=== PATIENT | female | born 1950 | race Caucasian/White ===

== ENCOUNTER → 2019-01-30 | Outpatient (CLI) | payer MEDICARE, OTHER, SELFPAY ==
--- NOTE | 2019-01-30 10:25 | BI_ITS ---
MAMMOGRAPHY - BILATERAL SCREENING REASON FOR EXAM: Female, 68 years old. Routine annual screening examination. PERTINENT HISTORY: Non-contributory. TECHNIQUE: Digital bilateral breast mildred (3D mammographic acquisition) in the CC and MLO projections. 2-D mediolateral oblique (MLO) and craniocaudad (CC) views of both breasts were obtained. CAD: Full Field Digital Mammography with Computer Added Detection was performed. COMPARISON: Comparison is made with prior examination dated November 24, 2017. FINDINGS: Breast Composition: The breasts are heterogeneously dense, which may obscure small masses. There are no dominant masses or suspicious calcifications. No other significant abnormalities are identified. BI/SCREEN MAMM (CAD) W/MILDRED BILAT IMPRESSION: Stable bilateral screening mammogram. Yearly follow-up mammogram recommended. (A) ASSESSMENT CATEGORY: BIRADS Category 1: Negative. A letter regarding these results will be sent to the patient by the facility within 30 days. Approximately 10% of breast cancers are not detected by mammography. A normal mammogram should not delay biopsy of a clinically suspicious abnormality. [id number] Electronically Signed: Miller Charles, at 12:37 EDT , Service support ,
== END | disposition home or self-care (01) ==
LOC: OPBI 10:14
PROVIDERS: Family Provider Family Medicine; PCP Family Medicine; Referring Provider Nurse Practitioner Women's Health; Visit Provider Nurse Practitioner Women's Health
DX: Z12.31 Encounter for screening mammogram for malignant neoplasm of breast (principal)
CPT/HCPCS: 77063; 77067

== ENCOUNTER → 2020-01-31 12:05 | Outpatient (CLI) | payer MEDICARE, OTHER, SELFPAY ==
[2019-01-30 10:51] VITALS: BMI 34.8
[2020-01-31 11:56] VITALS: BMI 34.8
--- NOTE | 2020-01-31 12:07 | BI_ITS ---
MAMMOGRAPHY - BILATERAL SCREENING REASON FOR EXAM: Female, 69 years old. Routine annual screening examination. PERTINENT HISTORY: Non-contributory. TECHNIQUE: Digital bilateral breast mildred (3D mammographic acquisition) in the CC and MLO projections. 2-D mediolateral oblique (MLO) and craniocaudad (CC) views of both breasts were obtained. CAD: Full Field Digital Mammography with Computer Added Detection was performed. COMPARISON: Comparison is made with prior examination dated 01/30/2019. FINDINGS: Breast Composition: The breasts are heterogeneously dense, which may obscure small masses. There are no dominant masses or suspicious calcifications. No other significant abnormalities are identified. There has been no significant change since the prior study. BI/SCREEN MAMM (CAD) W/MILDRED BILAT IMPRESSION: Stable bilateral screening mammogram. Yearly follow-up mammogram recommended. (A) ASSESSMENT CATEGORY: BIRADS Category 1: Negative. A letter regarding these results will be sent to the patient by the facility within 30 days. Approximately 10% of breast cancers are not detected by mammography. A normal mammogram should not delay biopsy of a clinically suspicious abnormality. [id number] Electronically Signed: Miller Charles, at 13:18 EDT , Service support ,
== END ==
PROVIDERS: PCP Family Medicine; Referring Provider Nurse Practitioner Women's Health; Visit Provider Nurse Practitioner Women's Health
DX: Z12.31 Encounter for screening mammogram for malignant neoplasm of breast (principal)
CPT/HCPCS: 77063; 77067

== ENCOUNTER → 2021-02-14 11:58 | Outpatient (CLI) | payer MEDICARE, OTHER, SELFPAY ==
[2020-01-31 11:56] VITALS: BMI 34.8
--- NOTE | 2021-02-14 12:10 | BI_ITS ---
MAMMOGRAPHY - BILATERAL SCREENING REASON FOR EXAM: Female, 70 years old. Routine annual screening examination. PERTINENT HISTORY: Non-contributory. TECHNIQUE: Digital bilateral breast mildred (3D mammographic acquisition) in the CC and MLO projections. 2-D mediolateral oblique (MLO) and craniocaudad (CC) views of both breasts were obtained. CAD: Full Field Digital Mammography with Computer Added Detection was performed. COMPARISON: Comparison is made with prior examination dated 01/31/2020 and 01/30/2019. FINDINGS: Breast Composition: The breasts are heterogeneously dense, which may obscure small masses. There are no dominant masses or suspicious calcifications. No other significant abnormalities are identified. There has been no significant change since the prior study. BI/SCRN MAMM (CAD)W/MILDRED BILAT IMPRESSION: Stable bilateral screening mammogram. Yearly follow-up mammogram recommended. (A) ASSESSMENT CATEGORY: BIRADS Category 1: Negative. A letter regarding these results will be sent to the patient by the facility within 30 days. Approximately 10% of breast cancers are not detected by mammography. A normal mammogram should not delay biopsy of a clinically suspicious abnormality. [id number] Electronically Signed: Miller Charles MD at 13:37 EDT , Service support ,
== END ==
PROVIDERS: PCP Family Medicine; Referring Provider Nurse Practitioner Women's Health; Visit Provider Nurse Practitioner Women's Health
DX: Z12.31 Encounter for screening mammogram for malignant neoplasm of breast (principal)
CPT/HCPCS: 77063; 77067

== ENCOUNTER 2021-04-24 18:24 | Emergency (ER) | payer MEDICARE, OTHER, SELFPAY ==
[2021-04-24 18:25] VITALS: BP 129/79; PULSE 93; RESP 18; TEMP 37.9; O2SAT 95; BMI 32.5
--- NOTE | 2021-04-24 18:36 | RAD_ITS ---
STUDY: X-RAY CHEST REASON FOR EXAM: Female, 71 years old. Fever. Congestion. Headache. UTI symptoms. Generalized weakness and achiness. Dizziness since Wednesday. TECHNIQUE: Single AP portable view of the chest. COMPARISON: None. FINDINGS: The lungs are well expanded. There is scarring in the bilateral lung apices with bronchiectasis. There is a 7 mm rounded density in the left lung base thought to be a calcified granuloma. There is no demonstrated pleural abnormality. Normal size heart. There is right hilar calcified lymphadenopathy. Normal visualized pulmonary arteries. There is atherosclerotic calcification of the aortic arch with tortuosity. Normal visualized thoracic spine. Normal visualized ribs, clavicles, and shoulders. There is no demonstrated abnormality of the visualized soft tissue structures of the upper abdomen. RAD/Chest 1 View IMPRESSION: Evidence of old granulomatous disease with bilateral apical scarring and bronchiectasis. Electronically Signed: aMnn Conn DO at 19:35 EDT Tel [phone], Service support ,
[2021-04-24 19:12] LABS: Mucous, Urine 0 SEEN /hpf (<or=2+)
[2021-04-24 19:15] LABS: Color, Urine Yellow (Yellow); Glucose, Dipstick Normal (Normal); Ketone-Dipstick Negative (Negative); Leukocyte Esterase-Dipstick 500 /ul (Negative); Nitrite-Dipstick Negative (Negative); Occult Blood-Urine 25 /ul (Negative); Protein-Dipstick 500 mg/dl (Negative); Urine Bilirubin Dipstick Negative (Negative); Urine Clarity Clear (Clear); Urine Urobilinogen 4 mg/dl (Normal)
[2021-04-24 19:32] LABS: Bacteria 2+ /hpf (None Seen); Red Blood Cells-Urine 0-5 SEEN /hpf (0-5); White Blood Cells 25-50 SEEN /hpf (0-5)
[2021-04-24 19:33] LABS: Squamous Epithelial Cells - UA 0-5 SEEN /hpf (5-10)
[2021-04-24 20:43] VITALS: BP 127/65; PULSE 83; RESP 17; O2SAT 97
[2021-04-24 21:38] LABS: Absolute Lymphocyte Count 1.25 X10^3/uL (0.83-4.51); Absolute Neutrophil Count 11.4 X10^3/uL (2.0-7.7); Basophil# 0.06 X10^3/uL; Basophil% 0.4 % (0-1); Eosinophil# 0.12 X10^3/uL; Eosinophils% 0.8 % (0-5); Hematocrit 40.2 % (37-47); Hemoglobin 13.6 g/dL (12.0-15.0); Lymphocyte # 1.25 X10^3/ul (0.83-4.51); Lymphocyte % 8.5 % (19-41); Mean Corp Hgb Conc 33.8 g/dL (32-36); Mean Corpuscular Hgb 28.9 pg (27.0-32.0); Mean Corpuscular Volume 85.4 fL (81-99); Mean Platelet Vol. 10.4 fl (6.2-12.0); Monocyte# 1.69 X10^3/uL; Monocyte% 11.5 % (0-10); NRBC Flagged by Analyzer 0 % (0-5); Neutrophil # 11.41 X10^3/uL (2.7-7.7); Neutrophil % 77.8 % (47-70); POSITIVE DIFFERENTIAL YES; Platelet Count 351 K/mm3 (150-450); RBC Distribution Width CV 12.9 % (11.6-14.6); RBC Distribution Width SD 40.5 fl (35.1-43.9); Red Blood Count 4.71 M/mm3 (4.2-5.4); White Blood Count 14.7 K/mm3 (4.4-11.0)
[2021-04-24] MEDS: 0.9% Normal Saline 1,000 ML 999 ML IV (21:42)
[2021-04-24] MEDS: Ketorolac 15 MG/ML Vial IV (21:42)
[2021-04-24] MEDS: Acetaminophen 500 MG Tablet 1000 MG PO (21:43)
[2021-04-24 21:45] LABS: Anion Gap 12 (5-15); BUN 16 mg/dL (7-18); BUN/Creat Ratio 14.7 RATIO (10-20); Calcium,Total 8.4 mg/dL (8.5-10.1); Chloride 87 mmol/L (98-107); Creatinine, Serum 1.09 mg/dL (0.55-1.02); Differential Indicated SCAN CRITERIA MET; EST Glomerular Filtration Rate 53 mL/min (>60); Est Glom Filt Rate - Afr Amer 64 mL/min (>60); Estimated Creatinine Clearance 43.21 ml/min; Glucose 127 mg/dL (74-106); Potassium 2.9 mmol/L (3.5-5.1); Sodium Level 125 mmol/L (136-145)
[2021-04-24 22:05] LABS: Differential Comment SCANNED
[2021-04-24 22:11] VITALS: BP 115/60; PULSE 70; RESP 18; O2SAT 92
[2021-04-24] MEDS: Ceftriaxone 1 GM/50 ML BAG IV (22:15)
--- NOTE | 2021-04-24 22:33 | EX.ED.DYSGE1 ---
HPI History of Present Illness Chief Complaint: Fever Narrative Narrative: Patient is a 71-year-old female who states for the past 4 to 5 days she has had subjective fevers and chills with nausea pressure with urination myalgias and headache. She denies any known sick contacts or concern for Covid but states that her symptoms seem to be worsening daily and secondary to this comes in for evaluation [facility] Medical History (Updated 04/24/21 @ 22:[address] Gordon Jimenez, DO) Heartburn History of pneumonia Hot flashes not due to menopause HTN (hypertension), benign Hypothyroid Indigestion Joint pain Phlebitis, superficial Sarcoidosis Second degree uterine prolapse Home Medications albuterol sulfate 90 mcg/actuation aerosol inhaler 2 puff INHALATION Q6H PRN 12/31/17 [History Last Taken Unknown] chlorthalidone 25 mg tablet 25 mg PO QDAY 12/31/17 [History Last Taken Unknown] levothyroxine 50 mcg capsule 50 mcg PO QDAY 12/31/17 [History Last Taken Unknown] omeprazole 40 mg capsule,delayed release 40 mg PO QDAY 12/31/17 [History Last Taken Unknown] tobramycin 0.3 % eye drops 2 drp OPHTHALMIC Q4H 12/31/17 [History Last Taken Unknown] estradiol 0.05 mg-norethindrone 0.14 mg/24 hr semiwkly transderm patch 1 patch TRANSDERMAL .COMPLEX #8 patch 01/31/20 [Rx Last Taken Unknown] amlodipine 2.5 mg PO DAILY 04/24/21 [History Last Taken Unknown] potassium chloride 10 meq PO DAILY #5 cap 04/24/21 [Rx Last Taken Unknown] sulfamethoxazole-trimethoprim [Bactrim DS] 1 tab PO BID #20 tab 04/24/21 [Rx Last Taken Unknown] Allergy/AdvReac Type Severity Reaction Status Date / Time No Known Allergies Allergy Verified 04/24/21 18:24 Family History Mother Cancer Thyroid Cancer Diabetes Hypertension Father , Age 33 Complications from gastric surgery No problems noted. Sister CHF (congestive heart failure) Rheumatoid arthritis Brother Myocardial infarction Hypertension CAD (coronary artery disease) Surgical History H/O breast biopsy H/O dilation and curettage H/O laparoscopic adjustable gastric banding H/O ovarian cystectomy H/O tubal ligation History of cholecystectomy History of lung biopsy History of tonsillectomy Varicose veins of bilateral lower extremities with pain Social History (Updated 01/31/20 @ 13:14 by Margy Marroquin NP, [employer]) [facility]: [facility] number of children: 3 current occupational status: retired 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 [employer] current occupational exposures/hazards: No pets and animals: No history of recent travel: No Smoking Status: Never smoker second hand exposure: No alcohol intake: never substance use type: does not use seatbelt use: always do you feel safe at home: Yes additional social history: ROS ROS ED Constitutional Constitutional ED: Reports chills, fever(s) and subjective ENT ENT ED: Denies sore throat Cardiovascular Cardiovascular: Denies chest pain Respiratory/Chest Respiratory/Chest: Denies cough or dyspnea Gastrointestinal Gastrointestinal: Reports nausea; Denies abdominal pain, diarrhea or vomiting Genitourinary Genitourinary ED: Reports dysuria Musculoskeletal Musculoskeletal: Reports myalgias Integumentary Denies rash Neurologic Neurologic: Reports headache(s) Hematologic/Lymphatic Hematologic/Lymphatic: Denies easy bleeding or easy bruising EXAM Physical Exam Const Vital Signs: 04/24/21 18:25 04/24/21 20:38 04/24/21 20:43 Temperature 100.2 F H Temperature Source Temporal Pulse Rate 93 83 Respiratory Rate 18 17 Respiratory Effort Normal Non-Labored Respiratory Pattern Normal Blood Pressure 129/79 H 127/65 H Blood Pressure Mean 95 85 Pulse Ox 95 97 Oxygen Delivery Method Room Air Room Air 04/24/21 22:11 Temperature Temperature Source Pulse Rate 70 Respiratory Rate 18 Respiratory Effort Respiratory Pattern Blood Pressure 115/60 Blood Pressure Mean 78 Pulse Ox 92 Oxygen Delivery Method Room Air Positive well nourished and well developed General Appearance ED: well developed HEENT Reports dry mucous membranes Mouth ED: Yes dry mucous membranes Mouth: dry mucous membranes Eyes PERRL and EOMs intact bilaterally Neck supple Resp normal respiratory effort and clear to auscultation bilaterally Cardio regular rate and regular rhythm GI non-distended GI Narrative: Mild pain with palpation in the suprapubic region otherwise no voluntary guarding or rigidity Auscultation: normoactive bowel sounds Palpation: soft Back/Spine Back/Spine Narrative: Patient has CVA tenderness around the right side Extremity normal to inspection Neuro oriented x3 and CN's II-XII intact bilaterally Sensorium / Orientation: alert Motor Exam: strength 5/5 throughout Psych mental status grossly normal Skin no rashes or lesions noted MDM MDM MDM Narrative Medical decision making narrative: Patient presented to the ER with a low-grade fever and otherwise had a soft nonsurgical abdomen. She reported some pressure with urination as well as right flank pain and with these concerns and the fever patient may have pyelonephritis so basic work-up was obtained. Chest x-ray revealed no obvious infiltrate Covid test is negative. Urine sample is positive for infection and with her flank pain this does qualify for pyelonephritis. Patient's white count is elevated at 14.7 but her lactic acid is normal and her blood pressure has been normotensive. Therefore at this time I do not feel there is a need for admission and she will be given Rocephin in the ER and placed on Bactrim but can be discharged pending urine culture at this time. Lab Data Attestation: I reviewed the patient's lab results. Labs: Laboratory Results - last 24 hr 04/24/21 04/24/21 04/24/21 20:35 20:35 20:35 WBC 14.7 H RBC 4.71 Hgb 13.6 Hct 40.2 MCV 85.4 MCH 28.9 MCHC 33.8 RDW Std Deviation 40.5 RDW Coeff of Janet 12.9 Plt Count 351 MPV 10.4 Immature Gran % (Auto) 1.000 H Neut % (Auto) 77.8 H Lymph % (Auto) 8.5 L [place] % (Auto) 11.5 H Eos % (Auto) 0.8 Baso % (Auto) 0.4 Absolute Neuts (auto) 11.4 H Absolute Lymphs (auto) 1.25 Nucleated RBC % 0 Differential Comment SCANNED Diff Path Review May foll Sodium 125 L Potassium 2.9 L Chloride 87 L Carbon Dioxide 26.0 Anion Gap 12 BUN 16 Creatinine 1.09 H Estim Creat Clear Calc 43.21 Est GFR (MDRD) Af Amer 64 Est GFR (MDRD) Non-Af 53 L BUN/Creatinine Ratio 14.7 Glucose 127 H Lactic Acid 1.0 Calcium 8.4 L Urine Color Urine Clarity Urine pH Ur Specific [place] Urine Protein Urine Glucose (UA) Urine Ketones Urine Occult Blood Urine Nitrite Urine Bilirubin Urine Urobilinogen Ur Leukocyte Esterase Urine RBC Urine WBC Ur Squamous Epith Cells Urine Bacteria Urine Mucus 04/24/21 Unknown WBC RBC Hgb Hct MCV MCH MCHC RDW Std Deviation RDW Coeff of Janet Plt Count MPV Immature Gran % (Auto) Neut % (Auto) Lymph % (Auto) [place] % (Auto) Eos % (Auto) Baso % (Auto) Absolute Neuts (auto) Absolute Lymphs (auto) Nucleated RBC % Differential Comment Diff Path Review Sodium Potassium Chloride Carbon Dioxide Anion Gap BUN Creatinine Estim Creat Clear Calc Est GFR (MDRD) Af Amer Est GFR (MDRD) Non-Af BUN/Creatinine Ratio Glucose Lactic Acid Calcium Urine Color Yellow Urine Clarity Clear Urine pH 7.0 Ur Specific [place] 1.010 Urine Protein 500 H Urine Glucose (UA) Normal Urine Ketones Negative Urine Occult Blood 25 H Urine Nitrite Negative Urine Bilirubin Negative Urine Urobilinogen 4 H Ur Leukocyte Esterase 500 H Urine RBC 0-5 SEEN Urine WBC 25-50 SEEN Ur Squamous Epith Cells 0-5 SEEN Urine Bacteria 2+ Urine Mucus 0 SEEN Radiography Diagnostic Testing: Clinical Impression(s) from Imaging Studies Chest X-Ray 04/24/21 18:36 IMPRESSION: Evidence of old granulomatous disease with bilateral apical scarring and bronchiectasis. Electronically Signed: Mann Conn DO at 19:35 EDT Tel [phone], Service support , Discharge Plan Triage Chief Complaint: Fever ED Provider: Gordon Jimenez Dx/Rx/DC Orders Clinical Impression: Acute pyelonephritis, Acute hypokalemia Instructions: ED Hypokalemia, ED Pyelonephritis, Female (Adult) Prescriptions: New sulfamethoxazole-trimethoprim [Bactrim DS] 800-160 mg tablet 1 tab PO BID Qty: 20 RF: 0 potassium chloride 10 mEq capsule, extended release 10 meq PO DAILY Qty: 5 RF: 0 No Action albuterol sulfate [ProAir HFA] 90 mcg/actuation HFA aerosol inhaler 2 puff INHALATION Q6H PRN (Reason: sob) RF: 0 chlorthalidone 25 mg tablet 25 mg PO QDAY RF: 0 levothyroxine 50 mcg capsule 50 mcg capsule 50 mcg PO QDAY RF: 0 omeprazole 40 mg capsule,delayed release(DR/EC) 40 mg PO QDAY RF: 0 tobramycin 0.3 % drops 2 drp OPHTHALMIC Q4H RF: 0 CombiPatch 0.05-0.14 mg/24 hr patch semiweekly 1 patch Transdermal .COMPLEX Qty: 8 RF: 12 amlodipine 2.5 mg tablet 2.5 mg PO DAILY RF: 0 Primary Care Provider: Akhil Martines Referrals: Akhil Martines MD [Primary Care Provider] - Disposition Disposition: Home, Self Care
[2021-04-24] MEDS: Potassium Chloride Oral Tablet 20 MEQ 40 MEQ PO (22:48)
[2021-04-24 23:28] VITALS: BP 131/63; PULSE 69; RESP 16; O2SAT 95
[2021-04-25 13:22] LABS: Pathologist Review Reviewed
== END 2021-04-24 23:32 | disposition home or self-care (01) ==
PROVIDERS: Emergency Provider Emergency Medicine; PCP Family Medicine
DX: N10 Acute pyelonephritis (principal); E87.6 Hypokalemia; I10 Essential (primary) hypertension; E03.9 Hypothyroidism, unspecified; Z79.899 Other long term (current) drug therapy
CPT/HCPCS: 71045; 80048; 81001; 83605; 85025; 87077; 87086; 87088; 87186; 87426; 96361; 96365; 96375; 99284; J7030; A4216

== ENCOUNTER 2021-05-23 14:48 | Emergency (ER) | payer MEDICARE, OTHER, SELFPAY ==
[2021-05-23 14:51] VITALS: BP 153/83; PULSE 86; RESP 16; TEMP 35.8; O2SAT 99; BMI 32.4
--- NOTE | 2021-05-23 16:07 | VDLE_ITS ---
Reason For Study: Swelling RIGHT GSV is normal. CFV is compressible, spontaneous, phasic, competent and demonstrates normal augmentation. FV is compressible, spontaneous, phasic, competent and demonstrates normal augmentation. POP V is compressible, spontaneous, phasic, competent and demonstrates normal augmentation. T/P Trunk is compressible. PTV is compressible. RT PerV is compressible. Procedure This is a venous duplex using B-mode, color flow and spectral Doppler. Exam performed portable in ED. FV mid-distal visualized with color only, pt unable to tolerate compression,. A preliminary report was called and/or faxed to [facility]. VL/Venous Duplex US, Unilateral Interpretation Summary There is no evidence of right lower extremity deep vein thrombosis. Right great saphenous vein appears patent and compressible segmentally. Limitation noted on right mid-dist al femoral vein investigation Ordering Physician: Markel Jacob Referring Physician: Quirino Martines Performed By: Chrissy Dunbar RVT
--- NOTE | 2021-05-23 16:07 | ED.VIS.LOWEX ---
HPI History of Present Illness Chief Complaint: Lower Extremity Injury Narrative Narrative: 71-year-old female currently on estradiol tablets daily for hot flashes by her [employer] Dr. Molina presenting for right leg swelling. Patient states it was worse yesterday. Swelling is gone down today. She states that she does no history of DVT/PE. She is not having chest pain or shortness of breath. She states that she called her [employer] and was told to come to the ER for an ultrasound to prove she does not have a blood clot. Patient is ambulatory. She denies any direct trauma. [facility] Medical History Heartburn History of pneumonia Hot flashes not due to menopause HTN (hypertension), benign Hypothyroid Indigestion Joint pain Phlebitis, superficial Sarcoidosis Second degree uterine prolapse Home Medications albuterol sulfate 90 mcg/actuation aerosol inhaler 2 puff INHALATION Q6H PRN 12/31/17 [History Last Taken Unknown] chlorthalidone 25 mg tablet 25 mg PO QDAY 12/31/17 [History Last Taken Unknown] levothyroxine 50 mcg capsule 50 mcg PO QDAY 12/31/17 [History Last Taken Unknown] omeprazole 40 mg capsule,delayed release 40 mg PO QDAY 12/31/17 [History Last Taken Unknown] tobramycin 0.3 % eye drops 2 drp OPHTHALMIC Q4H 12/31/17 [History Last Taken Unknown] amlodipine 2.5 mg PO DAILY 04/24/21 [History Last Taken Unknown] potassium chloride 10 meq PO DAILY #5 cap 04/24/21 [Rx Last Taken Unknown] estradiol 0.05 mg-norethindrone 0.14 mg/24 hr semiwkly transderm patch 1 patch TRANSDERMAL .COMPLEX #8 patch 04/28/21 [Rx Last Taken Unknown] nitrofurantoin macrocrystal 25 mg capsule 50 mg PO Q12H 04/28/21 [History Last Taken Unknown] estradiol 0.5 mg tablet 0.5 mg PO DAILY #90 tab 05/08/21 [Rx Last Taken Unknown] medroxyprogesterone 2.5 mg tablet 2.5 mg PO DAILY #90 tab 05/08/21 [Rx Last Taken Unknown] Allergy/AdvReac Type Severity Reaction Status Date / Time No Known Allergies Allergy Verified 05/23/21 14:51 Family History Mother Cancer Thyroid Cancer Diabetes Hypertension Father , Age 33 Complications from gastric surgery No problems noted. 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 [employer] current occupational exposures/hazards: No pets and animals: No history of recent travel: No Smoking Status: Never smoker second hand exposure: No alcohol intake: never substance use type: does not use seatbelt use: always do you feel safe at home: Yes additional social history: ROS ROS ED Constitutional Constitutional ED: Denies chills or fever(s) Eyes Eyes: Denies blurry vision or change in vision ENT ENT ED: Denies rhinorrhea or sore throat Cardiovascular Cardiovascular: Denies chest pain or palpitations Respiratory/Chest Respiratory/Chest: Denies cough or dyspnea Gastrointestinal Gastrointestinal: Denies abdominal pain, nausea or vomiting Genitourinary Genitourinary ED: Denies dysuria or hematuria Musculoskeletal Musculoskeletal: Reports other Details: Right leg swelling ; Denies arthralgias or myalgias Integumentary Denies abscess or rash Neurologic Neurologic: Denies headache(s) or paresthesias EXAM Physical Exam Const Vital Signs: 05/23/21 14:51 05/23/21 16:46 Temperature 96.5 F L Temperature Source Temporal Pulse Rate 86 68 Respiratory Rate 16 15 Blood Pressure 153/83 H 132/74 H Blood Pressure Mean 106 Pulse Ox 99 98 Oxygen Delivery Method Room Air Positive well nourished General Appearance ED: NAD HEENT Reports moist mucous membranes normocephalic and atraumatic Eyes PERRL Resp normal respiratory effort and clear to auscultation bilaterally Cardio regular rate and regular rhythm Extremity Extremity Narrative: Right lower extremity does not have pitting edema. No cords palpated. 2+ pulses. Neuro oriented x3 Sensorium / Orientation: alert Psych mental status grossly normal Skin No no wounds Lesions: No no lesions Rashes: No no rashes MDM MDM MDM Narrative Medical decision making narrative: DVT study is obtained of the right lower extremity. This is negative for DVT. Patient counseled on this. She will talk to her [employer] about switching back from oral estradiol to patches. Patient discharged home in stable condition. Impression: 1. Right leg swelling Discharge Plan Triage Chief Complaint: Lower Extremity Injury ED Provider: Markel Jacob Dx/Rx/DC Orders Instructions: ED Peripheral Edema, Unilateral Prescriptions: No Action albuterol sulfate [ProAir HFA] 90 mcg/actuation HFA aerosol inhaler 2 puff INHALATION Q6H PRN (Reason: sob) RF: 0 chlorthalidone 25 mg tablet 25 mg PO QDAY RF: 0 levothyroxine 50 mcg capsule 50 mcg capsule 50 mcg PO QDAY RF: 0 omeprazole 40 mg capsule,delayed release(DR/EC) 40 mg PO QDAY RF: 0 tobramycin 0.3 % drops 2 drp OPHTHALMIC Q4H RF: 0 nitrofurantoin macrocrystal 25 mg capsule 50 mg PO Q12H RF: 0 CombiPatch 0.05-0.14 mg/24 hr patch semiweekly 1 patch Transdermal .COMPLEX Qty: 8 RF: 6 amlodipine 2.5 mg tablet 2.5 mg PO DAILY RF: 0 potassium chloride 10 mEq capsule, extended release 10 meq PO DAILY Qty: 5 RF: 0 estradiol 0.5 mg tablet 0.5 mg PO DAILY Qty: 90 RF: 0 medroxyprogesterone 2.5 mg tablet 2.5 mg PO DAILY Qty: 90 RF: 0 Primary Care Provider: Akhil Martines Referrals: Akhil Martines MD [Primary Care Provider] - Disposition Disposition: Home, Self Care Discharge Date/Time: 05/23/21 16:49
[2021-05-23 16:46] VITALS: BP 132/74; PULSE 68; RESP 15; O2SAT 98
== END 2021-05-23 16:49 | disposition home or self-care (01) ==
PROVIDERS: Emergency Provider Student in an Organized Health Care Education/Training Program; PCP Family Medicine
DX: M79.89 Other specified soft tissue disorders (principal); I10 Essential (primary) hypertension; E03.9 Hypothyroidism, unspecified; Z79.899 Other long term (current) drug therapy
CPT/HCPCS: 93971; 99282

== ENCOUNTER → 2023-06-29 | Outpatient (CLI) | payer MEDICARE, OTHER, SELFPAY ==
--- OUTSIDE RECORDS SUMMARY | 2023-06-29 09:53 | XMS RPT_ITS | CCD ---
Author Name Unknown Address [address] [place] [address] Organization [facility] Care Team Providers Care Personal Injury Paralegal Name Role Phone Jere Martines MD Primary Care Provider JERE MARTINES Primary Care Unavailab JERE Etienne Referring Unavailab le LEMON, DENISE Attending Unavailable JERE MARTINES Primary Care Unavailab JERE Etienne Referring Unavailab le LEMON, DENISE Attending Unavailable JERE MARTINES Primary Care Unavailab JERE Etienne Attending Unavailab JERE Etienne Attending Unavailab JERE Etienne Primary Care Unavailab JERE Etienne Referring Unavailab le LEMON, DENISE Attending Unavailable JERE MARTINES Primary Care Unavailab JERE Etienne Primary Care Unavailab JERE Etienne Referring Unavailab le LEMON, DENISE Attending Unavailable JERE MARTINES Referring Unavailab JERE Etienne Primary Care Unavailab le LEMON, DENISE Attending Unavailable JERE MARTINES Primary Care Unavailab JERE Etienne Referring Unavailab le LEMON, DENISE Attending Unavailable JERE MARTINES Primary Care Unavailab JERE Etienne Attending Unavailab JERE Etienne Primary Care Unavailab JERE Etienne Referring Unavailab JERE Etienne Primary Care Unavailab JERE Etienne Referring Unavailab JERE Etienne Primary Care Unavailab le PODLOGAYSHA STODDARD Attending Unavailable JERE MARTINES Primary Care Unavailab le PODLOGARAYSHA Referring Unavailable JERE MARTINES Primary Care Unavailab JERE Etienne Referring Unavailab JERE Etienne Primary Care Unavailab JERE Etienne Referring Unavailab JERE Etienne Primary Care Unavailab sixto WENDY MCLEAN Attending Unavailable JERE MARTINES Primary Care Unavailab JERE Etienne Referring Unavailab le LEMON, DENISE Attending Unavailable JERE MARTINES Attending Unavailab JERE Etienne Primary Care Unavailab JERE Etienne Referring Unavailab JERE Etienne Primary Care Unavailab JERE Etienne Primary Care Unavailab JERE Etienne Attending Unavailab JERE Etienne Referring Unavailab JERE Etienne Primary Care Unavailab JERE Etienne Primary Care Unavailab JERE Etienne Referring Unavailab le LEMON, DENISE Attending JERE Salas Referring Unavailab JERE Etienne Primary Care Unavailab le LEMON, DENISE Attending Unavailable JERE MARTINES Primary Care Unavailab JERE Etienne Referring Unavailab le LEMON, DENISE Attending Unavailable Allergies Allergy Classification Reported Allergen(s) Allergy Type Date of Onset Reaction(s) Facility (20 sources) Seasonal allergy; Translations: [SEASONAL ALLERGIES] Allergy to substance Other: See Comments [facility] Medications Current Medications Medication Drug Class(es) Dates Sig (Normalized) Sig (Original) atorvastatin 20 mg oral tablet (1 source) HMG-CoA Reductase Inhibitor Start: 06-17-2023 End: 09-15-2023 take 1 tablet by mouth once daily at bedtime for hyperlipidemia atorvastatin (LIPITOR) 20 mg tablet Take 1 tablet by mouth daily at bedtime. For cholesterol. 30 tablet 2 06/17/2023 09/15/2023 Active Completed/Discontinued Medications Medication Drug Class(es) Dates Sig (Normalized) Sig (Original) [id number] 200 actuat albuterol 0.09 mg/actuat metered dose inhaler (20 sources) beta2-Adrenergic Agonist Start: 07-03-2020 End: 09-07-2022 take 2 puff(s) by inhalation every four hours as needed albuterol HFA (PROAIR HFA) 90 mcg/actuation inhaler Inhale 2 Puffs as instructed every 4 hours as needed. 18 g 1 09/07/2022 Active Problems Active Problems Problem Classification Problem Date Documented Da te Episodic/Chronic Cardiac dysrhythmias (20 sources) Paroxysmal supraventricular tachycardia; Translations: [Supraventricular tachycardia] Onset: 1 11-28-2020 Chronic Chronic obstructive pulmonary disease and bronchiectasis (20 sources) Bronchiectasis; Translations: [Bronchiectasis, uncomplicated] Onset: 9 06-05-2019 Chronic Conduction disorders (20 sources) First degree atrioventricular block; Translations: [Atrioventricular block, first degree] Onset: 1 11-28-2020 Chronic Esophageal disorders (20 sources) Gastroesophageal reflux disease; Translations: [Gastro-esophageal reflux disease without esophagitis] 11-12-2017 Chronic Essential hypertension (20 sources) Essential hypertension; Translations: [Essential (primary) hypertension] Onset: 2 11-28-2020 Chronic Immunity disorders (20 sources) Pulmonary sarcoidosis; 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] Onset: 8 11-12-2017 Chronic Immunizations and screening for infectious disease (1 source) Encounter for immunization; Translations: [Encounter for immunization] Onset: 3 Episodic Neoplasms of unspecified nature or uncertain behavior (20 sources) Thrombocytosis; Translations: [Essential (hemorrhagic) thrombocythemia] Onset: 2 01-29-2022 Chronic Nutritional deficiencies (20 sources) Vitamin D deficiency; Translations: [Vitamin D deficiency, unspecified] Onset: 8 11-12-2017 Chronic Other diseases of veins and lymphatics (20 sources) Lymphedema; Translations: [Lymphedema, not elsewhere classified] Onset: 3 Chronic Other diseases of veins and lymphatics (1 source) Lymphedema, not elsewhere classified; Translations: [Lymphedema] Onset: 3 Chronic Other eye disorders (1 source) Disorder of eye; Translations: [Other specified disorders of eye and adnexa] 02-08-2023 Episodic Other lower respiratory disease (2 sources) Productive cough ; Translations: [Productive cough] Onset: 3 04-09-2023 Episodic Other nervous system disorders (1 source) Antalgic gait; Translations: [Other abnormalities of gait and mobility] 05-26-2023 Episodic Other nervous system disorders (1 source) Other abnormalities of gait and mobility; Translations: [Antalgic gait] Onset: 3 Episodic Other non-traumatic joint disorders (16 sources) Hip pain; Translations: [Pain in right hip] Onset: 2 Episodic Other non-traumatic joint disorders (1 source) Pain in right hip; Translations: [Bilateral hip pain] Onset: 3 Episodic Other non-traumatic joint disorders (1 source) Pain in left hip; Translations: [Bilateral hip pain] Onset: 3 Episodic Other nutritional; endocrine; and metabolic disorders (13 sources) Obese class I; Translations: [Obesity, unspecified] 11-12-2017 Chronic Other nutritional; endocrine; and metabolic disorders (20 sources) Obesity; Translations: [Obesity, unspecified] 01-29-2022 Chronic Phlebitis; thrombophlebitis and thromboembolism (7 sources) Thrombophlebitis of superficial vein of left lower limb; Translations: [Phlebitis and thrombophlebitis of superficial vessels of left lower extremity] Onset: 3 Episodic Residual codes; unclassified (20 sources) Flushing; Translations: [Flushing] 11-12-2017 Episodic Residual codes; unclassified (1 source) Bilateral lower limb edema; Translations: [Localized edema] Episodic Thyroid disorders (20 sources) Hypothyroidism; Translations: [Hypothyroidism, unspecified] Onset: 8 11-12-2017 Chronic Past or Other Problems Problem Classification Problem Date Documented Da te Episodic/Chronic Other bone disease and musculoskeletal deformities (20 sources) Postmenopausal osteopenia; Translations: [Other specified disorders of bone density and structure, unspecified site] Onset: 07-09-2020 07-09-2020 Episodic Other eye disorders (1 source) Other specified disorders of eye and adnexa; Translations: [Irritation of eye] Onset: 02-08-2023 Episodic Other screening for suspected conditions (not mental disorders or infectious disease) (5 sources) Patient encounter status; Translations: [Encounter for screening mammogram for malignant neoplasm of breast] Onset: 02-08-2023 Episodic Pneumonia (except that caused by tuberculosis or sexually transmitted disease) (13 sources) Infective pneumonia; Translations: [Pneumonia, unspecified organism] Onset: 02-25-2018 02-25-2018 Episodic Varicose veins of lower extremity (20 sources) Varicose vein of leg with phlebitis; Translations: [Varicose veins of right lower extremity with inflammation] Onset: 09-22-2022 Episodic Results Test Name Value Interpretation Reference Range Facil ity Vital Signs Date Time Vital Sign Value Performing Clinician Faci lity 2023 15:51-0400 Body temperature 97.39 [degF] Jere Martines MD Work Phone: [facility] 2023 15:51-0400 Body weight 93.35 kg Jere Martines MD Work Phone: [facility] 2023 15:51-0400 Diastolic blood pressure 72 mm[Hg] Jere Martines MD Work Phone: [facility] 2023 15:51-0400 Heart rate 91 /min Jere Martines MD Work Phone: [facility] 2023 15:51-0400 Respiratory rate 18 /min Jere Martines MD Work Phone: [facility] 2023 15:51-0400 SaO2% (BldA) [Mass fraction] 96 % Jere Martines MD Work Phone: [facility] 2023 15:51-0400 Systolic blood pressure 116 mm[Hg] Jere Martines MD Work Phone: [facility] 04-09-2023 11:10-0400 Body temperature 98.49 [degF] Jere Martines MD Work Phone: [facility] 04-09-2023 11:10-0400 Diastolic blood pressure 74 mm[Hg] Jere Martines MD Work Phone: [facility] 04-09-2023 11:10-0400 Heart rate 70 /min Jere Martines MD Work Phone: [facility] 04-09-2023 11:10-0400 Respiratory rate 18 /min Jere Martines MD Work Phone: [facility] 04-09-2023 11:10-0400 SaO2% (BldA) [Mass fraction] 97 % Jere Martines MD Work Phone: [facility] 04-09-2023 11:10-0400 Systolic blood pressure 122 mm[Hg] Jere Martines MD Work Phone: [facility] 02-08-2023 11:43-0400 Body weight 91.9 kg Aysha Podlogar [employer] SAL[employer]LING SYSTEM IRRIGATOR Work Phone: [facility] 02-08-2023 11:43-0400 Diastolic blood pressure 70 mm[Hg] Aysha Podlogar RETAIL SALES MERCH[employer].SPRINKLING SYSTEM IRRIGATOR Work Phone: [facility] 02-08-2023 11:43-0400 Heart rate 82 /min Aysha Podlogar RETAIL SALES MERCHANDISER.SPRINKLING SYSTEM IRRIGATOR Work Phone: [facility] 02-08-2023 11:43-0400 Respiratory rate 18 /min Aysha Podlogar RETAIL SALES MERCH[employer].SPRINKLING SYSTEM IRRIGATOR Work Phone: [facility] 02-08-2023 11:43-0400 SaO2% (BldA) [Mass fraction] 94 % Aysha Podlogar RETAIL SALES MERCH[employer].SPRINKLING SYSTEM IRRIGATOR Work Phone: [facility] 02-08-2023 11:43-0400 Systolic blood pressure 124 mm[Hg] Aysha Podlogar RETAIL SALES [employer]CH[employer].SPRINKLING SYSTEM IRRIGATOR Work Phone: [facility] 10-30-2022 11:07-0400 Body weight 92.99 kg Jere Martines MD Work Phone: [facility] 10-30-2022 11:07-0400 Diastolic blood pressure 74 mm[Hg] Jere Martines MD Work Phone: [facility] 10-30-2022 11:07-0400 Heart rate 73 /min Jere Martines MD Work Phone: [facility] 10-30-2022 11:07-0400 Respiratory rate 16 /min Jere Martines MD Work Phone: [facility] 10-30-2022 11:07-0400 SaO2% (BldA) [Mass fraction] 96 % Jere Martines MD Work Phone: [facility] 10-30-2022 11:07-0400 Systolic blood pressure 124 mm[Hg] Jere Martines MD Work Phone: [facility] 10-26-2022 11:00-0400 Diastolic blood pressure 80 mm[Hg] Denise Lemon PT [facility] 10-26-2022 11:00-0400 Systolic blood pressure 130 mm[Hg] Denise Lemon PT [facility] 09-22-2022 10:59-0400 Body weight 92.9 kg Jere Martines MD Work Phone: [facility] 09-22-2022 10:59-0400 Diastolic blood pressure 70 mm[Hg] Jere Martines MD Work Phone: [facility] 09-22-2022 10:59-0400 Heart rate 72 /min Jere Martines MD Work Phone: [facility] 09-22-2022 10:59-0400 Respiratory rate 18 /min Jere Martines MD Work Phone: [facility] 09-22-2022 10:59-0400 SaO2% (BldA) [Mass fraction] 97 % Jere Martines MD Work Phone: [facility] 09-22-2022 10:59-0400 Systolic blood pressure 122 mm[Hg] Jere Martines MD Work Phone: [facility] 03-05-2022 13:20-0400 Diastolic blood pressure 74 mm[Hg] Mi Nurse Work Phone: [facility] 03-05-2022 13:20-0400 Heart rate 79 /min Mi Nurse Work Phone: [facility] 03-05-2022 13:20-0400 Systolic blood pressure 118 mm[Hg] Mi Nurse Work Phone: [facility] 02-02-2022 11:01-0400 Body weight 88.91 kg Jere Martines MD Work Phone: [facility] 02-02-2022 11:01-0400 Diastolic blood pressure 66 mm[Hg] Jere Martines MD Work Phone: [facility] 02-02-2022 11:01-0400 Heart rate 78 /min Jere Martines MD Work Phone: [facility] 02-02-2022 11:01-0400 Respiratory rate 16 /min Jere Martines MD Work Phone: [facility] 02-02-2022 11:01-0400 SaO2% (BldA) [Mass fraction] 97 % Jere Martines MD Work Phone: [facility] 02-02-2022 11:01-0400 Systolic blood pressure 122 mm[Hg] Jere Martines MD Work Phone: [facility] 10-01-2021 16:29-0400 Body weight 90.72 kg Jere Martines MD Work Phone: [facility] 10-01-2021 16:29-0400 Diastolic blood pressure 70 mm[Hg] Jere Martines MD Work Phone: [facility] 10-01-2021 16:29-0400 Heart rate 84 /min Jere Martines MD Work Phone: [facility] 10-01-2021 16:29-0400 Respiratory rate 12 /min Jere Martines MD Work Phone: [facility] 10-01-2021 16:29-0400 Systolic blood pressure 132 mm[Hg] Jere Martines MD Work Phone: [facility] Encounters Encounter Date Encounter Type Care Provider Facility Start: 06-17-2023 Telephone encounter Akhil Martines MD Work Phone: [facility] [place] Procedures Date Procedure Procedure Detail Performing Clinician Start: 02-12-2023 Lipid 1996 panel - S connie or Plasma Jere Martines MD Work Phone: Start: 03-09-2022 Mammography Mammograph y Coordinator Start: 04-28-2021 Adult depression screening assessment Jere Martines MD Work Phone: Start: 02-14-2021 Mammography Akhil Martines MD Work Phone: Start: 11-09-2018 Colonoscopy Akhil Martines MD Work Phone: Plan of Treatment Date Care Activity Detail Author Start: 11-09-2028 Colonoscopy COLONOSCOPY [facility] Start: 11-09-2028 COLORECTAL CANCER SCREENING COLORECTAL CANCER SCREENING [facility] Start: 11-09-2028 Screening for malign ant neoplasm of colon [facility] Start: 05-04-2028 Urine microalbumin profile [facility] Start: 02-13-2028 Lipid 1996 panel - S connie or Plasma Lipid Screening [facility] Start: 02-13-2028 Lipid panel Lipid Screening [facility] Start: 02-12-2026 Diabetes Screening Diabetes Screenin g [facility] Start: 07-01-2025 LIPID SCREEN LIPID SCREEN [facility] Start: 10-04-2024 DIABETES SCREEN DIABETES SCREEN [facility] Start: 06-01-2024 BP Controlled (<130/80) BP Controlle d (<130/80) [facility] Start: 05-25-2024 Annual PCP Team Entry Level Account Manager pk Disease Visit Annual PCP Team Chronic Disease Visit [facility] Start: 05-25-2024 BP Controlled (<130/80) BP Controlle d (<130/80) [facility] Start: 05-25-2024 Covid-19 Vaccine ( season) Covid-19 Vaccine ( season) [facility] Immunizations Immunization Date Immunization Notes Care Provider Kalpesh greco 05-25-2023 influenza (HD-IIV4) vaccine, age 65+ yr, high dose, quadrivalent, PF (FLUZONE HIGH-DOSE) Pcp (Historical) [facility] 04-14-2022 influenza, high dose seasonal, preservative-free Jere Martines MD Work Phone: [facility] 04-14-2022 influenza virus vaccine, unspecified formulation Jere Martines MD Work Phone: [facility] 06-16-2021 COVID-19 vaccine, booster dose (MODERNA) Jere Martines MD Work Phone: [facility] 04-28-2021 influenza, high-dose , quadrivalent vaccine (FLUZONE HIGH DOSE QUADRIVALENT) Jere Martines MD Work Phone: [facility] 03-12-2020 influenza, high dose seasonal, preservative-free Jere Martines MD Work Phone: [facility] 12-22-2018 pneumococcal polysaccharide vaccine, 23 valent Jere Martines MD Work Phone: [facility] Work Phone: 11-12-2017 pneumococcal conjuga te vaccine, 13 valent Jere Martines MD Work Phone: [facility] 05-27-2017 influenza, high dose seasonal, preservative-free Jere Martines MD Work Phone: [facility] Work Phone: Payers Date Payer Category Payer Medicare MEDICARE MEDICAR E A AND B [id number] 2017-Present [phone] [place] [address] Medicare [id number] 2017 Medicare MEDICARE MEDICAR E A AND B [id number] 2017-Present [phone] [place] [address] Medicare [id number] 2017 Medicare [id number] 1987 Unknown [facility] [employer] [id number] 1987-Present [address] [place] [address] Indemnity [id number] 1988 Unknown [id number] 1988 Unknown [id number] Social History Date Type Detail Facility Start: 08-13-2017 End: 02-02-2022 Tobacco smoking status NHIS Never smoked tobacco [facility] Work Phone: Start: 08-13-2017 End: 02-02-2022 Tobacco use and exposure Smokeless tobacco non-user [facility] Work Phone: Start: 08-06-2021 End: 06-01-2023 Alcohol intake Current non-drinker of alcohol (finding) [facility] Start: 1950 Sex Assigned At Not on file [facility] Start: 09-19-2021 End: 03-09-2022 Exposure to SARS-CoV-2 (event) Not sure [facility] Start: 11-12-2017 End: 10-30-2022 History of Social function [facility] Start: 11-12-2017 End: 10-30-2022 Tobacco use panel [facility] Adult Depression Screening Assessment 0 [facility] Clinical Notes 09-26-2021 to 06-17-2023 Telephone Encounter - Roselia Rachel RN - 06/17/2023 12:06 PM ESTTelephone Encounter - eJre Martines MD - 06/17/2023 11:51 AM Fransisco Tabor - 06/02/2023 10:40 AM EST Note Date & Type Note Facility 06-17-2023 Miscellaneous Notes Phoned patient and given provider's message below with verbalized understanding. Patient agreeable. Refill sent for xarelto and lipitor 20 mg daily. F/u with hematology as scheduled. Call with side effects from statin. Pt phoned and given provider's message below. Patient states she is agreeable to try lipitor and let pcp know if she has problems with it. Patient reports [facility] told her they cannot give her the xarelto refills unless pcp approves it. I can't guarantee what side effects she may or may not have with new medication. It would be a statin similar to the simvastatin. If willing to try would call in Lipitor to pharmacy. TC to patient who verbalized understanding of below. She will call pharmacy for Xarelto refills. Patient stating she is willing to try alternative to Simvastatin as long as it will not cause jittery legs or she will stop taking it. Please advise. Thank you. MARLY De León She should have enough Xarelto. 30 day rx with 3 reill sent on 05/21, should get her through 08/19. Cannot take NSAIDs with this blood thinner. The simvastatin caused a reaction? Would she like to try alternative rx for cholesterol? Patient calling with 2 things. 1) pt was put on Xarelto for superficial blood clots and she has 4 to 5 days left and needs to know if she is to continue till she sees Dr. Palafox or will she be done with this medication. Pt will need a refill if she is to continue . Pharmacy [facility] [place]. Please advise pt. 2) Pt was put on a cholesterol medication and she took for 5 days and stopped it. Was making her jittery and affecting her joints and legs. FYI: While pt is on Xarelto she can not be put on pain meds for her arthritis. Thu Blanchard LPN documented in this encounter [facility] 06-02-2023 Note Patient Outreach (AC CC) MICAEAL HOWARD ([id number]) 1950 F Date Time Provider Department 06/02/23 PCP (HISTORICAL) [facility] During your visit today, we recorded the following information about you: Fransisco Bethea 06/02/2023 10:41 AM Signed POPULATION HEALTH NAVIGATION OUTREACH Action/FYI Left vm Patient Identified by Name and : NO Outreach Outcome/Action Unable to reach patient: Left message Compufirst message sent Did you use a PCP flex slot to schedule this appointment? No Reason for Outreach Care Gap or Scheduling/Wellness visits Payer: Payor: MEDICARE / Plan: MEDICARE A AND B / Product Type: Medicare / Care Gap Reviewed:: Specialty Scheduling Reminder: Reminder note to check Health Maintenance for items below Health Maintenance items due: Shingrix Vaccine(1 of 2) Never done RSV Vaccine(1 - 1-dose 60+ series) Never done Advance Directive Discussion Never done Depression Assessment Never done Mammogram Screening due on 03/09/2023 Navigation Signature: Fransisco Bethea June 02, 2023 10:41 AM Allergies As of Date: 06/02/2023 Noted Allergy Reaction SEASONAL ALLERGIES 02/02/2022 14 - Other: See Comments Date Reviewed: 06/01/2023 Reviewed by: Giovana Lewis OCCA - Fully Assessed Prescriptions as of 06/02/2023 - rivaroxaban (XARELTO DVT-PE TREAT 30D START) 15 mg (42)- 20 mg (9) DsPk Take 1 tablet (15 mg) by mouth twice daily with food for 21 days. Then take 1 tablet (20 mg) by mouth once daily with food for 9 days. - rivaroxaban (XARELTO) 20 mg tablet Take 1 tablet by mouth daily with dinner. - fluticasone (FLONASE) 50 mcg/actuation nasal spray Use 2 Sprays in each nostril once daily. Rinse mouth after use. - simvastatin (ZOCOR) 10 mg tablet Take 1 tablet by mouth daily at bedtime. For cholesterols. - mometasone-formoterol (DULERA) 100-5 mcg/actuation inhaler Inhale 2 Puffs as instructed twice daily. - chlorthalidone (HYGROTON) 25 mg tablet Take 1 tablet by mouth once daily. - amLODIPine (NORVASC) 5 mg tablet Take 1 tablet by mouth once daily. - omeprazole (PRILOSEC) 20 mg capsule Take 2 capsules by mouth once daily. - metoprolol succinate ER (TOPROL XL) 25 mg 24 hr tablet Take 1 tablet by mouth once daily. - levothyroxine (SYNTHROID) 50 mcg tablet Take 1 tablet by mouth once daily. - albuterol HFA (PROAIR HFA) 90 mcg/actuation inhaler Inhale 2 Puffs as instructed every 4 hours as needed. - Mucus Clearing Device (.Club DomainsAKE VIBRATORY PEP) lalo Use as directed for pulmonary hygeine. - tobramycin-dexamethasone (TOBRADEX) ophthalmic suspension Use 1 Drop in both eyes every 4 hours as needed. - IBUPROFEN (ADVIL ORAL) Take 1 tablet by mouth as needed. - ESTRADIOL (CLIMARA TRANSDERM.) Apply as directed. - Multivitamin capsule Take 1 capsule by mouth once daily. Problem List As Of Date 06/02/2023 Noted Resolved Essential hypertension [I10] GERD (gastroesophageal reflux disease) [K21.9] Hypothyroidism [E03.9] Sarcoidosis of lung (HCC) [D86.0] Vitamin D deficiency [E55.9] Hot flashes [R23.2] Class 2 obesity with body mass index (BMI) of 3* Pneumonia of left lower lobe due to infectious *02/25/2018 01/29/2022 Bronchiectasis without acute exacerbation (HCC)*06/05/2019 Osteopenia after menopause [M85.80, Z78.0] 07/09/2020 PSVT (paroxysmal supraventricular tachycardia) *11/28/2020 First degree AV block [I44.0] 11/28/2020 Chronic hip pain, right [M25.551, G89.29] 10/07/2021 10/30/2021 Primary thrombocytosis (HCC) [D47.3] 01/29/2022 Varicose veins of lower extremities with inflam*09/22/2022 Lymphedema [I89.0] 10/26/2022 Encounter Status:Closed by FRANSISCO BETHEA on 06/02/23 [facility] 06-02-2023 Note HNO ID: [id number] Author: Fransisco Bethea Service: ? Author Type: ? Type: Progress Notes Filed: 06/02/2023 10:41 AM Note Text: POPULATION HEALTH NAVIGATION OUTREACH Action/FYI Left vm Patient Identified by Name and : NO Outreach Outcome/Action Unable to reach patient: Left message [email or web address] message sent Did you use a PCP flex slot to schedule this appointment? No Reason for Outreach Care Gap or Scheduling/Wellness visits Payer: Payor: MEDICARE / Plan: MEDICARE A AND B / Product Type: Medicare / Care Gap Reviewed:: Specialty Scheduling Reminder: Reminder note to check Health Maintenance for items below Health Maintenance items due: Shingrix Vaccine(1 of 2) Never done RSV Vaccine(1 - 1-dose 60+ series) Never done Advance Directive Discussion Never done Depression Assessment Never done Mammogram Screening due on 03/09/2023 Navigation Signature: Fransisoc Bethea June 02, 2023 10:[address] [facility] 06-02-2023 History of Presen t illness Narrative POPULATION HEALTH NAVIGATION OUTREACH Action/FYI Left vm Patient Identified by Name and : NO Outreach Outcome/Action Unable to reach patient: Left message A-STARhart message sent Did you use a PCP flex slot to schedule this appointment? No Reason for Outreach Care Gap or Scheduling/Wellness visits Payer: Payor: MEDICARE / Plan: MEDICARE A AND B / Product Type: Medicare / Care Gap Reviewed:: Specialty Scheduling Reminder: Reminder note to check Health Maintenance for items below Health Maintenance items due: Shingrix Vaccine(1 of 2) Never done RSV Vaccine(1 - 1-dose 60+ series) Never done Advance Directive Discussion Never done Depression Assessment Never done Mammogram Screening due on 03/09/2023 Navigation Signature: Fransisco Bethea June 02, 2023 10:41 AM documented in this encounter [facility] 06-01-2023 Miscellaneous Notes Spoke to pt and scheduled as she requested due to holidays Next new appointment time with either me or Dr. Cam. Ronnell Palafox DO Please review and advise. 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 Mclean to hematology, please call pt to reschedule documented in this encounter [facility] 06-01-2023 Miscellaneous Notes Pt given results on 05/28/23. Patient notified. Handicap rx ready for pickup Patient calls back and reports that she will molded goods spot picker copy of handicap placard in medical records when ready. Coretta Greer RN Order for placard printed and signed. Will call with imaging results when they come back. Pt called in and was asking if provider would be able to send in for her to get a handicap placard since she has been having such a hard time getting around. She would like a call once hip x-rays are back for results. Pt would like written copy of hip x-ray faxed to Dr Dickey's office at [facility]. She also wants a disc burned and she will pick it up at the [facility]. Faxed order, demographic sheet, and last OV notes to fax # [phone]. documented in this encounter [facility] 06-01-2023 Note HNO ID: [id number] Author: Wendy Mclean, DO Service: ? Author Type: Physician Type: Progress Notes Filed: 06/17/2023 3:10 PM Note Text: [facility] [place] DEPARTMENT OF VASCULAR SURGERY OUTPATIENT VISIT DATE June 01, 2023 OUTPATIENT VISIT TYPE CONSULTATION SERVICE DATE: 06/01/2023 SERVICE TIME: 9:59 AM PRIMARY CARE PHYSICIAN: Jere Martines MD REFERRING PROVIDER: Jere Martines [address] [facility] [address] Consult requested for an opinion regarding the evaluation and treatment of the above. My final impression and recommendations will be communicated back to the requesting physician by way of the shared medical record or letter via US mail. CHIEF COMPLAINT: Patient presents with: New Patient History of Present Illness: Patient is a 73 year old White female presenting for consultation, evaluation and possible treatment of varicose veins.bilateral aching, throbbing, heaviness, and superficial thrombophlebitis twice in the past 3 months She is currently on anticoagulation. Predisposing factors included family history of varicose veins is positive and include(s) mother without surgery and history of varicose vein surgery . No specific history of injury or prior problems. Relieving factors include support hose, elevation of legs, reduced activity, and OTC pain medication with mild improvement in symptoms. Patient admits to phlebitis and treatment with blood thinners. PAIN ASSESSMENT: PAIN EVALUATION No data found in the last 1 encounters. Obstetric History No data available Duration of Symptoms: Progressive PREVIOUS TESTS: DVT 04/21- superficial thrombophlebitis on right GSV PAST MEDICAL HISTORY Diagnosis Date Colon polyps Dry eyes GERD (gastroesophageal reflux disease) Hot flashes MENTAL HEALTH ORDERLY following HTN (hypertension) Hypothyroidism Obesity (BMI 30.0-34.9) Osteopenia Primary osteoarthritis of both hips PSVT S/P gastric bypass lap band Sarcoidosis of lung (HCC) chronic scarring Seasonal allergies Superficial thrombophlebitis 08/2022 Varicose veins of lower extremities with inflammation Vitamin D deficiency PAST SURGICAL HISTORY Procedure Laterality Date BREAST BIOPSY Left 2000 COLONOSCOPY 2012 COLONOSCOPY FLX DX W/COLLJ SPEC WHEN PFRMD 11/09/2018 Colonoscopy IR ENDO ABLATION VARICOSE VEIN Right 2007 LAPS SURG CHOLECYSTECTOMY W/CHOLANGIOGRAPHY 1994 cholecystectomy OVARIAN CYSTECTOMY 1981 PAST SURGICAL HISTORY OF 2004 lap band PAST SURGICAL HISTORY OF 2002 lung biopsy-sarcoidosis PAST SURGICAL HISTORY OF 1984 [facility] TONSILLECTOMY HX 1953 TUBAL LIGATION 1984 SOCIAL HISTORY: Social History Tobacco Use Smoking status: Never Smokeless tobacco: Never Vaping Use Vaping Use: Never used Substance Use Topics Alcohol use: No Drug use: No FAMILY HISTORY Problem Relation Age of Onset Cancer Mother thyroid Diabetes Mother other (gout) Mother Rheumatologic disease Sister RA Thyroid Sister Cancer Sister possible leukemia Heart disease Brother [place], CABGx3 Thyroid Brother other (gout) Brother Thyroid Daughter No Known Problems Daughter Blood Clots Daughter None No Family History Sarcoidosis, Lung cancer. MEDICATIONS: rivaroxaban (XARELTO DVT-PE TREAT 30D START) 15 mg (42)- 20 mg (9) DsPk Take 1 tablet (15 mg) by mouth twice daily with food for 21 days. Then take 1 tablet (20 mg) by mouth once daily with food for 9 days. rivaroxaban (XARELTO) 20 mg tablet Take 1 tablet by mouth daily with dinner. fluticasone (FLONASE) 50 mcg/actuation nasal spray Use 2 Sprays in each nostril once daily. Rinse mouth after use. simvastatin (ZOCOR) 10 mg tablet Take 1 tablet by mouth daily at bedtime. For cholesterols. mometasone-formoterol (DULERA) 100-5 mcg/actuation inhaler Inhale 2 Puffs as instructed twice daily. chlorthalidone (HYGROTON) 25 mg tablet Take 1 tablet by mouth once daily. amLODIPine (NORVASC) 5 mg tablet Take 1 tablet by mouth once daily. omeprazole (PRILOSEC) 20 mg capsule Take 2 capsules by mouth once daily. metoprolol succinate ER (TOPROL XL) 25 mg 24 hr tablet Take 1 tablet by mouth once daily. levothyroxine (SYNTHROID) 50 mcg tablet Take 1 tablet by mouth once daily. albuterol HFA (PROAIR HFA) 90 mcg/actuation inhaler Inhale 2 Puffs as instructed every 4 hours as needed. Mucus Clearing Device (QUAKE VIBRATORY PEP) lalo Use as directed for pulmonary hygeine. tobramycin-dexamethasone (TOBRADEX) ophthalmic suspension Use 1 Drop in both eyes every 4 hours as needed. IBUPROFEN (ADVIL ORAL) Take 1 tablet by mouth as needed. ESTRADIOL (CLIMARA TRANSDERM.) Apply as directed. Multivitamin capsule Take 1 capsule by mouth once daily. ALLERGIES: ALLERGIES Allergen Reactions Seasonal Allergies Other: See Comments REVIEW of SYSTEMS: Constitutional: Negative for significant weight loss and fever, Positive for f (more content not included)... [facility] 05-28-2023 Note Patient Outreach (AC CC) MICAELA HOWARD ([id number]) 1950 F Date Time Provider Department 05/28/23 PCP (HISTORICAL) [facility] During your visit today, we recorded the following information about you: Fransisco Bethea 05/28/2023 9:51 AM Signed POPULATION HEALTH NAVIGATION OUTREACH Action/FYI Left vm Patient Identified by Name and : NO Outreach Outcome/Action Unable to reach patient: Left message A-STARhart message sent Did you use a PCP flex slot to schedule this appointment? No Reason for Outreach Care Gap or Scheduling/Wellness visits Payer: Payor: MEDICARE / Plan: MEDICARE A AND B / Product Type: Medicare / Care Gap Reviewed:: Specialty Scheduling Reminder: Reminder note to check Health Maintenance for items below Health Maintenance items due: Shingrix Vaccine(1 of 2) Never done RSV Vaccine(1 - 1-dose 60+ series) Never done Advance Directive Discussion Never done Depression Assessment Never done Mammogram Screening due on 03/09/2023 Navigation Signature: Fransisco Bethea May 28, 2023 9:51 AM Allergies As of Date: 05/28/2023 Noted Allergy Reaction SEASONAL ALLERGIES 02/02/2022 14 - Other: See Comments Date Reviewed: 05/25/2023 Reviewed by: Amy Prado LPN - Fully Assessed Prescriptions as of 05/28/2023 - rivaroxaban (XARELTO DVT-PE TREAT 30D START) 15 mg (42)- 20 mg (9) DsPk Take 1 tablet (15 mg) by mouth twice daily with food for 21 days. Then take 1 tablet (20 mg) by mouth once daily with food for 9 days. - rivaroxaban (XARELTO) 20 mg tablet Take 1 tablet by mouth daily with dinner. - fluticasone (FLONASE) 50 mcg/actuation nasal spray Use 2 Sprays in each nostril once daily. Rinse mouth after use. - simvastatin (ZOCOR) 10 mg tablet Take 1 tablet by mouth daily at bedtime. For cholesterols. - mometasone-formoterol (DULERA) 100-5 mcg/actuation inhaler Inhale 2 Puffs as instructed twice daily. - chlorthalidone (HYGROTON) 25 mg tablet Take 1 tablet by mouth once daily. - amLODIPine (NORVASC) 5 mg tablet Take 1 tablet by mouth once daily. - omeprazole (PRILOSEC) 20 mg capsule Take 2 capsules by mouth once daily. - metoprolol succinate ER (TOPROL XL) 25 mg 24 hr tablet Take 1 tablet by mouth once daily. - levothyroxine (SYNTHROID) 50 mcg tablet Take 1 tablet by mouth once daily. - albuterol HFA (PROAIR HFA) 90 mcg/actuation inhaler Inhale 2 Puffs as instructed every 4 hours as needed. - Mucus Clearing Device (QUAKE VIBRATORY PEP) lalo Use as directed for pulmonary hygeine. - tobramycin-dexamethasone (TOBRADEX) ophthalmic suspension Use 1 Drop in both eyes every 4 hours as needed. - IBUPROFEN (ADVIL ORAL) Take 1 tablet by mouth as needed. - ESTRADIOL (CLIMARA TRANSDERM.) Apply as directed. - Multivitamin capsule Take 1 capsule by mouth once daily. Problem List As Of Date 05/28/2023 Noted Resolved Essential hypertension [I10] GERD (gastroesophageal reflux disease) [K21.9] Hypothyroidism [E03.9] Sarcoidosis of lung (HCC) [D86.0] Vitamin D deficiency [E55.9] Hot flashes [R23.2] Class 2 obesity with body mass index (BMI) of 3* Pneumonia of left lower lobe due to infectious *02/25/2018 01/29/2022 Bronchiectasis without acute exacerbation (HCC)*06/05/2019 Osteopenia after menopause [M85.80, Z78.0] 07/09/2020 PSVT (paroxysmal supraventricular tachycardia) *11/28/2020 First degree AV block [I44.0] 11/28/2020 Chronic hip pain, right [M25.551, G89.29] 10/07/2021 10/30/2021 Primary thrombocytosis (HCC) [D47.3] 01/29/2022 Varicose veins of lower extremities with inflam*09/22/2022 Lymphedema [I89.0] 10/26/2022 Encounter Status:Closed by FRANSISCO BETHEA on 05/28/23 [facility] 05-28-2023 Note HNO ID: [id number] Author: Fransisco Bethea Service: ? Author Type: ? Type: Progress Notes Filed: 05/28/2023 9:51 AM Note Text: POPULATION HEALTH NAVIGATION OUTREACH Action/FYI Left vm Patient Identified by Name and : NO Outreach Outcome/Action Unable to reach patient: Left message [email or web address] message sent Did you use a PCP flex slot to schedule this appointment? No Reason for Outreach Care Gap or Scheduling/Wellness visits Payer: Payor: MEDICARE / Plan: MEDICARE A AND B / Product Type: Medicare / Care Gap Reviewed:: Specialty Scheduling Reminder: Reminder note to check Health Maintenance for items below Health Maintenance items due: Shingrix Vaccine(1 of 2) Never done RSV Vaccine(1 - 1-dose 60+ series) Never done Advance Directive Discussion Never done Depression Assessment Never done Mammogram Screening due on 03/09/2023 Navigation Signature: Fransisco Bethea May 28, 2023 9:[address] [facility] 05-28-2023 History of Presen t illness Narrative POPULATION HEALTH NAVIGATION OUTREACH Action/FYI Left vm Patient Identified by Name and : NO Outreach Outcome/Action Unable to reach patient: Left message A-STARhart message sent Did you use a PCP flex slot to schedule this appointment? No Reason for Outreach Care Gap or Scheduling/Wellness visits Payer: Payor: MEDICARE / Plan: MEDICARE A AND B / Product Type: Medicare / Care Gap Reviewed:: Specialty Scheduling Reminder: Reminder note to check Health Maintenance for items below Health Maintenance items due: Shingrix Vaccine(1 of 2) Never done RSV Vaccine(1 - 1-dose 60+ series) Never done Advance Directive Discussion Never done Depression Assessment Never done Mammogram Screening due on 03/09/2023 Navigation Signature: Fransisco Bethea May 28, 2023 9:51 AM documented in this encounter [facility] 05-25-2023 Note HNO ID: [id number] Author: Mar yGrace He RT(R) Service: Radiology Author Type: Technologist Type: Progress Notes Filed: 05/25/2023 5:12 PM Note Text: Radiology Service Progress Note PATIENT NAME: Micaela Howard DATE OF SERVICE: May 25, 2023 TIME: 5:00 PM PATIENT IDENTITY VERIFICATION COMPLETED USING TWO (2) IDENTIFIERS: Name and Date of confirmed by patient verbally. FALL SCREENING: Has the patient had 2 falls in the last year or 1 fall with injury or currently using an Ambulatory Assistive Device (Walker, Cane, Wheelchair, Crutches, etc.)? No PATIENT GENDER DATA: Female. status: : No status: NO. PATIENT RELEVANT IMPLANT DATA REVIEWED: Yes RADIOLOGY DEPARTMENT: General X-ray: Exam(s) Completed: Pelvis X-Ray: Pelvis with Hip Bilateral PERIPHERAL IV DATA: Not applicable SIGNED BY: KATRINA HernándezR) May 25, 2023 5:[address] [facility] 05-25-2023 Note HNO ID: [id number] Author: Jere Martines MD Service: ? Author Type: Physician Type: Progress Notes Filed: 05/25/2023 5:01 PM Note Text: Chief Complaint Patient presents with: Hip Pain: Patient reports pain has been ongoing but gotten worse in the last week HPI Micaela Howard is a 73 year old female who presents here today for Above Complaints. PMH: OA in bilateral hips, right worse than left based on xray in 2020 and 2021. Patient complaining of intermittent bilateral hip pain which started 1-2 years, but has been worse in the last week. Drove up to [place] to visit her daughter about 1 week ago, right before these symptoms started. Pain described as aching in her hips which radiates thigh and knees. Exacerbated with walking, standing, getting out of car. Treating pain with heat and tylenol. Denies new fall or hip injury, erythema, swelling, bruising. Patient has followed up with ortho 1 year ago. Discussed injection as she was not ready for surgery at that time. Has not followed up with injection. Patient states that she was on Xarelto 20 mg daily for the last month for her recurrent superficial thrombophlebitis and just now began on the starter kit. Pharmacy did not give her this to start with for some reason. Very expensive. Has follow up with vascular scheduled. Redness and pain in her right leg/knee has resolved. Past medical history, appointments, medications, allergies reviewed. Previous Medical History PAST MEDICAL HISTORY Diagnosis Date Colon polyps Dry eyes GERD (gastroesophageal reflux disease) Hot flashes MENTAL HEALTH ORDERLY following HTN (hypertension) Hypothyroidism Obesity (BMI 30.0-34.9) Osteopenia Primary osteoarthritis of both hips PSVT S/P gastric bypass lap band Sarcoidosis of lung (HCC) chronic scarring Seasonal allergies Superficial thrombophlebitis 08/2022 Varicose veins of lower extremities with inflammation Vitamin D deficiency Previous Surgical History PAST SURGICAL HISTORY Procedure Laterality Date BREAST BIOPSY Left 2000 COLONOSCOPY 2013 COLONOSCOPY FLX DX W/COLLJ SPEC WHEN PFRMD 11/09/2018 Colonoscopy IR ENDO ABLATION VARICOSE VEIN Right 2007 LAPS SURG CHOLECYSTECTOMY W/CHOLANGIOGRAPHY 1994 cholecystectomy OVARIAN CYSTECTOMY 1981 PAST SURGICAL HISTORY OF 2004 lap band PAST SURGICAL HISTORY OF 2002 lung biopsy-sarcoidosis PAST SURGICAL HISTORY OF 1984 [facility] TONSILLECTOMY HX 195 TUBAL LIGATION 1985 Family History FAMILY HISTORY Problem Relation Age of Onset Cancer Mother thyroid Diabetes Mother other (gout) Mother Rheumatologic disease Sister RA Thyroid Sister Cancer Sister possible leukemia Heart disease Brother [place], CABGx3 Thyroid Brother other (gout) Brother Thyroid Daughter No Known Problems Daughter Blood Clots Daughter None No Family History Sarcoidosis, Lung cancer. Patient Allergies ALLERGIES Allergen Reactions Seasonal Allergies Other: See Comments Current Medications Current Outpatient Medications on File Prior to Visit Medication Sig rivaroxaban (XARELTO DVT-PE TREAT 30D START) 15 mg (42)- 20 mg (9) DsPk Take 1 tablet (15 mg) by mouth twice daily with food for 21 days. Then take 1 tablet (20 mg) by mouth once daily with food for 9 days. rivaroxaban (XARELTO) 20 mg tablet Take 1 tablet by mouth daily with dinner. fluticasone (FLONASE) 50 mcg/actuation nasal spray Use 2 Sprays in each nostril once daily. Rinse mouth after use. simvastatin (ZOCOR) 10 mg tablet Take 1 tablet by mouth daily at bedtime. For cholesterols. mometasone-formoterol (DULERA) 100-5 mcg/actuation inhaler Inhale 2 Puffs as instructed twice daily. chlorthalidone (HYGROTON) 25 mg tablet Take 1 tablet by mouth once daily. omeprazole (PRILOSEC) 20 mg capsule Take 2 capsules by mouth once daily. metoprolol succinate ER (TOPROL XL) 25 mg 24 hr tablet Take 1 tablet by mouth once daily. levothyroxine (SYNTHROID) 50 mcg tablet Take 1 tablet by mouth once daily. albuterol HFA (PROAIR HFA) 90 mcg/actuation inhaler Inhale 2 Puffs as instructed every 4 hours as needed. Mucus Clearing Device (QUAKE VIBRATORY PEP) lalo Use as directed for pulmonary hygeine. tobramycin-dexamethasone (TOBRADEX) ophthalmic suspension Use 1 Drop in both eyes every 4 hours as needed. IBUPROFEN (ADVIL ORAL) Take 1 tablet by mouth as needed. ESTRADIOL (CLIMARA TRANSDERM.) Apply as directed. Multivitamin capsule Take 1 capsule by mouth once daily. amLODIPine (NORVASC) 5 mg tablet Take 1 tablet by mouth once daily. No current facility-administered medications on file prior to visit. Social History Social History Tobacco Use Smoking status: Never Smokeless tobacco: Never Vaping Use Vaping Use: Never used Substance Use Topics Alcohol use: No Drug use: No Review of Symptoms REVIEW OF SYSTEMS See HPI EXAM: BP 126/70 Pulse 78 Resp 16 Wt 94.2 kg (207 lb 9.6 oz) S (more content not included)... [facility] 04-21-2023 Miscellaneous Notes Pt notified of RX and of Dr. Martines's instructions and recommendations. Pt never saw a vascular surgeon. She doesn't remember discussing this. Pt transferred to the front line supervisor to set up an appt with vascular. US confirms she has recurrent superficial blood clot as suspected. Since this is a recurrence of a superficial clot, I would recommend treating her with 3 months of anticoagulation like we would a DVT. Will restart Xarelto at 15 mg PO BID x 21 days, then 20 mg daily for total of 3 months. Recommend f/u in office in 2-3 weeks if symptoms of redness, pain, and swelling are not improving. Previously referred to vascular surgery for varicose veins. Would have her schedule OV with vascular for further evaluation and treatment options for veins and recurrent thrombophlebitis. documented in this encounter [facility] 2023 Note HNO ID: [id number] Author: Jere Martines MD Service: ? Author Type: Physician Type: Progress Notes Filed: 2023 4:20 PM Note Text: Chief Complaint Patient presents with: Right Knee Pain: Inside of right knee is red, swollen and warm to the touch x2 days HPI Micaela Howard is a 73 year old female who presents here today for Above Complaints. Has history of superficial thrombophlebitis earlier this year. Patient complaining of 1 day history of right knee soreness over medial aspect. Developed redness today. Treating with ASA 325 mg 1-2 times per day. Denies fall/injury, fever/chills, chest pain, SOB, palpitations. Also notes that she has some cramping in her left calf for 3-4 days without redness or swelling. Denies hospitalizations, immobilization, surgery. Past medical history, appointments, medications, allergies reviewed. Previous Medical History PAST MEDICAL HISTORY Diagnosis Date Colon polyps Dry eyes GERD (gastroesophageal reflux disease) Hot flashes MENTAL HEALTH ORDERLY following HTN (hypertension) Hypothyroidism Obesity (BMI 30.0-34.9) Osteopenia Primary osteoarthritis of both hips PSVT S/P gastric bypass lap band Sarcoidosis of lung (HCC) chronic scarring Seasonal allergies Varicose veins of lower extremities with inflammation Vitamin D deficiency Previous Surgical History PAST SURGICAL HISTORY Procedure Laterality Date BREAST BIOPSY Left 2000 COLONOSCOPY 2012 COLONOSCOPY FLX DX W/COLLJ SPEC WHEN PFRMD 11/09/2018 Colonoscopy IR ENDO ABLATION VARICOSE VEIN Right 2007 LAPS SURG CHOLECYSTECTOMY W/CHOLANGIOGRAPHY 1994 cholecystectomy OVARIAN CYSTECTOMY 1981 PAST SURGICAL HISTORY OF 2004 lap band PAST SURGICAL HISTORY OF 2002 lung biopsy-sarcoidosis PAST SURGICAL HISTORY OF 1984 [facility] TONSILLECTOMY HX 1953 TUBAL LIGATION 1984 Family History FAMILY HISTORY Problem Relation Age of Onset Cancer Mother thyroid Diabetes Mother other (gout) Mother Rheumatologic disease Sister RA Thyroid Sister Cancer Sister possible leukemia Heart disease Brother [place], CABGx3 Thyroid Brother other (gout) Brother Thyroid Daughter No Known Problems Daughter Blood Clots Daughter None No Family History Sarcoidosis, Lung cancer. Patient Allergies ALLERGIES Allergen Reactions Seasonal Allergies Other: See Comments Current Medications Current Outpatient Medications on File Prior to Visit Medication Sig fluticasone (FLONASE) 50 mcg/actuation nasal spray Use 2 Sprays in each nostril once daily. Rinse mouth after use. simvastatin (ZOCOR) 10 mg tablet Take 1 tablet by mouth daily at bedtime. For cholesterols. mometasone-formoterol (DULERA) 100-5 mcg/actuation inhaler Inhale 2 Puffs as instructed twice daily. chlorthalidone (HYGROTON) 25 mg tablet Take 1 tablet by mouth once daily. amLODIPine (NORVASC) 5 mg tablet Take 1 tablet by mouth once daily. omeprazole (PRILOSEC) 20 mg capsule Take 2 capsules by mouth once daily. metoprolol succinate ER (TOPROL XL) 25 mg 24 hr tablet Take 1 tablet by mouth once daily. levothyroxine (SYNTHROID) 50 mcg tablet Take 1 tablet by mouth once daily. albuterol HFA (PROAIR HFA) 90 mcg/actuation inhaler Inhale 2 Puffs as instructed every 4 hours as needed. Mucus Clearing Device (QUAKE VIBRATORY PEP) lalo Use as directed for pulmonary hygeine. tobramycin-dexamethasone (TOBRADEX) ophthalmic suspension Use 1 Drop in both eyes every 4 hours as needed. IBUPROFEN (ADVIL ORAL) Take 1 tablet by mouth as needed. ESTRADIOL (CLIMARA TRANSDERM.) Apply as directed. Multivitamin capsule Take 1 capsule by mouth once daily. No current facility-administered medications on file prior to visit. Social History Social History Tobacco Use Smoking status: Never Smokeless tobacco: Never Vaping Use Vaping Use: Never used Substance Use Topics Alcohol use: No Drug use: No Review of Symptoms REVIEW OF SYSTEMS GENERAL: No weight loss, malaise or fevers RESPIRATORY: Negative for cough, hemoptysis, wheezing, COPD, dyspnea or shortness of breath CARDIOVASCULAR: Negative for chest pain, leg swelling, hypertension, CHF or palpitations EXAM: BP 116/72 Pulse 91 Temp 36.3 ?C (97.4 ?F) Resp 18 Wt 93.4 kg (205 lb 12.8 oz) SpO2 96% BMI 36.46 kg/m? General Appearance: Well appearing, alert, in no acute distress, well-hydrated, well nourished.. Skin: hand sized area of erythema on right medial knee with palpable nodule consistent with superficial thrombophlebitis. Nodule is tender. Extremities: No deformities, edema, skin discoloration, clubbing or cyanosis. No calf swelling. Negative hohmans. Health Maintenance List Shingrix Vaccine(1 of 2) Never done RSV Vaccine(1 - 1-dose 60+ series) Never done Advance Directive Discussion Never done Depression Assessment Never done Influenza Vaccine(1) due on 02/26/2023 Covid-19 Vaccine( season) due on (more content not included)... [facility] 2023 History of Presen t illness Narrative Chief Complaint Patient presents with: Right Knee Pain: Inside of right knee is red, swollen and warm to the touch x2 days HPI Micaela Howard is a 73 year old female who presents here today for Above Complaints. Has history of superficial thrombophlebitis earlier this year. Patient complaining of 1 day history of right knee soreness over medial aspect. Developed redness today. Treating with ASA 325 mg 1-2 times per day. Denies fall/injury, fever/chills, chest pain, SOB, palpitations. Also notes that she has some cramping in her left calf for 3-4 days without redness or swelling. Denies hospitalizations, immobilization, surgery. Past medical history, appointments, medications, allergies reviewed. Previous Medical History PAST MEDICAL HISTORY Diagnosis Date Colon polyps Dry eyes GERD (gastroesophageal reflux disease) Hot flashes MENTAL HEALTH ORDERLY following HTN (hypertension) Hypothyroidism Obesity (BMI 30.0-34.9) Osteopenia Primary osteoarthritis of both hips PSVT S/P gastric bypass lap band Sarcoidosis of lung (HCC) chronic scarring Seasonal allergies Varicose veins of lower extremities with inflammation Vitamin D deficiency Previous Surgical History PAST SURGICAL HISTORY Procedure Laterality Date BREAST BIOPSY Left 2000 COLONOSCOPY 2012 COLONOSCOPY FLX DX W/COLLJ SPEC WHEN PFRMD 11/09/2018 Colonoscopy IR ENDO ABLATION VARICOSE VEIN Right 2007 LAPS SURG CHOLECYSTECTOMY W/CHOLANGIOGRAPHY 1994 cholecystectomy OVARIAN CYSTECTOMY 1981 PAST SURGICAL HISTORY OF 2004 lap band PAST SURGICAL HISTORY OF 2002 lung biopsy-sarcoidosis PAST SURGICAL HISTORY OF 1984 D&C TONSILLECTOMY HX 195 TUBAL LIGATION 1984 Family History FAMILY HISTORY Problem Relation Age of Onset Cancer Mother thyroid Diabetes Mother other (gout) Mother Rheumatologic disease Sister RA Thyroid Sister Cancer Sister possible leukemia Heart disease Brother [place], CABGx3 Thyroid Brother other (gout) Brother Thyroid Daughter No Known Problems Daughter Blood Clots Daughter None No Family History Sarcoidosis, Lung cancer. Patient Allergies ALLERGIES Allergen Reactions Seasonal Allergies Other: See Comments Current Medications Current Outpatient Medications on File Prior to Visit Medication Sig fluticasone (FLONASE) 50 mcg/actuation nasal spray Use 2 Sprays in each nostril once daily. Rinse mouth after use. simvastatin (ZOCOR) 10 mg tablet Take 1 tablet by mouth daily at bedtime. For cholesterols. mometasone-formoterol (DULERA) 100-5 mcg/actuation inhaler Inhale 2 Puffs as instructed twice daily. chlorthalidone (HYGROTON) 25 mg tablet Take 1 tablet by mouth once daily. amLODIPine (NORVASC) 5 mg tablet Take 1 tablet by mouth once daily. omeprazole (PRILOSEC) 20 mg capsule Take 2 capsules by mouth once daily. metoprolol succinate ER (TOPROL XL) 25 mg 24 hr tablet Take 1 tablet by mouth once daily. levothyroxine (SYNTHROID) 50 mcg tablet Take 1 tablet by mouth once daily. albuterol HFA (PROAIR HFA) 90 mcg/actuation inhaler Inhale 2 Puffs as instructed every 4 hours as needed. Mucus Clearing Device (QUAKE VIBRATORY PEP) lalo Use as directed for pulmonary hygeine. tobramycin-dexamethasone (TOBRADEX) ophthalmic suspension Use 1 Drop in both eyes every 4 hours as needed. IBUPROFEN (ADVIL ORAL) Take 1 tablet by mouth as needed. ESTRADIOL (CLIMARA TRANSDERM.) Apply as directed. Multivitamin capsule Take 1 capsule by mouth once daily. No current facility-administered medications on file prior to visit. Social History Social History Tobacco Use Smoking status: Never Smokeless tobacco: Never Vaping Use Vaping Use: Never used Substance Use Topics Alcohol use: No Drug use: No Review of Symptoms REVIEW OF SYSTEMS GENERAL: No weight loss, malaise or fevers RESPIRATORY: Negative for cough, hemoptysis, wheezing, COPD, dyspnea or shortness of breath CARDIOVASCULAR: Negative for chest pain, leg swelling, hypertension, CHF or palpitations EXAM: BP 116/72 Pulse 91 Temp 36.3 C (97.4 F) Resp 18 Wt 93.4 kg (205 lb 12.8 oz) SpO2 96% BMI 36.46 kg/m General Appearance: Well appearing, alert, in no acute distress, well-hydrated, well nourished.. Skin: hand sized area of erythema on right medial knee with palpable nodule consistent with superficial thrombophlebitis. Nodule is tender. Extremities: No deformities, edema, skin discoloration, clubbing or cyanosis. No calf swelling. Negative hohmans. Health Maintenance List Shingrix Vaccine(1 of 2) Never done RSV Vaccine(1 - 1-dose 60+ series) Never done Advance Directive Discussion Never done Depression Assessment Never done Influenza Vaccine(1) due on 02/26/2023 Covid-19 Vaccine(2022- season) due on 02/26/2023 Mammogram Screening due on 03/09/2023 Annual PCP Team Chronic Disease Visit due on 04/09/2024 BP Controlled (<130/80) due on 04/09/2024 Diabetes Screening due on 02/12/2026 Lipid Screening due on 02/13/2028 DTaP,Tdap,Td Vaccine(2 - Td or Tdap) due on 05/04/2028 Colorectal Cancer Screening due on 11/09/2028 Bone Density Screening Completed Hepatitis C Screening Completed Pneumococcal Vaccine: 65+ Completed ASSESSMENT/PLAN: 1. Thrombophlebitis of superficial veins of right lower extremity - ICD9: 451.0, ICD10: I80.01 Obtain STAT US to confirm and rule out DVT. Discussed treatment with NSAIDs as ordered, ice/heat, compression stockings and rest while awaiting US. Depending on size and location, will determine if she needs anticoagulation. Red flags for re-assessment reviewed with patient in detail. - US DVT LOWER BILATERAL Jere Martines MD documented in this encounter [facility] 04-14-2023 Note Patient Outreach (IN [facility]) MICAELA HOWARD ([id number]) 1950 F Date Time Provider Department 04/14/23 JERE MARTINES INTMYRTLEN During your visit today, we recorded the following information about you: Allergies As of Date: 04/14/2023 Noted Allergy Reaction SEASONAL ALLERGIES 02/02/2022 14 - Other: See Comments Date Reviewed: 04/09/2023 Reviewed by: Amy Prado LPN - Fully Assessed Visit Diagnosis:Encounter for screening mammogram for breast cancer [Z12.31] Order(s):[facility] SCREEN[facility] [[id number]] Order #: [id number] FUTURE Prescriptions as of 04/19/2023 - fluticasone (FLONASE) 50 mcg/actuation nasal spray Use 2 Sprays in each nostril once daily. Rinse mouth after use. - simvastatin (ZOCOR) 10 mg tablet Take 1 tablet by mouth daily at bedtime. For cholesterols. - mometasone-formoterol (DULERA) 100-5 mcg/actuation inhaler Inhale 2 Puffs as instructed twice daily. - chlorthalidone (HYGROTON) 25 mg tablet Take 1 tablet by mouth once daily. - amLODIPine (NORVASC) 5 mg tablet Take 1 tablet by mouth once daily. - omeprazole (PRILOSEC) 20 mg capsule Take 2 capsules by mouth once daily. - metoprolol succinate ER (TOPROL XL) 25 mg 24 hr tablet Take 1 tablet by mouth once daily. - levothyroxine (SYNTHROID) 50 mcg tablet Take 1 tablet by mouth once daily. - albuterol HFA (PROAIR HFA) 90 mcg/actuation inhaler Inhale 2 Puffs as instructed every 4 hours as needed. - Mucus Clearing Device (.[employer] VIBRATORY PEP) lalo Use as directed for pulmonary hygeine. - tobramycin-dexamethasone (TOBRADEX) ophthalmic suspension Use 1 Drop in both eyes every 4 hours as needed. - IBUPROFEN (ADVIL ORAL) Take 1 tablet by mouth as needed. - ESTRADIOL (CLIMARA TRANSDERM.) Apply as directed. - Multivitamin capsule Take 1 capsule by mouth once daily. 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] Vitamin D deficiency [E55.9] Hot flashes [R23.2] Class 2 obesity with body mass index (BMI) of 3* Pneumonia of left lower lobe due to infectious *02/25/2018 01/29/2022 Bronchiectasis without acute exacerbation (HCC)*06/05/2019 Osteopenia after menopause [M85.80, Z78.0] 07/09/2020 PSVT (paroxysmal supraventricular tachycardia) *11/28/2020 First degree AV block [I44.0] 11/28/2020 Chronic hip pain, right [M25.551, G89.29] 10/07/2021 10/30/2021 Primary thrombocytosis (HCC) [D47.3] 01/29/2022 Varicose veins of lower extremities with inflam*09/22/2022 Lymphedema [I89.0] 10/26/2022 Encounter Status:Closed by JUAN KAMINSKIUSER on 04/19/23 [facility] 04-14-2023 Miscellaneous Notes Patient calling to request Pulmonary referral be sent to [facility]. She gave fax # [phone]. Referral, last OV note, CXR results and demographics faxed. Roxane Umana, RN documented in this encounter [facility] 04-12-2023 Miscellaneous Notes Pt notified of results via [employer] Farzaneh Pinzon Ma ----- Message from Jere Martines MD sent at 04/12/2023 10:11 AM EDT ----- Xray of the chest shows chronic disease and fibrotic changes. No change to regimen. F/u with pulmonology. documented in this encounter [facility] 04-09-2023 Note HNO ID: [id number] Author: Ana Roberts RT(Naveen) Service: Radiology Author Type: Technologist Type: Progress Notes Filed: 04/09/2023 12:17 PM Note Text: Radiology Service Progress Note PATIENT NAME: Micaela Howard DATE OF SERVICE: April 09, 2023 TIME: 12:07 PM PATIENT IDENTITY VERIFICATION COMPLETED USING TWO (2) IDENTIFIERS: Name and Date of confirmed by patient verbally. FALL SCREENING: Has the patient had 2 falls in the last year or 1 fall with injury or currently using an Ambulatory Assistive Device (Walker, Cane, Wheelchair, Crutches, etc.)? No PATIENT GENDER DATA: Female. status: : No status: NO. PATIENT RELEVANT IMPLANT DATA REVIEWED: Not Applicable RADIOLOGY DEPARTMENT: General X-ray: Exam(s) Completed: Chest X-Ray PERIPHERAL IV DATA: Not applicable SIGNED BY: RT Lindsay(R) April 09, 2023 12:[address] [facility] 04-09-2023 Note HNO ID: [id number] Author: Jere Martines MD Service: ? Author Type: Physician Type: Progress Notes Filed: 04/12/2023 9:01 PM Note Text: Chief Complaint Patient presents with: URI: X 2 weeks. Productive cough completed Doxycycline 2 x daily x 5 days. HPI Micaela Howard is a 72 year old female who presents here today for Above Complaints.. Patient complaining of more than 2 weeks of productive cough with green sputum which is now clear along with fatigue, SOB, post nasal drainage, mild wheezing, nasal congestion, rhinorrhea. Symtpoms started after recent trip to [place]. COVID testing at home was negative. Granddaughter who is TRANSPORTATION LEAD prescribed her doxycycline 5 days ago which has improved symptoms. Treating with dayquil, nyquil, and albuterol inhaler before bed which helps with symptoms. Denies fever/chills, chest pain, chest congestion, headache, sore throat, myalgias, nausea, vomiting, diarrhea, Past medical history, appointments, medications, allergies reviewed. Previous Medical History PAST MEDICAL HISTORY Diagnosis Date Colon polyps Dry eyes GERD (gastroesophageal reflux disease) Hot flashes MENTAL HEALTH ORDERLY following HTN (hypertension) Hypothyroidism Obesity (BMI 30.0-34.9) Osteopenia Primary osteoarthritis of both hips PSVT S/P gastric bypass lap band Sarcoidosis of lung (HCC) chronic scarring Seasonal allergies Varicose veins of lower extremities with inflammation Vitamin D deficiency Previous Surgical History PAST SURGICAL HISTORY Procedure Laterality Date BREAST BIOPSY Left 2000 COLONOSCOPY 2012 COLONOSCOPY FLX DX W/COLLJ SPEC WHEN PFRMD 11/09/2018 Colonoscopy IR ENDO ABLATION VARICOSE VEIN Right 2007 LAPS SURG CHOLECYSTECTOMY W/CHOLANGIOGRAPHY 1994 cholecystectomy OVARIAN CYSTECTOMY 1982 PAST SURGICAL HISTORY OF 2004 lap band PAST SURGICAL HISTORY OF 2002 lung biopsy-sarcoidosis PAST SURGICAL HISTORY OF 1984 [facility] TONSILLECTOMY HX 195 TUBAL LIGATION 1985 Family History FAMILY HISTORY Problem Relation Age of Onset Cancer Mother thyroid Diabetes Mother other (gout) Mother Rheumatologic disease Sister RA Thyroid Sister Cancer Sister possible leukemia Heart disease Brother [place], CABGx3 Thyroid Brother other (gout) Brother Thyroid Daughter No Known Problems Daughter Blood Clots Daughter None No Family History Sarcoidosis, Lung cancer. Patient Allergies ALLERGIES Allergen Reactions Seasonal Allergies Other: See Comments Current Medications Current Outpatient Medications on File Prior to Visit Medication Sig albuterol HFA (PROAIR HFA) 90 mcg/actuation inhaler Inhale 2 Puffs as instructed every 4 hours as needed. amLODIPine (NORVASC) 5 mg tablet Take 1 tablet by mouth once daily. chlorthalidone (HYGROTON) 25 mg tablet Take 1 tablet by mouth once daily. ESTRADIOL (CLIMARA TRANSDERM.) Apply as directed. fluticasone (FLONASE) 50 mcg/actuation nasal spray Use 2 Sprays in each nostril once daily. Rinse mouth after use. IBUPROFEN (ADVIL ORAL) Take 1 tablet by mouth as needed. levothyroxine (SYNTHROID) 50 mcg tablet Take 1 tablet by mouth once daily. metoprolol succinate ER (TOPROL XL) 25 mg 24 hr tablet Take 1 tablet by mouth once daily. mometasone-formoterol (DULERA) 100-5 mcg/actuation inhaler Inhale 2 Puffs as instructed twice daily. Mucus Clearing Device (QUAKE VIBRATORY PEP) lalo Use as directed for pulmonary hygeine. Multivitamin capsule Take 1 capsule by mouth once daily. omeprazole (PRILOSEC) 20 mg capsule Take 2 capsules by mouth once daily. simvastatin (ZOCOR) 10 mg tablet Take 1 tablet by mouth daily at bedtime. For cholesterols. tobramycin-dexamethasone (TOBRADEX) ophthalmic suspension Use 1 Drop in both eyes every 4 hours as needed. No current facility-administered medications on file prior to visit. Social History Social History Tobacco Use Smoking status: Never Smokeless tobacco: Never Vaping Use Vaping Use: Never used Substance Use Topics Alcohol use: No Drug use: No Review of Symptoms REVIEW OF SYSTEMS See HPI EXAM: BP 122/74 Pulse 70 Temp 36.9 ?C (98.5 ?F) Resp 18 SpO2 97% General Appearance: Well appearing, alert, in no acute distress, well-hydrated, well nourished.. Skin: Skin color, texture, turgor normal, no suspicious rashes or lesions. Head: Normocephalic, no masses, lesions, tenderness or abnormalities. Eyes: Anicteric sclera. Pupils are equally round and reactive to light. Extraocular movements are intact. . Nose/Sinuses: Nares normal, septum midline, mucosa normal, no drainage or sinus tenderness. Oropharynx: Lips, mucosa, and tongue normal, teeth and gums normal, oropharynx normal. Neck: Supple, no adenopathy; thyroid symmetric, normal size, no bruits. Lungs: coarse breath sounds bilaterally without rale or wheezing. No consolidation. Heart: RRR without murmur, gallop, or rubs. No ectopy. Health Maintena (more content not included)... [facility] 04-09-2023 History of Presen t illness Narrative Chief Complaint Patient presents with: URI: X 2 weeks. Productive cough completed Doxycycline 2 x daily x 5 days. HPI Micaela Howard is a 72 year old female who presents here today for Above Complaints.. Patient complaining of more than 2 weeks of productive cough with green sputum which is now clear along with fatigue, SOB, post nasal drainage, mild wheezing, nasal congestion, rhinorrhea. Symtpoms started after recent trip to [place]. COVID testing at home was negative. Granddaughter who is TRANSPORTATION LEAD prescribed her doxycycline 5 days ago which has improved symptoms. Treating with dayquil, nyquil, and albuterol inhaler before bed which helps with symptoms. Denies fever/chills, chest pain, chest congestion, headache, sore throat, myalgias, nausea, vomiting, diarrhea, Past medical history, appointments, medications, allergies reviewed. Previous Medical History PAST MEDICAL HISTORY Diagnosis Date Colon polyps Dry eyes GERD (gastroesophageal reflux disease) Hot flashes MENTAL HEALTH ORDERLY following HTN (hypertension) Hypothyroidism Obesity (BMI 30.0-34.9) Osteopenia Primary osteoarthritis of both hips PSVT S/P gastric bypass lap band Sarcoidosis of lung (HCC) chronic scarring Seasonal allergies Varicose veins of lower extremities with inflammation Vitamin D deficiency Previous Surgical History PAST SURGICAL HISTORY Procedure Laterality Date BREAST BIOPSY Left 2000 COLONOSCOPY 2012 COLONOSCOPY FLX DX W/COLLJ SPEC WHEN PFRMD 11/09/2018 Colonoscopy IR ENDO ABLATION VARICOSE VEIN Right 2007 LAPS SURG CHOLECYSTECTOMY W/CHOLANGIOGRAPHY 1994 cholecystectomy OVARIAN CYSTECTOMY 1981 PAST SURGICAL HISTORY OF 2004 lap band PAST SURGICAL HISTORY OF 2002 lung biopsy-sarcoidosis PAST SURGICAL HISTORY OF 1984 D&C TONSILLECTOMY HX 195 TUBAL LIGATION 1984 Family History FAMILY HISTORY Problem Relation Age of Onset Cancer Mother thyroid Diabetes Mother other (gout) Mother Rheumatologic disease Sister RA Thyroid Sister Cancer Sister possible leukemia Heart disease Brother [place], CABGx3 Thyroid Brother other (gout) Brother Thyroid Daughter No Known Problems Daughter Blood Clots Daughter None No Family History Sarcoidosis, Lung cancer. Patient Allergies ALLERGIES Allergen Reactions Seasonal Allergies Other: See Comments Current Medications Current Outpatient Medications on File Prior to Visit Medication Sig albuterol HFA (PROAIR HFA) 90 mcg/actuation inhaler Inhale 2 Puffs as instructed every 4 hours as needed. amLODIPine (NORVASC) 5 mg tablet Take 1 tablet by mouth once daily. chlorthalidone (HYGROTON) 25 mg tablet Take 1 tablet by mouth once daily. ESTRADIOL (CLIMARA TRANSDERM.) Apply as directed. fluticasone (FLONASE) 50 mcg/actuation nasal spray Use 2 Sprays in each nostril once daily. Rinse mouth after use. IBUPROFEN (ADVIL ORAL) Take 1 tablet by mouth as needed. levothyroxine (SYNTHROID) 50 mcg tablet Take 1 tablet by mouth once daily. metoprolol succinate ER (TOPROL XL) 25 mg 24 hr tablet Take 1 tablet by mouth once daily. mometasone-formoterol (DULERA) 100-5 mcg/actuation inhaler Inhale 2 Puffs as instructed twice daily. Mucus Clearing Device ([employer] VIBRATORY PEP) lalo Use as directed for pulmonary hygeine. Multivitamin capsule Take 1 capsule by mouth once daily. omeprazole (PRILOSEC) 20 mg capsule Take 2 capsules by mouth once daily. simvastatin (ZOCOR) 10 mg tablet Take 1 tablet by mouth daily at bedtime. For cholesterols. tobramycin-dexamethasone (TOBRADEX) ophthalmic suspension Use 1 Drop in both eyes every 4 hours as needed. No current facility-administered medications on file prior to visit. Social History Social History Tobacco Use Smoking status: Never Smokeless tobacco: Never Vaping Use Vaping Use: Never used Substance Use Topics Alcohol use: No Drug use: No Review of Symptoms REVIEW OF SYSTEMS See HPI EXAM: BP 122/74 Pulse 70 Temp 36.9 C (98.5 F) Resp 18 SpO2 97% General Appearance: Well appearing, alert, in no acute distress, well-hydrated, well nourished.. Skin: Skin color, texture, turgor normal, no suspicious rashes or lesions. Head: Normocephalic, no masses, lesions, tenderness or abnormalities. Eyes: Anicteric sclera. Pupils are equally round and reactive to light. Extraocular movements are intact. . Nose/Sinuses: Nares normal, septum midline, mucosa normal, no drainage or sinus tenderness. Oropharynx: Lips, mucosa, and tongue normal, teeth and gums normal, oropharynx normal. Neck: Supple, no adenopathy; thyroid symmetric, normal size, no bruits. Lungs: coarse breath sounds bilaterally without rale or wheezing. No consolidation. Heart: RRR without murmur, gallop, or rubs. No ectopy. Health Maintenance List Shingrix Vaccine(1 of 2) Never done Advance Directive Discussion Never done Depression Assessment Never done Influenza Vaccine(1) due on 02/26/2023 Covid-19 Vaccine( season) due on 02/26/2023 Mammogram Screening due on 03/09/2023 Annual PCP Team Chronic Disease Visit due on 04/09/2024 BP Controlled (<130/80) due on 04/09/2024 Diabetes Screening due on 02/12/2026 Lipid Screening due on 02/13/2028 DTaP,Tdap,Td Vaccine(2 - Td or Tdap) due on 05/04/2028 Colorectal Cancer Screening due on 11/09/2028 Bone Density Screening Completed Hepatitis C Screening Completed Pneumococcal Vaccine: 65+ Completed ASSESSMENT/PLAN: 1. Sarcoidosis of lung (HCC) - ICD9: 135, 517.8, ICD10: D86.0 (primary diagnosis) Patient with improving cough. With history of sarcoidosis, will treat with prednisone burst and obtain CXR. Call if symptoms not improving in 5-7 days. F/u with pulmonology. - PREDNISONE 20 MG TABLET 2. Productive cough - ICD9: 786.2, ICD10: R05.8 See above. - XR CHEST 2V FRONTAL/LAT - PREDNISONE 20 MG TABLET Jere Martines MD documented in this encounter [facility] 03-16-2023 Miscellaneous Notes Patient has been identified by name and date of : Yes Last office visit in this department: 02/08/2023 RX INSTRUCTIONS: Patient aware RX will be sent to pharmacy. No need to notify patient. Patient phones requesting refills as follows: Requested Prescriptions Pending Prescriptions Disp Refills fluticasone (FLONASE) 50 mcg/actuation nasal spray 18 g 1 Sig: Use 2 Sprays in each nostril once daily. Rinse mouth after use. Please review and advise. Genesis Calix documented in this encounter [facility] 02-10-2023 Miscellaneous Notes Patient has been identified by name and date of : Yes Requested Prescriptions Pending Prescriptions Disp Refills mometasone-formoterol (DULERA) 100-5 mcg/actuation inhaler 13 g 5 Sig: Inhale 2 Puffs as instructed twice daily. TORIBIO-02/08/23 Labs-10/04/21 NOV-08/11/23 RX INSTRUCTIONS: Patient aware RX will be sent to pharmacy. No need to notify patient. Maya Salomon [employer] documented in this encounter [facility] 02-08-2023 Note HNO ID: [id number] Author: Aysha Easton APRN.SPRINKLING SYSTEM IRRIGATOR Service: ? Author Type: Nurse Practitioner Type: Progress Notes Filed: 02/08/2023 1:22 PM Note Text: 02/08/2023 Patient presents with: F/U 3 Month SUBJECTIVE: This is a 72 year old that is here today for Above Complaints. Since last office visit has been in good health without ER visits or hospitalizations. HTN: Patient is compliant with meds Yes Monitors bp at home: Yes. Denies side effects: Yes. Chest pain: No. Dyspnea: No. Edema: yes hx of lymphedema . Palpitations: No. Syncope: No. Headache: No. Dizziness: No. HYPOTHYROIDISM: taking synthroid as prescribed without side effects Has followed with pulmonology in the past for a hx of sarcoidosis. Has not seen pulm in some time Continues to wear bilateral compression hose for a hx of lymphedema which helps some Last week left eye was matted shut. Using warm compresses to help. Reports is getting better. 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 fluticasone (FLONASE) 50 mcg/actuation nasal spray Use 2 Sprays in each nostril once daily. Rinse mouth after use. amLODIPine (NORVASC) 5 mg tablet Take 1 tablet by mouth once daily. omeprazole (PRILOSEC) 20 mg capsule Take 2 capsules by mouth once daily. metoprolol succinate ER (TOPROL XL) 25 mg 24 hr tablet Take 1 tablet by mouth once daily. levothyroxine (SYNTHROID) 50 mcg tablet Take 1 tablet by mouth once daily. albuterol HFA (PROAIR HFA) 90 mcg/actuation inhaler Inhale 2 Puffs as instructed every 4 hours as needed. mometasone-formoterol (DULERA) 100-5 mcg/actuation inhaler Inhale 2 Puffs as instructed twice daily. cholecalciferol, Vitamin D3, (VITAMIN D3) 1,250 mcg (50,000 unit) cap capsule Take 1 capsule by mouth one time a week. (Patient not taking: Reported on 03/09/2022) Mucus Clearing Device (QUAKE VIBRATORY PEP) lalo Use as directed for pulmonary hygeine. tobramycin-dexamethasone (TOBRADEX) ophthalmic suspension Use 1 Drop in both eyes every 4 hours as needed. IBUPROFEN (ADVIL ORAL) Take 1 tablet by mouth as needed. ESTRADIOL (CLIMARA TRANSDERM.) Apply as directed. Multivitamin capsule Take 1 capsule by mouth once daily. No current facility-administered medications for this visit. Medications and allergies reviewed by this provider. SOCIAL HISTORY Social History Tobacco Use Smoking status: Never Smokeless tobacco: Never Vaping Use Vaping Use: Never used Substance Use Topics Alcohol use: No Drug use: No REVIEW OF SYSTEMS All other reviewed and negative other than HPI. OBJECTIVE: BP 124/70 Pulse 82 Resp 18 Wt 91.9 kg (202 lb 9.6 oz) SpO2 94% BMI 35.89 kg/m? . Vital signs reviewed by this provider. APPEARANCE Well appearing, alert, in no acute distress, well-hydrated, well nourished. EYES conjunctiva and sclera normal. HEART RRR with normal S1 and S2, no murmurs, no gallops, no JVD appreciated LUNG clear to auscultation. No wheezes, rhonchi or rales EXTREMITIES Extremities normal, No deformities, No skin discoloration, and No edema SKIN Skin color, texture, turgor normal, no suspicious rashes or lesions to exposed skin SHINGRIX VACCINE(1 of 2) Never done COVID-19 VACCINE(4 - Moderna series) due on 08/11/2021 ADVANCE DIRECTIVE DISCUSSION Never done DEPRESSION ASSESSMENT Never done MAMMOGRAM due on 03/09/2023 INFLUENZA(1) due on 02/26/2023 ANNUAL PCP TEAM CHRONIC DISEASE VISIT due on 10/31/2023 BP CONTROLLED (<130/80) due on 10/31/2023 DIABETES SCREEN due on 10/04/2024 LIPID SCREEN due on 07/01/2025 DTAP,TDAP,TD(2 - Td or Tdap) due on 05/04/2028 COLORECTAL CANCER SCREENING due on 11/09/2028 BONE DENSITY Completed HEPATITIS C SCREENING Completed PNEUMOCOCCAL: 65+ Completed ASSESSMENT/PLAN: 1. Essential hypertension - ICD9: 401.9, ICD10: I10 (primary diagnosis) - Controlled - Continue current medications - Recommend home blood pressure monitoring, to bring results to next visit - Encouraged sodium restriction, DASH or Mediterranean diet - Recommend regular aerobic exercise - Discussed need for and benefit of weight loss. BMI 35.89 kg/(m2) - COMP METABOLIC PANEL - Follow up in 6 months for hypertension visit 2. Vitamin D deficiency - ICD9: 268.9, ICD10: E55.9 - VITAMIN D 25 HYDROXY 3. Screening for hyperlipidemia - ICD9: V77.91, (more content not included)... [facility] 02-08-2023 History of Presen t illness Narrative 02/08/2023 Patient presents with: F/U 3 Month SUBJECTIVE: This is a 72 year old that is here today for Above Complaints. Since last office visit has been in good health without ER visits or hospitalizations. HTN: Patient is compliant with meds Yes Monitors bp at home: Yes. Denies side effects: Yes. Chest pain: No. Dyspnea: No. Edema: yes hx of lymphedema . Palpitations: No. Syncope: No. Headache: No. Dizziness: No. HYPOTHYROIDISM: taking synthroid as prescribed without side effects Has followed with pulmonology in the past for a hx of sarcoidosis. Has not seen pulm in some time Continues to wear bilateral compression hose for a hx of lymphedema which helps some Last week left eye was matted shut. Using warm compresses to help. Reports is getting better. 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 fluticasone (FLONASE) 50 mcg/actuation nasal spray Use 2 Sprays in each nostril once daily. Rinse mouth after use. amLODIPine (NORVASC) 5 mg tablet Take 1 tablet by mouth once daily. omeprazole (PRILOSEC) 20 mg capsule Take 2 capsules by mouth once daily. metoprolol succinate ER (TOPROL XL) 25 mg 24 hr tablet Take 1 tablet by mouth once daily. levothyroxine (SYNTHROID) 50 mcg tablet Take 1 tablet by mouth once daily. albuterol HFA (PROAIR HFA) 90 mcg/actuation inhaler Inhale 2 Puffs as instructed every 4 hours as needed. mometasone-formoterol (DULERA) 100-5 mcg/actuation inhaler Inhale 2 Puffs as instructed twice daily. cholecalciferol, Vitamin D3, (VITAMIN D3) 1,250 mcg (50,000 unit) cap capsule Take 1 capsule by mouth one time a week. (Patient not taking: Reported on 03/09/2022) Mucus Clearing Device (QUAKE VIBRATORY PEP) lalo Use as directed for pulmonary hygeine. tobramycin-dexamethasone (TOBRADEX) ophthalmic suspension Use 1 Drop in both eyes every 4 hours as needed. IBUPROFEN (ADVIL ORAL) Take 1 tablet by mouth as needed. ESTRADIOL (CLIMARA TRANSDERM.) Apply as directed. Multivitamin capsule Take 1 capsule by mouth once daily. No current facility-administered medications for this visit. Medications and allergies reviewed by this provider. SOCIAL HISTORY Social History Tobacco Use Smoking status: Never Smokeless tobacco: Never Vaping Use Vaping Use: Never used Substance Use Topics Alcohol use: No Drug use: No REVIEW OF SYSTEMS All other reviewed and negative other than HPI. OBJECTIVE: BP 124/70 Pulse 82 Resp 18 Wt 91.9 kg (202 lb 9.6 oz) SpO2 94% BMI 35.89 kg/m . Vital signs reviewed by this provider. APPEARANCE Well appearing, alert, in no acute distress, well-hydrated, well nourished. EYES conjunctiva and sclera normal. HEART RRR with normal S1 and S2, no murmurs, no gallops, no JVD appreciated LUNG clear to auscultation. No wheezes, rhonchi or rales EXTREMITIES Extremities normal, No deformities, No skin discoloration, and No edema SKIN Skin color, texture, turgor normal, no suspicious rashes or lesions to exposed skin SHINGRIX VACCINE(1 of 2) Never done COVID-19 VACCINE(4 - Moderna series) due on 08/11/2021 ADVANCE DIRECTIVE DISCUSSION Never done DEPRESSION ASSESSMENT Never done MAMMOGRAM due on 03/09/2023 INFLUENZA(1) due on 02/26/2023 ANNUAL PCP TEAM CHRONIC DISEASE VISIT due on 10/31/2023 BP CONTROLLED (<130/80) due on 10/31/2023 DIABETES SCREEN due on 10/04/2024 LIPID SCREEN due on 07/01/2025 DTAP,TDAP,TD(2 - Td or Tdap) due on 05/04/2028 COLORECTAL CANCER SCREENING due on 11/09/2028 BONE DENSITY Completed HEPATITIS C SCREENING Completed PNEUMOCOCCAL: 65+ Completed ASSESSMENT/PLAN: 1. Essential hypertension - ICD9: 401.9, ICD10: I10 (primary diagnosis) - Controlled - Continue current medications - Recommend home blood pressure monitoring, to bring results to next visit - Encouraged sodium restriction, DASH or Mediterranean diet - Recommend regular aerobic exercise - Discussed need for and benefit of weight loss. BMI 35.89 kg/(m^2) - COMP METABOLIC PANEL - Follow up in 6 months for hypertension visit 2. Vitamin D deficiency - ICD9: 268.9, ICD10: E55.9 - VITAMIN D 25 HYDROXY 3. Screening for hyperlipidemia - ICD9: V77.91, ICD10: Z13.220 - LIPID PANEL BASIC 4. Sarcoidosis of lung (HCC) - ICD9: 135, 517.8, ICD10: D86.0 - recommend follow-up with pulmonology as recommended 5. Acquired hypothyroidism - ICD9: 244.9, ICD10: E03.9 - Instructed patient on importance of taking on an empty stomach either first thing in the morning or at bedtime. - continue current dose of Synthroid 0.088 mg - Follow up in 6 months 6. Lymphedema - ICD9: 457.1, ICD10: I89.0 - continue with compression hose 7. Irritation of eye - ICD9: 379.99, ICD10: H57.89 - no red flag symptoms or exam findings - red flag symptoms discussed, verbalizes understanding - recommend she she use OTC patady drop as directed on packaging - follow-up if symptoms fail to improve, to ER with red flag symptoms Aysha Easton APRN.SPRINKLING SYSTEM IRRIGATOR Prescription instructions reviewed with patient as applicable. Patient advised if symptoms do not improve or if symptoms worsen sooner, to contact their primary care physician. Potential red flag symptoms discussed with the patient. Reviewed appropriate action plan to take if red flag symptoms occur. Patient agreeable to treatment plan. I spent a total of 25 minutes on the date of the service which included preparing to see the patient, [id number] patient care, completing clinical documentation, obtaining and/or reviewing separately obtained history, performing a medically appropriate examination, counseling and educating the patient/family/caregiver, and ordering medications, tests, or procedures. documented in this encounter [facility] 01-06-2023 Miscellaneous Notes Pt notified of results & message from provider, pt voiced understanding. Amy Hinojosa LPN ----- Message from Jere Martines MD sent at 01/06/2023 3:00 PM EDT ----- Compared to prior to study, this US shows superficial thrombophlebitis has resolved. Does show post thrombotic changes. Recommend she continue wearing compression stockings during the day and call with recurrent pain or redness. documented in this encounter [facility] 12-28-2022 Miscellaneous Notes TORIBIO 10/30/22 NOV 02/08/23 Please review and advise. Thank you. MARLY De León Patient has been identified by name and date of : Yes Last office visit in this department: 10/30/2022 RX INSTRUCTIONS: Patient aware RX will be sent to pharmacy. No need to notify patient. Patient phones requesting refills as follows: Requested Prescriptions Pending Prescriptions Disp Refills chlorthalidone (HYGROTON) 25 mg tablet 90 tablet 1 Sig: Take 1 tablet by mouth once daily. Please review and advise. Tanya Tejeda documented in this encounter [facility] 12-25-2022 Note HNO ID: [id number] Author: Denise Edwards PT Service: ? Author Type: Physical Therapist Type: Progress Notes Filed: 12/25/2022 2:24 PM Note Text: Episode Visit Count: 10 Therapist That Will Accept/Oversee The Plan Of Care: Denise Edwards Start of Care Date: 10/26/22 Onset Date: 10/26/21 (worsening about past year) Plan of Care Certification Date: 10/26/22 Next Certification Due Date: 12/26/22 Patient Identified by Name and Date of : Yes REHABILITATION AND SPORTS THERAPY PHYSICAL THERAPY DISCONTINUANCE OF CARE PLAN OF CARE UPDATE: Assessment: Micaela Howard is discontinued from Physical Therapy services due to goal achievement.. Patient was seen for 10 visits from Start of Care Date: 10/26/22 to 12/25/2022 and treatment included: Therapeutic exercise, Manual therapy, Self-long term management, and Patient/Family/Caregiver Education. No specialty comments available. SUBJECTIVE: Patient Reason for Visit: Pt states she feels her legs are not getting any bigger , so she is pleased with where they are at. She notes if she wears stockings the swelling stays down. L LE is still bigger than R. Pain: Pain Pain Level: 0 Pain Location: Leg - Right, Leg - Left Post Treatment Pain Post Treatment Pain Level: 0 PROMIS Scales Higher is Better 10/06/2021 Phys Func - Score 38 (moderate dysfunction) Phys Func - Percentile 12 % Self-Eff Symptom - Score 42 (Average) Self-Eff Symptom - Percentile 21 % T-scores: mean of general population = 50. 5 points is clinically meaningfully difference Percentiles provide an indication of how the patient's score ranks in relation to the general population. Higher percentile rankings indicate better function/quality of life. 50th percentile is the average of the general population and indicates half of respondents had a worse score. OBJECTIVE MEASURES WITH LEVEL OF FUNCTION: Lymphedema Skin Comments:: Skin and underlying tissue soft and malleable without pitting B LE. Good hydration throughout. Lower Extremity Circumferential Measurements R 1st toe (proximal phalanx): 7.5 R Metatarsal Phalangeal (MTP): 20.5 R Arch: 21 R 5 cm from floor: 27 cm R 10 cm from floor: 22.5 cm R 15 cm from floor: 24.5 cm R 20 cm from floor: 31 cm R 25 cm from floor: 40.5 cm R 30 cm from floor: 47 cm R 35 cm from floor: 48 cm R 40 cm from floor: 54.5 cm (knee) R 45 cm from floor: 60.5 cm R 50 cm from floor: 64.5 cm R 55 cm from floor: 67 cm R 60 cm from floor: 71 cm L 1st toe (proximal phalanx): 7.5 L Metatarsal Phalangeal (MTP): 20.5 L Arch: 20.5 L 5 cm from floor: 26.5 cm L 10 cm from floor: 26 cm L 15 cm from floor: 29 cm L 20 cm from floor: 33 cm L 25 cm from floor: 39.5 cm L 30 cm from floor: 46.5 cm L 35 cm from floor: 48 cm L 40 cm from floor: 54.5 cm (knee) L 45 cm from floor: 59.5 cm L 50 cm from floor: 63 cm L 55 cm from floor: 64 cm L 60 cm from floor: 70.5 cm Affected Leg: Bilateral, Left Leg Larger Calculate Volume : Yes R Lower Extremity Volume: 09226 L Lower Extremity Volume: 48421 Difference in Volume: -131 Difference in % : -1.25 TREATMENT: Manual Therapy: 1: MLD for BLE sequence. Included abdominal series, but deleted short neck series d/t age contraindication. Skilled Intervention: Manual skills to improve joint mobility, ROM, and decrease pain. Utilized anatomy knowledge of the therapist, and assessment of patient's response to intervention. Manual techniques to facilitate lymphatic dynamics and improve condition of tissue. Billing Manual TherapyTreatment Minutes: 47 Total Treatment Time Minutes (timed/untimed): [address] [facility] 12-25-2022 History of Presen t illness Narrative Episode Visit Count: 10 Therapist That Will Accept/Oversee The Plan Of Care: Denise Edwards Start of Care Date: 10/26/22 Onset Date: 10/26/21 (worsening about past year) Plan of Care Certification Date: 10/26/22 Next Certification Due Date: 12/26/22 Patient Identified by Name and Date of : Yes REHABILITATION AND SPORTS THERAPY PHYSICAL THERAPY DISCONTINUANCE OF CARE PLAN OF CARE UPDATE: Assessment: Micaela Cadena Keyon is discontinued from Physical Therapy services due to goal achievement.. Patient was seen for 10 visits from Start of Care Date: 10/26/22 to 12/25/2022 and treatment included: Therapeutic exercise, Manual therapy, Self-long term management, and Patient/Family/Caregiver Education. No specialty comments available. SUBJECTIVE: Patient Reason for Visit: Pt states she feels her legs are not getting any bigger , so she is pleased with where they are at. She notes if she wears stockings the swelling stays down. L LE is still bigger than R. Pain: Pain Pain Level: 0 Pain Location: Leg - Right, Leg - Left Post Treatment Pain Post Treatment Pain Level: 0 PROMIS Scales Higher is Better 10/06/2021 Phys Func - Score 38 (moderate dysfunction) Phys Func - Percentile 12 % Self-Eff Symptom - Score 42 (Average) Self-Eff Symptom - Percentile 21 % T-scores: mean of general population = 50. 5 points is clinically meaningfully difference Percentiles provide an indication of how the patient's score ranks in relation to the general population. Higher percentile rankings indicate better function/quality of life. 50th percentile is the average of the general population and indicates half of respondents had a worse score. OBJECTIVE MEASURES WITH LEVEL OF FUNCTION: Lymphedema Skin Comments:: Skin and underlying tissue soft and malleable without pitting B LE. Good hydration throughout. Lower Extremity Circumferential Measurements R 1st toe (proximal phalanx): 7.5 R Metatarsal Phalangeal (MTP): 20.5 R Arch: 21 R 5 cm from floor: 27 cm R 10 cm from floor: 22.5 cm R 15 cm from floor: 24.5 cm R 20 cm from floor: 31 cm R 25 cm from floor: 40.5 cm R 30 cm from floor: 47 cm R 35 cm from floor: 48 cm R 40 cm from floor: 54.5 cm (knee) R 45 cm from floor: 60.5 cm R 50 cm from floor: 64.5 cm R 55 cm from floor: 67 cm R 60 cm from floor: 71 cm L 1st toe (proximal phalanx): 7.5 L Metatarsal Phalangeal (MTP): 20.5 L Arch: 20.5 L 5 cm from floor: 26.5 cm L 10 cm from floor: 26 cm L 15 cm from floor: 29 cm L 20 cm from floor: 33 cm L 25 cm from floor: 39.5 cm L 30 cm from floor: 46.5 cm L 35 cm from floor: 48 cm L 40 cm from floor: 54.5 cm (knee) L 45 cm from floor: 59.5 cm L 50 cm from floor: 63 cm L 55 cm from floor: 64 cm L 60 cm from floor: 70.5 cm Affected Leg: Bilateral, Left Leg Larger Calculate Volume : Yes R Lower Extremity Volume: 44231 L Lower Extremity Volume: 74014 Difference in Volume: -131 Difference in % : -1.25 TREATMENT: Manual Therapy: 1: MLD for BLE sequence. Included abdominal series, but deleted short neck series d/t age contraindication. Skilled Intervention: Manual skills to improve joint mobility, ROM, and decrease pain. Utilized anatomy knowledge of the therapist, and assessment of patient's response to intervention. Manual techniques to facilitate lymphatic dynamics and improve condition of tissue. Billing Manual TherapyTreatment Minutes: 47 Total Treatment Time Minutes (timed/untimed): 47 Denise Edwards PT documented in this encounter [facility] 12-21-2022 Miscellaneous Notes Called and left a detailed voicemail notifying patient of providers message. Hospital phone number was left in case patient had any questions. Reyna Arias, RN Prescription for Flonase sent. Aysha Easton APRN.SPRINKLING SYSTEM IRRIGATOR Micaela Tammi GaxiolaKeyon is calling Jere Martines MD today to request a prescription for the following medication; this is not in her history: fluticasone propionate 50 mcg. Two Sprays in each nostril every morning, once a day. Patient insists that her PCP has been prescribing this medication and it is not in her history. Please call Patient once this is submitted to [facility]. Patient has been identified by name and birthdate. Duration of symptoms: N/A Person calling: self Call patient at: on cell [phone] (home) [phone] (cell) Was an appointment scheduled: No Closing statement: Results or non-symptom based questions: Thank you for calling [facility], your call will be returned within the next business day. Arelis Aguilar Pss documented in this encounter [facility] 12-14-2022 Note HNO ID: [id number] Author: Denise Edwards PT Service: ? Author Type: Physical Therapist Type: Progress Notes Filed: 12/14/2022 2:32 PM Note Text: Episode Visit Count: 9 Therapist That Will Accept/Oversee The Plan Of Care: Denise Edwards Start of Care Date: 10/26/22 Onset Date: 10/26/21 (worsening about past year) Plan of Care Certification Date: 10/26/22 Next Certification Due Date: 12/26/22 Patient Identified by Name and Date of : Yes REHABILITATION AND SPORTS THERAPY PHYSICAL THERAPY TREATMENT NOTE ASSESSMENT: Micaela Howard tolerated the session with no issues. She demonstrated improvements in skin and soft tissue condition. The patient will continue to benefit from ongoing skilled physical therapy for plan of care update. PLAN FOR NEXT VISIT: POC update SUBJECTIVE: Patient Reason for Visit: Pt reports continued compliance wearing compression stockings and riding her stationary bike regularly. Pain: Pain Pain Level: 0 Pain Location: Leg - Right, Leg - Left Post Treatment Pain Post Treatment Pain Level: 0 OBJECTIVE MEASURES WITH LEVEL OF FUNCTION: Lymphedema Skin Comments:: skin and underlying tissue soft and malleable without pitting B LE TREATMENT: Manual Therapy: 1: MLD for BLE sequence. Included abdominal series, but deleted short neck series d/t age contraindication. Skilled Intervention: Manual skills to improve joint mobility, ROM, and decrease pain. Utilized anatomy knowledge of the therapist, and assessment of patient's response to intervention. Manual techniques to facilitate lymphatic dynamics and improve condition of tissue. Billing Manual TherapyTreatment Minutes: 43 Total Treatment Time Minutes (timed/untimed): [address] [facility] 12-14-2022 History of Presen t illness Narrative Episode Visit Count: 9 Therapist That Will Accept/Oversee The Plan Of Care: Denise Edwards Start of Care Date: 10/26/22 Onset Date: 10/26/21 (worsening about past year) Plan of Care Certification Date: 10/26/22 Next Certification Due Date: 12/26/22 Patient Identified by Name and Date of : Yes REHABILITATION AND SPORTS THERAPY PHYSICAL THERAPY TREATMENT NOTE ASSESSMENT: Micaela Howard tolerated the session with no issues. She demonstrated improvements in skin and soft tissue condition. The patient will continue to benefit from ongoing skilled physical therapy for plan of care update. PLAN FOR NEXT VISIT: POC update SUBJECTIVE: Patient Reason for Visit: Pt reports continued compliance wearing compression stockings and riding her stationary bike regularly. Pain: Pain Pain Level: 0 Pain Location: Leg - Right, Leg - Left Post Treatment Pain Post Treatment Pain Level: 0 OBJECTIVE MEASURES WITH LEVEL OF FUNCTION: Lymphedema Skin Comments:: skin and underlying tissue soft and malleable without pitting B LE TREATMENT: Manual Therapy: 1: MLD for BLE sequence. Included abdominal series, but deleted short neck series d/t age contraindication. Skilled Intervention: Manual skills to improve joint mobility, ROM, and decrease pain. Utilized anatomy knowledge of the therapist, and assessment of patient's response to intervention. Manual techniques to facilitate lymphatic dynamics and improve condition of tissue. Billing Manual TherapyTreatment Minutes: 43 Total Treatment Time Minutes (timed/untimed): 43 Denise Edwards PT documented in this encounter [facility] 12-11-2022 Note HNO ID: [id number] Author: Denise Edwards PT Service: ? Author Type: Physical Therapist Type: Progress Notes Filed: 12/11/2022 1:49 PM Note Text: Episode Visit Count: 8 Therapist That Will Accept/Oversee The Plan Of Care: Denise Edwards Start of Care Date: 10/26/22 Onset Date: 10/26/21 (worsening about past year) Plan of Care Certification Date: 10/26/22 Next Certification Due Date: 12/26/22 Patient Identified by Name and Date of : Yes REHABILITATION AND SPORTS THERAPY PHYSICAL THERAPY TREATMENT NOTE ASSESSMENT: Micaela Howard tolerated the session with no issues. She demonstrated continued fluctuation of edema B LE. The patient will continue to benefit from ongoing skilled physical therapy to progress toward set goals. PLAN FOR NEXT VISIT: Continue B LE MLD sequence. SUBJECTIVE: Patient Reason for Visit: Pt stating her L ankle tends to swell more than her R ankle by the end of the day. Pain: Pain Pain Level: 0 Pain Location: Leg - Right, Leg - Left Post Treatment Pain Post Treatment Pain Level: 0 OBJECTIVE MEASURES WITH LEVEL OF FUNCTION: Lymphedema Skin Comments:: skin well hydrated and soft tissue throughout B LE TREATMENT: Manual Therapy: 1: MLD for BLE sequence. Included abdominal series, but deleted short neck series d/t age contraindication. Skilled Intervention: Manual skills to improve joint mobility, ROM, and decrease pain. Utilized anatomy knowledge of the therapist, and assessment of patient's response to intervention. Manual techniques to facilitate lymphatic dynamics and improve condition of tissue. Billing Manual TherapyTreatment Minutes: 44 Total Treatment Time Minutes (timed/untimed): [address] [facility] 12-11-2022 History of Presen t illness Narrative Episode Visit Count: 8 Therapist That Will Accept/Oversee The Plan Of Care: Denise Edwards Start of Care Date: 10/26/22 Onset Date: 10/26/21 (worsening about past year) Plan of Care Certification Date: 10/26/22 Next Certification Due Date: 12/26/22 Patient Identified by Name and Date of : Yes REHABILITATION AND SPORTS THERAPY PHYSICAL THERAPY TREATMENT NOTE ASSESSMENT: Micaela Howard tolerated the session with no issues. She demonstrated continued fluctuation of edema B LE. The patient will continue to benefit from ongoing skilled physical therapy to progress toward set goals. PLAN FOR NEXT VISIT: Continue B LE MLD sequence. SUBJECTIVE: Patient Reason for Visit: Pt stating her L ankle tends to swell more than her R ankle by the end of the day. Pain: Pain Pain Level: 0 Pain Location: Leg - Right, Leg - Left Post Treatment Pain Post Treatment Pain Level: 0 OBJECTIVE MEASURES WITH LEVEL OF FUNCTION: Lymphedema Skin Comments:: skin well hydrated and soft tissue throughout B LE TREATMENT: Manual Therapy: 1: MLD for BLE sequence. Included abdominal series, but deleted short neck series d/t age contraindication. Skilled Intervention: Manual skills to improve joint mobility, ROM, and decrease pain. Utilized anatomy knowledge of the therapist, and assessment of patient's response to intervention. Manual techniques to facilitate lymphatic dynamics and improve condition of tissue. Billing Manual TherapyTreatment Minutes: 44 Total Treatment Time Minutes (timed/untimed): 44 Denise Edwards PT documented in this encounter [facility] 12-08-2022 Miscellaneous Notes TORIBIO 10/30/22 Appointment scheduled Please advise. Thank you. MARLY De León Patient has been identified by name and date of : Yes Requested Prescriptions Pending Prescriptions Disp Refills amLODIPine (NORVASC) 5 mg tablet 90 tablet 2 Sig: Take 1 tablet by mouth once daily. RX INSTRUCTIONS: Patient aware RX will be sent to pharmacy. No need to notify patient. Suyapa Blanchard Pss documented in this encounter [facility] 12-07-2022 Note HNO ID: [id number] Author: Denise Edwards PT Service: ? Author Type: Physical Therapist Type: Progress Notes Filed: 12/07/2022 3:26 PM Note Text: Episode Visit Count: 7 Therapist That Will Accept/Oversee The Plan Of Care: Denise Edwards Start of Care Date: 10/26/22 Onset Date: 10/26/21 (worsening about past year) Plan of Care Certification Date: 10/26/22 Next Certification Due Date: 12/26/22 Patient Identified by Name and Date of : Yes REHABILITATION AND SPORTS THERAPY PHYSICAL THERAPY TREATMENT NOTE ASSESSMENT: Micaela Howard tolerated the session with no issues. She demonstrated good compliance with compression garment wear and care. The patient will continue to benefit from ongoing skilled physical therapy to progress toward set goals. PLAN FOR NEXT VISIT: B LE MLD. SUBJECTIVE: Patient Reason for Visit: Pt to dept wearing B LE knee high compression stockings. Pain: Pain Pain Level: 0 Pain Location: Leg - Right, Leg - Left Post Treatment Pain Post Treatment Pain Level: 0 OBJECTIVE MEASURES WITH LEVEL OF FUNCTION: Lymphedema Skin Comments:: skin well hydrated throughout B LEs TREATMENT: Manual Therapy: 1: MLD for BLE sequence. Included abdominal series, but deleted short neck series d/t age contraindication. Skilled Intervention: Manual skills to improve joint mobility, ROM, and decrease pain. Utilized anatomy knowledge of the therapist, and assessment of patient's response to intervention. Manual techniques to facilitate lymphatic dynamics and improve condition of tissue. Billing Manual TherapyTreatment Minutes: 45 Total Treatment Time Minutes (timed/untimed): [address] [facility] 12-07-2022 History of Presen t illness Narrative Episode Visit Count: 7 Therapist That Will Accept/Oversee The Plan Of Care: Denise Edwards Start of Care Date: 10/26/22 Onset Date: 10/26/21 (worsening about past year) Plan of Care Certification Date: 10/26/22 Next Certification Due Date: 12/26/22 Patient Identified by Name and Date of : Yes REHABILITATION AND SPORTS THERAPY PHYSICAL THERAPY TREATMENT NOTE ASSESSMENT: Micaela Howard tolerated the session with no issues. She demonstrated good compliance with compression garment wear and care. The patient will continue to benefit from ongoing skilled physical therapy to progress toward set goals. PLAN FOR NEXT VISIT: B LE MLD. SUBJECTIVE: Patient Reason for Visit: Pt to dept wearing B LE knee high compression stockings. Pain: Pain Pain Level: 0 Pain Location: Leg - Right, Leg - Left Post Treatment Pain Post Treatment Pain Level: 0 OBJECTIVE MEASURES WITH LEVEL OF FUNCTION: Lymphedema Skin Comments:: skin well hydrated throughout B LEs TREATMENT: Manual Therapy: 1: MLD for BLE sequence. Included abdominal series, but deleted short neck series d/t age contraindication. Skilled Intervention: Manual skills to improve joint mobility, ROM, and decrease pain. Utilized anatomy knowledge of the therapist, and assessment of patient's response to intervention. Manual techniques to facilitate lymphatic dynamics and improve condition of tissue. Billing Manual TherapyTreatment Minutes: 45 Total Treatment Time Minutes (timed/untimed): 45 Denise Edwards PT documented in this encounter [facility] 12-04-2022 Note HNO ID: [id number] Author: Denise Edwards PT Service: ? Author Type: Physical Therapist Type: Progress Notes Filed: 12/04/2022 3:51 PM Note Text: Episode Visit Count: 6 Therapist That Will Accept/Oversee The Plan Of Care: Denise Edawrds Start of Care Date: 10/26/22 Onset Date: 10/26/21 (worsening about past year) Plan of Care Certification Date: 10/26/22 Next Certification Due Date: 12/26/22 Patient Identified by Name and Date of : Yes REHABILITATION AND SPORTS THERAPY PHYSICAL THERAPY TREATMENT NOTE ASSESSMENT: Micaela Howard tolerated the session with no issues. She demonstrated improvements in overall function. The patient will continue to benefit from ongoing skilled physical therapy to progress toward set goals. PLAN FOR NEXT VISIT: Continue MLD. May instruct in self-MLD techniques. SUBJECTIVE: Patient Reason for Visit: Pt continues compliance with HEP and compression stockings. Pain: Pain Pain Level: 0 Pain Location: Leg - Right, Leg - Left Post Treatment Pain Post Treatment Pain Level: 0 OBJECTIVE MEASURES WITH LEVEL OF FUNCTION: Lymphedema Pitting Edema Comments:: no pitting noted TREATMENT: Manual Therapy: 1: MLD for BLE sequence. Included abdominal series, but deleted short neck series d/t age contraindication. Skilled Intervention: Manual skills to improve joint mobility, ROM, and decrease pain. Utilized anatomy knowledge of the therapist, and assessment of patient's response to intervention. Manual techniques to facilitate lymphatic dynamics and improve condition of tissue. Billing Manual TherapyTreatment Minutes: 43 Total Treatment Time Minutes (timed/untimed): [address] [facility] 11-30-2022 Note HNO ID: [id number] Author: Denise Edwards PT Service: ? Author Type: Physical Therapist Type: Progress Notes Filed: 11/30/2022 4:22 PM Note Text: Episode Visit Count: 5 Therapist That Will Accept/Oversee The Plan Of Care: Denise Edwards Start of Care Date: 10/26/22 Onset Date: 10/26/21 (worsening about past year) Plan of Care Certification Date: 10/26/22 Next Certification Due Date: 12/26/22 Patient Identified by Name and Date of : Yes REHABILITATION AND SPORTS THERAPY PHYSICAL THERAPY TREATMENT NOTE ASSESSMENT: Micaela Howard tolerated the session with no issues. She demonstrated good compliance with wear schedule for B LE knee-high compression stockings. The patient will continue to benefit from ongoing skilled physical therapy to progress toward set goals. PLAN FOR NEXT VISIT: Continue MLD. May instruct in self-MLD techniques. SUBJECTIVE: Patient Reason for Visit: Pt denies any complaints today. Pain: Pain Pain Level: 0 Pain Location: Leg - Right, Leg - Left Post Treatment Pain Post Treatment Pain Level: 0 OBJECTIVE MEASURES WITH LEVEL OF FUNCTION: Lymphedema Skin Comments:: underlying tissue remains soft throughout B LE. TREATMENT: Manual Therapy: 1: MLD for BLE sequence. Included abdominal series, but deleted short neck series d/t age contraindication. Skilled Intervention: Manual skills to improve joint mobility, ROM, and decrease pain. Utilized anatomy knowledge of the therapist, and assessment of patient's response to intervention. Manual techniques to facilitate lymphatic dynamics and improve condition of tissue. Billing Manual TherapyTreatment Minutes: 42 Total Treatment Time Minutes (timed/untimed): [address] [facility] 11-30-2022 History of Presen t illness Narrative Episode Visit Count: 5 Therapist That Will Accept/Oversee The Plan Of Care: Denise Edwards Start of Care Date: 10/26/22 Onset Date: 10/26/21 (worsening about past year) Plan of Care Certification Date: 10/26/22 Next Certification Due Date: 12/26/22 Patient Identified by Name and Date of : Yes REHABILITATION AND SPORTS THERAPY PHYSICAL THERAPY TREATMENT NOTE ASSESSMENT: Micaela Howard tolerated the session with no issues. She demonstrated good compliance with wear schedule for B LE knee-high compression stockings. The patient will continue to benefit from ongoing skilled physical therapy to progress toward set goals. PLAN FOR NEXT VISIT: Continue MLD. May instruct in self-MLD techniques. SUBJECTIVE: Patient Reason for Visit: Pt denies any complaints today. Pain: Pain Pain Level: 0 Pain Location: Leg - Right, Leg - Left Post Treatment Pain Post Treatment Pain Level: 0 OBJECTIVE MEASURES WITH LEVEL OF FUNCTION: Lymphedema Skin Comments:: underlying tissue remains soft throughout B LE. TREATMENT: Manual Therapy: 1: MLD for BLE sequence. Included abdominal series, but deleted short neck series d/t age contraindication. Skilled Intervention: Manual skills to improve joint mobility, ROM, and decrease pain. Utilized anatomy knowledge of the therapist, and assessment of patient's response to intervention. Manual techniques to facilitate lymphatic dynamics and improve condition of tissue. Billing Manual TherapyTreatment Minutes: 42 Total Treatment Time Minutes (timed/untimed): 42 Denise Edwards PT documented in this encounter [facility] 11-27-2022 Note HNO ID: [id number] Author: Denise Edwards PT Service: ? Author Type: Physical Therapist Type: Progress Notes Filed: 11/27/2022 1:47 PM Note Text: Episode Visit Count: 4 Therapist That Will Accept/Oversee The Plan Of Care: Denise Edwards Start of Care Date: 10/26/22 Onset Date: 10/26/21 (worsening about past year) Plan of Care Certification Date: 10/26/22 Next Certification Due Date: 12/26/22 Patient Identified by Name and Date of : Yes REHABILITATION AND SPORTS THERAPY PHYSICAL THERAPY TREATMENT NOTE ASSESSMENT: Micaela Howard tolerated the session with no issues. She demonstrated continued improvement of skin and soft tissue condition B LE. The patient will continue to benefit from ongoing skilled physical therapy to progress toward set goals. PLAN FOR NEXT VISIT: MLD B LE sequence. SUBJECTIVE: Patient Reason for Visit: Pt notes she has been having R hip joint pain with rolling over in bed and supine to sit. She notes after she gets up and moving around she (it) is good . Pain: Pain Pain Level: 0 Pain Location: Leg - Right, Leg - Left Post Treatment Pain Post Treatment Pain Level: 0 Post Treatment Symptoms: Pt noted R hip pian when sitting up from lying, but resolved quickly. OBJECTIVE MEASURES WITH LEVEL OF FUNCTION: Lymphedema Skin Comments:: Good skin hydration and soft underlying tissue throughout. TREATMENT: Manual Therapy: 1: MLD for BLE sequence. Included abdominal series, but deleted short neck series d/t age contraindication. Skilled Intervention: Manual skills to improve joint mobility, ROM, and decrease pain. Utilized anatomy knowledge of the therapist, and assessment of patient's response to intervention. Manual techniques to facilitate lymphatic dynamics and improve condition of tissue. Billing Manual TherapyTreatment Minutes: 43 Total Treatment Time Minutes (timed/untimed): 43 Denise Edwards, PT [facility] 11-27-2022 History of Presen t illness Narrative Episode Visit Count: 4 Therapist That Will Accept/Oversee The Plan Of Care: Denise Edwards Start of Care Date: 10/26/22 Onset Date: 10/26/21 (worsening about past year) Plan of Care Certification Date: 10/26/22 Next Certification Due Date: 12/26/22 Patient Identified by Name and Date of : Yes REHABILITATION AND SPORTS THERAPY PHYSICAL THERAPY TREATMENT NOTE ASSESSMENT: Micaela Howard tolerated the session with no issues. She demonstrated continued improvement of skin and soft tissue condition B LE. The patient will continue to benefit from ongoing skilled physical therapy to progress toward set goals. PLAN FOR NEXT VISIT: MLD B LE sequence. SUBJECTIVE: Patient Reason for Visit: Pt notes she has been having R hip joint pain with rolling over in bed and supine to sit. She notes after she gets up and moving around she (it) is good . Pain: Pain Pain Level: 0 Pain Location: Leg - Right, Leg - Left Post Treatment Pain Post Treatment Pain Level: 0 Post Treatment Symptoms: Pt noted R hip pian when sitting up from lying, but resolved quickly. OBJECTIVE MEASURES WITH LEVEL OF FUNCTION: Lymphedema Skin Comments:: Good skin hydration and soft underlying tissue throughout. TREATMENT: Manual Therapy: 1: MLD for BLE sequence. Included abdominal series, but deleted short neck series d/t age contraindication. Skilled Intervention: Manual skills to improve joint mobility, ROM, and decrease pain. Utilized anatomy knowledge of the therapist, and assessment of patient's response to intervention. Manual techniques to facilitate lymphatic dynamics and improve condition of tissue. Billing Manual TherapyTreatment Minutes: 43 Total Treatment Time Minutes (timed/untimed): 43 Denise Edwards PT documented in this encounter [facility] 11-25-2022 Note HNO ID: [id number] Author: Denise Edwards PT Service: ? Author Type: Physical Therapist Type: Progress Notes Filed: 11/25/2022 3:58 PM Note Text: Episode Visit Count: 3 Therapist That Will Accept/Oversee The Plan Of Care: Denise Edwards Start of Care Date: 10/26/22 Onset Date: 10/26/21 (worsening about past year) Plan of Care Certification Date: 10/26/22 Next Certification Due Date: 12/26/22 Patient Identified by Name and Date of : Yes REHABILITATION AND SPORTS THERAPY PHYSICAL THERAPY PROGRESS REPORT PLAN OF CARE UPDATE: Assessment: Micaela Howard demonstrates improvements in soft tissue condition and physical activities. She has progressed toward goals. Patient continues to present with impairments in edema management, overall function, and soft tissue condition that interfere with walking in the community, standing . Current prognosis is Excellent due to: current objective clinical presentation, good overall health status, good support system/ coping skills . She will benefit from continued skilled therapy services to meet the updated goals for this plan of care as noted below. Goals for Episode of Care: created on 10/26/22 through 12/26/22 Goals updated on 11/25/2022. Patient / family knowledgeable re: all pertinent aspects of CDT (Met) Patient / family independent with donning / doffing compression garment and proper wearing schedule and care of garment (Met) Patient / family independent with home exercise program (Met) Patient will decrease circumferential measurements by 0.5 to 2 cm in the following areas: B LE for decreased recurrence of infection, improved mobility, improved range of motion and allow appropriate fit in compressive garment. (Partially Met) Patient Goals: limb volume reduction Planned Interventions, Frequency, and Duration: 2x/week, 4 weeks Total Number of Visits Planned: 8 Patient to be seen for Therapeutic exercise (28725), Manual therapy (85794), Self-long term management (02822), Patient/Family/Caregiver Education PLAN FOR NEXT VISIT: Continue with MLD and exercise. [facility] SUBJECTIVE: Patient Reason for Visit: Pt notes she is wearing knee high stockings daily and sometimes wears the thigh high stockings, but they are difficult to don. Functional Limitations: walking in the community, standing Pain: Pain Pain Level: 0 Pain Location: Leg - Right, Leg - Left Frequency: Intermittent Post Treatment Pain Post Treatment Pain Level: 0 PROMIS Scales Higher is Better 10/06/2021 Phys Func - Score 38 (moderate dysfunction) Phys Func - Percentile 12 % Self-Eff Symptom - Score 42 (Average) Self-Eff Symptom - Percentile 21 % T-scores: mean of general population = 50. 5 points is clinically meaningfully difference Percentiles provide an indication of how the patient's score ranks in relation to the general population. Higher percentile rankings indicate better function/quality of life. 50th percentile is the average of the general population and indicates half of respondents had a worse score. OBJECTIVE MEASURES WITH LEVEL OF FUNCTION: Lymphedema Pitting Edema Comments:: No pitting noted today. Skin Comments:: Good skin hydration and soft underlying tissue throughout. Lower Extremity Circumferential Measurements R 1st toe (proximal phalanx): 7.5 R Metatarsal Phalangeal (MTP): 21.5 R Arch: 20.5 R 5 cm from floor: 27 cm R 10 cm from floor: 23 cm R 15 cm from floor: 25.5 cm R 20 cm from floor: 31.5 cm R 25 cm from floor: 41.5 cm R 30 cm from floor: 48 cm R 35 cm from floor: 49 cm R 40 cm from floor: 56.5 cm (knee) R 45 cm from floor: 60 cm R 50 cm from floor: 64 cm R 55 cm from floor: 67 cm R 60 cm from floor: 71.5 cm L 1st toe (proximal phalanx): 8 L Metatarsal Phalangeal (MTP): 20.5 L Arch: 20 L 5 cm from floor: 27.5 cm L 10 cm from floor: 26 cm L 15 cm from floor: 29 cm L 20 cm from floor: 33.5 cm L 25 cm from floor: 42.5 cm L 30 cm from floor: 47.5 cm L 35 cm from floor: 48 cm L 40 cm from floor: 54.5 cm (knee) L 45 cm from floor: 60.5 cm L 50 cm from floor: 63 cm L 55 cm from floor: 64 cm L 60 cm from floor: 71 cm Affected Leg: Bilateral, Right Leg Larger Calculate Volume : Yes R Lower Extremity Volume: 12934 L Lower Extremity Volume: 61897 Difference in Volume: 115 Difference in % : 1.08 TREATMENT: Manual Therapy: 1: MLD for BLE sequence. Included abdominal series, but deleted short neck series d/t age contraindication. Skilled Intervention: Manual skills to improve joint mobility, ROM, and decrease pain. Utilized anatomy knowledge of the therapist, and assessment of patient's response to intervention. Manual techniques to facilitate lymphatic dynamics and improve condition of tissue. Increased time required for B LE limb volume measurements and skin/soft tissue assessment. Billing Manual The (more content not included)... [facility] 11-25-2022 History of Presen t illness Narrative Episode Visit Count: 3 Therapist That Will Accept/Oversee The Plan Of Care: Denise Edwards Start of Care Date: 10/26/22 Onset Date: 10/26/21 (worsening about past year) Plan of Care Certification Date: 10/26/22 Next Certification Due Date: 12/26/22 Patient Identified by Name and Date of : Yes REHABILITATION AND SPORTS THERAPY PHYSICAL THERAPY PROGRESS REPORT PLAN OF CARE UPDATE: Assessment: Micaela Howard demonstrates improvements in soft tissue condition and physical activities. She has progressed toward goals. Patient continues to present with impairments in edema management, overall function, and soft tissue condition that interfere with walking in the community, standing . Current prognosis is Excellent due to: current objective clinical presentation, good overall health status, good support system/ coping skills . She will benefit from continued skilled therapy services to meet the updated goals for this plan of care as noted below. Goals for Episode of Care: created on 10/26/22 through 12/26/22 Goals updated on 11/25/2022. Patient / family knowledgeable re: all pertinent aspects of CDT (Met) Patient / family independent with donning / doffing compression garment and proper wearing schedule and care of garment (Met) Patient / family independent with home exercise program (Met) Patient will decrease circumferential measurements by 0.5 to 2 cm in the following areas: B LE for decreased recurrence of infection, improved mobility, improved range of motion and allow appropriate fit in compressive garment. (Partially Met) Patient Goals: limb volume reduction Planned Interventions, Frequency, and Duration: 2x/week, 4 weeks Total Number of Visits Planned: 8 Patient to be seen for Therapeutic exercise (79900), Manual therapy (23861), Self-long term management (19139), Patient/Family/Caregiver Education PLAN FOR NEXT VISIT: Continue with MLD and exercise. [facility] SUBJECTIVE: Patient Reason for Visit: Pt notes she is wearing knee high stockings daily and sometimes wears the thigh high stockings, but they are difficult to don. Functional Limitations: walking in the community, standing Pain: Pain Pain Level: 0 Pain Location: Leg - Right, Leg - Left Frequency: Intermittent Post Treatment Pain Post Treatment Pain Level: 0 PROMIS Scales Higher is Better 10/06/2021 Phys Func - Score 38 (moderate dysfunction) Phys Func - Percentile 12 % Self-Eff Symptom - Score 42 (Average) Self-Eff Symptom - Percentile 21 % T-scores: mean of general population = 50. 5 points is clinically meaningfully difference Percentiles provide an indication of how the patient's score ranks in relation to the general population. Higher percentile rankings indicate better function/quality of life. 50th percentile is the average of the general population and indicates half of respondents had a worse score. OBJECTIVE MEASURES WITH LEVEL OF FUNCTION: Lymphedema Pitting Edema Comments:: No pitting noted today. Skin Comments:: Good skin hydration and soft underlying tissue throughout. Lower Extremity Circumferential Measurements R 1st toe (proximal phalanx): 7.5 R Metatarsal Phalangeal (MTP): 21.5 R Arch: 20.5 R 5 cm from floor: 27 cm R 10 cm from floor: 23 cm R 15 cm from floor: 25.5 cm R 20 cm from floor: 31.5 cm R 25 cm from floor: 41.5 cm R 30 cm from floor: 48 cm R 35 cm from floor: 49 cm R 40 cm from floor: 56.5 cm (knee) R 45 cm from floor: 60 cm R 50 cm from floor: 64 cm R 55 cm from floor: 67 cm R 60 cm from floor: 71.5 cm L 1st toe (proximal phalanx): 8 L Metatarsal Phalangeal (MTP): 20.5 L Arch: 20 L 5 cm from floor: 27.5 cm L 10 cm from floor: 26 cm L 15 cm from floor: 29 cm L 20 cm from floor: 33.5 cm L 25 cm from floor: 42.5 cm L 30 cm from floor: 47.5 cm L 35 cm from floor: 48 cm L 40 cm from floor: 54.5 cm (knee) L 45 cm from floor: 60.5 cm L 50 cm from floor: 63 cm L 55 cm from floor: 64 cm L 60 cm from floor: 71 cm Affected Leg: Bilateral, Right Leg Larger Calculate Volume : Yes R Lower Extremity Volume: 45026 L Lower Extremity Volume: 49982 Difference in Volume: 115 Difference in % : 1.08 TREATMENT: Manual Therapy: 1: MLD for BLE sequence. Included abdominal series, but deleted short neck series d/t age contraindication. Skilled Intervention: Manual skills to improve joint mobility, ROM, and decrease pain. Utilized anatomy knowledge of the therapist, and assessment of patient's response to intervention. Manual techniques to facilitate lymphatic dynamics and improve condition of tissue. Increased time required for B LE limb volume measurements and skin/soft tissue assessment. Billing Manual TherapyTreatment Minutes: 50 Total Treatment Time Minutes (timed/untimed): 50 Denise Edwards PT documented in this encounter [facility] 11-25-2022 Miscellaneous Notes TC Patient re: below results/recommendations, verbalized understanding. PSS please contact Patient to schedule US. Cyndee Hemphill LPN Venous duplex US shows superficial clot in the left great saphenous vein from knee to mid calf without increase in size. Same with superficial clot in varicose vein on left. No clotting on right. Since this clot has not worsened, I would have her discontinue her anticoagulation after the 45 days and recheck US in about 6 weeks to continue to monitor. Continue compression stockings and heat pad for pain or redness. Call with increased swelling or pain. documented in this encounter [facility] 11-09-2022 Note HNO ID: [id number] Author: Denise Edwards, PT Service: ? Author Type: Physical Therapist Type: Progress Notes Filed: 11/09/2022 1:48 PM Note Text: Episode Visit Count: 2 Therapist That Will Accept/Oversee The Plan Of Care: Denise Edwards Start of Care Date: 10/26/22 Onset Date: 10/26/21 (worsening about past year) Plan of Care Certification Date: 10/26/22 Next Certification Due Date: 12/26/22 Patient Identified by Name and Date of : Yes REHABILITATION AND SPORTS THERAPY PHYSICAL THERAPY TREATMENT NOTE ASSESSMENT: Micaela Howard tolerated the session with no issues. She demonstrated improvements in good compliance with no issues with HEP. The patient will continue to benefit from ongoing skilled physical therapy to progress toward set goals. PLAN FOR NEXT VISIT: Continue with MLD and exercise. [facility] SUBJECTIVE: Patient Reason for Visit: Pt notes she was able to do the decongestive exercises (HEP) at least once a day, sometimes twice. She is riding bicycle (3-wheeled) about a mile 4-5 days a week. Some days walking. Pain: Pain Pain Level: 0 (currently 0/10) Pain Location: Leg - Right, Leg - Left Frequency: Intermittent Post Treatment Pain Post Treatment Pain Level: 0 OBJECTIVE MEASURES WITH LEVEL OF FUNCTION: Lymphedema Skin: Skin Comments Skin Comments:: Good hydration noted and underlying tissue is soft throughout B LEs. TREATMENT: Manual Therapy: 1: Initiated MLD for BLE sequence. Included abdominal series, but deleted short neck series d/t age contraindication. Skilled Intervention: Manual skills to improve joint mobility, ROM, and decrease pain. Utilized anatomy knowledge of the therapist, and assessment of patient's response to intervention. Manual techniques to facilitate lymphatic dynamics and improve condition of tissue. Billing Manual TherapyTreatment Minutes: 45 Total Treatment Time Minutes (timed/untimed): [address] [facility] 11-09-2022 History of Presen t illness Narrative Episode Visit Count: 2 Therapist That Will Accept/Oversee The Plan Of Care: Denise Edwards Start of Care Date: 10/26/22 Onset Date: 10/26/21 (worsening about past year) Plan of Care Certification Date: 10/26/22 Next Certification Due Date: 12/26/22 Patient Identified by Name and Date of : Yes REHABILITATION AND SPORTS THERAPY PHYSICAL THERAPY TREATMENT NOTE ASSESSMENT: Micaela Howard tolerated the session with no issues. She demonstrated improvements in good compliance with no issues with HEP. The patient will continue to benefit from ongoing skilled physical therapy to progress toward set goals. PLAN FOR NEXT VISIT: Continue with MLD and exercise. [facility]. SUBJECTIVE: Patient Reason for Visit: Pt notes she was able to do the decongestive exercises (HEP) at least once a day, sometimes twice. She is riding bicycle (3-wheeled) about a mile 4-5 days a week. Some days walking. Pain: Pain Pain Level: 0 (currently 0/10) Pain Location: Leg - Right, Leg - Left Frequency: Intermittent Post Treatment Pain Post Treatment Pain Level: 0 OBJECTIVE MEASURES WITH LEVEL OF FUNCTION: Lymphedema Skin: Skin Comments Skin Comments:: Good hydration noted and underlying tissue is soft throughout B LEs. TREATMENT: Manual Therapy: 1: Initiated MLD for BLE sequence. Included abdominal series, but deleted short neck series d/t age contraindication. Skilled Intervention: Manual skills to improve joint mobility, ROM, and decrease pain. Utilized anatomy knowledge of the therapist, and assessment of patient's response to intervention. Manual techniques to facilitate lymphatic dynamics and improve condition of tissue. Billing Manual TherapyTreatment Minutes: 45 Total Treatment Time Minutes (timed/untimed): 45 Denise Edwards PT documented in this encounter [facility] 10-30-2022 Note HNO ID: [id number] Author: Jere Martines MD Service: ? Author Type: Physician Type: Progress Notes Filed: 10/31/2022 12:16 PM Note Text: Chief Complaint Patient presents with: Follow Up: Blood clot HPI Micaela Howard is a 72 year old female who presents here today for Above Complaints.. Patient here today for follow up of extensive superficial thrombophlebitis found on US. US showed patient did have superficial clot in her left leg at the knee crease to mid calf and in a varicose vein from the lower thigh to knee. No deep clots were identified on this study. With her clot extending so far,I recommended treating her with a blood thinner called Xarelto 10 mg for 45 days. Today, she states that she has been taking her Xarelto as prescribed without side effects, bruising or bleeding. Wearing her compression stockings daily. States she still has some tenderness on her left leg with 2 bumps, but seem to be decreasing in size. Did follow up with lymphedema clinic/PT and has been doing home exercises as recommended. Working on weight loss. Has not noticed much change in swelling. Past medical history, appointments, medications, allergies reviewed. Previous Medical History PAST MEDICAL HISTORY Diagnosis Date Colon polyps Dry eyes GERD (gastroesophageal reflux disease) Hot flashes MENTAL HEALTH ORDERLY following HTN (hypertension) Hypothyroidism Obesity (BMI 30.0-34.9) Osteopenia Primary osteoarthritis of both hips PSVT S/P gastric bypass lap band Sarcoidosis of lung (HCC) chronic scarring Seasonal allergies Varicose veins of lower extremities with inflammation Vitamin D deficiency Previous Surgical History PAST SURGICAL HISTORY Procedure Laterality Date BREAST BIOPSY Left 2000 COLONOSCOPY 2012 COLONOSCOPY FLX DX W/COLLJ SPEC WHEN PFRMD 11/09/2018 Colonoscopy IR ENDO ABLATION VARICOSE VEIN Right 2007 LAPS SURG CHOLECYSTECTOMY W/CHOLANGIOGRAPHY 1994 cholecystectomy OVARIAN CYSTECTOMY 1981 PAST SURGICAL HISTORY OF 2004 lap band PAST SURGICAL HISTORY OF 2002 lung biopsy-sarcoidosis PAST SURGICAL HISTORY OF 1984 [facility] TONSILLECTOMY HX 195 TUBAL LIGATION 1985 Family History FAMILY HISTORY Problem Relation Age of Onset Cancer Mother thyroid Diabetes Mother other (gout) Mother Rheumatologic disease Sister RA Thyroid Sister Cancer Sister possible leukemia Heart disease Brother [place], CABGx3 Thyroid Brother other (gout) Brother Thyroid Daughter No Known Problems Daughter Blood Clots Daughter None No Family History Sarcoidosis, Lung cancer. Patient Allergies ALLERGIES Allergen Reactions Seasonal Allergies Other: See Comments Current Medications Current Outpatient Medications on File Prior to Visit Medication Sig metoprolol succinate ER (TOPROL XL) 25 mg 24 hr tablet Take 1 tablet by mouth once daily. rivaroxaban (XARELTO) 10 mg tablet Take 1 tablet by mouth once daily. levothyroxine (SYNTHROID) 50 mcg tablet Take 1 tablet by mouth once daily. albuterol HFA (PROAIR HFA) 90 mcg/actuation inhaler Inhale 2 Puffs as instructed every 4 hours as needed. chlorthalidone (HYGROTON) 25 mg tablet Take 1 tablet by mouth once daily. omeprazole (PRILOSEC) 20 mg capsule Take 2 capsules by mouth once daily. mometasone-formoterol (DULERA) 100-5 mcg/actuation inhaler Inhale 2 Puffs as instructed twice daily. Mucus Clearing Device ([employer] VIBRATORY PEP) lalo Use as directed for pulmonary hygeine. tobramycin-dexamethasone (TOBRADEX) ophthalmic suspension Use 1 Drop in both eyes every 4 hours as needed. IBUPROFEN (ADVIL ORAL) Take 1 tablet by mouth as needed. ESTRADIOL (CLIMARA TRANSDERM.) Apply as directed. Multivitamin capsule Take 1 capsule by mouth once daily. amLODIPine (NORVASC) 5 mg tablet Take 1 tablet by mouth once daily. cholecalciferol, Vitamin D3, (VITAMIN D3) 1,250 mcg (50,000 unit) cap capsule Take 1 capsule by mouth one time a week. (Patient not taking: Reported on 03/09/2022) No current facility-administered medications on file prior to visit. Social History Social History Tobacco Use Smoking status: Never Smokeless tobacco: Never Vaping Use Vaping Use: Never used Substance Use Topics Alcohol use: No Drug use: No Review of Symptoms REVIEW OF SYSTEMS GENERAL: No weight loss, malaise or fevers RESPIRATORY: Negative for cough, hemoptysis, wheezing, COPD, dyspnea or shortness of breath CARDIOVASCULAR: Negative for chest pain, leg swelling, hypertension, CHF or palpitations EXAM: BP 124/74 Pulse 73 Resp 16 Wt 93 kg (205 lb) SpO2 96% BMI 36.31 kg/m? General Appearance: Well appearing, alert, in no acute distress, well-hydrated, well nourished.. Skin: Skin color, texture, turgor normal, no suspicious rashes or lesions. Lungs: Lungs clear to auscultation. No wheezing, rhonchi, rales.. Heart: RRR without murmur, gallop, or rubs. No ectopy. Extremities:bilateral (more content not included)... [facility] 10-30-2022 History of Presen t illness Narrative Chief Complaint Patient presents with: Follow Up: Blood clot HPI Micaela Howard is a 72 year old female who presents here today for Above Complaints.. Patient here today for follow up of extensive superficial thrombophlebitis found on US. US showed patient did have superficial clot in her left leg at the knee crease to mid calf and in a varicose vein from the lower thigh to knee. No deep clots were identified on this study. With her clot extending so far,I recommended treating her with a blood thinner called Xarelto 10 mg for 45 days. Today, she states that she has been taking her Xarelto as prescribed without side effects, bruising or bleeding. Wearing her compression stockings daily. States she still has some tenderness on her left leg with 2 bumps, but seem to be decreasing in size. Did follow up with lymphedema clinic/PT and has been doing home exercises as recommended. Working on weight loss. Has not noticed much change in swelling. Past medical history, appointments, medications, allergies reviewed. Previous Medical History PAST MEDICAL HISTORY Diagnosis Date Colon polyps Dry eyes GERD (gastroesophageal reflux disease) Hot flashes MENTAL HEALTH ORDERLY following HTN (hypertension) Hypothyroidism Obesity (BMI 30.0-34.9) Osteopenia Primary osteoarthritis of both hips PSVT S/P gastric bypass lap band Sarcoidosis of lung (HCC) chronic scarring Seasonal allergies Varicose veins of lower extremities with inflammation Vitamin D deficiency Previous Surgical History PAST SURGICAL HISTORY Procedure Laterality Date BREAST BIOPSY Left 2000 COLONOSCOPY 2012 COLONOSCOPY FLX DX W/COLLJ SPEC WHEN PFRMD 11/09/2018 Colonoscopy IR ENDO ABLATION VARICOSE VEIN Right 2007 LAPS SURG CHOLECYSTECTOMY W/CHOLANGIOGRAPHY 1994 cholecystectomy OVARIAN CYSTECTOMY 1981 PAST SURGICAL HISTORY OF 2004 lap band PAST SURGICAL HISTORY OF 2002 lung biopsy-sarcoidosis PAST SURGICAL HISTORY OF 1984 [facility] TONSILLECTOMY HX 195 TUBAL LIGATION 1985 Family History FAMILY HISTORY Problem Relation Age of Onset Cancer Mother thyroid Diabetes Mother other (gout) Mother Rheumatologic disease Sister RA Thyroid Sister Cancer Sister possible leukemia Heart disease Brother [place], CABGx3 Thyroid Brother other (gout) Brother Thyroid Daughter No Known Problems Daughter Blood Clots Daughter None No Family History Sarcoidosis, Lung cancer. Patient Allergies ALLERGIES Allergen Reactions Seasonal Allergies Other: See Comments Current Medications Current Outpatient Medications on File Prior to Visit Medication Sig metoprolol succinate ER (TOPROL XL) 25 mg 24 hr tablet Take 1 tablet by mouth once daily. rivaroxaban (XARELTO) 10 mg tablet Take 1 tablet by mouth once daily. levothyroxine (SYNTHROID) 50 mcg tablet Take 1 tablet by mouth once daily. albuterol HFA (PROAIR HFA) 90 mcg/actuation inhaler Inhale 2 Puffs as instructed every 4 hours as needed. chlorthalidone (HYGROTON) 25 mg tablet Take 1 tablet by mouth once daily. omeprazole (PRILOSEC) 20 mg capsule Take 2 capsules by mouth once daily. mometasone-formoterol (DULERA) 100-5 mcg/actuation inhaler Inhale 2 Puffs as instructed twice daily. Mucus Clearing Device (.[employer] VIBRATORY PEP) lalo Use as directed for pulmonary hygeine. tobramycin-dexamethasone (TOBRADEX) ophthalmic suspension Use 1 Drop in both eyes every 4 hours as needed. IBUPROFEN (ADVIL ORAL) Take 1 tablet by mouth as needed. ESTRADIOL (CLIMARA TRANSDERM.) Apply as directed. Multivitamin capsule Take 1 capsule by mouth once daily. amLODIPine (NORVASC) 5 mg tablet Take 1 tablet by mouth once daily. cholecalciferol, Vitamin D3, (VITAMIN D3) 1,250 mcg (50,000 unit) cap capsule Take 1 capsule by mouth one time a week. (Patient not taking: Reported on 03/09/2022) No current facility-administered medications on file prior to visit. Social History Social History Tobacco Use Smoking status: Never Smokeless tobacco: Never Vaping Use Vaping Use: Never used Substance Use Topics Alcohol use: No Drug use: No Review of Symptoms REVIEW OF SYSTEMS GENERAL: No weight loss, malaise or fevers RESPIRATORY: Negative for cough, hemoptysis, wheezing, COPD, dyspnea or shortness of breath CARDIOVASCULAR: Negative for chest pain, leg swelling, hypertension, CHF or palpitations EXAM: BP 124/74 Pulse 73 Resp 16 Wt 93 kg (205 lb) SpO2 96% BMI 36.31 kg/m General Appearance: Well appearing, alert, in no acute distress, well-hydrated, well nourished.. Skin: Skin color, texture, turgor normal, no suspicious rashes or lesions. Lungs: Lungs clear to auscultation. No wheezing, rhonchi, rales.. Heart: RRR without murmur, gallop, or rubs. No ectopy. Extremities:bilateral lymphedema. Left LE erythema has resolved. 2 hard nodules on left inner thigh still palpable and mildly TTP. Negative matthieu's. No pitting edema. Health Maintenance List SHINGRIX VACCINE(1 of 2) Never done BP CONTROLLED (<130/80) due on 07/01/2021 COVID-19 VACCINE(4 - Booster for Moderna series) due on 08/11/2021 ADVANCE DIRECTIVE DISCUSSION Never done DEPRESSION ASSESSMENT Never done MAMMOGRAM due on 03/09/2023 ANNUAL PCP TEAM CHRONIC DISEASE VISIT due on 09/23/2023 DIABETES SCREEN due on 10/04/2024 LIPID SCREEN due on 07/01/2025 DTAP,TDAP,TD(2 - Td or Tdap) due on 05/04/2028 COLORECTAL CANCER SCREENING due on 11/09/2028 BONE DENSITY Completed INFLUENZA Completed HEPATITIS C SCREENING Completed PNEUMOCOCCAL: 65+ Completed ASSESSMENT/PLAN: 1. Thrombophlebitis of superficial veins of left lower extremity - ICD9: 451.0, ICD10: I80.02 (primary diagnosis) Improving with anticoagulation and warm compresses at home. Continue 45 days of anticoagulation and will repeat US right before completion. Red flags for re-assessment reviewed with patient in detail. - US LEG VEIN DVT UNL VAS LAB 2. Lymphedema - ICD9: 457.1, ICD10: I89.0 Continue home exercises per lymphedema clinic, compression stockings, weight loss. - US LEG VEIN DVT UNL VAS LAB Jere Martines MD documented in this encounter [facility] 10-26-2022 Note HNO ID: [id number] Author: Denise Edwards, PT Service: ? Author Type: Physical Therapist Type: Progress Notes Filed: 10/26/2022 4:02 PM Note Text: Episode Visit Count: 1 Therapist That Will Accept/Oversee The Plan Of Care: Denise Edwards Start of Care Date: 10/26/22 Onset Date: 10/26/21 (worsening about past year) Plan of Care Certification Date: 10/26/22 Next Certification Due Date: 12/26/22 Patient Identified by Name and Date of : Yes REHABILITATION AND SPORTS THERAPY PHYSICAL THERAPY EVALUATION PLAN OF CARE: Assessment: Micaela Howard presents with diagnosis of lymphedema that interferes with standing, walking in the community, physical activities . She presents with impairments in overall function, tissue tenderness, and soft tissue condition. Patient did not complete the PROMIS? (Patient Reported Outcome Measures Information System). Prognosis for therapy is Excellent due to: current objective clinical presentation, good overall health status, good support system/ coping skills . She will benefit from skilled therapy services to meet the goals established for this plan of care as noted below. Goals for Episode of Care: created on 10/26/22 through 12/26/22 Patient / family knowledgeable re: all pertinent aspects of CDT Patient / family independent with donning / doffing compression garment and proper wearing schedule and care of garment Patient / family independent with home exercise program Patient will decrease circumferential measurements by 0.5 to 2 cm in the following areas: B LE for decreased recurrence of infection, improved mobility, improved range of motion and allow appropriate fit in compressive garment. Patient Goals: limb volume reduction Planned Interventions, Frequency, and Duration: Current Frequency: 2x/week Duration: 8 weeks Total Number of Visits Planned: 16 Planned Treatment Interventions: Therapeutic exercise (35257), Manual therapy (42448), Self-long term management (30073), Patient/Family/Caregiver Education Patient demonstrates good understanding of plan of care and treatment. The above goals and plan of care were discussed and agreed upon by patient/family. SUBJECTIVE: Micaela Howard is a 72 year old female seen today for Pt states, I've always had bigger legs. They just seem to be bigger. Now there's more of a hump at the proximal lower leg. More swelling in feet R>L than usual. Deal splint pain comes and goes. Has put on 20 pounds last 3 years since retired. Legs will ache. 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 Patient Goals: limb volume reduction Functional Limitations: standing, walking in the community, physical activities Prior Level of Function: Independent without limitations Relevant History Employment: Retired Intake Information: Prescription present Previous Treatment: (previously wore knee high compression stockings. Just 3 weeks ago got new pair or thigh-highs (20-30mmHg).) Pain: Pain Pain Level: (varies, depends on activities) Pain Location: Leg - Right, Leg - Left Description: Aching Frequency: Intermittent (Can be painful with pressure to legs (bumped or grandkids elbows, knees).) Post Treatment Pain Post Treatment Pain Level: 0 PROMIS Scales Higher is Better 10/06/2021 Phys Func - Score 38 (moderate dysfunction) Phys Func - Percentile 12 % Self-Eff Symptom - Score 42 (Average) Self-Eff Symptom - Percentile 21 % T-scores: mean of general population = 50. 5 points is clinically meaningfully difference Percentiles provide an indication of how the patient's score ranks in relation to the general population. Higher percentile rankings indicate better function/quality of life. 50th percentile is the average of the general population and indicates half of respondents had a worse score. OBJECTIVE MEASURES WITH LEVEL OF FUNCTION: Lymphedema Presents with: Swelling, Functional Limitations, Pain, Decreased knowledge of lymphedema management Lymphedema Contributing Factors: High BMI, Blood Clot / DVT (Recent diagnosis of superficial blood clot L medial distal thigh. Started blood thinner meds x 3 weeks.) Relative Contra-indications to Compression: : None Relative Contra-indications to Manual Lymph Drainage: : None Relative Contra-indications to Neck Manual Lymph Drainage: : Age (>70 years old), Hyper/hypothyroidism Relative Contra-indications for Abdominal Sequences: None Previous Lymphedema Treatment: Compression Garment Compression Garment: B knee high stockings Skin: Pitting Edema (+Stemmer's sign B) Pitting Edema Comments:: 1+ at dorsum of feet, ankles and distal half of lower legs Stage of Lymphedema: 2 Lower Extremity Circumferential Measurements R 1st toe (proximal phalanx): 7.5 R Metatarsal Phalangeal (MTP): 20.5 R Arch: 20.5 R 5 cm from floor: 27.5 cm R 10 cm from floor: 23.5 cm R 15 cm from floor: 25.5 cm R 20 cm from floor: 32 cm R 25 c (more content not included)... [facility] 10-26-2022 History of Presen t illness Narrative Episode Visit Count: 1 Therapist That Will Accept/Oversee The Plan Of Care: Denise Edwards Start of Care Date: 10/26/22 Onset Date: 10/26/21 (worsening about past year) Plan of Care Certification Date: 10/26/22 Next Certification Due Date: 12/26/22 Patient Identified by Name and Date of : Yes REHABILITATION AND SPORTS THERAPY PHYSICAL THERAPY EVALUATION PLAN OF CARE: Assessment: Micaela Howard presents with diagnosis of lymphedema that interferes with standing, walking in the community, physical activities . She presents with impairments in overall function, tissue tenderness, and soft tissue condition. Patient did not complete the PROMIS (Patient Reported Outcome Measures Information System). Prognosis for therapy is Excellent due to: current objective clinical presentation, good overall health status, good support system/ coping skills . She will benefit from skilled therapy services to meet the goals established for this plan of care as noted below. Goals for Episode of Care: created on 10/26/22 through 12/26/22 Patient / family knowledgeable re: all pertinent aspects of CDT Patient / family independent with donning / doffing compression garment and proper wearing schedule and care of garment Patient / family independent with home exercise program Patient will decrease circumferential measurements by 0.5 to 2 cm in the following areas: B LE for decreased recurrence of infection, improved mobility, improved range of motion and allow appropriate fit in compressive garment. Patient Goals: limb volume reduction Planned Interventions, Frequency, and Duration: Current Frequency: 2x/week Duration: 8 weeks Total Number of Visits Planned: 16 Planned Treatment Interventions: Therapeutic exercise (21724), Manual therapy (45113), Self-long term management (44307), Patient/Family/Caregiver Education Patient demonstrates good understanding of plan of care and treatment. The above goals and plan of care were discussed and agreed upon by patient/family. SUBJECTIVE: Micaela Howard is a 72 year old female seen today for Pt states, I've always had bigger legs. They just seem to be bigger. Now there's more of a hump at the proximal lower leg. More swelling in feet R>L than usual. Deal splint pain comes and goes. Has put on 20 pounds last 3 years since retired. Legs will ache. 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 Patient Goals: limb volume reduction Functional Limitations: standing, walking in the community, physical activities Prior Level of Function: Independent without limitations Relevant History Employment: Retired Intake Information: Prescription present Previous Treatment: (previously wore knee high compression stockings. Just 3 weeks ago got new pair or thigh-highs (20-30mmHg).) Pain: Pain Pain Level: (varies, depends on activities) Pain Location: Leg - Right, Leg - Left Description: Aching Frequency: Intermittent (Can be painful with pressure to legs (bumped or grandkids elbows, knees).) Post Treatment Pain Post Treatment Pain Level: 0 PROMIS Scales Higher is Better 10/06/2021 Phys Func - Score 38 (moderate dysfunction) Phys Func - Percentile 12 % Self-Eff Symptom - Score 42 (Average) Self-Eff Symptom - Percentile 21 % T-scores: mean of general population = 50. 5 points is clinically meaningfully difference Percentiles provide an indication of how the patient's score ranks in relation to the general population. Higher percentile rankings indicate better function/quality of life. 50th percentile is the average of the general population and indicates half of respondents had a worse score. OBJECTIVE MEASURES WITH LEVEL OF FUNCTION: Lymphedema Presents with: Swelling, Functional Limitations, Pain, Decreased knowledge of lymphedema management Lymphedema Contributing Factors: High BMI, Blood Clot / DVT (Recent diagnosis of superficial blood clot L medial distal thigh. Started blood thinner meds x 3 weeks.) Relative Contra-indications to Compression: : None Relative Contra-indications to Manual Lymph Drainage: : None Relative Contra-indications to Neck Manual Lymph Drainage: : Age (>70 years old), Hyper/hypothyroidism Relative Contra-indications for Abdominal Sequences: None Previous Lymphedema Treatment: Compression Garment Compression Garment: B knee high stockings Skin: Pitting Edema (+Stemmer's sign B) Pitting Edema Comments:: 1+ at dorsum of feet, ankles and distal half of lower legs Stage of Lymphedema: 2 Lower Extremity Circumferential Measurements R 1st toe (proximal phalanx): 7.5 R Metatarsal Phalangeal (MTP): 20.5 R Arch: 20.5 R 5 cm from floor: 27.5 cm R 10 cm from floor: 23.5 cm R 15 cm from floor: 25.5 cm R 20 cm from floor: 32 cm R 25 cm from floor: 42 cm R 30 cm from floor: 48 cm R 35 cm from floor: 49 cm R 40 cm from floor: 57 cm (knee) R 45 cm from floor: 61 cm R 50 cm from floor: 63.5 cm R 55 cm from floor: 68.5 cm R 60 cm from floor: 74 cm L 1st toe (proximal phalanx): 8 L Metatarsal Phalangeal (MTP): 20.5 L Arch: 20.5 L 5 cm from floor: 28 cm L 10 cm from floor: 26 cm L 15 cm from floor: 27.5 cm L 20 cm from floor: 34 cm L 25 cm from floor: 42 cm L 30 cm from floor: 48.5 cm L 35 cm from floor: 47 cm L 40 cm from floor: 59 cm (knee) L 45 cm from floor: 59 cm L 50 cm from floor: 61.5 cm L 55 cm from floor: 64.5 cm L 60 cm from floor: 66 cm Affected Leg: Bilateral, Right Leg Larger Calculate Volume : Yes R Lower Extremity Volume: 67253 L Lower Extremity Volume: 13818 Difference in Volume: 443 Difference in % : 4.05 Gait Gait Observation: Pt ambulates independently with no assistive device. Education: Education Learning Preferences: Demonstration, Explanation Barriers: None Learning/educational needs: Home exercise program, Plan of Care, Lymphedema Program Education Provided: Yes, see treatment interventions for education provided Education Provided To: Patient Education Mode/Type: Demonstration, Explanation/Discussion, Literature/Printed Materials, Performance Response to Education/Teach Back: States/Identifies, Return Demonstration TREATMENT: PT Treatment Interventions: Therapeutic Exercise, Self-Assisted Management Evaluation Self-Assisted Management: 1: *Instructed pt in LE Decongestive Exercises to perform as HEP. 2: Educated pt in CDT treatment including skin care/infeciton prevention, LE Decongestive Exercises, MLD, and compression garment options. Instructed pt to continue to wear her new thigh high stockings daily and remove at night. Discussed walking as a very effective exercise for general and LE purposes. Skilled Intervention: Skilled judgment in the selection of proper modification for activity of daily living/home management based on clinical presentation, deficits, and needs. Educated the patient regarding recommendations and provided written instruction to facilitate compliance. Reviewed patient specific diagnosis in relation to activities of daily living/home management. Billing * Evaluation Low Complexity: 1 Unit Self-Care/Home Management Treatment Minutes: 20 Total Treatment Time Minutes (timed/untimed): 47 Denise Edwards PT documented in this encounter [facility] 10-08-2022 Miscellaneous Notes Phoned patient and she reported she ordered the thigh high stockings from [employer] and is using them currently. Patient returned call and went over notes below from Dr Martines with understanding. Patient is on her way to [place] and can not look up where she wants rx to go to. She may have to check where she can get thigh high length from. Patient said she will have to call office back on Wednesday and tell them where she wants rx sent to. Detailed message left on secure VM. Requested patient call back and advise what to do with prescription. Rx printed for thigh high stockings since her one clot is above the knee. Would have her wear these daily for the 45 days or until clot dissolves. Pt states since she had vein surgery 10-15 years ago she wears them every day. She states they are only the ones that go to her knees. She gets new ones every 3-[address] Jerry[address] Does she have compression stockings at home? Spoke with pt and information listed below given. Pt verbalizes understanding. FYI: Pt scheduled apt follow up for 10/30/22. Could not do sooner she will be out of town. Thu Blanchard LPN Preliminary US report shows patient does have superficial clot in her left leg at the knee crease to mid calf and in a varicose vein from the lower thigh to knee. No deep clots are identified on this study. With her clot extending so far, I would recommend treating her with a blood thinner called Xarelto 10 mg for 45 days. This will help prevent clot from spreading into the deep veins and help her body reabsorb this. Will send rx to local pharmacy. Let me know if she has any difficulty getting this medication. F/u in office in 2-3 weeks to recheck. Does she have compression stockings at home? documented in this encounter [facility] 10-01-2022 Miscellaneous Notes Patient last visit with PCP 09/22/22 Follow up appointment scheduled 10/30/22 Mela Marsh Ma Patient has been identified by name and date of : Yes Requested Prescriptions Pending Prescriptions Disp Refills metoprolol succinate ER (TOPROL XL) 25 mg 24 hr tablet 90 tablet 3 Sig: Take 1 tablet by mouth once daily. RX INSTRUCTIONS: Please send today. Patient aware RX will be sent to pharmacy. No need to notify patient. Arelis Aguilar Pss documented in this encounter [facility] 09-22-2022 Note HNO ID: [id number] Author: Jree Martines MD Service: ? Author Type: Physician Type: Progress Notes Filed: 09/22/2022 11:59 AM Note Text: Chief Complaint Patient presents with: Edema: Patient complains of legs being thick- reports has more of a restless leg vs pain on occasion. HPI Micaela Howard is a 72 year old female who presents here today for Above Complaints. Patient here today because over the last year she has noticed increase in size of her legs. Left leg always a little more swollen than right due to history of vein stripping on right. Worried she may end up with tree trunk legs if she doesn't do anything for this now. Looks like fatty tissue is extending down from her upper legs and has varicose veins and spider veins bilaterally. Does wear compression stockings daily, just not today. Also notes that about a week ago she had a red line and hard spot on her left upper leg. Has been treating with warm compress. Denies chest pain, SOB, palpitations. Past medical history, appointments, medications, allergies reviewed. Previous Medical History PAST MEDICAL HISTORY Diagnosis Date Colon polyps Dry eyes GERD (gastroesophageal reflux disease) Hot flashes MENTAL HEALTH ORDERLY following HTN (hypertension) Hypothyroidism Obesity (BMI 30.0-34.9) Osteopenia Primary osteoarthritis of both hips PSVT S/P gastric bypass lap band Sarcoidosis of lung (HCC) chronic scarring Seasonal allergies Vitamin D deficiency Previous Surgical History PAST SURGICAL HISTORY Procedure Laterality Date BREAST BIOPSY Left 2000 COLONOSCOPY 2012 COLONOSCOPY FLX DX W/COLLJ SPEC WHEN PFRMD 11/09/2018 Colonoscopy IR ENDO ABLATION VARICOSE VEIN Right 2007 LAPS SURG CHOLECYSTECTOMY W/CHOLANGIOGRAPHY 1994 cholecystectomy OVARIAN CYSTECTOMY 1982 PAST SURGICAL HISTORY OF 2004 lap band PAST SURGICAL HISTORY OF 2002 lung biopsy-sarcoidosis PAST SURGICAL HISTORY OF 1984 [facility] TONSILLECTOMY HX 195 TUBAL LIGATION 1985 Family History FAMILY HISTORY Problem Relation Age of Onset Cancer Mother thyroid Diabetes Mother other (gout) Mother Rheumatologic disease Sister RA Thyroid Sister Cancer Sister possible leukemia Heart disease Brother [place], CABGx3 Thyroid Brother other (gout) Brother Thyroid Daughter No Known Problems Daughter Blood Clots Daughter None No Family History Sarcoidosis, Lung cancer. Patient Allergies ALLERGIES Allergen Reactions Seasonal Allergies Other: See Comments Current Medications Current Outpatient Medications on File Prior to Visit Medication Sig levothyroxine (SYNTHROID) 50 mcg tablet Take 1 tablet by mouth once daily. albuterol HFA (PROAIR HFA) 90 mcg/actuation inhaler Inhale 2 Puffs as instructed every 4 hours as needed. chlorthalidone (HYGROTON) 25 mg tablet Take 1 tablet by mouth once daily. omeprazole (PRILOSEC) 20 mg capsule Take 2 capsules by mouth once daily. mometasone-formoterol (DULERA) 100-5 mcg/actuation inhaler Inhale 2 Puffs as instructed twice daily. metoprolol succinate ER (TOPROL XL) 25 mg 24 hr tablet TAKE 1 TABLET BY MOUTH EVERY DAY tobramycin-dexamethasone (TOBRADEX) ophthalmic suspension Use 1 Drop in both eyes every 4 hours as needed. IBUPROFEN (ADVIL ORAL) Take 1 tablet by mouth as needed. ESTRADIOL (CLIMARA TRANSDERM.) Apply as directed. Multivitamin capsule Take 1 capsule by mouth once daily. amLODIPine (NORVASC) 5 mg tablet Take 1 tablet by mouth once daily. cholecalciferol, Vitamin D3, (VITAMIN D3) 1,250 mcg (50,000 unit) cap capsule Take 1 capsule by mouth one time a week. (Patient not taking: Reported on 03/09/2022) Mucus Clearing Device (QUAKE VIBRATORY PEP) lalo Use as directed for pulmonary hygeine. No current facility-administered medications on file prior to visit. Social History Social History Tobacco Use Smoking status: Never Smokeless tobacco: Never Vaping Use Vaping Use: Never used Substance Use Topics Alcohol use: No Drug use: No Review of Symptoms REVIEW OF SYSTEMS See HPI EXAM: BP 122/70 Pulse 72 Resp 18 Wt 92.9 kg (204 lb 12.8 oz) SpO2 97% BMI 36.28 kg/m? General Appearance: Well appearing, alert, in no acute distress, well-hydrated, well nourished.. Skin: Skin color, texture, turgor normal, no suspicious rashes or lesions. Lungs: Lungs clear to auscultation. No wheezing, rhonchi, rales.. Heart: RRR without murmur, gallop, or rubs. No ectopy. Extremities: 1+ edema to knee on left. No edema on right. Does have palpable superficial thrombophlebitis without erythema or TTP on left upper anterior thigh. Early lymphedema extending to proximal 1/3rd of her LE's. Varicose veins and spider veins present bilaterally. Health Maintenance List SHINGRIX VACCINE(1 of 2) Never done COVID-19 VACCINE(4 - Booster for Moderna series) due on 08/11/2021 ADVANCE DIRECTIVE DISCUSSION Never done DEPRESSION ASSESSMENT Never don (more content not included)... [facility] 09-22-2022 History of Presen t illness Narrative Chief Complaint Patient presents with: Edema: Patient complains of legs being thick- reports has more of a restless leg vs pain on occasion. HPI Micaela Howard is a 72 year old female who presents here today for Above Complaints. Patient here today because over the last year she has noticed increase in size of her legs. Left leg always a little more swollen than right due to history of vein stripping on right. Worried she may end up with tree trunk legs if she doesn't do anything for this now. Looks like fatty tissue is extending down from her upper legs and has varicose veins and spider veins bilaterally. Does wear compression stockings daily, just not today. Also notes that about a week ago she had a red line and hard spot on her left upper leg. Has been treating with warm compress. Denies chest pain, SOB, palpitations. Past medical history, appointments, medications, allergies reviewed. Previous Medical History PAST MEDICAL HISTORY Diagnosis Date Colon polyps Dry eyes GERD (gastroesophageal reflux disease) Hot flashes MENTAL HEALTH ORDERLY following HTN (hypertension) Hypothyroidism Obesity (BMI 30.0-34.9) Osteopenia Primary osteoarthritis of both hips PSVT S/P gastric bypass lap band Sarcoidosis of lung (HCC) chronic scarring Seasonal allergies Vitamin D deficiency Previous Surgical History PAST SURGICAL HISTORY Procedure Laterality Date BREAST BIOPSY Left 2000 COLONOSCOPY 2012 COLONOSCOPY FLX DX W/COLLJ SPEC WHEN PFRMD 11/09/2018 Colonoscopy IR ENDO ABLATION VARICOSE VEIN Right 2007 LAPS SURG CHOLECYSTECTOMY W/CHOLANGIOGRAPHY 1994 cholecystectomy OVARIAN CYSTECTOMY 1981 PAST SURGICAL HISTORY OF 2004 lap band PAST SURGICAL HISTORY OF 2002 lung biopsy-sarcoidosis PAST SURGICAL HISTORY OF 1984 [facility] TONSILLECTOMY HX 1953 TUBAL LIGATION 1985 Family History FAMILY HISTORY Problem Relation Age of Onset Cancer Mother thyroid Diabetes Mother other (gout) Mother Rheumatologic disease Sister RA Thyroid Sister Cancer Sister possible leukemia Heart disease Brother [place], CABGx3 Thyroid Brother other (gout) Brother Thyroid Daughter No Known Problems Daughter Blood Clots Daughter None No Family History Sarcoidosis, Lung cancer. Patient Allergies ALLERGIES Allergen Reactions Seasonal Allergies Other: See Comments Current Medications Current Outpatient Medications on File Prior to Visit Medication Sig levothyroxine (SYNTHROID) 50 mcg tablet Take 1 tablet by mouth once daily. albuterol HFA (PROAIR HFA) 90 mcg/actuation inhaler Inhale 2 Puffs as instructed every 4 hours as needed. chlorthalidone (HYGROTON) 25 mg tablet Take 1 tablet by mouth once daily. omeprazole (PRILOSEC) 20 mg capsule Take 2 capsules by mouth once daily. mometasone-formoterol (DULERA) 100-5 mcg/actuation inhaler Inhale 2 Puffs as instructed twice daily. metoprolol succinate ER (TOPROL XL) 25 mg 24 hr tablet TAKE 1 TABLET BY MOUTH EVERY DAY tobramycin-dexamethasone (TOBRADEX) ophthalmic suspension Use 1 Drop in both eyes every 4 hours as needed. IBUPROFEN (ADVIL ORAL) Take 1 tablet by mouth as needed. ESTRADIOL (CLIMARA TRANSDERM.) Apply as directed. Multivitamin capsule Take 1 capsule by mouth once daily. amLODIPine (NORVASC) 5 mg tablet Take 1 tablet by mouth once daily. cholecalciferol, Vitamin D3, (VITAMIN D3) 1,250 mcg (50,000 unit) cap capsule Take 1 capsule by mouth one time a week. (Patient not taking: Reported on 03/09/2022) Mucus Clearing Device (QUAKE VIBRATORY PEP) lalo Use as directed for pulmonary hygeine. No current facility-administered medications on file prior to visit. Social History Social History Tobacco Use Smoking status: Never Smokeless tobacco: Never Vaping Use Vaping Use: Never used Substance Use Topics Alcohol use: No Drug use: No Review of Symptoms REVIEW OF SYSTEMS See HPI EXAM: BP 122/70 Pulse 72 Resp 18 Wt 92.9 kg (204 lb 12.8 oz) SpO2 97% BMI 36.28 kg/m General Appearance: Well appearing, alert, in no acute distress, well-hydrated, well nourished.. Skin: Skin color, texture, turgor normal, no suspicious rashes or lesions. Lungs: Lungs clear to auscultation. No wheezing, rhonchi, rales.. Heart: RRR without murmur, gallop, or rubs. No ectopy. Extremities: 1+ edema to knee on left. No edema on right. Does have palpable superficial thrombophlebitis without erythema or TTP on left upper anterior thigh. Early lymphedema extending to proximal 1/3rd of her LE's. Varicose veins and spider veins present bilaterally. Health Maintenance List SHINGRIX VACCINE(1 of 2) Never done COVID-19 VACCINE(4 - Booster for Moderna series) due on 08/11/2021 ADVANCE DIRECTIVE DISCUSSION Never done DEPRESSION ASSESSMENT Never done ANNUAL PCP TEAM CHRONIC DISEASE VISIT due on 02/02/2023 BP CONTROLLED (<130/80) due on 03/05/2023 MAMMOGRAM due on 03/09/2023 DIABETES SCREEN due on 10/04/2024 LIPID SCREEN due on 07/01/2025 DTAP,TDAP,TD(2 - Td or Tdap) due on 05/04/2028 COLORECTAL CANCER SCREENING due on 11/09/2028 BONE DENSITY Completed INFLUENZA Completed HEPATITIS C SCREENING Completed PNEUMOCOCCAL: 65+ Completed ASSESSMENT/PLAN: 1. Thrombophlebitis of superficial veins of left lower extremity - ICD9: 451.0, ICD10: I80.02 (primary diagnosis) Discussed use of warm compress 15-20 minutes 3-4 times daily along with Aleve while awaiting results. If positive for thrombophlebitis, will call in stronger NSAID. R/o DVT. Red flags for re-assessment reviewed with patient in detail. - US LEG VEIN DVT [facility] 2. Lymphedema - ICD9: 457.1, ICD10: I89.0 Referral to lymphedema clinic for early evaluation and treatment. Discussed weight loss, leg elevation with resting, avoidance of sodium in diet, continued use of compression stockings. - CONSULT TO LYMPHEDEMA THERAPY 3. Varicose veins of both lower extremities with inflammation - ICD9: 454.1, ICD10: I83.11, I83.12 Referral for removal of varicose veins. - CONSULT TO VASCULAR SURGERY Jere Martines MD documented in this encounter [facility] 09-07-2022 Miscellaneous Notes TORIBIO 02/02/22 NOV none scheduled Karlie Nicole MA Patient has been identified by name and date of : Yes Requested Prescriptions Pending Prescriptions Disp Refills levothyroxine (SYNTHROID) 50 mcg tablet 90 tablet 3 Sig: Take 1 tablet by mouth once daily. albuterol HFA (PROAIR HFA) 90 mcg/actuation inhaler 18 g 1 Sig: Inhale 2 Puffs as instructed every 4 hours as needed. RX INSTRUCTIONS: Patient aware RX will be sent to pharmacy. No need to notify patient. Suyapa Blanchard Pss documented in this encounter [facility] 08-26-2022 Note HNO ID: [id number] Author: Mela Newman MA Service: ? Author Type: Product Safety Head Type: Progress Notes Filed: 08/26/2022 2:34 PM Note Text: POPULATION HEALTH NAVIGATION OUTREACH Action/August 26, 2022 2:27 PM HCC Gaps 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) - [id number] Last Billed 02/02/2022 J47.9 - Bronchiectasis without acute exacerbation (HCC) - [id number] Last Billed 02/02/2022 D47.3 - Primary thrombocytosis (HCC) - [id number] Last Billed 02/02/2022 I47.1 - PSVT (paroxysmal supraventricular tachycardia) (HCC) - [id number] Last Billed 02/02/2022 TORIBIO with Jere Martines MD for Medicare Wellness was August 06, 2021 Outcome: Left message My chart message sent Patient Identified by Name and : NO Outreach Outcome/Action Unable to reach patient: Left message MyChart message sent Did you use a PCP flex slot to schedule this appointment? N/A Reason for Outreach HCC or suspected condition Payer: Payor: MEDICARE / Plan: MEDICARE A AND B / Product Type: Medicare / Care Gap Reviewed:: Annual Wellness visit Reminder: Reminder note to check Health Maintenance for items below Health Maintenance items due: SHINGRIX VACCINE(1 of 2) Never done COVID-19 VACCINE(4 - Booster for Moderna series) due on 08/11/2021 ADVANCE DIRECTIVE DISCUSSION Never done DEPRESSION ASSESSMENT Never done Navigation Signature: Mela Newman MA August 26, 2022 2:[address] [facility] 08-26-2022 History of Presen t illness Narrative POPULATION HEALTH NAVIGATION OUTREACH Action/August 26, 2022 2:27 PM HCC Gaps 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) - [id number] Last Billed 02/02/2022 J47.9 - Bronchiectasis without acute exacerbation (HCC) - [id number] Last Billed 02/02/2022 D47.3 - Primary thrombocytosis (HCC) - [id number] Last Billed 02/02/2022 I47.1 - PSVT (paroxysmal supraventricular tachycardia) (HCC) - [id number] Last Billed 02/02/2022 TORIBIO with Jere Martines MD for Medicare Wellness was August 06, 2021 Outcome: Left message My chart message sent Patient Identified by Name and : NO Outreach Outcome/Action Unable to reach patient: Left message A-STARhart message sent Did you use a PCP flex slot to schedule this appointment? N/A Reason for Outreach HCC or suspected condition Payer: Payor: MEDICARE / Plan: MEDICARE A AND B / Product Type: Medicare / Care Gap Reviewed:: Annual Wellness visit Reminder: Reminder note to check Health Maintenance for items below Health Maintenance items due: SHINGRIX VACCINE(1 of 2) Never done COVID-19 VACCINE(4 - Booster for Moderna series) due on 08/11/2021 ADVANCE DIRECTIVE DISCUSSION Never done DEPRESSION ASSESSMENT Never done Navigation Signature: Mela Newman MA August 26, 2022 2:26 PM documented in this encounter [facility] 08-26-2022 Note Patient Outreach (NE TNAV) MICAELA HOWARD ([id number]) 1950 F Date Time Provider Department 08/26/22 MELA NEWMAN During your visit today, we recorded the following information about you: Mela Newman MA 08/26/2022 2:34 PM Signed POPULATION HEALTH NAVIGATION OUTREACH Action/FYAugust 26, 2022 2:27 PM HCC Gaps 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) - [id number] Last Billed 02/02/2022 J47.9 - Bronchiectasis without acute exacerbation (HCC) - [id number] Last Billed 02/02/2022 D47.3 - Primary thrombocytosis (HCC) - [id number] Last Billed 02/02/2022 I47.1 - PSVT (paroxysmal supraventricular tachycardia) (HCC) - [id number] Last Billed 02/02/2022 TORIBIO with Jere Martines MD for Medicare Wellness was August 06, 2021 Outcome: Left message My chart message sent Patient Identified by Name and : NO Outreach Outcome/Action Unable to reach patient: Left message MyChart message sent Did you use a PCP flex slot to schedule this appointment? N/A Reason for Outreach HCC or suspected condition Payer: Payor: MEDICARE / Plan: MEDICARE A AND B / Product Type: Medicare / Care Gap Reviewed:: Annual Wellness visit Reminder: Reminder note to check Health Maintenance for items below Health Maintenance items due: SHINGRIX VACCINE(1 of 2) Never done COVID-19 VACCINE(4 - Booster for Moderna series) due on 08/11/2021 ADVANCE DIRECTIVE DISCUSSION Never done DEPRESSION ASSESSMENT Never done Navigation Signature: Mela Newman MA August 26, 2022 2:26 PM Allergies As of Date: 08/26/2022 Noted Allergy Reaction SEASONAL ALLERGIES 02/02/2022 14 - Other: See Comments Date Reviewed: 03/09/2022 Reviewed by: John Barrow MD - Fully Assessed Reason for Visit: Population Health Navigation Outreach [3910] Cmt: HCC Gap Outreach Prescriptions as of 08/26/2022 - chlorthalidone (HYGROTON) 25 mg tablet Take 1 tablet by mouth once daily. - omeprazole (PRILOSEC) 20 mg capsule Take 2 capsules by mouth once daily. - amLODIPine (NORVASC) 5 mg tablet Take 1 tablet by mouth once daily. - levothyroxine (SYNTHROID) 50 mcg tablet Take 1 tablet by mouth once daily. - mometasone-formoterol (DULERA) 100-5 mcg/actuation inhaler Inhale 2 Puffs as instructed twice daily. - metoprolol succinate ER (TOPROL XL) 25 mg 24 hr tablet TAKE 1 TABLET BY MOUTH EVERY DAY - cholecalciferol, Vitamin D3, (VITAMIN D3) 1,250 mcg (50,000 unit) cap capsule Take 1 capsule by mouth one time a week. - albuterol HFA (PROAIR HFA) 90 mcg/actuation inhaler Inhale 2 Puffs as instructed every 4 hours as needed. - Mucus Clearing Device (QUAKE VIBRATORY PEP) lalo Use as directed for pulmonary hygeine. - tobramycin-dexamethasone (TOBRADEX) ophthalmic suspension Use 1 Drop in both eyes every 4 hours as needed. - IBUPROFEN (ADVIL ORAL) Take 1 tablet by mouth as needed. - ESTRADIOL (CLIMARA TRANSDERM.) Apply as directed. - Multivitamin capsule Take 1 capsule by mouth once daily. Problem List As Of Date 08/26/2022 Noted Resolved Essential hypertension [I10] GERD (gastroesophageal reflux disease) [K21.9] Hypothyroidism [E03.9] Sarcoidosis of lung (HCC) [D86.0] Vitamin D deficiency [E55.9] Hot flashes [R23.2] Class 2 obesity with body mass index (BMI) of 3* Pneumonia of left lower lobe due to infectious *02/25/2018 01/29/2022 Bronchiectasis without acute exacerbation (HCC)*06/05/2019 Osteopenia after menopause [M85.80, Z78.0] 07/09/2020 PSVT (paroxysmal supraventricular tachycardia) *11/28/2020 First degree AV block [I44.0] 11/28/2020 Chronic hip pain, right [M25.551, G89.29] 10/07/2021 10/30/2021 Primary thrombocytosis (HCC) [D47.3] 01/29/2022 Encounter Status:Closed by MELA NEWMAN on 08/26/22 [facility] 06-22-2022 Miscellaneous Notes Last Office Visit: 02/02/2022 Future Office Visit: None Requested Prescriptions Pending Prescriptions Disp Refills chlorthalidone (HYGROTON) 25 mg tablet 90 tablet 1 Sig: Take 1 tablet by mouth once daily. Date of Last Labs 10/04/2021 documented in this encounter [facility] 05-25-2022 Miscellaneous Notes [facility] 05/12/22 NOV no upcoming appt noted Patient has been identified by name and date of : Yes Requested Prescriptions Pending Prescriptions Disp Refills omeprazole (PRILOSEC) 20 mg capsule 180 capsule 3 Sig: Take 2 capsules by mouth once daily. RX INSTRUCTIONS: Patient aware RX will be sent to pharmacy. No need to notify patient. Suyapa Blanchard Pss documented in this encounter [facility] 03-12-2022 Miscellaneous Notes Letter mailed to pt home of results. Farzaneh Pinzon MA Please call patient and let her know there is no mammographic evidence of malignancy. A 1 year screening mammogram is recommended. Hip xray shows moderately severs osteoarthritis. Follow-up with ortho as discussed in office. Aysha Easton APRN.BONI documented in this encounter [facility] 03-10-2022 Miscellaneous Notes March 10, 2022 PID: [id number] Micaela Howard [address] [place] [address] Dear Ms. Howard, We are pleased to inform you that the results of your recent breast imaging exam on 03/09/2022 are normal. Your mammogram demonstrates that you have dense breast tissue, which could hide abnormalities. Dense breast tissue, in and of itself, is a relatively common condition. Therefore, this information is not provided to cause undue concern; rather, it is to raise your awareness and promote discussion with your health care provider regarding the presence of dense breast tissue in addition to other risk factors. Early detection of cancer is very important. We also understand recommendations regarding breast cancer screening are controversial. Please discuss with your primary care provider which strategy is best for you and whether a mammogram is right for you. Your imaging studies and report will be kept on file at [facility] as part of your permanent medical record and are available for your continuing care. Thank you for allowing us to help in meeting your health care needs. Sincerely, Dr. Chauhan Interpreting Radiologist [facility] (Normal over 40) documented in this encounter [facility] 03-09-2022 Miscellaneous Notes Micaela is calling for refills. On the amlodipine she needs a 90 day script with refills to be covered by insurance. Pended as 90 day with refills. Pharmacy verified in [facility] Patient has been identified by name and date of : Yes Patient aware RX will be sent to pharmacy. No need to notify patient. Patient phones for refill(s): Requested Prescriptions Pending Prescriptions Disp Refills amLODIPine (NORVASC) 5 mg tablet 90 tablet 2 Sig: Take 1 tablet by mouth once daily. levothyroxine (SYNTHROID) 50 mcg tablet 90 tablet 1 Sig: Take 1 tablet by mouth once daily. mometasone-formoterol (DULERA) 100-5 mcg/actuation inhaler Sig: Inhale 2 Puffs as instructed twice daily. Date of last office visit : 02/02/2022 Labs-10/04/21 Date of next office visit : 05/12/2022 Last 2 Encounter Wt Readings: Date: Wt: 02/02/2022 88.9 kg (196 lb) 10/01/2021 90.7 kg (200 lb) Please advise. Mona Morgan Pss documented in this encounter [facility] 03-09-2022 History of Presen t illness Narrative Radiology Service Progress Note PATIENT NAME: Micaela Howard DATE OF SERVICE: March 09, 2022 TIME: 2:54 PM PATIENT IDENTITY VERIFICATION COMPLETED USING TWO (2) IDENTIFIERS: Name and Date of confirmed by patient verbally. FALL SCREENING: Has the patient had 2 falls in the last year or 1 fall with injury or currently using an Ambulatory Assistive Device (Walker, Cane, Wheelchair, Crutches, etc.)? No PATIENT GENDER DATA: Female. status: : No status: NO. PATIENT RELEVANT IMPLANT DATA REVIEWED: Not Applicable RADIOLOGY DEPARTMENT: Mammography PERIPHERAL IV DATA: Not applicable SIGNED BY: RT Shwetha(R) March 09, 2022 2:54 PM documented in this encounter [facility] 03-05-2022 Miscellaneous Notes Bp is good. If headaches continue or worsen, needs seen Manual Readin/74 Pulse: 79 Home Cuff: 116/64 P: 79 Reason for blood pressure check - Medication adjustment Patient is: Taking medication as prescribed Yes Took medication today Yes If no, date medication last taken N/A Experiencing side effects No BP was normal at last appt 02/02/22. Amlodipine was decreased to 5mg daily. Tolerating medication change well. Home readings have rangedDenies any chest pain, shortness of breath, or dizziness. Does note headaches almost daily; will treat with Aleve if needed. Daily caffeine use. No personal history of tobacco use; no current exposure. Alert and oriented. Pt has been identified by name and birthdate: Yes Allergies reviewed: Yes Latex allergy: no. Medication - prescribed and OTC reviewed and updated: Yes Do you need any prescription refills prior to your next visit: No Health Maintenance: Reviewed and not up to date and provider notified Patient advised to continue with current medications and would be contacted if any further instructions after review by Dr induction brazer. Hilaria Ryan LPN documented in this encounter [facility] 03-05-2022 History of Presen t illness Narrative Manual Readin/74 Pulse: 79 Home Cuff: 116/64 P: 79 Reason for blood pressure check - Medication adjustment Patient is: Taking medication as prescribed Yes Took medication today Yes If no, date medication last taken N/A Experiencing side effects No BP was normal at last appt 02/02/22. Amlodipine was decreased to 5mg daily. Tolerating medication change well. Home readings have rangedDenies any chest pain, shortness of breath, or dizziness. Does note headaches almost daily; will treat with Aleve if needed. Daily caffeine use. No personal history of tobacco use; no current exposure. Alert and oriented. Pt has been identified by name and birthdate: Yes Allergies reviewed: Yes Latex allergy: no. Medication - prescribed and OTC reviewed and updated: Yes Do you need any prescription refills prior to your next visit: No Health Maintenance: Reviewed and not up to date and provider notified Patient advised to continue with current medications and would be contacted if any further instructions after review by Dr induction brazer. Hilaria Ryan LPN documented in this encounter [facility] 02-02-2022 History of Presen t illness Narrative Chief Complaint Patient presents with: Follow Up: 4 month- patient thinks the metoprolol is causing pedal edema (making it worse) Pain: Right hip pain continues despite PT-completed HPI Micaela Howard is a 71 year old female who presents here today for Above Complaints.. Patient states that she completed PT for chronic right hip pain back in October without achievement of pain relief. Has not been compliant with her home exercises due to busy schedule with work and taking care of grandchildren. Has been treating with aleve 2-3 times per week which occasionally helps with pain. Has not tried ice/heat. Pain located over anterior hip and into her groin. Described as constant aching pain, currently moderate. Exacerbated with rolling over at night or turning her body while standing. Denies new fall/injury to the hip, erythema, swelling, bruising. Thinks her metoprolol may be causing her to have swelling in her ankles and feet. Has swelling every day which is worse in the evening. Wearing her compression stockings during. Keeping her legs elevated with rest. Does not follow low sodium diet. Denies chest pain, palpitaitons, SOB, orthopnea. Due for screening mammogram this month. Past medical history, appointments, medications, allergies reviewed. Previous Medical History PAST MEDICAL HISTORY Diagnosis Date Colon polyps Dry eyes GERD (gastroesophageal reflux disease) Hot flashes MENTAL HEALTH ORDERLY following HTN (hypertension) Hypothyroidism Obesity (BMI 30.0-34.9) Osteopenia Primary osteoarthritis of both hips PSVT S/P gastric bypass lap band Sarcoidosis of lung (HCC) chronic scarring Seasonal allergies Vitamin D deficiency Previous Surgical History PAST SURGICAL HISTORY Procedure Laterality Date BREAST BIOPSY Left 2000 COLONOSCOPY 2012 COLONOSCOPY FLX DX W/COLLJ SPEC WHEN PFRMD 11/09/2018 Colonoscopy IR ENDO ABLATION VARICOSE VEIN Right 2007 LAPS SURG CHOLECYSTECTOMY W/CHOLANGIOGRAPHY 1994 cholecystectomy OVARIAN CYSTECTOMY 1981 PAST SURGICAL HISTORY OF 2004 lap band PAST SURGICAL HISTORY OF 2002 lung biopsy-sarcoidosis PAST SURGICAL HISTORY OF 1984 D&C TONSILLECTOMY HX 1953 TUBAL LIGATION 1984 Family History FAMILY HISTORY Problem Relation Age of Onset Cancer Mother thyroid Diabetes Mother other (gout) Mother Rheumatologic disease Sister RA Thyroid Sister Cancer Sister possible leukemia Heart disease Brother [place], CABGx3 Thyroid Brother other (gout) Brother Thyroid Daughter No Known Problems Daughter Blood Clots Daughter None No Family History Sarcoidosis, Lung cancer. Patient Allergies ALLERGIES Allergen Reactions Seasonal Allergies Other: See Comments Current Medications Current Outpatient Medications on File Prior to Visit Medication Sig amLODIPine (NORVASC) 10 mg tablet Take 1 tablet by mouth once daily. chlorthalidone (HYGROTON) 25 mg tablet Take 1 tablet by mouth once daily. levothyroxine (SYNTHROID) 50 mcg tablet Take 1 tablet by mouth once daily. omeprazole (PRILOSEC) 20 mg capsule Take 2 capsules by mouth once daily. metoprolol succinate ER (TOPROL XL) 25 mg 24 hr tablet TAKE 1 TABLET BY MOUTH EVERY DAY mometasone-formoterol (DULERA) 100-5 mcg/actuation inhaler Inhale 2 Puffs as instructed twice daily. albuterol HFA (PROAIR HFA) 90 mcg/actuation inhaler Inhale 2 Puffs as instructed every 4 hours as needed. Mucus Clearing Device (.Club DomainsAKE VIBRATORY PEP) lalo Use as directed for pulmonary hygeine. tobramycin-dexamethasone (TOBRADEX) ophthalmic suspension Use 1 Drop in both eyes every 4 hours as needed. IBUPROFEN (ADVIL ORAL) Take 1 tablet by mouth as needed. ESTRADIOL (CLIMARA TRANSDERM.) Apply as directed. Multivitamin capsule Take 1 capsule by mouth once daily. cholecalciferol, Vitamin D3, (VITAMIN D3) 1,250 mcg (50,000 unit) cap capsule Take 1 capsule by mouth one time a week. No current facility-administered medications on file prior to visit. Social History Social History Tobacco Use Smoking status: Never Smokeless tobacco: Never Substance Use Topics Alcohol use: No Drug use: No Review of Symptoms REVIEW OF SYSTEMS GENERAL: No weight loss, malaise or fevers RESPIRATORY: Negative for cough, hemoptysis, wheezing, COPD, dyspnea or shortness of breath CARDIOVASCULAR: Negative for chest pain, leg swelling, hypertension, CHF or palpitations GI: No nausea, vomiting, or diarrhea SKIN: Negative for lesions, rash, and itching EXAM: BP 122/66 Pulse 78 Resp 16 Wt 88.9 kg (196 lb) SpO2 97% BMI 34.72 kg/m General Appearance: Well appearing, alert, in no acute distress, well-hydrated, well nourished.. Skin: Skin color, texture, turgor normal, no suspicious rashes or lesions. Lungs: Lungs clear to auscultation. No wheezing, rhonchi, rales.. Heart: RRR without murmur, gallop, or rubs. No ectopy. Abdomen: Normal abdominal exam, Abdomen soft, non-tender. Bowel sounds normal. No masses, organomegaly. Extremities: Edema: 1+ edema to mid deal bilaterally. HIP: Location: Right Redness: No. Warmth: No. Range of motion: Limited internal and external rotation Tenderness over trochanteric bursa: No Pain with movement: Yes. Health Maintenance List SHINGRIX VACCINE(1 of 2) Never done ADVANCE DIRECTIVE DISCUSSION Never done BP CONTROLLED (<130/80) due on 07/01/2021 COVID-19 VACCINE(4 - Booster for Moderna series) due on 10/15/2021 MAMMOGRAM due on 02/14/2022 INFLUENZA(1) due on 02/26/2022 DEPRESSION SCREENING due on 04/28/2022 ANNUAL PCP TEAM CHRONIC DISEASE VISIT due on 10/01/2022 DIABETES SCREEN due on 10/04/2024 LIPID SCREEN due on 07/01/2025 DTAP,TDAP,TD(2 - Td or Tdap) due on 05/04/2028 COLORECTAL CANCER SCREENING due on 11/09/2028 BONE DENSITY Completed HEPATITIS C SCREENING Completed PNEUMOCOCCAL: 65+ Completed Data reviewed XR HIPS 04/05/2021 IMPRESSION: Bilateral degenerative findings RIGHT greater than LEFT. Component Latest Ref Rng & Units 08/06/2021 10/04/2021 WBC 3.70 - 11.00 k/uL 8.09 RBC 3.90 - 5.20 m/uL 4.68 Hemoglobin 11.5 - 15.5 g/dL 13.6 Hematocrit 36.0 - 46.0 % 42.5 MCV 80.0 - 100.0 fL 90.8 MCH 26.0 - 34.0 pG 29.1 MCHC 30.5 - 36.0 g/dL 32.0 RDW-CV 11.5 - 15.0 % 13.7 Platelet Count 150 - 400 k/uL 476 (H) MPV 9.0 - 12.7 fL 10.1 Neut% % 55.3 Abs Neut (ANC) 1.45 - 7.50 k/uL 4.45 Lymph% % 29.5 Abs Lymph 1.00 - 4.00 k/uL 2.39 Burt% % 7.8 Abs Burt <0.87 k/uL 0.63 Eosin% % 6.2 Abs Eosin <0.46 k/uL 0.50 (H) Baso% % 1.2 Abs Baso <0.11 k/uL 0.10 Nucleated Reds 0 /100 WBC 0.0 Absolute nRBC <0.01 k/uL <0.01 Diff Type Auto Diff Protein, Total 6.3 - 8.0 g/dL 8.0 Albumin 3.9 - 4.9 g/dL 4.2 Calcium 8.5 - 10.2 mg/dL 9.7 Bilirubin, Total 0.2 - 1.3 mg/dL 0.3 Alkaline Phosphatase 34 - 123 U/L 115 AST 13 - 35 U/L 18 ALT 7 - 38 U/L 9 Glucose 74 - 99 mg/dL 78 BUN 7 - 21 mg/dL 12 Creatinine 0.58 - 0.96 mg/dL 0.89 Sodium 136 - 144 mmol/L 139 Potassium 3.7 - 5.1 mmol/L 3.9 Chloride 97 - 105 mmol/L 99 CO2 22 - 30 mmol/L 28 Anion Gap 9 - 18 mmol/L 12 eGFR >=60 mL/min/1.73m 70 TSH 0.270 - 4.200 uU/mL 2.970 Vitamin D 25 Hydroxy 31.0 - 80.0 ng/mL 17.7 (L) 63.5 ASSESSMENT/PLAN: 1. Chronic hip pain, right - ICD9: 719.45, 338.29, ICD10: M25.551, G89.29 (primary diagnosis) No improvement after PT. Recheck xray and refer to ortho for injection and discussion of hip replacement. Continue OTC NSAIDs, ice/heat, rest. - XR HIP GENERAL 3V PELV/AP/LAT RIGHT - CONSULT TO ORTHOPAEDICS 2. Essential hypertension - ICD9: 401.9, ICD10: I10 - good control - Reduce amlodipine to 5 mg daily. - Encouraged dietary sodium restriction/DASH diet - Recommended regular aerobic exercise. - Reviewed risks of HTN and principles of treatment - Goal of BP <140/90 3. Bilateral lower extremity edema - ICD9: 782.3, ICD10: R60.0 Suspect 2/2 higher dose amlodipine and high sodium diet. Reduce amlodipine to 5 mg daily and call if symptoms not improving in 1 week. Recheck BP in 2 weeks at [facility]. 4. Acquired hypothyroidism - ICD9: 244.9, ICD10: E03.9 - Instructed patient on importance of taking on an empty stomach either first thing in the morning or at bedtime. - continue current dose of Synthroid 0.050 mg 5. Screening mammogram for breast cancer - ICD9: V76.12, ICD10: Z12.31 - [facility] SCREENING Jere Martines MD documented in this encounter [facility] 01-12-2022 Miscellaneous Notes [facility] 10/01/21 NOV 02/02/22 Patient is out of town and is asking for a weeks worth of amlodipine to be sent to the [facility] in [place] Pharmacy verified in Epic Patient has been identified by name and date of : Yes Patient aware RX will be sent to pharmacy. No need to notify patient. Patient phones for refill(s): Pending Prescriptions Disp Refills AMLODIPINE 10 MG TABLET 7 tablet 0 Sig: Take 1 tablet by mouth once daily. LUCRETIA: No Date of last office visit : 10/01/2021 Date of next office visit : 02/02/2022 Last 2 Encounter Wt Readings: Date: Wt: 10/01/2021 90.7 kg (200 lb) 08/06/2021 90.7 kg (200 lb) Please advise. Mona Morgan Pss documented in this encounter [facility] 01-02-2022 Miscellaneous Notes Patient phones requesting refills as follows: Pending Prescriptions Disp Refills CHLORTHALIDONE 25 MG TABLET 90 tablet 3 Sig: Take 1 tablet by mouth once daily. LUCRETIA: No [facility]IO 10/01/21 NOV 02/02/22 Please review and advise. Amy Prado LPN documented in this encounter [facility] 12-17-2021 Miscellaneous Notes The original prescription was discontinued on 09/26/2021 by Aysha Easton APRN.SPRINKLING SYSTEM IRRIGATOR. Renewing this prescription may not be appropriate. documented in this encounter [facility] 10-28-2021 History of Presen t illness Narrative Episode Visit Count: 7 Therapist That Will Oversee The Plan Of Care: Isha Lindsey PT Start of Care Date: 10/07/21 Onset Date: 03/09/21 Plan of Care Certification Date: 10/07/21 Next Certification Due Date: 11/19/21 Patient Identified by Name and Date of : Yes REHABILITATION AND SPORTS THERAPY PHYSICAL THERAPY TREATMENT NOTE ASSESSMENT: Micaela Howard tolerated the session with no issues. She demonstrated difficulty with right hip pain if she pivots wrong on foot and had no pain in therapy today. She noted muscle fatigue with exercises.. The patient will continue to benefit from ongoing skilled physical therapy to progress toward set goals. PLAN FOR NEXT VISIT: POC update SUBJECTIVE: Patient Reason for Visit: Patient reports feeling tied after last therapy with no increase in pain. She reports no pain with walking into therapy today. She reports pain can increase if she pivots and twists the knee and pain can shoot to 10/10. Pain: Pain Pain Level: 0 Pain Location: Hip - Right Frequency: Intermittent Post Treatment Pain Post Treatment Pain Level: No Change Post Treatment Symptoms: tired only with no pain OBJECTIVE MEASURES WITH LEVEL OF FUNCTION: No pain with any exercise in therapy today and good form with exercises. TREATMENT: Therapeutic Exercise: 1: scifit stepper seat 13 for 5 min (Subjective taken and discussed when and what makes her hip hurt) 2: bridges no hands 2x15 3: hooklying TA with bent knee fall outs 2x15 4: SAQ with 3# 2x15 with 2 sec hold B 5: hooklying TA with marches 2x15 6: hip flexor stretch right supine 30 sec x3 7: Supine adduction hip with green cylinder bolster 2x10 8: green rep band hip resistance all 4 directions 2x10 with parallel bar assist 9: standing left leg lifts with right stance front side and back 1x15 with hand hold for balance 10: sit to stand from mat table 1x15 (18 inches high) 11: blue step ups right with parallel bar assist 2x15 12: hip adductor stretch supine using towel and board to slide 2x10 reps Skilled Intervention: Patient was educated in proper exercise technique and purpose for exercises. Skilled judgment was provided in selection of appropriate interventions. Correct performance of therapeutic exercises was facilitated with verbal cuing. Billing Therapeutic Exercise Treatment Minutes: 45 Total Treatment Time Minutes (timed/untimed): 45 Chanel Watkins PTA/Isha Lindsey PT documented in this encounter [facility] 10-23-2021 History of Presen t illness Narrative Episode Visit Count: 6 Therapist That Will Oversee The Plan Of Care: Isha Lindsey PT Start of Care Date: 10/07/21 Onset Date: 03/09/21 Plan of Care Certification Date: 10/07/21 Next Certification Due Date: 11/19/21 Patient Identified by Name and Date of : Yes REHABILITATION AND SPORTS THERAPY PHYSICAL THERAPY TREATMENT NOTE ASSESSMENT: Micaela Howard tolerated the session with fatigue. She demonstrated improvements in form with resistance flexion using green band. Abduction was difficult today . The patient will continue to benefit from ongoing skilled physical therapy to progress toward set goals. PLAN FOR NEXT VISIT: add 2nd set of standing green rep band SUBJECTIVE: Patient Reason for Visit: Pt notes she did fine after last therapy session . States that hip hurt every time she moved in bed last night . Today pain infrequent Pain: Pain Pain Level: 6 Pain Location: Hip - Right Description: Aching;Sharp Frequency: Intermittent Post Treatment Pain Post Treatment Pain Level: No Change Post Treatment Symptoms: tired OBJECTIVE MEASURES WITH LEVEL OF FUNCTION: Pain more in adductor and flexor mm area with certain movements TREATMENT: Therapeutic Exercise: 1: green rep band hip resistance all 4 directions 1x10 with parallel bar assist additional set of flexion 1x0 2: bridges no hands 2x15 3: SAQ with 3# 2x15 with 2 sec hold 4: standing left leg lifts with right stance front side and back 1x15 with hand hold for balance 5: hooklying TA with bent knee fall outs 1x10 6: seated adduction hip with folded pillow 2x15 7: sit to stand from mat table 1x15 8: hooklying TA with marches 2x15 9: blue step ups right with parallel bar assist 2x15 10: scifit stepper seat 13 for 5 min with disucssion of tolerance to exs. current symptoms 11: hip flexor stretch supine 30 sec x3 12: hip adductor stretch supine using towel and board to slide 30 sec x3 Skilled Intervention: Patient was educated in proper exercise technique and purpose for exercises. Skilled judgment was provided in selection of appropriate interventions. Correct performance of therapeutic exercises was facilitated with verbal and visual cuing. Billing Therapeutic Exercise Treatment Minutes: 40 Total Treatment Time Minutes (timed/untimed): 40 Isha Lindsey PT documented in this encounter [facility] 10-16-2021 History of Presen t illness Narrative Episode Visit Count: 4 Therapist That Will Oversee The Plan Of Care: Isha Lindsey PT Start of Care Date: 10/07/21 Onset Date: 03/09/21 Plan of Care Certification Date: 10/07/21 Next Certification Due Date: 11/19/21 Patient Identified by Name and Date of : Yes REHABILITATION AND SPORTS THERAPY PHYSICAL THERAPY TREATMENT NOTE ASSESSMENT: Micaela Howard tolerated the session with no issues. She demonstrated improvements in endurance for exs. Challenged with sit to stand and step ups. . The patient will continue to benefit from ongoing skilled physical therapy to progress toward set goals. PLAN FOR NEXT VISIT: will advance core exs as tolerated, add standing hip extension with rep band SUBJECTIVE: Patient Reason for Visit: Pt reports that her hip is about the same. Seemed that pain was a little more frequent. Pain: Pain Pain Level: 0 Pain Location: Hip - Right Frequency: Intermittent Post Treatment Pain Post Treatment Pain Level: No Change Post Treatment Symptoms: tired OBJECTIVE MEASURES WITH LEVEL OF FUNCTION: mild gait deviation of trendelenburg at end of session TREATMENT: Therapeutic Exercise: 1: sidelying hip abduction 2x10 2: bridges 2x10 3: SAQ with 3# 2x10 with 2 sec hold 4: standing left leg lifts with right stance front side and back 2x10 with hand hold for balance 5: hooklying TA with bent knee fall outs 1x10 6: seated adduction hip with folded pillow 2x10 7: sit to stand 1x10 8: hooklying TA with marches 1x10 9: blue step ups right with parallel bar assist 2x10 10: scifit stepper seat 13 for 5 min with disucssion of tolerance to exs. current symptoms Skilled Intervention: Patient was educated in proper exercise technique and purpose for exercises. Skilled judgment was provided in selection of appropriate interventions. Correct performance of therapeutic exercises was facilitated with verbal and visual cuing. Billing Therapeutic Exercise Treatment Minutes: 30 Total Treatment Time Minutes (timed/untimed): 30 Isha Lindsey PT documented in this encounter [facility] 10-14-2021 History of Presen t illness Narrative Episode Visit Count: 3 Therapist That Will Oversee The Plan Of Care: Isha Lindsey PT Start of Care Date: 10/07/21 Onset Date: 03/09/21 Plan of Care Certification Date: 10/07/21 Next Certification Due Date: 11/19/21 Patient Identified by Name and Date of : Yes REHABILITATION AND SPORTS THERAPY PHYSICAL THERAPY TREATMENT NOTE ASSESSMENT: Micaela Howard tolerated the session with no issues. She demonstrated improvements in endurance for exs. Advanced home program . . The patient will continue to benefit from ongoing skilled physical therapy to progress toward set goals. PLAN FOR NEXT VISIT: increase reps of sit to stand , Add SAQ with weight SUBJECTIVE: Patient Reason for Visit: Pt notes that she is doing exs with both sides. Pain: Pain Pain Level: 0 (10/10 when catches in certain positions) Pain Location: Hip - Right Frequency: Intermittent Additional Pain Information : (happens just when she moves wrong) Post Treatment Pain Post Treatment Pain Level: No Change Post Treatment Symptoms: tired but not painful OBJECTIVE MEASURES WITH LEVEL OF FUNCTION: Improved transfers and bed mobility TREATMENT: Therapeutic Exercise: 1: sidelying hip abduction 2x10 2: bridges 2x10 3: prone quad stretch no strap 10 sec hold x10 4: standing left leg lifts with right stance front side and back 2x10 with hand hold for balance 5: hooklying TA with bent knee fall outs 1x10 6: seated adduction hip with folded pillow 1x10 7: sit to stand 1x10 8: hooklying TA with marches 1x10 Skilled Intervention: Patient was educated in proper exercise technique and purpose for exercises. Reviewed and educated patient on additions/changes for home exercise program . Skilled judgment was provided in selection of appropriate interventions. Provided written instruction for home exercise program to facilitate proper performance and compliance. Correct performance of therapeutic exercises was facilitated with verbal and visual cuing. Patient education as noted. Home Exercise Program Assigned: 1: hooklying TA with bent knee fall outs 1x10 2: hooklying TA with marches 1x10 3: bridges 2x10 Billing Therapeutic Exercise Treatment Minutes: 32 Total Treatment Time Minutes (timed/untimed): 32 Isha Lindsey PT documented in this encounter [facility] 10-09-2021 History of Presen t illness Narrative Episode Visit Count: 2 Therapist That Will Oversee The Plan Of Care: Isha Lindsey PT Start of Care Date: 10/07/21 Onset Date: 03/09/21 Plan of Care Certification Date: 10/07/21 Next Certification Due Date: 11/19/21 Patient Identified by Name and Date of : Yes REHABILITATION AND SPORTS THERAPY PHYSICAL THERAPY TREATMENT NOTE ASSESSMENT: Micaela Howard tolerated the session with no issues. She demonstrated difficulty with increased pain after initial eval which last several hours . The patient will continue to benefit from ongoing skilled physical therapy to progress toward set goals. PLAN FOR NEXT VISIT: Add TA series SUBJECTIVE: Patient Reason for Visit: Pt notes that she had an ache in her hip after visit on . This lasted a few hours. Did the exs yesterday without to much trouble Pain: Pain Pain Level: 2 Pain Location: Hip - Right Description: Sharp Post Treatment Pain Post Treatment Pain Level: No Change Post Treatment Pain Location: Head - Right OBJECTIVE MEASURES WITH LEVEL OF FUNCTION: Sit to stand with good form TREATMENT: Therapeutic Exercise: 1: sidelying hip adduction 1x10 2: prone hip extension 1x10 3: prone quad stretch no strap 10 sec hold x5 4: standing SLR at counter 1x10 5: green rep band hip abduction seated 1x10 6: seated with folded pillow 1x10 7: sit to stand 1x5 8: reviewed guidlines of exs to avoid increased pain, modify range or discontinue if increases pain Skilled Intervention: Patient was educated in proper exercise technique and purpose for exercises. Reviewed and educated patient on additions/changes for home exercise program . Skilled judgment was provided in selection of appropriate interventions. Provided written instruction for home exercise program to facilitate proper performance and compliance. Correct performance of therapeutic exercises was facilitated with verbal and visual cuing. Home Exercise Program Assigned: 1: seated with folded pillow 1x10 2: sit to stand 1x5 Billing Therapeutic Exercise Treatment Minutes: 20 Total Treatment Time Minutes (timed/untimed): 20 Isha Lindsey PT documented in this encounter [facility] 10-08-2021 History of Presen t illness Narrative Episode Visit Count: 1 Therapist That Will Oversee The Plan Of Care: Isha Lindsey PT Start of Care Date: 10/07/21 Onset Date: 03/09/21 Plan of Care Certification Date: 10/07/21 Next Certification Due Date: 11/19/21 Patient Identified by Name and Date of : Yes REHABILITATION AND SPORTS THERAPY PHYSICAL THERAPY EVALUATION PLAN OF CARE: Assessment: Micaela Howard presents with diagnosis of chronic right hip pain that interferes with standing;walking in the community;stair negotiation;physical activities . She presents with impairments in ADL's, independence in exercise, overall function and strength . PROMIS (Patient-Reported Outcomes Measurement Information System) scores were reviewed and physical function domain identified as a rehabilitation concern. Prognosis for therapy is Excellent due to: current objective clinical presentation . She will benefit from skilled therapy services to meet the goals established for this plan of care as noted below. Goals for Episode of Care: created on 10/07/21 through 11/19/21 [place] in home exercise program. Patient will decrease pain to 2/10 with functional activities to allow patient to improve standing tolerance for ADLs. Patient will demonstrate increase in right hip and core strength to 5/5 during manual muscle testing in order to improve function for prior functional tasks. Perform standing , walking, stairs with decreased report of symptoms/pain in 4 weeks. Planned Interventions, Frequency, and Duration: Current Frequency: 2x/week Duration: 4 weeks Total Number of Visits Planned: 8 Planned Treatment Interventions: Therapeutic exercise (56531);Manual therapy (03364);Neuromuscular re-education (82375);Self-long term management (71791);Gait Training (81247);Patient/Family/Caregiver Education PLAN FOR NEXT VISIT: will consider sit to stand for home program , add hip adduction isometric Patient demonstrates good understanding of plan of care and treatment. The above goals and plan of care were discussed and agreed upon by patient/family. SUBJECTIVE: Micaela Howard is a 71 year old female seen today for Pt notes pain in groin region which extends into her thigh, turning in bed, getting out of recliner or low profile car is painful Functional Limitations: standing;walking in the community;stair negotiation;physical activities Prior Level of Function: Independent without limitations Relevant History Preferred Language: Kinyarwanda Employment: [employer]: See Comment [employer] Occupation: works for 3 full weeks then comes home for a time which she determines. Job is sitting Recreation / Current Exercise: walking some up to one mile Home Environment Home Type: Apt/Condo Entry To Home: Stairs;Without Rail Number Of Stairs Into Home: 1 Number Of Stairs To Bed/Bath: 0 Tub/Shower Type: handicap ready shower Intake Information: Prescription present Previous Treatment: NSAIDs Pain: Pain Pain Level: 6 (03/07 if moves wrong) Pain Location: Hip - Right Description: Sharp;Aching Frequency: Continuous Post Treatment Pain Post Treatment Pain Level: No Change Post Treatment Pain Location: Hip - Right PROMIS Scales Higher is Better 10/06/2021 Phys Func - Score 38 (moderate dysfunction) Phys Func - Percentile 12 % Social Roles - Score 45 (within normal limits) Social Role - Percentile 31 % GH Physical - Score 37.4 (Fair) GH Physical - Percentile 10 % GH Mental - Score 45.8 (Good) GH Mental - Percentile 34 % Self-Eff Symptom - Score 42 (Average) Self-Eff Symptom - Percentile 21 % T-scores: mean of general population = 50. 5 points is clinically meaningfully difference Percentiles provide an indication of how the patient's score ranks in relation to the general population. Higher percentile rankings indicate better function/quality of life. 50th percentile is the average of the general population and indicates half of respondents had a worse score. Lower is Better 10/06/2021 Fatigue - Score 59 (mild) Fatigue - Percentile 18 % T-scores: mean of general population = 50. 5 points is clinically meaningfully difference Percentiles provide an indication of how the patient's score ranks in relation to the general population. Higher percentile rankings indicate better function/quality of life. 50th percentile is the average of the general population and indicates half of respondents had a worse score. OBJECTIVE MEASURES WITH LEVEL OF FUNCTION: LE AROM R Hip Flexion: 120 Degrees R Hip ABduction: 30 Degrees R Hip ADduction: 20 Degrees LE Strength Trunk Strength: 4/5 R Hip Flexion (L2): 3+/5 (with pain) R Hip ABduction: 4/5 R Hip Internal Rotation: 4+/5 R Hip External Rotation: 4+/5 R Knee Extension (L3): 5/5 R Knee Flexion: 5/5 Functional Strength Functional Strength: standing / walking longer periods painful, car transfers painful Gait Gait: Independent Gait Device: None Gait Observation: no deviations Functional Performance Test Results Assistive Device: None 30 Second Chair Stand Test: 10 reps Timed Up and Go (sec): 9 sec Education: Education Learning Preferences: Demonstration;Explanation;Perfor elisa;Printed Materials Barriers: None Learning/educational needs: Home exercise program;Plan of Care Education Provided: Yes, see treatment interventions for education provided Education Provided To: Patient TREATMENT: PT Treatment Interventions: Therapeutic Exercise;Self-Assisted Management Evaluation Therapeutic Exercise: 1: sidelying hip adduction 1x5 2: prone hip extension 1x5 3: prone quad stretch no strap 10 sec hold x5 4: standing SLR at counter 1x10 5: green rep band hip abduction seated 1x10 Skilled Intervention: Patient was educated in proper exercise technique and purpose for exercises. Skilled judgment was provided in selection of appropriate interventions. Provided written instruction for home exercise program to facilitate proper performance and compliance. Correct performance of therapeutic exercises was facilitated with verbal and visual cuing. Educated patient on rationale for performing exercises in regards to ROM and function . Patient education as noted. Self-Assisted Management: 1: discussed and educated on alternate transfers in and out of cars for decreased pain Skilled Intervention: Skilled judgment in the selection of proper modification for activity of daily living/home management based on clinical presentation, deficits, and needs. Educated the patient regarding recommendations Home Exercise Program Assigned: 1: as outlined above Billing * Evaluation Low Complexity: 1 Unit Therapeutic Exercise Treatment Minutes: 20 Self-Care/Home Management Treatment Minutes: 5 Total Treatment Time Minutes (timed/untimed): 45 Isha Lindsey PT documented in this encounter [facility] documented as of this encounter (statuses as of 12/17/2021) [facility]04-12-2022 History of Past illness Narrative* Problem Noted Date Resolved Date Chronic hip pain, right 10/07/2021 10/31/19 documented as of this encounter (statuses as of 01/05/2022) [facility]04-12[facility]2022 History of Past illness Narrative* Problem Noted Date Resolved Date Chronic hip pain, right 10/07/2021 10/31/19 22 documented as of this encounter (statuses as of 01/12/2022) [address]22 History of Past illness Narrative* Problem Noted Date Resolved Date Chronic hip pain, right 10/07/2021 10/31/19 22 Pneumonia of left lower lobe due to infectious o rganism 02/25/2018 01/29/2022 documented as of this encounter (statuses as of 02/03/2022) [address]2022 History of Past illness Narrative* Problem Noted Date Resolved Date Chronic hip pain, right 10/07/2021 10/31/19 22 Pneumonia of left lower lobe due to infectious o rganism 02/25/2018 01/29/2022 documented as of this encounter (statuses as of 03/05/2022) [address]2022 History of Past illness Narrative* Problem Noted Date Resolved Date Chronic hip pain, right 10/07/2021 10/31/19 22 Pneumonia of left lower lobe due to infectious o rganism 02/25/2018 01/29/2022 documented as of this encounter (statuses as of 03/09/2022) [address]22 History of Past illness Narrative* Problem Noted Date Resolved Date Chronic hip pain, right 10/07/2021 10/31/19 22 Pneumonia of left lower lobe due to infectious o rganism 02/25/2018 01/29/2022 documented as of this encounter (statuses as of 03/10/2022) [address]22 History of Past illness Narrative* Problem Noted Date Resolved Date Chronic hip pain, right 10/07/2021 10/31/19 22 Pneumonia of left lower lobe due to infectious o rganism 02/25/2018 01/29/2022 documented as of this encounter (statuses as of 03/10/2022) [address]22 History of Past illness Narrative* Problem Noted Date Resolved Date Chronic hip pain, right 10/07/2021 10/31/19 22 Pneumonia of left lower lobe due to infectious o rganism 02/25/2018 01/29/2022 documented as of this encounter (statuses as of 03/12/2022) [address]22 History of Past illness Narrative* Problem Noted Date Resolved Date Chronic hip pain, right 10/07/2021 10/31/19 22 Pneumonia of left lower lobe due to infectious o rganism 02/25/2018 01/29/2022 documented as of this encounter (statuses as of 03/12/2022) [address]22 History of Past illness Narrative* Problem Noted Date Resolved Date Chronic hip pain, right 10/07/2021 10/31/19 22 Pneumonia of left lower lobe due to infectious o rganism 02/25/2018 01/29/2022 documented as of this encounter (statuses as of 03/05/2022) [address]22 History of Past illness Narrative* Problem Noted Date Resolved Date Chronic hip pain, right 10/07/2021 10/31/19 22 Pneumonia of left lower lobe due to infectious o rganism 02/25/2018 01/29/2022 documented as of this encounter (statuses as of 05/25/2022) [address]22 History of Past illness Narrative* Problem Noted Date Resolved Date Chronic hip pain, right 10/07/2021 10/31/19 22 Pneumonia of left lower lobe due to infectious o rganism 02/25/2018 01/29/2022 documented as of this encounter (statuses as of 06/28/2022) [address]2022 History of Past illness Narrative* Problem Noted Date Resolved Date Chronic hip pain, right 10/07/2021 10/31/19 22 Pneumonia of left lower lobe due to infectious o rganism 02/25/2018 01/29/2022 documented as of this encounter (statuses as of 08/26/2022) [address]22 History of Past illness Narrative* Problem Noted Date Resolved Date Chronic hip pain, right 10/07/2021 10/31/19 22 Pneumonia of left lower lobe due to infectious o rganism 02/25/2018 01/29/2022 documented as of this encounter (statuses as of 09/08/2022) [address]22 History of Past illness Narrative* Problem Noted Date Resolved Date Chronic hip pain, right 10/07/2021 10/31/19 22 Pneumonia of left lower lobe due to infectious o rganism 02/25/2018 01/29/2022 documented as of this encounter (statuses as of 09/22/2022) [address]22 History of Past illness Narrative* Problem Noted Date Resolved Date Chronic hip pain, right 10/07/2021 10/31/19 22 Pneumonia of left lower lobe due to infectious o rganism 02/25/2018 01/29/2022 documented as of this encounter (statuses as of 10/01/2022) [address]2022 History of Past illness Narrative* Problem Noted Date Resolved Date Chronic hip pain, right 10/07/2021 10/31/19 22 Pneumonia of left lower lobe due to infectious o rganism 02/25/2018 01/29/2022 documented as of this encounter (statuses as of 10/09/2022) [address]2022 History of Past illness Narrative* Problem Noted Date Resolved Date Chronic hip pain, right 10/07/2021 10/31/19 22 Pneumonia of left lower lobe due to infectious o rganism 02/25/2018 01/29/2022 documented as of this encounter (statuses as of 10/27/2022) [address]2022 History of Past illness Narrative* Problem Noted Date Resolved Date Chronic hip pain, right 10/07/2021 10/31/19 22 Pneumonia of left lower lobe due to infectious o rganism 02/25/2018 01/29/2022 documented as of this encounter (statuses as of 10/31/2022) [address]2022 History of Past illness Narrative* Problem Noted Date Resolved Date Chronic hip pain, right 10/07/2021 10/31/19 22 Pneumonia of left lower lobe due to infectious o rganism 02/25/2018 01/29/2022 documented as of this encounter (statuses as of 11/09/2022) [address]2022 History of Past illness Narrative* Problem Noted Date Resolved Date Chronic hip pain, right 10/07/2021 10/31/19 22 Pneumonia of left lower lobe due to infectious o rganism 02/25/2018 01/29/2022 documented as of this encounter (statuses as of 11/26/2022) [address]2022 History of Past illness Narrative* Problem Noted Date Resolved Date Chronic hip pain, right 10/07/2021 10/31/19 22 Pneumonia of left lower lobe due to infectious o rganism 02/25/2018 01/29/2022 documented as of this encounter (statuses as of 11/27/2022) [address]22 History of Past illness Narrative* Problem Noted Date Resolved Date Chronic hip pain, right 10/07/2021 10/31/19 22 Pneumonia of left lower lobe due to infectious o rganism 02/25/2018 01/29/2022 documented as of this encounter (statuses as of 12/01/2022) [address]2022 History of Past illness Narrative* Problem Noted Date Resolved Date Chronic hip pain, right 10/07/2021 10/31/19 22 Pneumonia of left lower lobe due to infectious o rganism 02/25/2018 01/29/2022 documented as of this encounter (statuses as of 12/08/2022) [address]2022 History of Past illness Narrative* Problem Noted Date Resolved Date Chronic hip pain, right 10/07/2021 10/31/19 22 Pneumonia of left lower lobe due to infectious o rganism 02/25/2018 01/29/2022 documented as of this encounter (statuses as of 12/08/2022) [address]2022 History of Past illness Narrative* Problem Noted Date Resolved Date Chronic hip pain, right 10/07/2021 10/31/19 22 Pneumonia of left lower lobe due to infectious o rganism 02/25/2018 01/29/2022 documented as of this encounter (statuses as of 12/11/2022) [address]22 History of Past illness Narrative* Problem Noted Date Resolved Date Chronic hip pain, right 10/07/2021 10/31/19 22 Pneumonia of left lower lobe due to infectious o rganism 02/25/2018 01/29/2022 documented as of this encounter (statuses as of 12/15/2022) [address]22 History of Past illness Narrative* Problem Noted Date Resolved Date Chronic hip pain, right 10/07/2021 10/31/19 22 Pneumonia of left lower lobe due to infectious o rganism 02/25/2018 01/29/2022 documented as of this encounter (statuses as of 12/22/2022) [address]22 History of Past illness Narrative* Problem Noted Date Resolved Date Chronic hip pain, right 10/07/2021 10/31/19 22 Pneumonia of left lower lobe due to infectious o rganism 02/25/2018 01/29/2022 documented as of this encounter (statuses as of 12/25/2022) [address]22 History of Past illness Narrative* Problem Noted Date Resolved Date Chronic hip pain, right 10/07/2021 10/31/19 22 Pneumonia of left lower lobe due to infectious o rganism 02/25/2018 01/29/2022 documented as of this encounter (statuses as of 12/28/2022) [address]22 History of Past illness Narrative* Problem Noted Date Diagnosed Date Resolved Date Chronic hip pain, right 10/07/2021 05/0 10/2021 Pneumonia of left lower lobe due to infectious organism 02/25/2018 01/29/2022 documented as of this encounter (statuses as of 01/07/2023) [address]22 History of Past illness Narrative* Problem Noted Date Diagnosed Date Resolved Date Chronic hip pain, right 10/07/2021 05/0 10/2021 Pneumonia of left lower lobe due to infectious organism 02/25/2018 01/29/2022 documented as of this encounter (statuses as of 02/03/2023) [address]2022 History of Past illness Narrative* Problem Noted Date Diagnosed Date Resolved Date Chronic hip pain, right 10/07/2021 05/0 10/2021 Pneumonia of left lower lobe due to infectious organism 02/25/2018 01/29/2022 documented as of this encounter (statuses as of 02/09/2023) [address]2022 History of Past illness Narrative* Problem Noted Date Diagnosed Date Resolved Date Chronic hip pain, right 10/07/2021 05/0 10/2021 Pneumonia of left lower lobe due to infectious organism 02/25/2018 01/29/2022 documented as of this encounter (statuses as of 02/11/2023) [address]22 History of Past illness Narrative* Problem Noted Date Diagnosed Date Resolved Date Chronic hip pain, right 10/07/2021 05/0 10/2021 Pneumonia of left lower lobe due to infectious organism 02/25/2018 01/29/2022 documented as of this encounter (statuses as of 03/16/2023) [address]22 History of Past illness Narrative* Problem Noted Date Diagnosed Date Resolved Date Chronic hip pain, right 10/07/2021 05/0 10/2021 Pneumonia of left lower lobe due to infectious organism 02/25/2018 01/29/2022 documented as of this encounter (statuses as of 04/12/2023) [address]2022 History of Past illness Narrative* Problem Noted Date Diagnosed Date Resolved Date Chronic hip pain, right 10/07/2021 05/0 10/2021 Pneumonia of left lower lobe due to infectious organism 02/25/2018 01/29/2022 documented as of this encounter (statuses as of 04/13/2023) [address]2022 History of Past illness Narrative* Problem Noted Date Diagnosed Date Resolved Date Chronic hip pain, right 10/07/2021 05/0 10/2021 Pneumonia of left lower lobe due to infectious organism 02/25/2018 01/29/2022 documented as of this encounter (statuses as of 04/14/2023) [address]2022 History of Past illness Narrative* Problem Noted Date Diagnosed Date Resolved Date Chronic hip pain, right 10/07/2021 05/0 10/2021 Pneumonia of left lower lobe due to infectious organism 02/25/2018 01/29/2022 documented as of this encounter (statuses as of 04/19/2023) [address]2022 History of Past illness Narrative* Problem Noted Date Diagnosed Date Resolved Date Chronic hip pain, right 10/07/2021 05/0 10/2021 Pneumonia of left lower lobe due to infectious organism 02/25/2018 01/29/2022 documented as of this encounter (statuses as of 04/21/2023) [address]2022 History of Past illness Narrative* Problem Noted Date Diagnosed Date Resolved Date Chronic hip pain, right 10/07/2021 05/0 10/2021 Pneumonia of left lower lobe due to infectious organism 02/25/2018 01/29/2022 documented as of this encounter (statuses as of 04/22/2023) [address]22 History of Past illness Narrative* Problem Noted Date Diagnosed Date Resolved Date Chronic hip pain, right 10/07/2021 05/0 10/2021 Pneumonia of left lower lobe due to infectious organism 02/25/2018 01/29/2022 documented as of this encounter (statuses as of 05/28/2023) [address]22 History of Past illness Narrative* Problem Noted Date Diagnosed Date Resolved Date Chronic hip pain, right 10/07/2021 05/0 10/2021 Pneumonia of left lower lobe due to infectious organism 02/25/2018 01/29/2022 documented as of this encounter (statuses as of 06/01/2023) [address]22 History of Past illness Narrative* Problem Noted Date Diagnosed Date Resolved Date Chronic hip pain, right 10/07/2021 05/0 10/2021 Pneumonia of left lower lobe due to infectious organism 02/25/2018 01/29/2022 documented as of this encounter (statuses as of 06/01/2023) [address]22 History of Past illness Narrative* Problem Noted Date Diagnosed Date Resolved Date Chronic hip pain, right 10/07/2021 05/0 10/2021 Pneumonia of left lower lobe due to infectious organism 02/25/2018 01/29/2022 documented as of this encounter (statuses as of 06/02/2023) [address]2022 History of Past illness Narrative* Problem Noted Date Diagnosed Date Resolved Date Chronic hip pain, right 10/07/2021 05/0 10/2021 Pneumonia of left lower lobe due to infectious organism 02/25/2018 01/29/2022 documented as of this encounter (statuses as of 06/18/2023) [address]22 History of Present illness Narrative* Jere Martines MD - 10/01/2021 4:34 PM EDT Chief Complaint Patient presents with: Recheck: 2 months HPI Micaela Howard is a 71 year old female who presents here today for Above Complaints.. Increased patient's amlodipine to 10 mg daily after her home cuff was reading 150-160/70-80's rangeon 09/26. BP this morning was 147/75. Home cuff today is very similar to our reading. States that shehas not been eating more salt in her diet. Drinks 1 cup of coffee in the morning and 1 can of coke per day. Not been feeling more stressed lately. Complaining of chronic right hip pain which started about 6 months ago without injury. Located overanterior hip and into her groin. Described as constant aching pain, currently mild. Exacerbated with rolling over at night or turning her body while standing. Has been treating with [facility] which takes the edge off. Denies bruising, redness, swelling, fever. Past medical history, appointments, medications, allergies reviewed. Previous Medical History PAST MEDICAL HISTORY Diagnosis Date Colon polyps Dry eyes GERD (gastroesophageal reflux disease) Hot flashes MENTAL HEALTH ORDERLY following HTN (hypertension) Hypothyroidism Obesity (BMI 30.0-34.9) Osteopenia Primary osteoarthritis of both hips PSVT S/P gastric bypass lap band Sarcoidosis of lung (HCC) chronic scarring Seasonal allergies Vitamin D deficiency Previous Surgical History PAST SURGICAL HISTORY Procedure Laterality Date BREAST BIOPSY Left 2000 COLONOSCOPY 2012 COLONOSCOPY FLX DX W/COLLJ SPEC WHEN PFRMD 11/09/2018 Colonoscopy IR ENDO ABLATION VARICOSE VEIN Right 2007 LAPS SURG CHOLECYSTECTOMY W/CHOLANGIOGRAPHY 1994 cholecystectomy OVARIAN CYSTECTOMY 1981 PAST SURGICAL HISTORY OF 2004 lap band PAST SURGICAL HISTORY OF 2002 lung biopsy-sarcoidosis PAST SURGICAL HISTORY OF 1984 D&C TONSILLECTOMY HX 195 TUBAL LIGATION 1985 Family History FAMILY HISTORY Problem Relation Age of Onset Cancer Mother thyroid Diabetes Mother other (gout) Mother Rheumatologic disease Sister RA Thyroid Sister Cancer Sister possible leukemia Heart disease Brother [place], CABGx3 Thyroid Brother other (gout) Brother Thyroid Daughter No Known Problems Daughter Blood Clots Daughter None No Family History Sarcoidosis, Lung cancer. Patient Allergies ALLERGIES No Known Allergies Current Medications Current Outpatient Medications on File Prior to Visit Medication Sig omeprazole (PRILOSEC) 20 mg capsule Take 2 capsules by mouth once daily. metoprolol succinate ER (TOPROL XL) 25 mg 24 hr tablet TAKE 1 TABLET BY MOUTH EVERY DAY cholecalciferol, Vitamin D3, (VITAMIN D3) 1,250 mcg (50,000 unit) cap capsule Take 1 capsule by mouth one time a week. levothyroxine (SYNTHROID) 50 mcg tablet Take 1 tablet by mouth once daily. chlorthalidone (HYGROTON) 25 mg tablet Take 1 tablet by mouth once daily. mometasone-formoterol (DULERA) 100-5 mcg/actuation inhaler Inhale 2 Puffs as instructed twice daily. albuterol HFA (PROAIR HFA) 90 mcg/actuation inhaler Inhale 2 Puffs as instructed every 4 hours as needed. tobramycin-dexamethasone (TOBRADEX) ophthalmic suspension Use 1 Drop in both eyes every 4 hours as needed. IBUPROFEN (ADVIL ORAL) Take 1 tablet by mouth as needed. ESTRADIOL (CLIMARA TRANSDERM.) Apply as directed. Multivitamin capsule Take 1 capsule by mouth once daily. amLODIPine (NORVASC) 2.5 mg tablet Take 2 tablets by mouth once daily. Mucus Clearing Device ([employer] VIBRATORY PEP) lalo Use as directed for pulmonary hygeine. Current Facility-Administered Medications on File Prior to Visit Medication perflutren lipid microspheres 1.3 mL in NaCl (PF) 0.9% 10 mL injection (DEFINITY) sodium chloride 0.9 % (flush) 10 mL (BD POSIFLUSH) Social History Social History Tobacco Use Smoking status: Never Smoker Smokeless tobacco: Never Used Substance Use Topics Alcohol use: No Drug use: No Review of Symptoms REVIEW OF SYSTEMS See HPI EXAM: BP 132/70 Pulse 84 Resp 12 Wt 90.7 kg (200 lb) BMI 35.43 kg/m General Appearance: Well appearing, alert, in no acute distress, well-hydrated, well nourished.. Skin: Skin color, texture, turgor normal, no suspicious rashes or lesions. Lungs: Lungs clear to auscultation. No wheezing, rhonchi, rales.. Heart: RRR without murmur, gallop, or rubs. No ectopy. HIP: Location: Right Redness: No. Warmth: No. Range of motion: WNL Tenderness over trochanteric bursa: No Pain with movement: Yes. Health Maintenance List SHINGRIX VACCINE(1 of 2) Never done ADVANCE DIRECTIVE DISCUSSION Never done MAMMOGRAM due on 02/14/2022 DEPRESSION SCREENING due on 04/28/2022 ANNUAL PCP TEAM CHRONIC DISEASE VISIT due on 08/06/2022 BP CONTROLLED (<130/80) due on 08/06/2022 DIABETES SCREEN due on 05/24/2024 LIPID SCREEN due on 07/01/2025 DTAP,TDAP,TD(2 - Td or Tdap) due on 05/04/2028 COLORECTAL CANCER SCREENING due on 11/09/2028 BONE DENSITY Completed INFLUENZA Completed HEPATITIS C SCREENING Completed PNEUMOVAX AGE 65 AND OVER WITH 5YR LOOKBACK Completed COVID-19 VACCINE Completed MENINGOCOCCAL CONJUGATE Aged Out Data reviewed Component Latest Ref Rng & Units 05/24/2021 08/06/2021 WBC 3.70 - 11.00 k/uL 9.18 8.09 RBC 3.90 - 5.20 m/uL 4.73 4.68 Hemoglobin 11.5 - 15.5 g/dL 13.5 13.6 Hematocrit 36.0 - 46.0 % 43.2 42.5 MCV 80.0 - 100.0 fL 91.3 90.8 MCH 26.0 - 34.0 pG 28.5 29.1 MCHC 30.5 - 36.0 g/dL 31.3 32.0 RDW-CV 11.5 - 15.0 % 14.0 13.7 Platelet Count 150 - 400 k/uL 438 (H) 476 (H) MPV 9.0 - 12.7 fL 11.1 10.1 Neut% % 55.3 Abs Neut (ANC) 1.45 - 7.50 k/uL 4.45 Lymph% % 29.5 Abs Lymph 1.00 - 4.00 k/uL 2.39 Burt% % 7.8 Abs Burt <0.87 k/uL 0.63 Eosin% % 6.2 Abs Eosin <0.46 k/uL 0.50 (H) Baso% % 1.2 Abs Baso <0.11 k/uL 0.10 Nucleated Reds 0 /100 WBC 0.0 Absolute nRBC <0.01 k/uL <0.01 <0.01 Diff Type Auto Diff Protein, Total 6.3 - 8.0 g/dL 7.2 Albumin 3.9 - 4.9 g/dL 3.9 Calcium 8.5 - 10.2 mg/dL 9.4 Bilirubin, Total 0.2 - 1.3 mg/dL 0.4 Alkaline Phosphatase 34 - 123 U/L 98 AST 13 - 35 U/L 19 Glucose 74 - 99 mg/dL 77 BUN 7 - 21 mg/dL 9 Creatinine 0.58 - 0.96 mg/dL 0.82 Sodium 136 - 144 mmol/L 139 Potassium 3.7 - 5.1 mmol/L 3.7 Chloride 97 - 105 mmol/L 101 CO2 22 - 30 mmol/L 28 Anion Gap 9 - 18 mmol/L 10 ALT 7 - 38 U/L 6 (L) eGFR- >60 eGFR-All Other Races . >60 Alkaline Phosphatase (ALKISO) 34 - 123 U/L 104 Alk Phos Bone % 10.7 - 68.3 % 37.1 Bone Fraction 12.9 - 52.6 U/L 38.6 Alk Phos Liver % 26.0 - 86.2 % 57.1 Liver Fraction 16.0 - 69.3 U/L 59.4 Alk Phos Intestine % 0.0 - 24.2 % 5.8 Intestine Fraction 0.0 - 16.3 U/L 6.0 TSH 0.270 - 4.200 uU/mL 2.970 Vitamin D 25 Hydroxy 31.0 - 80.0 ng/mL 17.7 (L) XR HIP BILAT 5V PEL/AP/LAT EACH HIP IMPRESSION: Bilateral degenerative findings RIGHT greater than LEFT. ASSESSMENT/PLAN: 1. Chronic hip pain, right - ICD9: 719.45, 338.29, ICD10: M25.551, G89.29 (primary diagnosis) OA on previous xray which I suspect is cause of her pain. Discussed ice/heat, OTC analgesics and PTreferral. Red flags for re-assessment reviewed with patient in detail. - CONSULT TO PHYSICAL THERAPY 2. Hypothyroidism, acquired - ICD9: 244.9, ICD10: E03.9 - Instructed patient on importance of taking on an empty stomach either first thing in the morning or at bedtime. - continue current dose of Synthroid 0.050 mg - LEVOTHYROXINE 50 MCG TABLET 3. Essential hypertension - ICD9: 401.9, ICD10: I10 - good control - Continue current medication(s) - Encouraged dietary sodium restriction/DASH diet - Recommended regular aerobic exercise. - Reviewed risks of HTN and principles of treatment - Goal of BP <140/90 - COMP METABOLIC PANEL Jere Martines MD [facility] Miscellaneous Notes* Telephone Encounter - Christi Hernandez LPN - 09/29/2021 2:48 PM EDT Patient telephoned. Message below given. Voiced understanding. Christi Hernanedz LPN * Telephone Encounter - Jere Martines MD - 09/29/2021 1:27 PM EDT Have her increase her amlodipine to 10 mg daily and will keep appointment as scheduled and recheck then. Bring home cuff with her to appointment please. * Telephone Encounter - Roxane Umana RN - 09/29/2021 12:22 PM EDT Patient calling with update regarding BP readings since increasing Amlodipine to 5 mg on 09/26/21. (See TE) She states her BP was 120/63 twenty four hours after increasing dose. Since then her BP hasbeen in the 150's-160's/70's-80's range with one outlying high BP 186/80's. She states she still has a mild headache but no dizziness as before and no other symptoms. She is scheduled for a two month follow up in office with PCP on 10/01. Offered appointment today which she declined. Roxane Umana RN [facility] Miscellaneous Notes* Telephone Encounter - Shobha Robison RN - 09/26/2021 1:59 PM EDT Patient returned call and given provider's message below and patient verbalized understanding. Allan Robison RN * Telephone Encounter - Xochilt Lyons LPN - 09/26/2021 1:46 PM EDT TC to pt. Left a detailed message on a secure line with updates. Xochilt Lyons LPN * Telephone Encounter - Aysha Easton APRN.CNP - 09/26/2021 1:16 PM EDT She can increase her amlodipine- take two pills instead of one. Have her update me Wednesday with BP reading. If develops worst headache of her life, vision changes, extremity numbness tingling weakness, slurred speech, confusion or facial dropping go to ER. Have her bring her BP cuff to upcoming appointment. Aysha Easton APRN.CNP * Telephone Encounter - Christi Hernandez LPN - 09/26/2021 12:17 PM EDT Patient telephoned. She is unaware; last she took her BP before this was around May 23 and it was 123/64 and in that area for some time. Christi Hernandez LPN * Telephone Encounter - Aysha Easton APRN.CNP - 09/26/2021 11:53 AM EDT Was her blood pressure doing alright prior to running out of medication? Aysha Easton APRN.CNP * Telephone Encounter - Thu Blanchard LPN - 09/26/2021 11:03 AM EDT Pt calls stating she ran out of her BP medication Amlodipine x 2 days and started back on 09-22-21. Since then pt states her BP has increased. She has taken her BP after she has taken her BP medications in the am. 09/22/21 163/79 09/23/21 158/76 09/24/21 AM 155/77 PM 205/101 09/25/21 8 AM 194/91 830 AM 219/89 835 AM 197/82 A little later 171/97 09/26/21 162/79 Symptoms: dizziness when she lays down and right when she gets up, and little pressure headache perpt. Denies: SOB, chest pain, Nausea, vomiting, drowsiness or confusion. Pt uses an inhaler to keep things open with breathing. Please advise pt. Thu Blanchard LPN [place] [address]-01[place]2022 Miscellaneous Notes* Telephone Encounter - Farzaneh Pinzon Ma - 09/26/2021 11:41 AM EDT Last office visit: 08/06/21 F/u scheduled: 10/03/21 Farzaneh Pinzon Ma * Telephone Encounter - Devora Narvaez - 09/26/2021 10:59 AM EDT Patient has been identified by name and date of : Yes Pending Prescriptions Disp Refills OMEPRAZOLE 20 MG CAPSULE,DELAYED RELEASE 60 capsule 5 Sig: Take 2 capsules by mouth once daily. LUCRETIA: No RX INSTRUCTIONS: Patient aware RX will be sent to pharmacy. No need to notify patient. Dev[facility]vae[facility] Diagnosis Chronic hip pain, right- Primary Hypothyroidism, acquired Unspecified hypothyroidism Essential hypertension Unspecified essential hypertension [facility] Diagnosis Chronic hip pain, right [facility]* Diagnosis Chronic hip pain, right- Primary [facility]* Diagnosis Chronic hip pain, right- Primary [facility]* Diagnosis Chronic hip pain, right- Primary [facility]* Diagnosis Chronic hip pain, right- Primary documented in [facility]* Diagnosis Chronic hip pain, right- Primary [facility]* Diagnosis Chronic hip pain, right- Primary Essential hypertension Unspecified essential hypertension Bilateral lower extremity edema Edema Acquired hypothyroidism Unspecified hypothyroidism Screening mammogram for breast cancer documented in [facility]* Diagnosis Hypothyroidism, acquired Unspecified hypothyroidism documented in this encounter [facility]* Diagnosis Chronic hip pain, right documented in this [facility]* Diagnosis Screening mammogram for breast cancer documented in this [facility]* Diagnosis Essential hypertension- Primary Unspecified essential hypertension documented in this encounter [facility]* Diagnosis Hypothyroidism, acquired Unspecified hypothyroidism documented in this encounter [facility]* Diagnosis Thrombophlebitis of superficial veins of left lower extremity- Primary Lymphedema Other lymphedema Varicose veins of both lower extremities with inflammation documented in this encounter [facility]* Diagnosis Thrombophlebitis of superficial veins of left lower extremity- Primary documented in this [facility]* Diagnosis Lymphedema- Primary Other lymphedema documented in this [facility]* Diagnosis Thrombophlebitis of superficial veins of left lower extremity- Primary Lymphedema Other lymphedema documented in this encounter [facility]* Diagnosis Lymphedema- Primary Other lymphedema documented in this encounter [facility]* Diagnosis Lymphedema- Primary Other lymphedema [facility]* Diagnosis Lymphedema- Primary Other lymphedema documented in this [facility]* Diagnosis Lymphedema- Primary Other lymphedema documented in this encounter [facility]* Diagnosis Lymphedema- Primary Other lymphedema documented [facility] this [facility]* Diagnosis Lymphedema- Primary Other lymphedema documented in this [facility]* Diagnosis Lymphedema- Primary Other lymphedema documented in this encounter [facility]* Diagnosis Lymphedema- Primary Other lymphedema [facility] Diagnosis Thrombophlebitis of superficial veins of left lower extremity- Primary [facility]* Diagnosis Essential hypertension- Primary Unspecified essential hypertension Vitamin D deficiency Unspecified vitamin D deficiency Screening for hyperlipidemia Screening for lipoid disorders Sarcoidosis of lung (HCC) Sarcoidosis Acquired hypothyroidism Unspecified hypothyroidism Lymphedema Other lymphedema Irritation of eye documented in this [facility]* Diagnosis Sarcoidosis of lung (HCC)- Primary Sarcoidosis Productive cough Cough [facility]* Diagnosis Encounter for screening mammogram for breast cancer documented in this encounter [facility]* Diagnosis Thrombophlebitis of superficial veins of right lower extremity- Primary documented in [facility]* Diagnosis Bilateral hip pain- Primary Pain in joint, pelvic region and thigh Antalgic gait Abnormality of gait documented in this encounter [facility] for referral (narrative)* Diagnostic Procedure Only (Routine) - Closed Specialty Diagnoses / Procedures Referred By Tricia hoffmann Referred To Contact XR IMAGING Diagnoses Chronic hip pain, right Procedures XR HIP GENERAL 3V PELV/AP/LAT RIGHT RADEX HIP UNILATERAL WITH PELVIS 2-3 VIEWS Jere Martines MD [address] [place] [address] Xr Imaging Referral ID Status Reason Start Date Expiration Date V isits Requested Visits Authorized [id number] Closed Auto-Generate d Referral 02/02/2022 03/04/2023 1 1 [facility] for referral (narrative)* Diagnostic Procedure Only (Routine) - Closed Specialty Diagnoses / Procedures Referred By Tricia hoffmann Referred To Contact BR IMAGING Diagnoses Screening mammogram for breast cancer Procedures SAEED SCREENING SCREENING MAMMOGRAPHY BI 2-[place] [address] [place] [address] [facility] [address] [place] [address] Referral ID Status Reason Start Date Expiration Date V isits Requested Visits Authorized [id number] Closed Auto-Generate d Referral 02/02/2022 03/04/2023 1 1 [facility] for referral (narrative)* Outpatient Procedure (Routine) - Authorized Specialty Diagnoses / Procedures Referred By Tricia hoffmann Referred [facility] Diagnoses Thrombophlebitis of superficial veins of left lower extremity Lymphedema Procedures US LEG VEIN DVT UNL VAS LAB DUP-SCAN XTR VEINS UNILATERAL/LIMITED STUDY Jere Martines MD [address] [place] [address] [facility] [place] [address] [place] [address] Referral ID Status Reason Start Date Expiration Date Visits Requested Visits Authorized [id number] Authorized Auto-Generat ed Referral 11/16/2022 10/30/2023 1 1 [facility] for referral (narrative)* Outpatient Procedure (Routine) - Closed Specialty Diagnoses / Procedures Referred By Tricia hoffmann Referred To Contact [facility] [place] Diagnoses Thrombophlebitis of superficial veins of left lower extremity Procedures US LEG VEIN DVT THELMA VAS LAB DUP-SCAN XTR VEINS COMPLETE BILATERAL STUDY eJre Martines MD [address] [place] [address] [address] Referral ID Status Reason Start Date Expiration Date V isits Requested Visits Authorized [id number] Closed Auto-Generate d Referral 01/06/2023 11/25/2023 1 1 T [facility] for referral (narrative)* Diagnostic Procedure Only (Routine) - Pending Review Specialty Diagnoses / Procedures Referred By Tricia hoffmann Referred To Contact BR IMAGING Diagnoses Encounter for screening mammogram for breast cancer Procedures SAEED SCREENING SCREENING MAMMOGRAPHY BI 2-VIEW BREAST INC CAD Jere Martines MD [address] [place] [id number] [facility] [address] [place] [phone] Referral ID Status Reason Start Date Expiration Date Visits Requested Visits Authorized [id number] Pending Review Auto-Generat ed Referral 05/13/2024 1 1 T [facility] for referral (narrative)* Diagnostic Procedure Only (Urgent) - Authorized Specialty Diagnoses / Procedures Referred By Tricia t Referred To Contact US IMAGING Diagnoses Thrombophlebitis of superficial veins of right lower extremity Procedures US DVT LOWER BILATERAL DUP-SCAN XTR VEINS COMPLETE BILATERAL STUDY Jere Martines MD [address] [place] [address] [place] [address] Referral ID Status Reason Start Date Expiration Date Visits Requested Visits Authorized [id number] Authorized Auto-Generat ed Referral 05/19/2024 1 1 [facility] for visit Narrative* Diagnostic Procedure Only (Routine) - Closed Specialty Diagnoses / Procedures Referred By Contfaby t Referred To Contact XR IMAGING Diagnoses Chronic hip pain, right Procedures XR HIP GENERAL 3V PELV/AP/LAT RIGHT RADEX HIP UNILATERAL WITH PELVIS 2-3 VIEWS Jere Martines MD [address] [place] [address] Xr Imaging Referral ID Status Reason Start Date Expiration Date V isits Requested Visits Authorized [id number] Closed Auto-Generate d Referral 02/02/2022 03/04/2023 1 1 [facility] for visit Narrative* Diagnostic Procedure Only (Routine) - Closed Specialty Diagnoses / Procedures Referred By Tricia t Referred To Contact [facility] Diagnoses Screening mammogram for breast cancer Procedures SAEED SCREENING SCREENING MAMMOGRAPHY BI 2-VIEW BREAST INC CAD Jere Martines MD [address] [place] [address] [facility] [address] [place] [address] Referral ID Status Reason Start Date Expiration Date V isits Requested Visits Authorized [id number] Closed Auto-Generate d Referral 02/02/2022 03/04/2023 1 1 [facility] Summary Purpose Family History No Family History Records FoundNo Family History Records Found Advance Directives No Advanced Directives Records FoundDocuments on File Type Date Recorded Patient 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 Developer Expl 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 Advance Directive(s) 01/13/2019 11:45 AM Advance Directive(s) 01/09/2019 2:23 PM Advance Directive(s) 11/09/2018 8:40 AM Advance Directive(s) 10/20/2018 8:52 AM Documents on File Type Date Recorded Patient [employer] R12 Developer Expl anation Advance Directive(s) 01/13/2019 11:45 AM Advance Directive(s) 01/09/2019 2:23 PM Advance Directive(s) 11/09/2018 8:40 AM Advance Directive(s) 10/20/2018 8:52 AM Reason for Referral Specialty Diagnoses / Procedures Referred By Contac t Referred To Contact [facility] Diagnoses Chronic hip pain, right Procedures CONSULT TO PHYSICAL THERAPY PHYSICAL THERAPY EVALUATION [facility] COMPLEX 45 MINS Jere Martines MD [address] [place] [address] [facility] [place] [address] [place] [address] Referral ID Status Reason Start Date Expiration Date Visits Requested Visits Authorized [id number] Authorized PCP Requested Referral Auto-Generate d Referral 10/01/2021 10/01/2022 99 99 Specialty Diagnoses / Procedures Referred By Contac t Referred To Contact Orthopedics Diagnoses Chronic hip pain, right Procedures CONSULT TO ORTHOPAEDICS OFFICE/OUTPATIENT [facility] 60-74 MINUTES Jere Martines MD [address] [place] [address] Referral ID Status Reason Start Date Expiration Date Visits Requested Visits Authorized [id number] Authorized PCP Requested Referral 02/02/2022 02/02/2023 1 1 Specialty Diagnoses / Procedures Referred By Contac t Referred To Contact XR IMAGING Diagnoses Chronic hip pain, right Procedures XR HIP GENERAL 3V PELV/AP/LAT RIGHT RADEX HIP UNILATERAL WITH PELVIS 2-3 VIEWS Jere Martines MD [address] [place] [address] Xr Imaging Referral ID Status Reason Start Date Expiration Date Visits Requested Visits Authorized [id number] Pending Review Auto-Generat ed Referral 02/02/2022 03/04/2023 1 1 Specialty Diagnoses / Procedures Referred By Contac t Referred To Contact BR IMAG[facility] Diagnoses Screening mammogram for breast cancer Procedures SAEED SCREENING SCREENING MAMMOGRAPHY BI 2-VIEW BREAST INC CAD Jere Martines MD [address] [place] [address] [facility] [address] [place] [address] Referral ID Status Reason Start Date Expiration Date Visits Requested Visits Authorized [id number] Authorized Auto-Generat ed Referral 02/02/2022 03/04/2023 1 1 Specialty Diagnoses / Procedures Referred By Contac t Referred To Contact Vascular Surgery Diagnoses Varicose veins of both lower extremities with inflammation Procedures CONSULT TO VASCULAR SURGERY OFFICE/OUTPATIENT [facility] 60-74 MINUTES Jere Martines MD [facility] [place] [address] Referral ID Status Reason Start Date Expiration Date Visits Requested Visits Authorized [id number] Authorized PCP Requested Referral 09/22/2022 09/22/2023 1 1 Specialty Diagnoses / Procedures Referred By Contac t Referred [facility] Diagnoses Thrombophlebitis of superficial veins of left lower extremity Procedures US LEG VEIN DVT THELMA VAS LAB DUP-SCAN XTR VEINS COMPLETE BILATERAL STUDY Jere Martines MD [facility] [place] [address] [facility] [place] [address] [place] [address] Referral ID Status Reason Start Date Expiration Date Visits Requested Visits Authorized [id number] Authorized Auto-Generat ed Referral 09/22/2022 09/22/2023 1 1 Specialty Diagnoses / Procedures Referred By Contac t Referred To Contact [facility] Diagnoses Lymphedema Procedures CONSULT TO LYMPHEDEMA THERAPY OFFICE/OUTPATIENT [facility] 60-74 MINUTES Jere Martines MD [address] [place] [id number] [facility] [place] [address] [place] [address] Referral ID Status Reason Start Date Expiration Date Visits Requested Visits Authorized [id number] Authorized Auto-Generat ed Referral 09/22/2022 09/22/2023 99 99 Specialty Diagnoses / Procedures Referred By Contac t Referred To Contact Jere Martines MD [address] [place] [address] Referral ID Status Reason Start Date Expiration Date V isits Requested Visits Authorized [id number] Authorized 08/31/2022 09/30/2023 1 1 Specialty Diagnoses / Procedures Referred By Contac t Referred To Contact [facility] Diagnoses Lymphedema Procedures PT REHAB FOLLOW UP ORDER THERAPEUTIC EXERCISES RE, EA 15 MIN. Denise Edwards, PT [facility] [address] [place] [address] Referral ID Status Reason Start Date Expiration Date Visits Requested Visits Authorized [id number] Pending Review PCP Requested Referral Auto-Generate d Referral 10/26/2022 01/24/2023 1 1 Referral ID Status Reason Start Date Expiration Date Visits Re quested Visits Authorized [id number] Closed 1 1 Referral ID Status Reason Start Date Expiration Date Visits Re quested Visits Authorized [id number] Closed 1 1 Referral ID Status Reason Start Date Expiration Date Visits Re quested Visits Authorized [id number] Closed 1 1 Additional Source Comments INFORMATION SOURCE (unrecogn ized section and content) DATE CREATED AUTHOR AUTHOR'S ORGANIZ ATION 06/18/2023 [facility] Source Comments (unrecognize d section and content) In the event this informatio n is protected by the Federal Confidentiality of Alcohol and Drug Abuse Patient Records regulations: The Federal rules restrict any use of the information to criminally investigate or prosecute any alcohol or drug abuse patient.[facility] the event this information is protected by the Federal Confidentiality of Alcohol and Drug Abuse Patient Records regulations: The Federal rules restrict any use of the information to criminally investigate or prosecute any alcohol or drug abuse patient.[facility] the event this information is protected by the Federal Confidentiality of Alcohol and Drug Abuse Patient Records regulations: The Federal rules restrict any use of the information to criminally investigate or prosecute any alcohol or drug abuse patient.[facility] the event this information is protected by the Federal Confidentiality of Alcohol and Drug Abuse Patient Records regulations: The Federal rules restrict any use of the information to criminally investigate or prosecute any alcohol or drug abuse patient.[facility] the event this information is protected by the Federal Confidentiality of Alcohol and Drug Abuse Patient Records regulations: The Federal rules restrict any use of the information to criminally investigate or prosecute any alcohol or drug abuse patient.[facility] the event this information is protected by the Federal Confidentiality of Alcohol and Drug Abuse Patient Records regulations: The Federal rules restrict any use of the information to criminally investigate or prosecute any alcohol or drug abuse patient.[facility] the event this information is protected by the Federal Confidentiality of Alcohol and Drug Abuse Patient Records regulations: The Federal rules restrict any use of the information to criminally investigate or prosecute any alcohol or drug abuse patient.[facility] the event this information is protected by the Federal Confidentiality of Alcohol and Drug Abuse Patient Records regulations: The Federal rules restrict any use of the information to criminally investigate or prosecute any alcohol or drug abuse patient.[facility] Center[facility] the event this information is protected by the Federal Confidentiality of Alcohol and Drug Abuse Patient Records regulations: The Federal rules restrict any use of the information to criminally investigate or prosecute any alcohol or drug abuse patient.[facility] CenterIn the event this information is protected by the Federal Confidentiality of Alcohol and Drug Abuse Patient Records regulations: The Federal rules restrict any use of the information to criminally investigate or prosecute any alcohol or drug abuse patient.[facility] CenterIn the event this information is protected by the Federal Confidentiality of Alcohol and Drug Abuse Patient Records regulations: The Federal rules restrict any use of the information to criminally investigate or prosecute any alcohol or drug abuse patient.[facility] CenterIn the event this information is protected by the Federal Confidentiality of Alcohol and Drug Abuse Patient Records regulations: The Federal rules restrict any use of the information to criminally investigate or prosecute any alcohol or drug abuse patient.[facility] CenterIn the event this information is protected by the Federal Confidentiality of Alcohol and Drug Abuse Patient Records regulations: The Federal rules restrict any use of the information to criminally investigate or prosecute any alcohol or drug abuse patient.[facility] CenterIn the event this information is protected by the Federal Confidentiality of Alcohol and Drug Abuse Patient Records regulations: The Federal rules restrict any use of the information to criminally investigate or prosecute any alcohol or drug abuse patient.[facility] CenterIn the event this information is protected by the Federal Confidentiality of Alcohol and Drug Abuse Patient Records regulations: The Federal rules restrict any use of the information to criminally investigate or prosecute any alcohol or drug abuse patient.[facility] CenterIn the event this information is protected by the Federal Confidentiality of Alcohol and Drug Abuse Patient Records regulations: The Federal rules restrict any use of the information to criminally investigate or prosecute any alcohol or drug abuse patient.[facility] CenterIn the event this information is protected by the Federal Confidentiality of Alcohol and Drug Abuse Patient Records regulations: The Federal rules restrict any use of the information to criminally investigate or prosecute any alcohol or drug abuse patient.[facility] CenterIn the event this information is protected by the Federal Confidentiality of Alcohol and Drug Abuse Patient Records regulations: The Federal rules restrict any use of the information to criminally investigate or prosecute any alcohol or drug abuse patient.[facility] CenterIn the event this information is protected by the Federal Confidentiality of Alcohol and Drug Abuse Patient Records regulations: The Federal rules restrict any use of the information to criminally investigate or prosecute any alcohol or drug abuse patient.[facility] CenterIn the event this information is protected by the Federal Confidentiality of Alcohol and Drug Abuse Patient Records regulations: The Federal rules restrict any use of the information to criminally investigate or prosecute any alcohol or drug abuse patient.[facility] CenterIn the event this information is protected by the Federal Confidentiality of Alcohol and Drug Abuse Patient Records regulations: The Federal rules restrict any use of the information to criminally investigate or prosecute any alcohol or drug abuse patient.[facility] CenterIn the event this information is protected by the Federal Confidentiality of Alcohol and Drug Abuse Patient Records regulations: The Federal rules restrict any use of the information to criminally investigate or prosecute any alcohol or drug abuse patient.[facility] CenterIn the event this information is protected by the Federal Confidentiality of Alcohol and Drug Abuse Patient Records regulations: The Federal rules restrict any use of the information to criminally investigate or prosecute any alcohol or drug abuse patient.[facility] CenterIn the event this information is protected by the Federal Confidentiality of Alcohol and Drug Abuse Patient Records regulations: The Federal rules restrict any use of the information to criminally investigate or prosecute any alcohol or drug abuse patient.[facility] CenterIn the event this information is protected by the Federal Confidentiality of Alcohol and Drug Abuse Patient Records regulations: The Federal rules restrict any use of the information to criminally investigate or prosecute any alcohol or drug abuse patient.[facility] CenterIn the event this information is protected by the Federal Confidentiality of Alcohol and Drug Abuse Patient Records regulations: The Federal rules restrict any use of the information to criminally investigate or prosecute any alcohol or drug abuse patient.[facility] CenterIn the event this information is protected by the Federal Confidentiality of Alcohol and Drug Abuse Patient Records regulations: The Federal rules restrict any use of the information to criminally investigate or prosecute any alcohol or drug abuse patient.[facility] CenterIn the event this information is protected by the Federal Confidentiality of Alcohol and Drug Abuse Patient Records regulations: The Federal rules restrict any use of the information to criminally investigate or prosecute any alcohol or drug abuse patient.[facility] CenterIn the event this information is protected by the Federal Confidentiality of Alcohol and Drug Abuse Patient Records regulations: The Federal rules restrict any use of the information to criminally investigate or prosecute any alcohol or drug abuse patient.[facility] CenterIn the event this information is protected by the Federal Confidentiality of Alcohol and Drug Abuse Patient Records regulations: The Federal rules restrict any use of the information to criminally investigate or prosecute any alcohol or drug abuse patient.[facility] CenterIn the event this information is protected by the Federal Confidentiality of Alcohol and Drug Abuse Patient Records regulations: The Federal rules restrict any use of the information to criminally investigate or prosecute any alcohol or drug abuse patient.[facility] CenterIn the event this information is protected by the Federal Confidentiality of Alcohol and Drug Abuse Patient Records regulations: The Federal rules restrict any use of the information to criminally investigate or prosecute any alcohol or drug abuse patient.[facility] CenterIn the event this information is protected by the Federal Confidentiality of Alcohol and Drug Abuse Patient Records regulations: The Federal rules restrict any use of the information to criminally investigate or prosecute any alcohol or drug abuse patient.[facility] CenterIn the event this information is protected by the Federal Confidentiality of Alcohol and Drug Abuse Patient Records regulations: The Federal rules restrict any use of the information to criminally investigate or prosecute any alcohol or drug abuse patient.[facility] CenterIn the event this information is protected by the Federal Confidentiality of Alcohol and Drug Abuse Patient Records regulations: The Federal rules restrict any use of the information to criminally investigate or prosecute any alcohol or drug abuse patient.[facility] CenterIn the event this information is protected by the Federal Confidentiality of Alcohol and Drug Abuse Patient Records regulations: The Federal rules restrict any use of the information to criminally investigate or prosecute any alcohol or drug abuse patient.[facility] CenterIn the event this information is protected by the Federal Confidentiality of Alcohol and Drug Abuse Patient Records regulations: The Federal rules restrict any use of the information to criminally investigate or prosecute any alcohol or drug abuse patient.[facility] CenterIn the event this information is protected by the Federal Confidentiality of Alcohol and Drug Abuse Patient Records regulations: The Federal rules restrict any use of the information to criminally investigate or prosecute any alcohol or drug abuse patient.[facility] CenterIn the event this information is protected by the Federal Confidentiality of Alcohol and Drug Abuse Patient Records regulations: The Federal rules restrict any use of the information to criminally investigate or prosecute any alcohol or drug abuse patient.[facility] CenterIn the event this information is protected by the Federal Confidentiality of Alcohol and Drug Abuse Patient Records regulations: The Federal rules restrict any use of the information to criminally investigate or prosecute any alcohol or drug abuse patient.[facility] CenterIn the event this information is protected by the Federal Confidentiality of Alcohol and Drug Abuse Patient Records regulations: The Federal rules restrict any use of the information to criminally investigate or prosecute any alcohol or drug abuse patient.[facility] CenterIn the event this information is protected by the Federal Confidentiality of Alcohol and Drug Abuse Patient Records regulations: The Federal rules restrict any use of the information to criminally investigate or prosecute any alcohol or drug abuse patient.[facility] CenterIn the event this information is protected by the Federal Confidentiality of Alcohol and Drug Abuse Patient Records regulations: The Federal rules restrict any use of the information to criminally investigate or prosecute any alcohol or drug abuse patient.[facility] CenterIn the event this information is protected by the Federal Confidentiality of Alcohol and Drug Abuse Patient Records regulations: The Federal rules restrict any use of the information to criminally investigate or prosecute any alcohol or drug abuse patient.[facility] CenterIn the event this information is protected by the Federal Confidentiality of Alcohol and Drug Abuse Patient Records regulations: The Federal rules restrict any use of the information to criminally investigate or prosecute any alcohol or drug abuse patient.[facility] CenterIn the event this information is protected by the Federal Confidentiality of Alcohol and Drug Abuse Patient Records regulations: The Federal rules restrict any use of the information to criminally investigate or prosecute any alcohol or drug abuse patient.[facility] CenterIn the event this information is protected by the Federal Confidentiality of Alcohol and Drug Abuse Patient Records regulations: The Federal rules restrict any use of the information to criminally investigate or prosecute any alcohol or drug abuse patient.[facility] CenterIn the event this information is protected by the Federal Confidentiality of Alcohol and Drug Abuse Patient Records regulations: The Federal rules restrict any use of the information to criminally investigate or prosecute any alcohol or drug abuse patient.[facility] CenterIn the event this information is protected by the Federal Confidentiality of Alcohol and Drug Abuse Patient Records regulations: The Federal rules restrict any use of the information to criminally investigate or prosecute any alcohol or drug abuse patient.[facility] CenterIn the event this information is protected by the Federal Confidentiality of Alcohol and Drug Abuse Patient Records regulations: The Federal rules restrict any use of the information to criminally investigate or prosecute any alcohol or drug abuse patient.[facility] CenterIn the event this information is protected by the Federal Confidentiality of Alcohol and Drug Abuse Patient Records regulations: The Federal rules restrict any use of the information to criminally investigate or prosecute any alcohol or drug abuse patient.[facility] CenterIn the event this information is protected by the Federal Confidentiality of Alcohol and Drug Abuse Patient Records regulations: The Federal rules restrict any use of the information to criminally investigate or prosecute any alcohol or drug abuse patient.[facility] CenterIn the event this information is protected by the Federal Confidentiality of Alcohol and Drug Abuse Patient Records regulations: The Federal rules restrict any use of the information to criminally investigate or prosecute any alcohol or drug abuse patient.[facility] CenterIn the event this information is protected by the Federal Confidentiality of Alcohol and Drug Abuse Patient Records regulations: The Federal rules restrict any use of the information to criminally investigate or prosecute any alcohol or drug abuse patient.[facility] CenterIn the event this information is protected by the Federal Confidentiality of Alcohol and Drug Abuse Patient Records regulations: The Federal rules restrict any use of the information to criminally investigate or prosecute any alcohol or drug abuse patient.[facility] CenterIn the event this information is protected by the Federal Confidentiality of Alcohol and Drug Abuse Patient Records regulations: The Federal rules restrict any use of the information to criminally investigate or prosecute any alcohol or drug abuse patient.[facility] CenterIn the event this information is protected by the Federal Confidentiality of Alcohol and Drug Abuse Patient Records regulations: The Federal rules restrict any use of the information to criminally investigate or prosecute any alcohol or drug abuse patient.[facility] Reason for Visit (unrecogniz ed section and content) Specialty Diagnoses / Procedures Referred By Tricia hoffmann Referred To Contact [facility] Diagnoses Lymphedema Procedures CONSULT TO LYMPHEDEMA THERAPY OFFICE/OUTPATIENT [facility] MDM 60-74 MINUTES Jere Martines MD [address] [place] [address] [facility] [id number] [place] [address] Referral ID Status Reason Start Date Expiration Date Visits Requested Visits Authorized [id number] Authorized Auto-Generat ed Referral 09/22/2022 09/22/2023 99 99 Reason Comments PT Progress Note Reason Comments Physical Therapy Specialty Diagnoses / Procedures Referred By Tricia hoffmann Referred To Contact [facility] Diagnoses Chronic hip pain, right Procedures CONSULT TO PHYSICAL THERAPY PHYSICAL THERAPY EVALUATION HIGH COMPLEX 45 MINS Jere Martines MD [address] [place] [address] [address] Referral ID Status Reason Start Date Expiration Date Visits Requested Visits Authorized [id number] Authorized PCP Requested Referral Auto-Generate d Referral 10/01/2021 10/01/2022 99 99 Reason Onset Date Comments Refill Request 09/26/2021 Reason Comments increased BP Reason Comments Patient Update Reason Comments Recheck 2 months Reason Comments PT Eval Patient Education Reason Comments Refill Request Reason Onset Date Comments Refill Request 01/02/2022 Reason Onset Date Comments Refill Request 01/12/2022 Reason Comments Follow Up 4 month- patient thi nks the metoprolol is causing pedal edema (making it worse) Pain Right hip pain david nues despite PT-completed Reason Comments Blood Pressure Check Reason Onset Date Comments Refill Request 03/09/2022 Reason Comments Results Reason Onset Date Comments Refill Request 06/22/2022 Reason Onset Date Comments Population Health Navigation Outreach 08/26/2022 [facility] Outreach Reason Comments Edema Patient complains of legs being thick- reports has more of a restless leg vs pain on occasion. Reason Onset Date Comments Refill Request 10/01/2022 Reason Comments Results Reason Comments PT Eval Specialty Diagnoses / Procedures Referred By Contac t Referred To Contact [facility] Diagnoses Lymphedema Procedures CONSULT TO LYMPHEDEMA THERAPY OFFICE/OUTPATIENT [facility] 60-74 MINUTES Jere Martines MD [address] [place] [address] [facility] [place] [address] [place] [address] Reason Comments Follow Up Blood clot Reason Onset Date Comments Refill Request 12/21/2022 Reason Onset Date Comments Refill Request 12/28/2022 Reason Comments Results Radiology Reason Comments F/U 3 Month Reason Onset Date Comments Refill Request 03/16/2023 Reason Comments URI X 2 weeks. Productiv e cough completed Doxycycline 2 x daily x 5 days. Reason Comments Consult Reason Comments Right Knee Pain Inside of right knee is red, swollen and warm to the touch x2 days Reason Comments Results Reason Comments Fax Orders Handicap Placard Burn Disc of X-ray Reason Comments Medication Question Care Teams (unrecognized sec tion and content) Personal Injury Paralegal Relationship Specialty Start Date End Date Jere Martines MD [address] [place] [address] PCP - General Family Practice 11/12/17 Personal Injury Paralegal Relationship Specialty Start Date End Date Jere Martines MD [address] [place] [address] PCP - General Family Practice 11/12/17 Personal Injury Paralegal Relationship Specialty Start Date End Date Jere Martines MD [address] [place] [address] PCP - General Family Practice 11/12/17 Personal Injury Paralegal Relationship Specialty Start Date End Date Jere Martines MD [address] [facility] [place] [address] PCP - General Family Practice 11/12/17 Personal Injury Paralegal Relationship Specialty Start Date End Date Jere Martines MD [address] [facility] [place] [address] PCP - General Family Practice 11/12/17 Personal Injury Paralegal Relationship Specialty Start Date End Date Jere Martines MD [address] [facility] [place] [address] PCP - General Family Practice 11/12/17 Personal Injury Paralegal Relationship Specialty Start Date End Date Jere Martines MD [address] [facility] [place] [address] PCP - General Family Practice 11/12/17 Personal Injury Paralegal Relationship Specialty Start Date End Date Jere Martines MD [address] [facility] [place] [address] PCP - General Family Practice 11/12/17 Personal Injury Paralegal Relationship Specialty Start Date End Date Jere Martines MD [address] [facility] [place] [address] PCP - General Family Practice 11/12/17 Personal Injury Paralegal Relationship Specialty Start Date End Date Jere Martines MD [address] [facility] [place] [address] PCP - General Family Practice 11/12/17 Personal Injury Paralegal Relationship Specialty Start Date End Date Jere Martines MD [address] [facility] [place] [address] PCP - General Family Practice 11/12/17 Personal Injury Paralegal Relationship Specialty Start Date End Date Jere Martines MD [address] [facility] [place] [address] PCP - General Family Practice 11/12/17 Personal Injury Paralegal Relationship Specialty Start Date End Date Jere Martines MD [address] [facility] [place] [address] PCP - General Family Practice 11/12/17 Personal Injury Paralegal Relationship Specialty Start Date End Date Jere Martines MD [address] [facility] [place] [address] PCP - General Family Practice 11/12/17 Personal Injury Paralegal Relationship Specialty Start Date End Date Jere Martines MD [address] [facility] [place] [address] PCP - General Family Practice 11/12/17 Personal Injury Paralegal Relationship Specialty Start Date End Date Jere Martines MD [address] [facility] [place] [address] PCP - General Family Practice 11/12/17 Personal Injury Paralegal Relationship Specialty Start Date End Date Jere Martines MD [address] [facility] [place] [address] PCP - General Family Practice 11/12/17 Personal Injury Paralegal Relationship Specialty Start Date End Date Jere Martines MD [address] [facility] [place] [address] PCP - General Family Medicine 11/12/17 Personal Injury Paralegal Relationship Specialty Start Date End Date Jere Martines MD [address] [facility] [place] [address] PCP - General Family Medicine 11/12/17 Personal Injury Paralegal Relationship Specialty Start Date End Date Jere Martines MD [address] [facility] [place] [address] PCP - General Family Medicine 11/12/17 Personal Injury Paralegal Relationship Specialty Start Date End Date Jere Martines MD [address] [facility] [place] [address] PCP - General Family Medicine 11/12/17 Personal Injury Paralegal Relationship Specialty Start Date End Date Jere Martines MD [address] [facility] [place] [address] PCP - General Family Medicine 11/12/17 Personal Injury Paralegal Relationship Specialty Start Date End Date Jere Martines MD [address] [facility] [place] [address] PCP - General Family Medicine 11/12/17 Personal Injury Paralegal Relationship Specialty Start Date End Date Jere Martines MD [address] [facility] [place] [address] PCP - General Family Medicine 11/12/17 Personal Injury Paralegal Relationship Specialty Start Date End Date Jere Martines MD [address] [facility] [place] [address] PCP - General Family Medicine 11/12/17 Personal Injury Paralegal Relationship Specialty Start Date End Date Jere Martines MD [address] [facility] [place] [address] PCP - General Family Medicine 11/12/17 Personal Injury Paralegal Relationship Specialty Start Date End Date Jere Martines MD [address] [facility] [place] [address] PCP - General Family Medicine 11/12/17 Personal Injury Paralegal Relationship Specialty Start Date End Date Jere Martines MD [address] [facility] [place] [address] PCP - General Family Medicine 11/12/17 Personal Injury Paralegal Relationship Specialty Start Date End Date Jere Martines MD [address] [place] [address] PCP - General Family Medicine 11/12/17 Personal Injury Paralegal Relationship Specialty Start Date End Date Jere Martines MD [address] [place] [address] PCP - General Family Medicine 11/12/17 Personal Injury Paralegal Relationship Specialty Start Date End Date Jere Martines MD [address] [place] [address] PCP - General Family Medicine 11/12/17 Personal Injury Paralegal Relationship Specialty Start Date End Date Jere Martines MD [address] [place] [address] PCP - General Family Medicine 11/12/17 Personal Injury Paralegal Relationship Specialty Start Date End Date Jere Martines MD [address] [place] [address] PCP - General Family Medicine 11/12/17 Personal Injury Paralegal Relationship Specialty Start Date End Date Jere Martines MD [address] [place] [address] PCP - General Family Medicine 11/12/17 Personal Injury Paralegal Relationship Specialty Start Date End Date Jere Martines MD [address] [place] [address] PCP - General Family Medicine 11/12/17 Personal Injury Paralegal Relationship Specialty Start Date End Date Jere Martines MD [address] [place] [address] PCP - General Family Medicine 11/12/17 Personal Injury Paralegal Relationship Specialty Start Date End Date Jere Martines MD [address] [facility] [place] [address] PCP - General Family Medicine 11/12/17 Personal Injury Paralegal Relationship Specialty Start Date End Date Jere Martines MD [address] [facility] [place] [address] PCP - General Family Medicine 11/12/17 Personal Injury Paralegal Relationship Specialty Start Date End Date Jere Martines MD [address] [facility] [place] [address] PCP - General Family Medicine 11/12/17 Personal Injury Paralegal Relationship Specialty Start Date End Date Jere Martines MD [address] [facility] [place] [address] PCP - General Family Medicine 11/12/17 Personal Injury Paralegal Relationship Specialty Start Date End Date Jere Martines MD [address] [facility] [place] [address] PCP - General Family Medicine 11/12/17 Personal Injury Paralegal Relationship Specialty Start Date End Date Jere Martines MD [address] [facility] [place] [address] PCP - General Family Medicine 11/12/17 Personal Injury Paralegal Relationship Specialty Start Date End Date Jree Martines MD [address] [facility] [place] [address] PCP - General Family Medicine 11/12/17 Personal Injury Paralegal Relationship Specialty Start Date End Date Jere Martines MD [address] [facility] [place] [address] PCP - General Family Medicine 11/12/17 Personal Injury Paralegal Relationship Specialty Start Date End Date Jere Martines MD [address] [place] [address] PCP - General [facility] 11/12/17 Personal Injury Paralegal Relationship Specialty Start Date End Date Jere Martines MD [address] [place] [address] PCP - General Family [facility] 11/12/17 FOR RECORDS PERTAINING TO PATIENTS WHO ARE OR HAVE BEEN ENROLLED IN A CHEMICAL DEPENDENCY/SUBSTANCEABUSE PROGRAM, SOME INFORMATION MAY BE OMITTED. This clinical summary was aggregated from multiple sources. Caution should be exercised in using it in the provision of clinical care. This summary normalizes information from multiple sources, and as a consequence, information in this document may materially change the coding, format and clinical context of patient data. In addition, data may be omitted in some cases. CLINICAL DECISIONS SHOULD BE BASED ON THE PRIMARY CLINICAL RECORDS. [facility] [employer] [facility]. provides no warranty or guarantee of the accuracy or completeness of information in this document.
--- NOTE | 2023-06-30 05:39 | PFTCOMP_ITS ---
COMPLETE PULMONARY FUNCTION TEST INTERPRETATION Brief HPI: Patient is a 73-year-old female, currently under the care of Dr. Mills, who presents to [facility] for complete pulmonary function tests secondary to diagnosis of sarcoidosis. Respiratory therapist reports good effort and reproducible results. Interpretation: Forced expiration spirometry shows no large airways obstructive ventilatory defect with an FEV1 of 75% predicted. There is no significant bronchodilator response by strict ATS criteria. Spirograms are of good quality and plateau slowly, indicating slowly emptying areas of the lungs. The respiratory flow volume loop shows decreased expiratory flow rates at high lung volumes consistent with small airways obstruction. Lung volumes by body plethysmography show a mildly decreased total lung capacity at 3.57 L, 71% predicted. All other lung volumes are within normal limits. Diffusion capacity by carbon monoxide is decreased at 69% predicted. The airway resistance is elevated. No previous pulmonary function tests were available for review. Impression: Mild restrictive ventilatory defect with a symmetric reduction diffusion capacity, along with some stigmata of possible concomitant small airways disease
== END | disposition home or self-care (01) ==
PROVIDERS: PCP Family Medicine; Referring Provider Internal Medicine Critical Care Medicine; Visit Provider Internal Medicine Critical Care Medicine
DX: D86.9 Sarcoidosis, unspecified (principal)
CPT/HCPCS: 94060; 94726; 94729

== ENCOUNTER → 2023-07-06 | Outpatient (CLI) | payer MEDICARE, OTHER, SELFPAY ==
[2023-07-06 08:15] VITALS: PULSE 100; PULSE 103; PULSE 76; PULSE 85; PULSE 92; PULSE 95; PULSE 98; O2SAT 91; O2SAT 92; O2SAT 93; O2SAT 94; O2SAT 95; O2SAT 96; O2SAT 97
--- OUTSIDE RECORDS SUMMARY | 2023-07-06 08:23 | XMS RPT_ITS | CCD ---
Author Name Unknown Address [address] [place] [address] Organization [facility] Care Team Providers Care Power And Recovery Supervisor Name Role Phone Jere Martines MD Primary [...] ALLERGIES] Allergy to substance Other: See Comments [facility] Medications Current Medications Medication Drug Class(es) Dates [...] Drug Class(es) Dates Sig (Normalized) Sig (Original) [id number] 200 actuat albuterol 0.09 mg/actuat metered dose [...] 97.39 [degF] Jere Martines MD Work Phone: [facility] 2023 15:51-0400 Body weight 93.35 kg Jere Martines MD Work Phone: [facility] 2023 15:51-0400 Diastolic blood pressure 72 mm[Hg] Jere Martines MD Work Phone: [facility] 2023 15:51-0400 Heart rate 91 /min Jere Martines MD Work Phone: [facility] 2023 15:51-0400 Respiratory rate 18 /min Jere Martines MD Work Phone: [facility] 2023 15:51-0400 SaO2% (BldA) [Mass fraction] 96 % Jere Martines MD Work Phone: [facility] 2023 15:51-0400 Systolic blood pressure 116 mm[Hg] Jere Martines MD Work Phone: [facility] 04-09-2023 11:10-0400 Body temperature 98.49 [degF] Jere Martines MD Work Phone: [facility] 04-09-2023 11:10-0400 Diastolic blood pressure 74 mm[Hg] Jere Martines MD Work Phone: [facility] 04-09-2023 11:10-0400 Heart rate 70 /min Jere Martines MD Work Phone: [facility] 04-09-2023 11:10-0400 Respiratory rate 18 /min Jere Martines MD Work Phone: [facility] 04-09-2023 11:10-0400 SaO2% (BldA) [Mass fraction] 97 % Jere Martines MD Work Phone: [facility] 04-09-2023 11:10-0400 Systolic blood pressure 122 mm[Hg] Jere Martines MD Work Phone: [facility] 02-08-2023 11:43-0400 Body weight 91.9 kg Aysha Podlogar MOTORCYCLE SALES ASSOCIATE.FORESTRY PILOT Work Phone: [facility] 02-08-2023 11:43-0400 Diastolic blood pressure 70 mm[Hg] Aysha Podlogar MOTORCYCLE SALES ASSOCIATE.FORESTRY PILOT Work Phone: [facility] 02-08-2023 11:43-0400 Heart rate 82 /min Aysha Podlogar MOTORCYCLE SALES ASSOCIATE.FORESTRY PILOT Work Phone: [facility] 02-08-2023 11:43-0400 Respiratory rate 18 /min Aysha Podlogar MOTORCYCLE SALES ASSOCIATE.FORESTRY PILOT Work Phone: [facility] 02-08-2023 11:43-0400 SaO2% (BldA) [Mass fraction] 94 % Aysha Podlogar MOTORCYCLE SALES ASSOCIATE.FORESTRY PILOT Work Phone: [facility] 02-08-2023 11:43-0400 Systolic blood pressure 124 mm[Hg] Aysha Podlogar MOTORCYCLE SALES ASSOCIATE.FORESTRY PILOT Work Phone: [facility] 10-30-2022 11:07-0400 Body weight 92.99 kg Jere Martines MD Work Phone: [facility] 10-30-2022 11:07-0400 Diastolic blood pressure 74 mm[Hg] Jere Martines MD Work Phone: [facility] 10-30-2022 11:07-0400 Heart rate 73 /min Jere Martines MD Work Phone: [facility] 10-30-2022 11:07-0400 Respiratory rate 16 /min Jere Martines MD Work Phone: [facility] 10-30-2022 11:07-0400 SaO2% (BldA) [Mass fraction] 96 % Jere Martines MD Work Phone: [facility] 10-30-2022 11:07-0400 Systolic blood pressure 124 mm[Hg] Jere Martines MD Work Phone: [facility] 10-26-2022 11:00-0400 Diastolic blood pressure 80 mm[Hg] Denise Lemon PT [facility] 10-26-2022 11:00-0400 Systolic blood pressure 130 mm[Hg] Denise Lemon PT [facility] 09-22-2022 10:59-0400 Body weight 92.9 kg Jere Martines MD Work Phone: [facility] 09-22-2022 10:59-0400 Diastolic blood pressure 70 mm[Hg] Jere Martines MD Work Phone: [facility] 09-22-2022 10:59-0400 Heart rate 72 /min Jere Martines MD Work Phone: [facility] 09-22-2022 10:59-0400 Respiratory rate 18 /min Jere Martines MD Work Phone: [facility] 09-22-2022 10:59-0400 SaO2% (BldA) [Mass fraction] 97 % Jere Martines MD Work Phone: [facility] 09-22-2022 10:59-0400 Systolic blood pressure 122 mm[Hg] Jere Martines MD Work Phone: [facility] 03-05-2022 13:20-0400 Diastolic blood pressure 74 mm[Hg] Mi Nurse Work Phone: [facility] 03-05-2022 13:20-0400 Heart rate 79 /min Mi Nurse Work Phone: [facility] 03-05-2022 13:20-0400 Systolic blood pressure 118 mm[Hg] Mi Nurse Work Phone: [facility] 02-02-2022 11:01-0400 Body weight 88.91 kg Jere Martines MD Work Phone: [facility] 02-02-2022 11:01-0400 Diastolic blood pressure 66 mm[Hg] Jere Martines MD Work Phone: [facility] 02-02-2022 11:01-0400 Heart rate 78 /min Jere Martines MD Work Phone: [facility] 02-02-2022 11:01-0400 Respiratory rate 16 /min Jere Martines MD Work Phone: [facility] 02-02-2022 11:01-0400 SaO2% (BldA) [Mass fraction] 97 % Jere Martines MD Work Phone: [facility] 02-02-2022 11:01-0400 Systolic blood pressure 122 mm[Hg] Jere Martines MD Work Phone: [facility] 10-01-2021 16:29-0400 Body weight 90.72 kg Jere Martines MD Work Phone: [facility] 10-01-2021 16:29-0400 Diastolic blood pressure 70 mm[Hg] Jere Martines MD Work Phone: [facility] 10-01-2021 16:29-0400 Heart rate 84 /min Jere Martines MD Work Phone: [facility] 10-01-2021 16:29-0400 Respiratory rate 12 /min Jere Martines MD Work Phone: [facility] 10-01-2021 16:29-0400 Systolic blood pressure 132 mm[Hg] Jere Martines MD Work Phone: [facility] Encounters Encounter Date Encounter Type Care Provider Facility Start: 06-17-2023 Telephone encounter Akhil Martines MD Work Phone: [facility] Procedures Date Procedure Procedure Detail Performing Clinician [...] Activity Detail Author Start: 11-09-2028 Colonoscopy COLONOSCOPY [facility] Start: 11-09-2028 COLORECTAL CANCER SCREENING COLORECTAL CANCER SCREENING [facility] Start: 11-09-2028 Screening for malign ant neoplasm of colon [facility] Start: 05-04-2028 Urine microalbumin profile [facility] Start: 02-13-2028 Lipid 1996 panel - S connie or Plasma Lipid Screening [facility] Start: 02-13-2028 Lipid panel Lipid Screening [facility] Start: 02-12-2026 Diabetes Screening Diabetes Screenin g [facility] Start: 07-01-2025 LIPID SCREEN LIPID SCREEN [facility] Start: 10-04-2024 DIABETES SCREEN DIABETES SCREEN [facility] Start: 06-01-2024 BP Controlled (<130/80) BP Controlle d (<130/80) [facility] Start: 05-25-2024 Annual PCP Team Brush Stainer pk Disease Visit Annual PCP Team Chronic Disease Visit [facility] Start: 05-25-2024 BP Controlled (<130/80) BP Controlle d (<130/80) [facility] Start: 05-25-2024 Covid-19 Vaccine ( season) Covid-19 Vaccine ( season) [facility] Immunizations Immunization Date Immunization Notes Care Provider Kalpesh greco 05-25-2023 influenza (HD-IIV4) vaccine, age 65+ yr, high dose, quadrivalent, PF (FLUZONE HIGH-DOSE) Pcp (Historical) [facility] 04-14-2022 influenza, high dose seasonal, preservative-free Jere Martines MD Work Phone: [facility] 04-14-2022 influenza virus vaccine, unspecified formulation Jere Martines MD Work Phone: [facility] 06-16-2021 COVID-19 vaccine, booster dose (MODERNA) Jere Martines MD Work Phone: [facility] 04-28-2021 influenza, high-dose , quadrivalent vaccine (FLUZONE HIGH DOSE QUADRIVALENT) Jere Martines MD Work Phone: [facility] 03-12-2020 influenza, high dose seasonal, preservative-free Jere Martines MD Work Phone: [facility] 12-22-2018 pneumococcal polysaccharide vaccine, 23 valent Jere Martines MD Work Phone: [facility] Work Phone: 11-12-2017 pneumococcal conjuga te vaccine, 13 valent Jere Martines MD Work Phone: [facility] 05-27-2017 influenza, high dose seasonal, preservative-free Jere Martines MD Work Phone: [facility] Work Phone: Payers Date Payer Category Payer Medicare MEDICARE MEDICAR E A AND B [id number] 2017-Present [phone] [place] [address] Medicare [id number] 2017 Medicare MEDICARE MEDICAR E A AND B [id number] 2017-Present [phone] [place] [address] Medicare [id number] 2017 Medicare [id number] 1988 Unknown [facility] RES[facility] [id number] 1988-Present [address] [place] [address] Indemnity [id number] 1988 Unknown [id number] 1988 Unknown [id number] Social History Date Type Detail Facility Start: 08-13-2017 End: 02-02-2022 Tobacco smoking status NHIS Never smoked tobacco [facility] Work Phone: Start: 08-13-2017 End: 02-02-2022 Tobacco use and exposure Smokeless tobacco non-user [facility] Work Phone: Start: 08-06-2021 End: 06-01-2023 Alcohol intake Current non-drinker of alcohol (finding) [facility] Start: 1950 Sex Assigned At Not on file [facility] Start: 09-19-2021 End: 03-09-2022 Exposure to SARS-CoV-2 (event) Not sure [facility] Start: 11-12-2017 End: 10-30-2022 History of Social function [facility] Start: 11-12-2017 End: 10-30-2022 Tobacco use panel [facility] Adult Depression Screening Assessment 0 [facility] Clinical Notes 09-26-2021 to 06-17-2023 Telephone Encounter - Roselia Rachel RN - 06/17/2023 12:06 PM ESTTelephone Encounter - Jere Martines MD - 06/17/2023 11:51 AM Fransisco [...] if she is to continue . Pharmacy [facility]. Please advise pt. 2) Pt was put on a cholesterol medication and she took for 5 days and stopped it. Was making her jittery and affecting her joints and legs. FYI: While pt is on Xarelto she can not be put on pain meds for her arthritis. Thu Blanchard LPN documented in this encounter [facility] 06-02-2023 Note Patient Outreach (AC CC) MICAELA HOWARD ([id number]) 1950 F Date Time Provider Department 06/02/23 PCP (HISTORICAL) [facility] During your visit today, we recorded the following information about you: Fransisco Bethea 06/02/2023 10:41 AM Signed POPULATION HEALTH NAVIGATION OUTREACH Action/FYI Left vm Patient Identified by Name and : NO Outreach Outcome/Action Unable to reach patient: Left message HBCS message sent Did you use a PCP [...] hours as needed. - Mucus Clearing Device (SynbiotaAKE VIBRATORY PEP) lalo Use as directed for [...] Encounter Status:Closed by FRANSISCO BETHEA on 06/02/23 [facility] 06-02-2023 Note HNO ID: [id number] Author: Fransisco Bethea Service: ? Author Type: ? Type: Progress Notes Filed: 06/02/2023 10:41 AM Note Text: POPULATION HEALTH NAVIGATION OUTREACH Action/FYI Left vm Patient Identified by Name and : NO Outreach Outcome/Action Unable to reach patient: Left message [employer] message sent Did you use a PCP [...] Fransisco Bethea June 02, 2023 10:41 AM [facility] 06-02-2023 History of Presen t illness Narrative POPULATION HEALTH NAVIGATION OUTREACH Action/FYI Left vm Patient Identified by Name and : NO Outreach Outcome/Action Unable to reach patient: Left message [employer] message sent Did you use a PCP [...] 2023 10:41 AM documented in this encounter [facility] 06-01-2023 Miscellaneous Notes Spoke to pt and scheduled as she requested due to holidays Next new appointment time with either me or Dr. Cam. Ronnell Palafox DO Please review and advise. 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 Mclean to hematology, please call pt to reschedule documented in this encounter [facility] 06-01-2023 Miscellaneous Notes Pt given results on 05/28/23. Patient notified. Handicap rx ready for pickup Patient calls back and reports that she will pick up driver copy of handicap placard in medical records [...] x-ray faxed to Dr Dickey's office at [facility]. She also wants a disc burned and she will pick it up at the [facility]. Faxed order, demographic sheet, and last OV notes to fax # [phone]. documented in this encounter [facility] 06-01-2023 Note HNO ID: [id number] Author: Wendy Mclean, DO Service: ? 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 HTN (hypertension) Hypothyroidism Obesity (BMI 30.0-34.9) [...] lung biopsy-sarcoidosis PAST SURGICAL HISTORY OF 1984 [facility] TONSILLECTOMY HX 1953 TUBAL LIGATION 1984 SOCIAL HISTORY: Social History Tobacco Use Smoking status: Never Smokeless tobacco: Never Vaping Use Vaping Use: Never used Substance Use Topics Alcohol use: No Drug use: No FAMILY HISTORY Problem Relation Age of Onset Cancer Mother thyroid Diabetes Mother other (gout) Mother Rheumatologic disease Sister RA Thyroid Sister Cancer Sister possible leukemia Heart disease Brother [place], CABGx3 Thyroid Brother other (gout) Brother Thyroid [...] Positive for f (more content not included)... [facility] 05-28-2023 Note Patient Outreach (AC CC) MICAELA HOWARD ([id number]) 1950 F Date Time Provider Department 05/28/23 PCP (HISTORICAL) [facility] During your visit today, we recorded the following information about you: Fransisco Bethea 05/28/2023 9:51 AM Signed POPULATION HEALTH NAVIGATION OUTREACH Action/FYI Left vm Patient Identified by Name and : NO Outreach Outcome/Action Unable to reach patient: Left message [employer] message sent Did you use a PCP [...] Encounter Status:Closed by FRANSISCO BETHEA on 05/28/23 [facility] 05-28-2023 Note HNO ID: [id number] Author: Fransisco Bethea Service: ? Author Type: ? Type: Progress Notes Filed: 05/28/2023 9:51 AM Note Text: POPULATION HEALTH NAVIGATION OUTREACH Action/FYI Left vm Patient Identified by Name and : NO Outreach Outcome/Action Unable to reach patient: Left message [employer]Mapt message sent Did you use a PCP [...] Fransisco Bethea May 28, 2023 9:51 AM [facility] 05-28-2023 History of Presen t illness Narrative POPULATION HEALTH NAVIGATION OUTREACH Action/FYI Left vm Patient Identified by Name and : NO Outreach Outcome/Action Unable to reach patient: Left message [employer] message sent Did you use a PCP [...] 2023 9:51 AM documented in this encounter [facility] 05-25-2023 Note HNO ID: [id number] Author: Mary Grace He RT(R) Service: Radiology Author Type: Technologist [...] KATRINA HernándezR) May 25, 2023 5:00 PM [facility] 05-25-2023 Note HNO ID: [id number] Author: Jere Martines MD Service: ? Author [...] in the last week. 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 [facility] 04-21-2023 Miscellaneous Notes Pt notified of RX and of Dr. Martines's instructions and recommendations. Pt never saw a vascular surgeon. She doesn't remember discussing this. Pt transferred to the front office administrator to set up an appt with vascular. [...] and recurrent thrombophlebitis. documented in this encounter [facility] 2023 Note HNO ID: [id number] Author: Jere Martines MD Service: ? 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 HTN (hypertension) Hypothyroidism Obesity (BMI 30.0-34.9) [...] Cancer Sister possible leukemia Heart disease Brother [place], CABGx3 Thyroid Brother other (gout) Brother Thyroid [...] Jere Martines MD documented in this encounter [facility] 04-14-2023 Note Patient Outreach (IN TMMN) MICAELA HOWARD ([id number]) 1950 F Date Time Provider Department 04/14/23 JERE MARTINES INTMYRTLEN During your visit today, we recorded the following information about you: Allergies As of Date: 04/14/2023 Noted Allergy Reaction SEASONAL ALLERGIES 02/02/2022 14 - Other: See Comments Date Reviewed: 04/09/2023 Reviewed by: Amy Prado LPN - Fully Assessed Visit Diagnosis:Encounter for screening mammogram for breast cancer [Z12.31] Order(s):[facility] SCREENING [[id number]] Order #: [id number] FUTURE Prescriptions as of 04/19/2023 - fluticasone [...] hours as needed. - Mucus Clearing Device (SynbiotaAKE VIBRATORY PEP) lalo Use as directed for [...] Encounter Status:Closed by JUAN KAMINSKIUSER on 04/19/23 [facility] 04-14-2023 Miscellaneous Notes Patient calling to request Pulmonary referral be sent to [facility]. She gave fax # [phone]. Referral, last OV note, CXR results and demographics faxed. Roxane Umana, RN documented in this encounter [facility] 04-12-2023 Miscellaneous Notes Pt notified of results via [employer] MD. Farzaneh Pinzon Ma ----- Message from Jere Martines MD sent at 04/12/2023 10:11 AM EDT ----- Xray of the chest shows chronic disease and fibrotic changes. No change to regimen. F/u with pulmonology. documented in this encounter [facility] 04-09-2023 Note HNO ID: [id number] Author: Ana Roberts RT(Naveen) Service: Radiology Author [...] RT Lindsay(R) April 09, 2023 12:07 PM [facility] 04-09-2023 Note HNO ID: [id number] Author: Jree Martines MD Service: ? Author [...] rhinorrhea. Symtpoms started after recent trip to [place]. COVID testing at home was negative. Granddaughter who is WIRE WEAVER HELPER prescribed her doxycycline 5 days ago which has improved symptoms. Treating with dayquil, nyquil, and albuterol inhaler before bed which helps with symptoms. Denies fever/chills, chest pain, chest congestion, headache, sore throat, myalgias, nausea, vomiting, diarrhea, Past medical history, appointments, medications, allergies reviewed. 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 Health Maintena (more content not included)... [facility] 04-09-2023 History of Presen t illness [...] rhinorrhea. Symtpoms started after recent trip to [place]. COVID testing at home was negative. Granddaughter who is WIRE WEAVER HELPER prescribed her doxycycline 5 days ago which has improved symptoms. Treating with dayquil, nyquil, and albuterol inhaler before bed which helps with symptoms. Denies fever/chills, chest pain, chest congestion, headache, sore throat, myalgias, nausea, vomiting, diarrhea, Past medical history, appointments, medications, allergies reviewed. 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 Mucus Clearing Device (SCIenergy VIBRATORY PEP) lalo Use as directed for [...] Jere Martines MD documented in this encounter [facility] 03-16-2023 Miscellaneous Notes Patient has been identified [...] advise. Genesis Calix documented in this encounter [facility] 02-10-2023 Miscellaneous Notes Patient has been identified by name and date of : Yes Requested Prescriptions Pending Prescriptions Disp Refills mometasone-formoterol (DULERA) 100-5 mcg/actuation inhaler 13 g 5 Sig: Inhale 2 Puffs as instructed twice daily. TORIBIO-02/08/23 Labs-10/04/21 NOV-08/11/23 RX INSTRUCTIONS: Patient aware RX will be sent to pharmacy. No need to notify patient. Maya Salomon [employer] documented in this encounter [facility] 02-08-2023 Note HNO ID: [id number] Author: Aysha Easton APRN.FORESTRY PILOT Service: ? 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 [...] which included preparing to see the patient, xdxh-of-nryi patient care, completing clinical documentation, obtaining and/or reviewing separately obtained history, performing a medically appropriate examination, counseling and educating the patient/family/caregiver, and ordering medications, tests, or procedures. documented in this encounter [facility] 01-06-2023 Miscellaneous Notes Pt notified of results [...] pain or redness. documented in this encounter [facility] 12-28-2022 Miscellaneous Notes TOR[facility] 10/30/22 NOV 02/08/23 [...] advise. Tanya Tejeda documented in this encounter [facility] 12-25-2022 Note HNO ID: [id number] Author: Denise Edwards PT Service: ? Author [...] Volume : Yes R Lower Extremity Volume: 85135 L Lower Extremity Volume: 28434 Difference in Volume: -131 Difference in % [...] Time Minutes (timed/untimed): 47 Denise Edwards PT [facility] 12-25-2022 History of Presen t illness [...] Volume : Yes R Lower Extremity Volume: 56370 L Lower Extremity Volume: 44943 Difference in Volume: -131 Difference in % [...] Denise Edwards PT documented in this encounter [facility] 12-21-2022 Miscellaneous Notes Called and left a detailed voicemail notifying patient of providers message. Hospital phone number was left in case patient had any questions. Reyna Arias, RN Prescription for Flonase sent. Aysha Easton APRN.FORESTRY PILOT Micaela Tammi GaxiolaKeyon is calling Jere Martines MD today to request a prescription for the following medication; this is not in her history: fluticasone propionate 50 mcg. Two Sprays in each nostril every morning, once a day. Patient insists that her PCP has been prescribing this medication and it is not in her history. Please call Patient once this is submitted to [facility]. Patient has been identified by name and birthdate. Duration of symptoms: N/A Person calling: self Call patient at: on cell [phone] (home) [phone] (cell) Was an appointment scheduled: No Closing statement: Results or non-symptom based questions: Thank you for calling [facility], your call will be returned within the next business day. Arelis Aguilar Pss documented in this encounter [facility] 12-14-2022 Note HNO ID: [id number] Author: Denise Edwards PT Service: ? Author [...] Time Minutes (timed/untimed): 43 Denise Edwards PT [facility] 12-14-2022 History of Presen t illness [...] Denise Edwards PT documented in this encounter [facility] 12-11-2022 Note HNO ID: [id number] Author: Denise Edwards PT Service: ? Author [...] Time Minutes (timed/untimed): 44 Denise Edwards PT [facility] 12-11-2022 History of Presen t illness [...] Denise Edwards PT documented in this encounter [facility] 12-08-2022 Miscellaneous Notes [facility] 10/30/22 Appointment scheduled [...] Suyapa Blanchard Pss documented in this encounter [facility] 12-07-2022 Note HNO ID: [id number] Author: Denise Edwards PT Service: ? Author [...] Time Minutes (timed/untimed): 45 Denise Edwards PT [facility] 12-07-2022 History of Presen t illness [...] Denise Edwards PT documented in this encounter [facility] 12-04-2022 Note HNO ID: [id number] Author: Denise Edwards PT Service: ? Author [...] Time Minutes (timed/untimed): 43 Denise Edwards PT [facility] 11-30-2022 Note HNO ID: [id number] Author: Denise Edwards PT Service: ? Author [...] Time Minutes (timed/untimed): 42 Denise Edwards PT [facility] 11-30-2022 History of Presen t illness [...] Denise Edwards PT documented in this encounter [facility] 11-27-2022 Note HNO ID: [id number] Author: Denise Edwards PT Service: ? Author [...] Time Minutes (timed/untimed): 43 Denise Edwards, PT [facility] 11-27-2022 History of Presen t illness [...] Denise Edwards PT documented in this encounter [facility] 11-25-2022 Note HNO ID: [id number] Author: Denise Edwards PT Service: ? Author [...] Patient to be seen for Therapeutic exercise (33705), Manual therapy (88103), Self-long term management (98711), Patient/Family/Caregiver Education PLAN FOR NEXT VISIT: Continue with MLD and exercise. May add instruction in self-MLD techniques in [facility] next couple weeks. SUBJECTIVE: Patient Reason [...] Volume : Yes R Lower Extremity Volume: 36715 L Lower Extremity Volume: 63488 Difference in Volume: 115 Difference in % [...] Billing Manual The (more content not included)... [facility] 11-25-2022 History of Presen t illness [...] Patient to be seen for Therapeutic exercise (44901), Manual therapy (03164), Self-long term management (95751), Patient/Family/Caregiver Education PLAN FOR NEXT VISIT: Continue with MLD and exercise. May add instruction in self-MLD techniques in [facility] next couple weeks. SUBJECTIVE: Patient Reason [...] Volume : Yes R Lower Extremity Volume: 48289 L Lower Extremity Volume: 81846 Difference in Volume: 115 Difference in % [...] Denise Edwards PT documented in this encounter [facility] 11-25-2022 Miscellaneous Notes TC Patient re: below [...] swelling or pain. documented in this encounter [facility] 11-09-2022 Note HNO ID: [id number] Author: Denise Edwards, PT Service: ? Author [...] May add instruction in self-MLD techniques in [facility] next couple weeks. SUBJECTIVE: Patient Reason [...] Time Minutes (timed/untimed): 45 Denise Edwards PT [facility] 11-09-2022 History of Presen t illness [...] May add instruction in self-MLD techniques in [facility] next couple weeks. SUBJECTIVE: Patient Reason [...] Denise Edwards PT documented in this encounter [facility] 10-30-2022 Note HNO ID: [id number] Author: Jere Martines MD Service: ? 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 Mucus Clearing Device (SCIenergy VIBRATORY PEP) lalo Use as directed for [...] No ectopy. Extremities:bilateral (more content not included)... 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 Mucus Clearing Device (SynbiotaAKE VIBRATORY PEP) lalo Use as directed for [...] Jere Martines MD documented in this encounter [facility] 10-26-2022 Note HNO ID: [id number] Author: Denise Edwards, PT Service: ? Author [...] Planned: 16 Planned Treatment Interventions: Therapeutic exercise (86636), Manual therapy (22301), Self-long term management (49090), Patient/Family/Caregiver Education Patient demonstrates good understanding of [...] R 25 c (more content not included)... [facility] 10-26-2022 History of Presen t illness [...] Planned: 16 Planned Treatment Interventions: Therapeutic exercise (86961), Manual therapy (23458), Self-long term management (51289), Patient/Family/Caregiver Education Patient demonstrates good understanding of [...] Volume : Yes R Lower Extremity Volume: 02921 L Lower Extremity Volume: 89172 Difference in Volume: 443 Difference in % [...] Demonstration TREATMENT: PT Treatment Interventions: Therapeutic Exercise, Self-Halfway Management Evaluation Self-Halfway Management: 1: *Instructed pt in LE Decongestive [...] Denise Edwards PT documented in this encounter [facility] 10-08-2022 Miscellaneous Notes Phoned patient and she reported she ordered the thigh high stockings from [employer] and is using them currently. Patient returned call and went over notes below from Dr Martines with understanding. Patient is on her way to [place] and can not look up where she [...] stockings at home? documented in this encounter [facility] 10-01-2022 Miscellaneous Notes Patient last visit with [...] Arelis Aguilar Pss documented in this encounter [facility] 09-22-2022 Note HNO ID: [id number] Author: Jere Martines MD Service: ? 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) - [id number] Last Billed 02/02/2022 J47.9 - Bronchiectasis without acute exacerbation (HCC) - [id number] Last Billed 02/02/2022 D47.3 - Primary thrombocytosis (HCC) - [id number] Last Billed 02/02/2022 I47.1 - PSVT (paroxysmal supraventricular tachycardia) (HCC) - [id number] Last Billed 02/02/2022 TORIBIO with Jere Martines [...] Newman MA August 26, 2022 2:26 PM [facility] 08-26-2022 History of Presen t illness Narrative POPULATION HEALTH NAVIGATION OUTREACH Action/August 26, 2022 2:27 PM HCC Gaps 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) - [id number] Last Billed 02/02/2022 J47.9 - Bronchiectasis without acute exacerbation (HCC) - [id number] Last Billed 02/02/2022 D47.3 - Primary thrombocytosis (HCC) - [id number] Last Billed 02/02/2022 I47.1 - PSVT (paroxysmal supraventricular tachycardia) (HCC) - [id number] Last Billed 02/02/2022 TORIBIO with Jere Martines MD for Medicare Wellness was August 06, 2021 Outcome: Left message My chart message sent Patient Identified by Name and : NO Outreach Outcome/Action Unable to reach patient: Left message [employer] [employer] message sent Did you use a PCP [...] 2022 2:26 PM documented in this encounter [facility] 08-26-2022 Note Patient Outreach (NE TNAV) MICAELA HOWARD ([id number]) 1950 F Date Time Provider Department 08/26/22 MELA NEWMAN During your visit today, we recorded the following information about you: Mela Newman MA 08/26/2022 2:34 PM Signed POPULATION HEALTH NAVIGATION OUTREACH Action/FYAugust 26, 2022 2:27 PM HCC Gaps 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) - [id number] Last Billed 02/02/2022 J47.9 - Bronchiectasis without acute exacerbation (HCC) - [id number] Last Billed 02/02/2022 D47.3 - Primary thrombocytosis (HCC) - [id number] Last Billed 02/02/2022 I47.1 - PSVT (paroxysmal supraventricular tachycardia) (HCC) - MAPLQR99 Last Billed 02/02/2022 TORIBIO with Jere Martines [...] Encounter Status:Closed by MELA NEWMAN on 08/26/22 [facility] 06-22-2022 Miscellaneous Notes Last Office Visit: 02/02/2022 Future Office Visit: None Requested Prescriptions Pending Prescriptions Disp Refills chlorthalidone (HYGROTON) 25 mg tablet 90 tablet 1 Sig: Take 1 tablet by mouth once daily. Date of Last Labs 10/04/2021 documented in this encounter [facility] 05-25-2022 Miscellaneous Notes [facility] 05/12/22 NOV no upcoming appt noted Patient has been identified by name and date of : Yes Requested Prescriptions Pending Prescriptions Disp Refills omeprazole (PRILOSEC) 20 mg capsule 180 capsule 3 Sig: Take 2 capsules by mouth once daily. RX INSTRUCTIONS: Patient aware RX will be sent to pharmacy. No need to notify patient. Suyapa Blanchard Pss documented in this encounter [facility] 03-12-2022 Miscellaneous Notes Letter mailed to pt home of results. Farzaneh Pinzon MA Please call patient and let her know there is no mammographic evidence of malignancy. A 1 year screening mammogram is recommended. Hip xray shows moderately severs osteoarthritis. Follow-up with ortho as discussed in office. Aysha Easton APRN.BONI documented in this encounter [facility] 03-10-2022 Miscellaneous Notes March 10, 2022 PID: [id number] Micaela Howard [address] [place] [address] Dear Ms. Howard, We are pleased to [...] report will be kept on file at [facility] as part of your permanent medical record and are available for your continuing care. Thank you for allowing us to help in meeting your health care needs. Sincerely, Dr. Chauhan Interpreting Radiologist [facility] (Normal over 40) documented in this encounter [facility] 03-09-2022 Miscellaneous Notes Micaela is calling for refills. On the amlodipine she needs a 90 day script with refills to be covered by insurance. Pended as 90 day with refills. Pharmacy verified in [place] Patient has been identified by name and [...] Mona Morgan Pss documented in this encounter [facility] 03-09-2022 History of Presen t illness Narrative [...] 2022 2:54 PM documented in this encounter [facility] 03-05-2022 Miscellaneous Notes Bp is good. If [...] any further instructions after review by Dr stone setter apprentice. Hilaria Ryan LPN documented in this encounter [facility] 03-05-2022 History of Presen t illness Narrative [...] any further instructions after review by Dr stone setter apprentice. 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 Mucus Clearing Device (SynbiotaAKE VIBRATORY PEP) laol Use as directed for pulmonary hygeine. tobramycin-dexamethasone [...] Abs Lymph 1.00 - 4.00 k/uL 2.39 Toole% % 7.8 Abs Toole <0.87 k/uL 0.63 Eosin% % 6.2 Abs [...] week. Recheck BP in 2 weeks at [place]. 4. Acquired hypothyroidism - ICD9: 244.9, ICD10: E03.9 - Instructed patient on importance of taking on an empty stomach either first thing in the morning or at bedtime. - continue current dose of Synthroid 0.050 mg 5. Screening mammogram for breast cancer - ICD9: V76.12, ICD10: Z12.31 - [facility] SCREENING Jere Martines MD documented in this encounter [facility] 01-12-2022 Miscellaneous Notes [facility] 10/01/21 NOV 02/02/22 Patient is out of town and is asking for a weeks worth of amlodipine to be sent to the [facility] in [place] Pharmacy verified in Epic Patient has been [...] Mona Morgan Pss documented in this encounter [facility] 01-02-2022 Miscellaneous Notes Patient phones requesting refills as follows: Pending Prescriptions Disp Refills CHLORTHALIDONE 25 MG TABLET 90 tablet 3 Sig: Take 1 tablet by mouth once daily. LUCRETIA: No [facility] 10/01/21 NOV 02/02/22 Please review and advise. Amy Prado LPN documented in this encounter [facility] 12-17-2021 Miscellaneous Notes The original prescription was discontinued on 09/26/2021 by Aysha Easton APRN.FORESTRY PILOT. Renewing this prescription may not be appropriate. documented in this encounter [facility] 10-28-2021 History of Presen t illness Narrative [...] PTA/Isha Lindsey PT documented in this encounter [facility] 10-23-2021 History of Presen t illness Narrative [...] Isha Lindsey PT documented in this encounter [facility] 10-16-2021 History of Presen t illness Narrative [...] Isha Lindsey PT documented in this encounter [facility] 10-14-2021 History of Presen t illness Narrative [...] Isha Lindsey PT documented in this encounter [facility] 10-09-2021 History of Presen t illness Narrative [...] Isha Lindsey PT documented in this encounter [facility] 10-08-2021 History of Presen t illness Narrative [...] of Care: created on 10/07/21 through 11/19/21 [place] in home exercise program. 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 Patient education as noted. Self-Halfway Management: 1: discussed and educated on alternate [...] Isha Lindsey PT documented in this encounter [facility] documented as of this encounter (statuses as of 12/17/2021) [facility]-12-2022 History of Past illness Narrative* Problem Noted Date Resolved Date Chronic hip pain, right 10/07/2021 10/31/19 documented as of this encounter (statuses as of 01/05/2022) [facility] History of Past illness Narrative* Problem Noted Date Resolved Date Chronic hip pain, right 10/07/2021 10/31/19 22 documented as of this encounter (statuses as of 01/12/2022) [address]22 History of Past illness Narrative* Problem Noted Date Resolved Date Chronic hip pain, right 10/07/2021 10/31/19 22 Pneumonia of left lower lobe due to infectious o rganism 02/25/2018 01/29/2022 documented as of this encounter (statuses as of 02/03/2022) [address]22 History of Past illness Narrative* Problem Noted Date Resolved Date Chronic hip pain, right 10/07/2021 10/31/19 22 Pneumonia of left lower lobe due to infectious o rganism 02/25/2018 01/29/2022 documented as of this encounter (statuses as of 03/05/2022) [address]22 History of Past illness Narrative* Problem Noted Date Resolved Date Chronic hip pain, right 10/07/2021 10/31/19 22 Pneumonia of left lower lobe due to infectious o rganism 02/25/2018 01/29/2022 documented as of this encounter (statuses as of 03/09/2022) [address]22 History of Past illness Narrative* Problem Noted Date Resolved Date Chronic hip pain, right 10/07/2021 10/31/19 22 Pneumonia of left lower lobe due to infectious o rganism 02/25/2018 01/29/2022 documented as of this encounter (statuses as of 03/10/2022) [address]22 History of Past illness Narrative* Problem Noted Date Resolved Date Chronic hip pain, right 10/07/2021 10/31/19 22 Pneumonia of left lower lobe due to infectious o rganism 02/25/2018 01/29/2022 documented as of this encounter (statuses as of 03/10/2022) [address]22 History of Past illness Narrative* Problem Noted Date Resolved Date Chronic hip pain, right 10/07/2021 10/31/19 22 Pneumonia of left lower lobe due to infectious o rganism 02/25/2018 01/29/2022 documented as of this encounter (statuses as of 03/12/2022) [address] History of Past illness Narrative* Problem Noted Date Resolved Date Chronic hip pain, right 10/07/2021 10/31/19 22 Pneumonia of left lower lobe due to infectious o rganism 02/25/2018 01/29/2022 documented as of this encounter (statuses as of 03/12/2022) [address]22 History of Past illness Narrative* Problem Noted Date Resolved Date Chronic hip pain, right 10/07/2021 10/31/19 22 Pneumonia of left lower lobe due to infectious o rganism 02/25/2018 01/29/2022 documented as of this encounter (statuses as of 03/05/2022) [address]22 History of Past illness Narrative* Problem Noted Date Resolved Date Chronic hip pain, right 10/07/2021 10/31/19 22 Pneumonia of left lower lobe due to infectious o rganism 02/25/2018 01/29/2022 documented as of this encounter (statuses as of 05/25/2022) [address] History of Past illness Narrative* Problem Noted Date Resolved Date Chronic hip pain, right 10/07/2021 10/31/19 22 Pneumonia of left lower lobe due to infectious o rganism 02/25/2018 01/29/2022 documented as of this encounter (statuses as of 06/28/2022) [address] History of Past illness Narrative* Problem Noted Date Resolved Date Chronic hip pain, right 10/07/2021 10/31/19 22 Pneumonia of left lower lobe due to infectious o rganism 02/25/2018 01/29/2022 documented as of this encounter (statuses as of 08/26/2022) [address]22 History of Past illness Narrative* Problem Noted Date Resolved Date Chronic hip pain, right 10/07/2021 10/31/19 22 Pneumonia of left lower lobe due to infectious o rganism 02/25/2018 01/29/2022 documented as of this encounter (statuses as of 09/08/2022) [address]22 History of Past illness Narrative* Problem Noted Date Resolved Date Chronic hip pain, right 10/07/2021 10/31/19 22 Pneumonia of left lower lobe due to infectious o rganism 02/25/2018 01/29/2022 documented as of this encounter (statuses as of 09/22/2022) [address]22 History of Past illness Narrative* Problem Noted Date Resolved Date Chronic hip pain, right 10/07/2021 10/31/19 22 Pneumonia of left lower lobe due to infectious o rganism 02/25/2018 01/29/2022 documented as of this encounter (statuses as of 10/01/2022) [address]22 History of Past illness Narrative* Problem Noted Date Resolved Date Chronic hip pain, right 10/07/2021 10/31/19 22 Pneumonia of left lower lobe due to infectious o rganism 02/25/2018 01/29/2022 documented as of this encounter (statuses as of 10/09/2022) [address]22 History of Past illness Narrative* Problem Noted Date Resolved Date Chronic hip pain, right 10/07/2021 10/31/19 22 Pneumonia of left lower lobe due to infectious o rganism 02/25/2018 01/29/2022 documented as of this encounter (statuses as of 10/27/2022) [address]22 History of Past illness Narrative* Problem Noted Date Resolved Date Chronic hip pain, right 10/07/2021 10/31/19 22 Pneumonia of left lower lobe due to infectious o rganism 02/25/2018 01/29/2022 documented as of this encounter (statuses as of 10/31/2022) [address]22 History of Past illness Narrative* Problem Noted Date Resolved Date Chronic hip pain, right 10/07/2021 10/31/19 22 Pneumonia of left lower lobe due to infectious o rganism 02/25/2018 01/29/2022 documented as of this encounter (statuses as of 11/09/2022) [address]22 History of Past illness Narrative* Problem Noted Date Resolved Date Chronic hip pain, right 10/07/2021 10/31/19 22 Pneumonia of left lower lobe due to infectious o rganism 02/25/2018 01/29/2022 documented as of this encounter (statuses as of 11/26/2022) [address] History of Past illness Narrative* Problem Noted Date Resolved Date Chronic hip pain, right 10/07/2021 10/31/19 22 Pneumonia of left lower lobe due to infectious o rganism 02/25/2018 01/29/2022 documented as of this encounter (statuses as of 11/27/2022) [address] History of Past illness Narrative* Problem Noted Date Resolved Date Chronic hip pain, right 10/07/2021 10/31/19 22 Pneumonia of left lower lobe due to infectious o rganism 02/25/2018 01/29/2022 documented as of this encounter (statuses as of 12/01/2022) [address]22 History of Past illness Narrative* Problem Noted Date Resolved Date Chronic hip pain, right 10/07/2021 10/31/19 22 Pneumonia of left lower lobe due to infectious o rganism 02/25/2018 01/29/2022 documented as of this encounter (statuses as of 12/08/2022) [address] History of Past illness Narrative* Problem Noted Date Resolved Date Chronic hip pain, right 10/07/2021 10/31/19 22 Pneumonia of left lower lobe due to infectious o rganism 02/25/2018 01/29/2022 documented as of this encounter (statuses as of 12/08/2022) [address] History of Past illness Narrative* Problem Noted Date Resolved Date Chronic hip pain, right 10/07/2021 10/31/19 22 Pneumonia of left lower lobe due to infectious o rganism 02/25/2018 01/29/2022 documented as of this encounter (statuses as of 12/11/2022) [address] History of Past illness Narrative* Problem Noted Date Resolved Date Chronic hip pain, right 10/07/2021 10/31/19 22 Pneumonia of left lower lobe due to infectious o rganism 02/25/2018 01/29/2022 documented as of this encounter (statuses as of 12/15/2022) [address]12-2022 History of Past illness Narrative* Problem Noted Date Resolved Date Chronic hip pain, right 10/07/2021 10/31/19 22 Pneumonia of left lower lobe due to infectious o rganism 02/25/2018 01/29/2022 documented as of this encounter (statuses as of 12/22/2022) [address]12-2022 History of Past illness Narrative* Problem Noted Date Resolved Date Chronic hip pain, right 10/07/2021 10/31/19 22 Pneumonia of left lower lobe due to infectious o rganism 02/25/2018 01/29/2022 documented as of this encounter (statuses as of 12/25/2022) [address]12-2022 History of Past illness Narrative* Problem Noted Date Resolved Date Chronic hip pain, right 10/07/2021 10/31/19 22 Pneumonia of left lower lobe due to infectious o rganism 02/25/2018 01/29/2022 documented as of this encounter (statuses as of 12/28/2022) [address]12-2022 History of Past illness Narrative* Problem Noted Date Diagnosed Date Resolved Date Chronic hip pain, right 10/07/2021 05/0 10/2021 Pneumonia of left lower lobe due to infectious organism 02/25/2018 01/29/2022 documented as of this encounter (statuses as of 01/07/2023) [address]12-2022 History of Past illness Narrative* Problem Noted Date Diagnosed Date Resolved Date Chronic hip pain, right 10/07/2021 05/0 10/2021 Pneumonia of left lower lobe due to infectious organism 02/25/2018 01/29/2022 documented as of this encounter (statuses as of 02/03/2023) [address]12-2022 History of Past illness Narrative* Problem Noted Date Diagnosed Date Resolved Date Chronic hip pain, right 10/07/2021 05/0 10/2021 Pneumonia of left lower lobe due to infectious organism 02/25/2018 01/29/2022 documented as of this encounter (statuses as of 02/09/2023) [address]12-2022 History of Past illness Narrative* Problem Noted Date Diagnosed Date Resolved Date Chronic hip pain, right 10/07/2021 05/0 10/2021 Pneumonia of left lower lobe due to infectious organism 02/25/2018 01/29/2022 documented as of this encounter (statuses as of 02/11/2023) [address]12-2022 History of Past illness Narrative* Problem Noted Date Diagnosed Date Resolved Date Chronic hip pain, right 10/07/2021 05/0 10/2021 Pneumonia of left lower lobe due to infectious organism 02/25/2018 01/29/2022 documented as of this encounter (statuses as of 03/16/2023) [address]2022 History of Past illness Narrative* Problem Noted Date Diagnosed Date Resolved Date Chronic hip pain, right 10/07/2021 05/0 10/2021 Pneumonia of left lower lobe due to infectious organism 02/25/2018 01/29/2022 documented as of this encounter (statuses as of 04/12/2023) [address]2022 History of Past illness Narrative* Problem Noted Date Diagnosed Date Resolved Date Chronic hip pain, right 10/07/2021 05/0 10/2021 Pneumonia of left lower lobe due to infectious organism 02/25/2018 01/29/2022 documented as of this encounter (statuses as of 04/13/2023) [address]12-2022 History of Past illness Narrative* Problem Noted Date Diagnosed Date Resolved Date Chronic hip pain, right 10/07/2021 05/0 10/2021 Pneumonia of left lower lobe due to infectious organism 02/25/2018 01/29/2022 documented as of this encounter (statuses as of 04/14/2023) [address]2022 History of Past illness Narrative* Problem Noted Date Diagnosed Date Resolved Date Chronic hip pain, right 10/07/2021 05/0 10/2021 Pneumonia of left lower lobe due to infectious organism 02/25/2018 01/29/2022 documented as of this encounter (statuses as of 04/19/2023) [address]2022 History of Past illness Narrative* Problem Noted Date Diagnosed Date Resolved Date Chronic hip pain, right 10/07/2021 05/0 10/2021 Pneumonia of left lower lobe due to infectious organism 02/25/2018 01/29/2022 documented as of this encounter (statuses as of 04/21/2023) [address]2022 History of Past illness Narrative* Problem Noted Date Diagnosed Date Resolved Date Chronic hip pain, right 10/07/2021 05/0 10/2021 Pneumonia of left lower lobe due to infectious organism 02/25/2018 01/29/2022 documented as of this encounter (statuses as of 04/22/2023) [address]12-2022 History of Past illness Narrative* Problem Noted Date Diagnosed Date Resolved Date Chronic hip pain, right 10/07/2021 05/0 10/2021 Pneumonia of left lower lobe due to infectious organism 02/25/2018 01/29/2022 documented as of this encounter (statuses as of 05/28/2023) [address]12-2022 History of Past illness Narrative* Problem Noted Date Diagnosed Date Resolved Date Chronic hip pain, right 10/07/2021 05/0 10/2021 Pneumonia of left lower lobe due to infectious organism 02/25/2018 01/29/2022 documented as of this encounter (statuses as of 06/01/2023) [address]12-2022 History of Past illness Narrative* Problem Noted Date Diagnosed Date Resolved Date Chronic hip pain, right 10/07/2021 05/0 10/2021 Pneumonia of left lower lobe due to infectious organism 02/25/2018 01/29/2022 documented as of this encounter (statuses as of 06/01/2023) [address]12-2022 History of Past illness Narrative* Problem Noted Date Diagnosed Date Resolved Date Chronic hip pain, right 10/07/2021 05/0 10/2021 Pneumonia of left lower lobe due to infectious organism 02/25/2018 01/29/2022 documented as of this encounter (statuses as of 06/02/2023) [address]12-2022 History of Past illness Narrative* Problem Noted Date Diagnosed Date Resolved Date Chronic hip pain, right 10/07/2021 05/0 10/2021 Pneumonia of left lower lobe due to infectious organism 02/25/2018 01/29/2022 documented as of this encounter (statuses as of 06/18/2023) [address]-2022 History of Present illness Narrative* Jere [...] body while standing. Has been treating with [place] [facility] which takes the edge off. Denies bruising, redness, swelling, fever. Past medical history, appointments, medications, allergies reviewed. Previous Medical History PAST MEDICAL HISTORY Diagnosis Date Colon polyps Dry eyes GERD (gastroesophageal reflux disease) Hot flashes [employer] following HTN (hypertension) Hypothyroidism Obesity (BMI 30.0-34.9) [...] Cancer Sister possible leukemia Heart disease Brother [place], CABGx3 Thyroid Brother other (gout) Brother Thyroid [...] by mouth once daily. Mucus Clearing Device ([employer] VIBRATORY PEP) lalo Use as directed for [...] Abs Lymph 1.00 - 4.00 k/uL 2.39 Toole% % 7.8 Abs Toole <0.87 k/uL 0.63 Eosin% % 6.2 Abs [...] PANEL Jere Martines MD [facility] Miscellaneous Notes* Telephone Encounter - Christi Hernandez LPN - 09/29/2021 2:48 PM EDT Patient telephoned. Message below given. Voiced understanding. Christi Hernandez LPN * Telephone Encounter - Jere Martines [...] declined. Roxane Umana RN [facility] Miscellaneous Notes* Telephone Encounter - Shobha Robison [...] [place] APRN.CNP * Telephone Encounter - Thu Blnachard LPN - 09/26/2021 11:03 AM EDT Pt [...] pt. Thu Blanchard LPN [place] [address]-[place]-2022 Miscellaneous Notes* Telephone Encounter - Farzaneh Pinzon [...] notify patient. Dev[facility] Narvaez [facility] Diagnosis Chronic hip pain, right- Primary Hypothyroidism, acquired Unspecified hypothyroidism Essential hypertension Unspecified essential hypertension [facility] Diagnosis Chronic hip pain, right [facility] Diagnosis Chronic hip pain, right- Primary [facility] Diagnosis Chronic hip pain, right- Primary [facility] Diagnosis Chronic hip pain, right- Primary [facility] Diagnosis Chronic hip pain, right- Primary documented in this encounter [facility]* Diagnosis Chronic hip pain, right- Primary [facility] Diagnosis Chronic hip pain, right- Primary Essential hypertension Unspecified essential hypertension Bilateral lower extremity edema Edema Acquired hypothyroidism Unspecified hypothyroidism Screening mammogram for breast cancer documented in this encounter [facility]* Diagnosis Hypothyroidism, acquired Unspecified hypothyroidism documented in this [facility]* Diagnosis Chronic hip pain, right documented in this encounter [facility] note* Diagnosis Screening mammogram for breast cancer documented in this encounter [facility] note* Diagnosis Essential hypertension- Primary Unspecified essential hypertension documented in this encounter [facility] note* Diagnosis Hypothyroidism, acquired Unspecified hypothyroidism documented in this encounter [facility] note* Diagnosis Thrombophlebitis of superficial veins of left lower extremity- Primary Lymphedema Other lymphedema Varicose veins of both lower extremities with inflammation documented in this encounter [facility] note* Diagnosis Thrombophlebitis of superficial veins of left lower extremity- Primary documented in this encounter [facility] note* Diagnosis Lymphedema- Primary Other lymphedema documented in this encounter [facility] note* Diagnosis Thrombophlebitis of superficial veins of left lower extremity- Primary Lymphedema Other lymphedema documented in this encounter [facility] note* Diagnosis Lymphedema- Primary Other lymphedema documented in this encounter [facility] note* Diagnosis Lymphedema- Primary Other lymphedema [facility] Diagnosis Lymphedema- Primary Other lymphedema documented in this encounter [facility] note* Diagnosis Lymphedema- Primary Other lymphedema documented in this encounter [facility] note* Diagnosis Lymphedema- Primary Other lymphedema [facility]* Diagnosis Lymphedema- Primary Other lymphedema documented in this encounter [facility] note* Diagnosis Lymphedema- Primary Other lymphedema documented in this encounter [facility] note* Diagnosis Lymphedema- Primary Other lymphedema [facility] Diagnosis Thrombophlebitis of superficial veins of left lower extremity- Primary [facility]* Diagnosis Essential hypertension- Primary Unspecified essential hypertension Vitamin D deficiency Unspecified vitamin D deficiency Screening for hyperlipidemia Screening for lipoid disorders Sarcoidosis of lung (HCC) Sarcoidosis Acquired hypothyroidism Unspecified hypothyroidism Lymphedema Other lymphedema Irritation of eye documented in [facility]* Diagnosis Sarcoidosis of lung (HCC)- Primary Sarcoidosis Productive cough Cough [facility] Diagnosis Encounter for screening mammogram for breast cancer documented in this encounter [facility] note* Diagnosis Thrombophlebitis of superficial veins of right lower extremity- Primary documented in this encounter [facility]* Diagnosis Bilateral hip pain- Primary Pain in joint, pelvic region and thigh Antalgic gait Abnormality of gait documented in this encounter [facility] for referral (narrative)* Diagnostic Procedure Only (Routine) - Closed Specialty Diagnoses / Procedures Referred By Tricia hoffmann Referred To Contact XR IMAGING Diagnoses Chronic hip pain, right Procedures XR HIP GENERAL 3V PELV/AP/LAT RIGHT RADEX HIP UNILATERAL WITH PELVIS 2-3 VIEWS Jere Martines MD [address] [place] [address] Xr Imaging Referral ID Status Reason Start Date Expiration Date V isits Requested Visits Authorized [id number] Closed Auto-Generate d Referral 02/02/2022 03/04/2023 1 1 [facility] for referral (narrative)* Diagnostic Procedure Only (Routine) - Closed Specialty Diagnoses / Procedures Referred By Tricia hoffmann Referred To Contact BR IMAGING Diagnoses Screening mammogram for breast cancer Procedures SAEED SCREENING SCREENING MAMMOGRAPHY BI 2-[place] [address] [place] [address] [facility] [address] [place] [address] Referral ID Status Reason Start Date Expiration Date V isits Requested Visits Authorized [id number] Closed Auto-Generate d Referral 02/02/2022 03/04/2023 1 1 [facility] for referral (narrative)* Outpatient Procedure (Routine) - Authorized Specialty Diagnoses / Procedures Referred By Tricia hoffmann Referred To [facility] Diagnoses Thrombophlebitis of superficial veins of left lower extremity Lymphedema Procedures US LEG VEIN DVT UNL VAS LAB DUP-SCAN XTR VEINS UNILATERAL/LIMITED STUDY Jere Martines MD [address] [place] [address] [facility] [place] [address] [place] [id number] Referral ID Status Reason Start Date Expiration Date Visits Requested Visits Authorized [id number] Authorized Auto-Generat ed Referral 11/16/2022 10/30/2023 1 1 [facility] for referral (narrative)* Outpatient Procedure (Routine) - Closed Specialty Diagnoses / Procedures Referred By Tricia hoffmann Referred To Contact [facility] [place] Diagnoses Thrombophlebitis of superficial veins of left lower extremity Procedures US LEG VEIN DVT THELMA VAS LAB DUP-SCAN XTR VEINS COMPLETE BILATERAL STUDY Jere Martines MD [address] [place] [address] [address] Referral ID Status Reason Start Date Expiration Date V isits Requested Visits Authorized [id number] Closed Auto-Generate d Referral 01/06/2023 11/25/2023 1 1 T [facility] for referral (narrative)* Diagnostic Procedure Only (Routine) - Pending Review Specialty Diagnoses / Procedures Referred By Tricia hoffmann Referred To Contact BR IMAGING Diagnoses Encounter for screening mammogram for breast cancer Procedures SAEED SCREENING SCREENING MAMMOGRAPHY BI 2-VIEW BREAST INC CAD Jere Martines MD [address] [place] [address] [facility] [address] [place] [phone] Referral ID Status Reason Start Date Expiration Date Visits Requested Visits Authorized [id number] Pending Review Auto-Generat ed Referral 05/13/2024 1 1 T [facility] for referral (narrative)* Diagnostic Procedure Only (Urgent) - Authorized Specialty Diagnoses / Procedures Referred By Tricia t Referred To Contact US IMAGING Diagnoses Thrombophlebitis of superficial veins of right lower extremity Procedures US DVT LOWER BILATERAL DUP-SCAN XTR VEINS COMPLETE BILATERAL STUDY Jere Martines MD [address] [place] [address] [place] [address] Referral ID Status Reason Start Date Expiration Date Visits Requested Visits Authorized [id number] Authorized Auto-Generat ed Referral 05/19/2024 1 1 [facility] for visit Narrative* Diagnostic Procedure Only (Routine) - Closed Specialty Diagnoses / Procedures Referred By Contfaby t Referred To Contact XR IMAGING Diagnoses Chronic hip pain, right Procedures XR HIP GENERAL 3V PELV/AP/LAT RIGHT RADEX HIP UNILATERAL WITH PELVIS 2-3 VIEWS Jere Martines MD [address] [place] [address] Xr Imaging Referral ID Status Reason Start Date Expiration Date V isits Requested Visits Authorized [id number] Closed Auto-Generate d Referral 02/02/2022 03/04/2023 1 1 [facility] for visit Narrative* Diagnostic Procedure Only (Routine) - Closed Specialty Diagnoses / Procedures Referred By Tricia t Referred To Contact BR IMAGING Diagnoses Screening mammogram for breast cancer Procedures SAEED SCREENING SCREENING MAMMOGRAPHY BI 2-VIEW BREAST INC CAD Jere Martines MD [address] [place] [address] [facility] [address] [place] [address] Referral ID Status Reason Start Date Expiration Date V isits Requested Visits Authorized [id number] Closed Auto-Generate d Referral 02/02/2022 03/04/2023 1 1 [facility] Summary Purpose Family History No Family History Records FoundNo Family History Records Found Advance Directives No Advanced Directives Records FoundDocuments on File Type Date Recorded 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 Advance Directive(s) 01/13/2019 11:45 AM Advance Directive(s) 01/09/2019 2:23 PM Advance Directive(s) 11/09/2018 8:40 AM Advance Directive(s) 10/20/2018 8:52 AM Documents on File Type Date Recorded 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 Advance Directive(s) 01/13/2019 11:45 AM Advance Directive(s) 01/09/2019 2:23 PM Advance Directive(s) 11/09/2018 8:40 AM Advance Directive(s) 10/20/2018 8:52 AM Reason for Referral Specialty Diagnoses / Procedures Referred By Contac t Referred To Contact [facility] Diagnoses Chronic hip pain, right Procedures CONSULT TO PHYSICAL THERAPY PHYSICAL THERAPY EVALUATION [facility] 45 MINS Jere Martines MD [address] [place] [address] [facility] [place] [address] [place] [address] Referral ID Status Reason Start Date Expiration Date Visits Requested Visits Authorized [id number] Authorized PCP Requested Referral Auto-Generate d Referral 10/01/2021 10/01/2022 99 99 Specialty Diagnoses / Procedures Referred By Contac t Referred To Contact Orthopedics Diagnoses Chronic hip pain, right Procedures CONSULT TO ORTHOPAEDICS OFFICE/OUTPATIENT [facility]1983 MDM 60-74 MINUTES Jere Martines MD [address] [place] [address] Referral ID Status Reason Start Date Expiration Date Visits Requested Visits Authorized [id number] Authorized PCP Requested Referral 02/02/2022 02/02/2023 1 1 Specialty Diagnoses / Procedures Referred By Contac t Referred To Contact XR IMAGING Diagnoses Chronic hip pain, right Procedures XR HIP GENERAL 3V PELV/AP/LAT RIGHT RADEX HIP UNILATERAL WITH PELVIS 2-3 VIEWS Jere Martines MD [address] [place] [address] Xr Imaging Referral ID Status Reason Start Date Expiration Date Visits Requested Visits Authorized [id number] Pending Review Auto-Generat ed Referral 02/02/2022 03/04/2023 1 1 Specialty Diagnoses / Procedures Referred By Contac t Referred To Contact BR [facility] Diagnoses Screening mammogram for breast cancer Procedures SAEED SCREENING SCREENING MAMMOGRAPHY BI 2-VIEW BREAST INC CAD Jere Martines MD [address] [place] [address] [facility] [address] [place] [address] Referral ID Status Reason Start Date Expiration Date Visits Requested Visits Authorized [id number] Authorized Auto-Generat ed Referral 02/02/2022 03/04/2023 1 1 Specialty Diagnoses / Procedures Referred By Contac t Referred To Contact Vascular Surgery Diagnoses Varicose veins of both lower extremities with inflammation Procedures CONSULT TO VASCULAR SURGERY OFFICE/OUTPATIENT [facility] 60-74 MINUTES Jere Martines MD [facility] [place] [address] Referral ID Status Reason Start Date Expiration Date Visits Requested Visits Authorized [id number] Authorized PCP Requested Referral 09/22/2022 09/22/2023 1 1 Specialty Diagnoses / Procedures Referred By Contac t Referred To Contact [facility] Diagnoses Thrombophlebitis of superficial veins of left lower extremity Procedures US LEG VEIN DVT THELMA VAS LAB DUP-SCAN XTR VEINS COMPLETE BILATERAL STUDY Jere Martines MD [facility] [place] [address] [facility] [place] [address] [place] [address] Referral ID Status Reason Start Date Expiration Date Visits Requested Visits Authorized [id number] Authorized Auto-Generat ed Referral 09/22/2022 09/22/2023 1 1 Specialty Diagnoses / Procedures Referred By Contac t Referred To Contact [facility] Diagnoses Lymphedema Procedures CONSULT TO LYMPHEDEMA THERAPY OFFICE/OUTPATIENT [facility] 60-74 MINUTES Jere Martines MD [address] [place] [address] [facility] [place] [address] [place] [address] Referral ID Status Reason Start Date Expiration Date Visits Requested Visits Authorized [id number] Authorized Auto-Generat ed Referral 09/22/2022 09/22/2023 99 99 Specialty Diagnoses / Procedures Referred By Contac t Referred To Contact Jere Martines MD [address] [place] [address] Referral ID Status Reason Start Date Expiration Date V isits Requested Visits Authorized [id number] Authorized 08/31/2022 09/30/2023 1 1 Specialty Diagnoses / Procedures Referred By Contac t Referred To Contact [facility] Diagnoses Lymphedema Procedures PT REHAB FOLLOW UP ORDER THERAPEUTIC EXERCISES RE, EA 15 MIN. Denise Edwards, PT [facility] [place] [address] [place] [address] Referral ID Status Reason Start Date Expiration Date Visits Requested Visits Authorized [id number] Pending Review PCP Requested Referral Auto-Generate d Referral 10/26/2022 01/24/2023 1 1 Referral ID Status Reason Start Date Expiration Date Visits Re quested Visits Authorized [id number] Closed 1 1 Referral ID Status Reason Start Date Expiration Date Visits Re quested Visits Authorized [id number] Closed 1 1 Referral ID Status Reason Start Date Expiration Date Visits Re quested Visits Authorized [id number] Closed 1 1 Additional Source Comments INFORMATION SOURCE (unrecogn ized section and content) DATE CREATED AUTHOR AUTHOR'S ORGANIZ ATION 06/18/2023 [facility] Source Comments (unrecognize d section and content) In the event this informatio n is protected by the Federal Confidentiality of Alcohol and Drug Abuse Patient Records regulations: The Federal rules restrict any use of the information to criminally investigate or prosecute any alcohol or drug abuse patient.[facility] the event this information is protected by the Federal Confidentiality of Alcohol and Drug Abuse Patient Records regulations: The Federal rules restrict any use of the information to criminally investigate or prosecute any alcohol or drug abuse patient.[facility] the event this information is protected by the Federal Confidentiality of Alcohol and Drug Abuse Patient Records regulations: The Federal rules restrict any use of the information to criminally investigate or prosecute any alcohol or drug abuse patient.[facility] Hospital[facility] the event this information is protected by the Federal Confidentiality of Alcohol and Drug Abuse Patient Records regulations: The Federal rules restrict any use of the information to criminally investigate or prosecute any alcohol or drug abuse patient.[facility] Hospital[facility] the event this information is protected by the Federal Confidentiality of Alcohol and Drug Abuse Patient Records regulations: The Federal rules restrict any use of the information to criminally investigate or prosecute any alcohol or drug abuse patient.[facility] Hospital[facility] the event this information is protected by the Federal Confidentiality of Alcohol and Drug Abuse Patient Records regulations: The Federal rules restrict any use of the information to criminally investigate or prosecute any alcohol or drug abuse patient.[facility] HospitalIn the event this information is protected by the Federal Confidentiality of Alcohol and Drug Abuse Patient Records regulations: The Federal rules restrict any use of the information to criminally investigate or prosecute any alcohol or drug abuse patient.[facility] Hospital[facility] the event this information is protected by the Federal Confidentiality of Alcohol and Drug Abuse Patient Records regulations: The Federal rules restrict any use of the information to criminally investigate or prosecute any alcohol or drug abuse patient.[facility] HospitalIn the event this information is protected by the Federal Confidentiality of Alcohol and Drug Abuse Patient Records regulations: The Federal rules restrict any use of the information to criminally investigate or prosecute any alcohol or drug abuse patient.[facility] HospitalIn the event this information is protected by the Federal Confidentiality of Alcohol and Drug Abuse Patient Records regulations: The Federal rules restrict any use of the information to criminally investigate or prosecute any alcohol or drug abuse patient.[facility] HospitalIn the event this information is protected by the Federal Confidentiality of Alcohol and Drug Abuse Patient Records regulations: The Federal rules restrict any use of the information to criminally investigate or prosecute any alcohol or drug abuse patient.[facility] HospitalIn the event this information is protected by the Federal Confidentiality of Alcohol and Drug Abuse Patient Records regulations: The Federal rules restrict any use of the information to criminally investigate or prosecute any alcohol or drug abuse patient.[facility] HospitalIn the event this information is protected by the Federal Confidentiality of Alcohol and Drug Abuse Patient Records regulations: The Federal rules restrict any use of the information to criminally investigate or prosecute any alcohol or drug abuse patient.[facility] HospitalIn the event this information is protected by the Federal Confidentiality of Alcohol and Drug Abuse Patient Records regulations: The Federal rules restrict any use of the information to criminally investigate or prosecute any alcohol or drug abuse patient.[facility] HospitalIn the event this information is protected by the Federal Confidentiality of Alcohol and Drug Abuse Patient Records regulations: The Federal rules restrict any use of the information to criminally investigate or prosecute any alcohol or drug abuse patient.[facility] HospitalIn the event this information is protected by the Federal Confidentiality of Alcohol and Drug Abuse Patient Records regulations: The Federal rules restrict any use of the information to criminally investigate or prosecute any alcohol or drug abuse patient.[facility] HospitalIn the event this information is protected by the Federal Confidentiality of Alcohol and Drug Abuse Patient Records regulations: The Federal rules restrict any use of the information to criminally investigate or prosecute any alcohol or drug abuse patient.[facility] HospitalIn the event this information is protected by the Federal Confidentiality of Alcohol and Drug Abuse Patient Records regulations: The Federal rules restrict any use of the information to criminally investigate or prosecute any alcohol or drug abuse patient.[facility] HospitalIn the event this information is protected by the Federal Confidentiality of Alcohol and Drug Abuse Patient Records regulations: The Federal rules restrict any use of the information to criminally investigate or prosecute any alcohol or drug abuse patient.[facility] HospitalIn the event this information is protected by the Federal Confidentiality of Alcohol and Drug Abuse Patient Records regulations: The Federal rules restrict any use of the information to criminally investigate or prosecute any alcohol or drug abuse patient.[facility] HospitalIn the event this information is protected by the Federal Confidentiality of Alcohol and Drug Abuse Patient Records regulations: The Federal rules restrict any use of the information to criminally investigate or prosecute any alcohol or drug abuse patient.[facility] HospitalIn the event this information is protected by the Federal Confidentiality of Alcohol and Drug Abuse Patient Records regulations: The Federal rules restrict any use of the information to criminally investigate or prosecute any alcohol or drug abuse patient.[facility] HospitalIn the event this information is protected by the Federal Confidentiality of Alcohol and Drug Abuse Patient Records regulations: The Federal rules restrict any use of the information to criminally investigate or prosecute any alcohol or drug abuse patient.[facility] HospitalIn the event this information is protected by the Federal Confidentiality of Alcohol and Drug Abuse Patient Records regulations: The Federal rules restrict any use of the information to criminally investigate or prosecute any alcohol or drug abuse patient.[facility] HospitalIn the event this information is protected by the Federal Confidentiality of Alcohol and Drug Abuse Patient Records regulations: The Federal rules restrict any use of the information to criminally investigate or prosecute any alcohol or drug abuse patient.[facility] HospitalIn the event this information is protected by the Federal Confidentiality of Alcohol and Drug Abuse Patient Records regulations: The Federal rules restrict any use of the information to criminally investigate or prosecute any alcohol or drug abuse patient.[facility] HospitalIn the event this information is protected by the Federal Confidentiality of Alcohol and Drug Abuse Patient Records regulations: The Federal rules restrict any use of the information to criminally investigate or prosecute any alcohol or drug abuse patient.[facility] HospitalIn the event this information is protected by the Federal Confidentiality of Alcohol and Drug Abuse Patient Records regulations: The Federal rules restrict any use of the information to criminally investigate or prosecute any alcohol or drug abuse patient.[facility] HospitalIn the event this information is protected by the Federal Confidentiality of Alcohol and Drug Abuse Patient Records regulations: The Federal rules restrict any use of the information to criminally investigate or prosecute any alcohol or drug abuse patient.[facility] HospitalIn the event this information is protected by the Federal Confidentiality of Alcohol and Drug Abuse Patient Records regulations: The Federal rules restrict any use of the information to criminally investigate or prosecute any alcohol or drug abuse patient.[facility] HospitalIn the event this information is protected by the Federal Confidentiality of Alcohol and Drug Abuse Patient Records regulations: The Federal rules restrict any use of the information to criminally investigate or prosecute any alcohol or drug abuse patient.[facility] HospitalIn the event this information is protected by the Federal Confidentiality of Alcohol and Drug Abuse Patient Records regulations: The Federal rules restrict any use of the information to criminally investigate or prosecute any alcohol or drug abuse patient.[facility] HospitalIn the event this information is protected by the Federal Confidentiality of Alcohol and Drug Abuse Patient Records regulations: The Federal rules restrict any use of the information to criminally investigate or prosecute any alcohol or drug abuse patient.[facility] HospitalIn the event this information is protected by the Federal Confidentiality of Alcohol and Drug Abuse Patient Records regulations: The Federal rules restrict any use of the information to criminally investigate or prosecute any alcohol or drug abuse patient.[facility] HospitalIn the event this information is protected by the Federal Confidentiality of Alcohol and Drug Abuse Patient Records regulations: The Federal rules restrict any use of the information to criminally investigate or prosecute any alcohol or drug abuse patient.[facility] HospitalIn the event this information is protected by the Federal Confidentiality of Alcohol and Drug Abuse Patient Records regulations: The Federal rules restrict any use of the information to criminally investigate or prosecute any alcohol or drug abuse patient.[facility] HospitalIn the event this information is protected by the Federal Confidentiality of Alcohol and Drug Abuse Patient Records regulations: The Federal rules restrict any use of the information to criminally investigate or prosecute any alcohol or drug abuse patient.[facility] HospitalIn the event this information is protected by the Federal Confidentiality of Alcohol and Drug Abuse Patient Records regulations: The Federal rules restrict any use of the information to criminally investigate or prosecute any alcohol or drug abuse patient.[facility] HospitalIn the event this information is protected by the Federal Confidentiality of Alcohol and Drug Abuse Patient Records regulations: The Federal rules restrict any use of the information to criminally investigate or prosecute any alcohol or drug abuse patient.[facility] HospitalIn the event this information is protected by the Federal Confidentiality of Alcohol and Drug Abuse Patient Records regulations: The Federal rules restrict any use of the information to criminally investigate or prosecute any alcohol or drug abuse patient.[facility] HospitalIn the event this information is protected by the Federal Confidentiality of Alcohol and Drug Abuse Patient Records regulations: The Federal rules restrict any use of the information to criminally investigate or prosecute any alcohol or drug abuse patient.[facility] HospitalIn the event this information is protected by the Federal Confidentiality of Alcohol and Drug Abuse Patient Records regulations: The Federal rules restrict any use of the information to criminally investigate or prosecute any alcohol or drug abuse patient.[facility] HospitalIn the event this information is protected by the Federal Confidentiality of Alcohol and Drug Abuse Patient Records regulations: The Federal rules restrict any use of the information to criminally investigate or prosecute any alcohol or drug abuse patient.[facility] HospitalIn the event this information is protected by the Federal Confidentiality of Alcohol and Drug Abuse Patient Records regulations: The Federal rules restrict any use of the information to criminally investigate or prosecute any alcohol or drug abuse patient.[facility] HospitalIn the event this information is protected by the Federal Confidentiality of Alcohol and Drug Abuse Patient Records regulations: The Federal rules restrict any use of the information to criminally investigate or prosecute any alcohol or drug abuse patient.[facility] HospitalIn the event this information is protected by the Federal Confidentiality of Alcohol and Drug Abuse Patient Records regulations: The Federal rules restrict any use of the information to criminally investigate or prosecute any alcohol or drug abuse patient.[facility] HospitalIn the event this information is protected by the Federal Confidentiality of Alcohol and Drug Abuse Patient Records regulations: The Federal rules restrict any use of the information to criminally investigate or prosecute any alcohol or drug abuse patient.[facility] HospitalIn the event this information is protected by the Federal Confidentiality of Alcohol and Drug Abuse Patient Records regulations: The Federal rules restrict any use of the information to criminally investigate or prosecute any alcohol or drug abuse patient.[facility] HospitalIn the event this information is protected by the Federal Confidentiality of Alcohol and Drug Abuse Patient Records regulations: The Federal rules restrict any use of the information to criminally investigate or prosecute any alcohol or drug abuse patient.[facility] HospitalIn the event this information is protected by the Federal Confidentiality of Alcohol and Drug Abuse Patient Records regulations: The Federal rules restrict any use of the information to criminally investigate or prosecute any alcohol or drug abuse patient.[facility] HospitalIn the event this information is protected by the Federal Confidentiality of Alcohol and Drug Abuse Patient Records regulations: The Federal rules restrict any use of the information to criminally investigate or prosecute any alcohol or drug abuse patient.[facility] HospitalIn the event this information is protected by the Federal Confidentiality of Alcohol and Drug Abuse Patient Records regulations: The Federal rules restrict any use of the information to criminally investigate or prosecute any alcohol or drug abuse patient.[facility] HospitalIn the event this information is protected by the Federal Confidentiality of Alcohol and Drug Abuse Patient Records regulations: The Federal rules restrict any use of the information to criminally investigate or prosecute any alcohol or drug abuse patient.[facility] HospitalIn the event this information is protected by the Federal Confidentiality of Alcohol and Drug Abuse Patient Records regulations: The Federal rules restrict any use of the information to criminally investigate or prosecute any alcohol or drug abuse patient.[facility] HospitalIn the event this information is protected by the Federal Confidentiality of Alcohol and Drug Abuse Patient Records regulations: The Federal rules restrict any use of the information to criminally investigate or prosecute any alcohol or drug abuse patient.[facility] HospitalIn the event this information is protected by the Federal Confidentiality of Alcohol and Drug Abuse Patient Records regulations: The Federal rules restrict any use of the information to criminally investigate or prosecute any alcohol or drug abuse patient.[facility] HospitalIn the event this information is protected by the Federal Confidentiality of Alcohol and Drug Abuse Patient Records regulations: The Federal rules restrict any use of the information to criminally investigate or prosecute any alcohol or drug abuse patient.[facility] Reason for Visit (unrecogniz ed section and content) Specialty Diagnoses / Procedures Referred By Tricia hoffmann Referred To Contact [facility] Diagnoses Lymphedema Procedures CONSULT TO LYMPHEDEMA THERAPY OFFICE/OUTPATIENT [facility] MDM 60-74 MINUTES Jere Martines MD [address] [place] [address] [facility] [address] [place] [address] Referral ID Status Reason Start Date Expiration Date Visits Requested Visits Authorized [id number] Authorized Auto-Generat ed Referral 09/22/2022 09/22/2023 99 99 Reason Comments PT Progress Note Reason Comments Physical Therapy Specialty Diagnoses / Procedures Referred By Tricia hoffmann Referred To Contact [facility] Diagnoses Chronic hip pain, right Procedures CONSULT TO PHYSICAL THERAPY PHYSICAL THERAPY EVALUATION HIGH COMPLEX 45 MINS Jere Martines MD [address] [place] [address] [address] Referral ID Status Reason Start Date Expiration Date Visits Requested Visits Authorized [id number] Authorized PCP Requested Referral Auto-Generate d Referral [...] Lymphedema Procedures CONSULT TO LYMPHEDEMA THERAPY OFFICE/OUTPATIENT [facility] 60-74 MINUTES Jere Martines MD [address] [place] [address] [facility] [place] [address] [place] [address] Reason Comments Follow Up Blood clot Reason [...] Care Teams (unrecognized sec tion and content) Power And Recovery Supervisor Relationship Specialty Start Date End Date Jere Martines MD [address] [place] [address] PCP - General Family Practice 11/12/17 Power And Recovery Supervisor Relationship Specialty Start Date End Date Jere Martines MD [address] [place] [address] PCP - General Family Practice 11/12/17 Power And Recovery Supervisor Relationship Specialty Start Date End Date Jere Martines MD [address] [place] [address] PCP - General Family Practice 11/12/17 Power And Recovery Supervisor Relationship Specialty Start Date End Date Jere Martines MD [address] [place] [address] PCP - General Family Practice 11/12/17 Power And Recovery Supervisor Relationship Specialty Start Date End Date Jere Martines MD [address] [place] [address] PCP - General Family Practice 11/12/17 Power And Recovery Supervisor Relationship Specialty Start Date End Date Jere Martines MD [address] [place] [address] PCP - General Family Practice 11/12/17 Power And Recovery Supervisor Relationship Specialty Start Date End Date Jere Martines MD [address] [place] [address] PCP - General Family Practice 11/12/17 Power And Recovery Supervisor Relationship Specialty Start Date End Date Jere Martines MD [address] [place] [address] PCP - General Family Practice 11/12/17 Power And Recovery Supervisor Relationship Specialty Start Date End Date Jere Martines MD [address] [place] [address] PCP - General Family Practice 11/12/17 Power And Recovery Supervisor Relationship Specialty Start Date End Date Jere Martines MD [address] [place] [address] PCP - General Family Practice 11/12/17 Power And Recovery Supervisor Relationship Specialty Start Date End Date Jere Martines MD [address] [place] [address] PCP - General Family Practice 11/12/17 Power And Recovery Supervisor Relationship Specialty Start Date End Date Jere Martines MD [address] [place] [address] PCP - General Family Practice 11/12/17 Power And Recovery Supervisor Relationship Specialty Start Date End Date Jere Martines MD [address] [place] [address] PCP - General Family Practice 11/12/17 Power And Recovery Supervisor Relationship Specialty Start Date End Date Jere Martines MD [address] [place] [address] PCP - General Family Practice 11/12/17 Power And Recovery Supervisor Relationship Specialty Start Date End Date Jere Martines MD [address] [place] [address] PCP - General Family Practice 11/12/17 Power And Recovery Supervisor Relationship Specialty Start Date End Date Jere Martines MD [address] [place] [address] PCP - General Family Practice 11/12/17 Power And Recovery Supervisor Relationship Specialty Start Date End Date Jere Martines MD [address] [place] [address] PCP - General Family Practice 11/12/17 Power And Recovery Supervisor Relationship Specialty Start Date End Date Jere Martines MD [address] [place] [address] PCP - General Family Medicine 11/12/17 Power And Recovery Supervisor Relationship Specialty Start Date End Date Jere Martines MD [address] [place] [address] PCP - General Family Medicine 11/12/17 Power And Recovery Supervisor Relationship Specialty Start Date End Date Jere Martines MD [address] [place] [address] PCP - General Family Medicine 11/12/17 Power And Recovery Supervisor Relationship Specialty Start Date End Date Jere Martines MD [address] [place] [address] PCP - General Family Medicine 11/12/17 Power And Recovery Supervisor Relationship Specialty Start Date End Date Jere Martines MD [address] [facility] [place] [address] PCP - General Family Medicine 11/12/17 Power And Recovery Supervisor Relationship Specialty Start Date End Date Jere Martines MD [address] [place] [address] PCP - General Family Medicine 11/12/17 Power And Recovery Supervisor Relationship Specialty Start Date End Date Jere Martines MD [address] [place] [address] PCP - General Family Medicine 11/12/17 Power And Recovery Supervisor Relationship Specialty Start Date End Date Jere Martines MD [address] [place] [address] PCP - General Family Medicine 11/12/17 Power And Recovery Supervisor Relationship Specialty Start Date End Date Jere Martines MD [address] [place] [address] PCP - General Family Medicine 11/12/17 Power And Recovery Supervisor Relationship Specialty Start Date End Date Jere Martines MD [address] [place] [address] PCP - General Family Medicine 11/12/17 Power And Recovery Supervisor Relationship Specialty Start Date End Date Jere Martines MD [address] [place] [address] PCP - General Family Medicine 11/12/17 Power And Recovery Supervisor Relationship Specialty Start Date End Date Jere Martines MD [address] [place] [address] PCP - General Family Medicine 11/12/17 Power And Recovery Supervisor Relationship Specialty Start Date End Date Jere Martines MD [address] [place] [address] PCP - General Family Medicine 11/12/17 Power And Recovery Supervisor Relationship Specialty Start Date End Date Jere Martines MD [address] [place] [address] PCP - General Family Medicine 11/12/17 Power And Recovery Supervisor Relationship Specialty Start Date End Date Jere Martines MD [address] [place] [address] PCP - General Family Medicine 11/12/17 Power And Recovery Supervisor Relationship Specialty Start Date End Date Jere Martines MD [address] [place] [address] PCP - General Family Medicine 11/12/17 Power And Recovery Supervisor Relationship Specialty Start Date End Date Jere Martines MD [address] [place] [address] PCP - General Family Medicine 11/12/17 Power And Recovery Supervisor Relationship Specialty Start Date End Date Jere Martines MD [address] [place] [address] PCP - General Family Medicine 11/12/17 Power And Recovery Supervisor Relationship Specialty Start Date End Date Jere Martines MD [address] [place] [address] PCP - General Family Medicine 11/12/17 Power And Recovery Supervisor Relationship Specialty Start Date End Date Jere Martines MD [address] [place] [address] PCP - General Family Medicine 11/12/17 Power And Recovery Supervisor Relationship Specialty Start Date End Date Jere Martines MD [address] [place] [address] PCP - General Family Medicine 11/12/17 Power And Recovery Supervisor Relationship Specialty Start Date End Date Jere Martines MD [address] [place] [address] PCP - General Family Medicine 11/12/17 Power And Recovery Supervisor Relationship Specialty Start Date End Date Jere Martines MD [address] [place] [address] PCP - General Family Medicine 11/12/17 Power And Recovery Supervisor Relationship Specialty Start Date End Date Jere Martines MD [address] [place] [address] PCP - General Family Medicine 11/12/17 Power And Recovery Supervisor Relationship Specialty Start Date End Date Jere Martines MD [address] [place] [address] PCP - General Family Medicine 11/12/17 Power And Recovery Supervisor Relationship Specialty Start Date End Date Jere Martines MD [address] [place] [address] PCP - General Family Medicine 11/12/17 Power And Recovery Supervisor Relationship Specialty Start Date End Date Jere Martines MD [address] [place] [address] PCP - General Family Medicine 11/12/17 Power And Recovery Supervisor Relationship Specialty Start Date End Date Jere Martines MD [address] [place] [address] PCP - General [facility] 11/12/17 Power And Recovery Supervisor Relationship Specialty Start Date End Date Jere Martines MD [address] [place] [address] PCP - General Family [facility] 11/12/17 FOR RECORDS PERTAINING TO PATIENTS WHO [...] BE BASED ON THE PRIMARY CLINICAL RECORDS. [facility]. provides no warranty or guarantee of the accuracy or completeness of information in this document.
--- NOTE | 2023-07-08 10:14 | PCM.PSN.6M ---
PSN 6 Minute Walk Test 6 Minute Walk Test 6 Minute Walk Test: 6 Minute Walk Test PSN:6-Minute Walk Test Start: 07/06/23 08:25 Freq: Status: Active Protocol: RESP.6MINW Document 07/06/23 08:15 AE (Rec: 07/06/23 08:29 [facility] Desktop) 6 Minute Walk Test Date Performed 07/06/23 Time Performed 08:15 Height 5 ft 4 in Weight: 200 lb Weight in Pounds 200.[address]: Dr Mills Assistive device used: Cane Pre-test Oxygen Delivery Method Room Air Pulse Ox 97 Pulse Rate (60-100) 76 Dyspnea Shanon Scale (0-10) 0 Exertion Shanon Scale (6-20) 6 1st minute Oxygen Delivery Method Room Air Pulse Ox 95 Pulse Rate (60-100) 92 2nd minute Oxygen Delivery Method Room Air Pulse Ox 97 Pulse Rate (60-100) 92 3rd minute Oxygen Delivery Method Room Air Pulse Ox 93 Pulse Rate (60-100) 95 4th minute Oxygen Delivery Method Room Air Pulse Ox 94 Pulse Rate (60-100) 103 H 5th minute Oxygen Delivery Method Room Air Pulse Ox 92 Pulse Rate (60-100) 100 6th minute Oxygen Delivery Method Room Air Pulse Ox 91 Pulse Rate (60-100) 98 Dyspnea Shanon Scale (0-10) 0.5 Exertion Shanon Scale (6-20) 12 Post-test Oxygen Delivery Method Room Air Pulse Ox 96 Pulse Rate (60-100) 85 Full Laps Walked 13 Partial Lap, Number of Tiles Walked 0 Total Distance Walked (ft) 767 Interpretation Interpretation: The patient ambulated 767 feet over the course of 6 minutes beginning on room air with use of a cane. Pretesting oxygen saturation was noted to be 97% on room air. With ambulation, the aiden oxygen saturation was 91%. This represents a significant exertional oxygen desaturation. Recommendations Recommendations: There is no indication for the use of supplemental oxygen at this time. However, close interval follow-up was recommended, given the degree of oxygen desaturation noted during this study.
== END | disposition home or self-care (01) ==
LOC: PSN 08:04
PROVIDERS: PCP Family Medicine; Referring Provider Internal Medicine Critical Care Medicine; Visit Provider Internal Medicine Critical Care Medicine
DX: D86.9 Sarcoidosis, unspecified (principal)
CPT/HCPCS: 94618

== ENCOUNTER → 2023-07-14 | Outpatient (CLI) | payer MEDICARE, OTHER, SELFPAY ==
--- NOTE | 2023-07-14 10:26 | BI_ITS ---
MAMMOGRAPHY - BILATERAL SCREENING REASON FOR EXAM: Female, 73 years old. Routine annual screening examination. PERTINENT HISTORY: Non-contributory. Remote left breast biopsy. TECHNIQUE: Digital bilateral breast mildred (3D mammographic acquisition) in the CC and MLO projections. 2-D mediolateral oblique (MLO) and craniocaudad (CC) views of both breasts were obtained. CAD: Full Field Digital Mammography with Computer Added Detection was performed. COMPARISON: Comparison is made with prior study dated February 14, 2021 and January 31, 2020. FINDINGS: Breast Composition: The breasts are heterogeneously dense, which may obscure small masses. There are no dominant masses or suspicious calcifications. Stable bilateral secretory calcifications. No other significant abnormalities are identified. There has been no significant change since the prior study. BI/SCRN MAMM (CAD)W/MILDRED BILAT IMPRESSION: Stable bilateral screening mammogram. Yearly follow-up mammogram recommended. (A) ASSESSMENT CATEGORY: BIRADS Category 2: Benign. A letter regarding these results will be sent to the patient by the facility within 30 days. Approximately 10% of breast cancers are not detected by mammography. A normal mammogram should not delay biopsy of a clinically suspicious abnormality. [id number] Electronically Signed: Miller Charles MD at 8:39 EST ,
== END | disposition home or self-care (01) ==
LOC: OPBI 10:26
PROVIDERS: PCP Family Medicine; Referring Provider Nurse Practitioner Women's Health; Visit Provider Nurse Practitioner Women's Health
DX: Z12.31 Encounter for screening mammogram for malignant neoplasm of breast (principal)
CPT/HCPCS: 77063; 77067

== ENCOUNTER 2023-11-17 07:04 | Observation (INO) | payer MEDICARE, OTHER, SELFPAY ==
--- NOTE | 2023-10-26 10:39 | EKG12_ITS ---
Test Reason : PRE OP Blood Pressure : / mmHG Vent. Rate : 075 BPM Atrial Rate : 075 BPM P-R Int : 200 ms QRS Dur : 092 ms QT Int : 384 ms P-R-T Axes : 065 044 044 degrees QTc Int : 428 ms Normal sinus rhythm Normal ECG Confirmed by WAYNE GAVIN, ELMA ([id number]), food expeditor ROXANA VILCHIS ([id number]) on 10/28/2023 11:45:48 AM Referred By: Rob Reed Confirmed By:ELMA BLACK MD
[2023-10-26 11:22] LABS: Absolute Lymphocyte Count 2.04 X10^3/uL (0.83-4.51); Absolute Neutrophil Count 4.9 X10^3/uL (2.0-7.7); Basophil# 0.09 X10^3/uL; Basophil% 1.1 % (0-1); Eosinophil# 0.39 X10^3/uL; Eosinophils% 4.7 % (0-5); Hematocrit 40.6 % (37-47); Lymphocyte # 2.04 X10^3/ul (0.83-4.51); Lymphocyte % 24.7 % (19-41); Mean Corpuscular Hgb 28.3 pg (27.0-32.0); Mean Corpuscular Volume 88.5 fL (81-99); Mean Platelet Vol. 10.4 fl (6.2-12.0); Monocyte# 0.81 X10^3/uL; Monocyte% 9.8 % (0-10); NRBC Flagged by Analyzer 0 % (0-5); Neutrophil # 4.92 X10^3/uL (2.7-7.7); Neutrophil % 59.5 % (47-70); Platelet Count 428 K/mm3 (150-450); RBC Distribution Width CV 13.2 % (11.6-14.6); RBC Distribution Width SD 43.1 fl (35.1-43.9); Red Blood Count 4.59 M/mm3 (4.2-5.4); White Blood Count 8.3 K/mm3 (4.4-11.0)
[2023-10-26 11:52] LABS: Albumin, Serum 3.2 g/dL (3.2-5.0); Anion Gap 4 (5-15); BUN 14 mg/dL (7-18); BUN/Creat Ratio 15.6 RATIO (10-20); Calcium,Total 9.3 mg/dL (8.5-10.1); Chloride 100 mmol/L (98-107); EST Glomerular Filtration Rate 66 mL/min (>60); Est Glom Filt Rate - Afr Amer 80 mL/min (>60); Glucose 101 mg/dL (74-106); Potassium 3.4 mmol/L (3.5-5.1); Sodium Level 136 mmol/L (136-145)
[2023-10-26 12:08] LABS: Thyroid Stim Hormone (TSH) 2.04 uIU/mL (0.358-3.74)
--- NOTE | 2023-11-08 14:06 | PCM.HP.BLA ---
History and Physical History and Physical? Patient Name: Micaela Ta : 1950 From:? DAVEY CROWE PA-C? DATE OF PRE-OPERATIVE EXAM: 11/08/2023 DATE OF SURGERY:? 11/17/2023 SCHEDULED PROCEDURE:? Left direct anterior total hip arthroplasty HISTORY OF PRESENT ILLNESS: Preoperative history and physical exam was performed on November 08, 2023.? This is a 73-year-old female who has had ongoing pain for over 3 years.? Patient has had pain in both hips but the left has been greater than the right.? Pain can reach as high as a 10/10 with activities.? Her pain is been constant, aching, sharp and sore.? Pain is increased with going up and down stairs, walking, sitting and driving.? She has difficulty with activities of daily living including showering, getting dressed putting on her socks and shoes, housework, shopping and leisure activities such as walking, outside work, cooking.? She feels unsafe carrying her great-grandchildren.? Patient does have start up pain.? The pain is located in the groin area.? Pain does awaken her at night.? She has tried rest, ice, heat, elevation with minimal relief.? She has tried physical therapy and home exercises with minimal relief.? Patient has attempted oral medications including Tylenol with minimal relief.? She denies past history of surgery on the left hip.? She has been using a cane for the past 6 months.? Patient does have clearance from the primary care provider Dr. Martines.? Patient has medical history pertinent for hypertension, thyroid disease, history of DVT, sarcoidosis, asthma, gastroesophageal reflux disease.? She has been treated in the past with hormone therapy recently over 2 months ago had a superficial thrombophlebitis.? She was stopped on her hormone therapy.? After failing conservative measures and discussing all treatment options was Dr. Rob Reed, the patient does wish to proceed with a left direct anterior total hip arthroplasty.? She denies any recent chest pain, shortness of breath, fevers chills or recent infections.? She does have past history of gastric bypass lap band. REVIEW OF SYSTEMS: Review Of Systems: Constitutional: Denies change in appetite, fever and weight change. Cardiovasular: Denies chest pain, heart murmur and irregular heartbeat. Respiratory: Reports cough, pneumonia and shortness of breath, but denies tuberculosis and wheezing. Gastrointestinal: Reports heartburn, but denies constipation, diarrhea, nausea, rectal itching, bloody stools and vomiting. Genitourinary: Reports incontinence. Musculoskeletal: Reports gait disturbance, leg swelling, pain, trouble walking and weakness. Skin: Reports history of shingles, but denies Raynaud's and tattoo. Neurological: Denies ambulatory dysfunction, dizziness, numbness/tingling and tremor. Psychiatric: Denies anxiety, insomnia and stress. Hematologic/Lymphatic: Reports past transfusion, but denies anemia and bleeding/bruising tendency. Reviewed, no changes. PAST MEDICAL HISTORY: Advance Care Plan: Living Will, living will Effective Date: 06/10/2023 Power Of Test Lab Technician, miranda Effective Date: 06/10/2023 Past Medical History: Medical Problems: Acid Reflux, Arthritis Asthma - scarcodosis High Blood Pressure History Of Blood Clots/ DVT - RT LEG - YEARS AGO Thyroid Disease, Covid-19 Vaccine, history of hormone therapy Accidents: Fracture - (1981) hand Surgical Hx: Gallbladder, Tonsillectomy, lap band, Ovarian Cyst Removal, Breast Biopsy Varicose Vein Removal - (2010) Anesthesia Complications: None Assistive Devices: Cane, Glasses Reviewed and updated. 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 Personal Habits:? Cigarette Use: Never Smoked Cigarettes.Smokeless Tobacco: Never Used Smokeless Tobacco.E-Cigarette Use: Never used.Alcohol: Denies use.Drug Use: Denies Use.Enjoy Exercising: Never Exercises. Reviewed and updated. VITALS: Ht: 63 Wt: 207lb Wt k.895 BMI: 36.7 BP: 126/80 Pulse: 77 Resp: 15 T: 97.7 T: 36.5C Pain Level: 6 O2SatR: 97 ALLERGIES: No Known Drug Allergy? MEDICATIONS: Mupirocin 2 % use qtip and apply inside each nostril twice a day until the day of surgery, Albuterol Sulfate HFA 108 (90 Base) mcg/Act take 2 puffs by mouth every 4 hours as needed, Amlodipine Besylate 5 mg daily, Chlorthalidone 25 mg daily, Fluticasone Propionate 50 mcg/Act daily, Levothyroxine Sodium 50 mcg daily, Metoprolol Succinate ER 25 mg daily, Omeprazole 20 mg daily, Pitavastatin Calcium 1 mg daily, Venlafaxine HCL ER 37.5 mg for hot flashes, Potassium Citrate ER 10 Meq (1080 MG) 1 po qdaily PRE-OP EXAM:? General appearance:NORMAL? ? ? Other: Eyes: Conjunctivae and lids: NORMAL? Pupils: ERR Ears, Nose, Mouth, and Throat: NORMAL? Other: Inspection of lips, teeth and gums: NORMAL? ?Other: Neck: Examination of neck: no masses noted. Respiratory: Assessment of respiratory effort: NORMAL? ?Other: ?Auscultation of lungs: clear to auscultation no wheezes, rhonchi or rales. Cardiovascular:? Auscultation of heart: regular rate and rhythm, no murmurs, gallops or rubs. PHYSICAL EXAMINATION: Patient does walk with an antalgic gait with use of cane today.? She has no significant tenderness over the lateral hip.? Range of motion: Active flexion 80, internal rotation neutral, external rotation 20.? 3/5 hip flexion strength secondary to pain.? Sensation intact to light touch. IMAGING STUDIES: Previous x-rays of the left hip reveal joint space narrowing, subchondral sclerosis, osteophyte formation consistent with severe stage IV [id number] osteoarthritis.? IMPRESSION: 1.? Severe left hip osteoarthritis 2.? Right hip osteoarthritis 3.? History of DVT 4.? Hypertension next and 5.? Thyroid disease 6.? Sarcoidosis 7.? Asthma 8.? Gastroesophageal reflux disease 9.? Obesity with BMI 36.7 PLAN: Dr. Rob Reed did discuss and review with the patient all treatment options including surgical versus nonsurgical options.? Patient does wish to proceed with the above-stated procedure.? Potential risks, benefits, and complications of the procedure were discussed in detail including but not limited to , infection, nerve and blood vessel damage, persistent pain, numbness, tingling, paresthesias, blood clot, pulmonary embolism, and requirement for possible further surgery.? The patient expressed full understanding and has no further questions for the doctor.? Patient does agree to proceed with the above-stated procedure and has signed the surgery consent form. POST-OP MEDICATION PLAN: Pain Medications:? Postoperative pain regimen will be initiated by Dr. Rob Reed in the hospital.? Patient states that she has stopped hormone therapy couple months ago.? She has been doing the nutrition protocol.? She will be evaluated for walker fitting by our therapy department.? She will bring this to the hospital. DVT Prophylaxis: Due to past history of DVT patient will be placed on Xarelto 10 mg once daily for 2 weeks postoperatively.? After 2 weeks she will then be transitioned over to aspirin 81 mg twice daily for an additional 2 weeks. This dictation was created using voice recognition software. Phonetic and/or grammatical errors may exist. ___? I have re-examined the patient.? There are no clinical changes since date of exam. ___? See progress notes for changes. ___? Dictated on admission Date: ? ? ?Time: Signature:
[2023-11-17] VITALS (16 sets, daily range): BP systolic 92–158; BP diastolic 51–82; PULSE 64–75; RESP 13–19; TEMP 36.1–36.9; O2SAT 82–99; BMI 35.6
[2023-11-17] MEDS: Magnesium 1 GM over 15 mins IV (06:28)
[2023-11-17] MEDS: Acetaminophen 500 MG Tablet 1000 MG PO ×3 (06:28→22:59)
[2023-11-17] MEDS: Vancomycin HCl 1,500 MG in 0.9% Normal Saline (500mL Bag) 500 ML 250 MG IV (06:28)
[2023-11-17] MEDS: Lactated Ringers 1,000 ML 999 ML IV ×2 (06:28→09:15)
[2023-11-17] MEDS: Celecoxib 200 MG Capsule 400 MG PO (06:28)
[2023-11-17] MEDS: Gabapentin 600 MG Tablet PO (06:28)
[2023-11-17 06:36] LABS: Bedside Glucose 103 mg/dL (74-106)
--- NOTE | 2023-11-17 07:04 | RAD_ITS ---
STUDY: X-RAY - PELVIS AND LEFT HIP REASON FOR EXAM: Female, 73 years old. MARJORIE TECHNIQUE: 2 views of the pelvis and left hip. COMPARISON: None. FINDINGS: There is a non-specific bowel gas pattern. Normal bilateral iliac wings, sacroiliac joints and visualized sacrum. Normal bilateral superior and inferior pubic rami. Normal pubic symphysis. Normal bilateral ischial tuberosities. There is a new left hip arthroplasty, with no periprosthetic fracture. There is adjacent soft tissue gas, compatible with recent surgery. There is degenerative arthrosis of the right hip joint with joint space narrowing and marginal osteophyte formation. RAD/Hip Min 2 Views (Portable) IMPRESSION: New left hip arthroplasty, with no periprosthetic fracture. Degenerative arthrosis of the right hip joint. Electronically Signed: Luigi Marrero MD at 9:44 EDT ,
[2023-11-17] MEDS: Lactated Ringers 1,000 ML 15 ML IV ×2 (07:29→08:02)
--- NOTE | 2023-11-17 07:30 | HIP_PTH ---
PATIENT: LUCAS HOWARD LOC: MS3 U#:[id number] AGE/SX: 73/F ROOM: [facility] [place] [facility] [place]11/17/[address]: Dr. Rob Reed MD : 1950 BED: 1 DIS: 11/18/2023 SPEC #: [id number] RECD: 11/17/23 10:06 STATUS: EMMA ALVAREZ #: [id number] HAILEY: 11/17/23 07:[address]: Rob Reed DEPT: SURGICAL PATHOLOGY RECD BY: Zander Greco ENTERED: 11/17/23 11:26 SP TYPE: TOTAL HIP OTHR DR: Dr. Akhil Martines MD Tissues: Hip, NOS Procedures: Decalcification bone/plaque Surgery Specimen Level IV HEADER OPERATION: ERAS, anterior left total hip arthroplasty PRE-OP DIAGNOSIS: Severe left hip osteoarthritis TISSUE SUBMITTED: Left femoral head MICROSCOPIC DIAGNOSIS Bone and tissue of left hip, total hip resection: Degenerative joint disease. AM:mr 11/23/2023 MICROSCOPIC DESCRIPTION Slides are reviewed. GROSS DESCRIPTION Received is one container labeled with the patient's name and designated bone and soft tissue left hip. The specimen consists of a dougherty femoral head (with portion of femoral neck). The femoral head measures 4.2 x 4.2 x 4.0 cm. The articular surface displays prominent osteophyte formation and eburnation. Also present in the specimen container are multiple irregular fragments of bone reamings and bone fragments measuring in aggregate 9.0 x 7.0 x 2.0 cm. Sales Marketing sections are submitted in two cassettes as follows: 1 -bone reamings, 2 - bone after decalcification. / AM/mr 11/17/2023 TC:5 [facility]: [id number]
[2023-11-17] MEDS: Cefazolin 2 GM in 0.9% Normal Saline (100mL Bag) 100 ML IV (07:35)
--- NOTE | 2023-11-17 08:12 | RAD_ITS ---
STUDY: X-RAY - PELVIS AND LEFT HIP REASON FOR EXAM: Female, 73 years old. ERAS, ANTERIOR LEFT TOTAL HIP ARTHROPLASTY TECHNIQUE: 4 intraoperative spot films of the pelvis and left hip. COMPARISON: None. FINDINGS: There is new placement of the left hip arthroplasty. There is no periprosthetic fracture. There is adjacent soft tissue gas, compatible with surgery. There is a non-specific bowel gas pattern. Normal visualized sacroiliac joints and visualized sacrum. Normal bilateral superior and inferior pubic rami. Normal pubic symphysis. Normal bilateral ischial tuberosities. RAD/Hip 1 view with Pelvis IMPRESSION: New left hip arthroplasty. Electronically Signed: Luigi Marrero MD at 8:59 EDT ,
[2023-11-17] MEDS: JPS (Morphine 10mg/ml) OPERA.SITE (08:32)
[2023-11-17] MEDS: TRANEXAMIC ACID 2,000 MG, 0.9% Normal Saline (100mL Bag) 100 ML OPERA.SITE (08:32)
--- NOTE | 2023-11-17 09:01 | PCM.OPRPT ---
Report of Operation Date of Procedure: 11/17/23 Pre-Operative Diagnosis: Left hip primary osteoarthritis Post-Operative Diagnosis: Left hip primary osteoarthritis Surgery/Procedure Performed:: Left minimally invasive direct anterior hip replacement Description of Surgical Findings:: Stable hip with equal leg lengths Surgeon: Rob Reed rim technician: Jaens Head Type of Anesthesia: Spinal Anesthesiologist: Alejandro Varela Special Medications: 2 g Ancef, 1 g TXA at incision, 1 g TXA closure, 10 mg Decadron, joint cocktail (5 mg Duramorph, 30 mL of 0.5% Ropivicaine, 1000 units of epinephrine, 30 mg of Toradol) Specimen's removed: Bony cuts Estimated Blood Loss (mL): 400 Fluids Replaced: 1400 ml crystalloid Description of Procedure: Components used: 1. Insignia [place] femoral stem size 3 high offset 2. [place] trident 2 acetabular shell size 48 mm 3. Trang X3 polyethylene D 4. Trang Biolox delta 36mm, -2.5mm femoral head Brief history operative indications: 73 yo F who failed conservative measures for their hip osteoarthritis. X-rays were consistent with osteoarthritis including joint space narrowing, osteophyte formation and subchondral cysts. Total hip replacement was discussed with the patient with risks and benefits including but not limited to blood loss, DVTs, PEs, neurovascular damage, dislocation, general risks of anesthesia including loss of life. Patient demonstrated an understanding medical clearance is obtained the patient was consented for surgery. Procedure: On the date of procedure the patient's L hip was marked in the preoperative area. Patient was then taken back to the operating room where anesthesia assumed control of the C-spine and airway and administered anesthetic. Patient was transferred to the operating table and placed in the supine position. The hips were placed at the break of the bed and a sacral bump was placed. L The lower extremity was then prepped out in a sterile fashion using chlorhexidine while the surgeon scrubbed. The PA was vital in the positioning of the patient. Upon reentering the room the left lower extremity was draped in the standard orthopedic fashion and the incision was marked. A timeout was called and everyone agreed upon the side, the site, the procedure be performed, antibody given, and patient's identity. At this time incision was made through skin, subcutaneous tissue, and fat down to fascia. The fascia was then incised and the TFL was retracted laterally. A retractor was placed on the lateral border of the femoral neck. Attention was directed to the inferior portion of the approach and all crossing vessels were identified and appropriately coagulated. A retractor was then placed on the medial portion of the femoral neck. The anterior capsule was then cleared of all soft tissue and then H shaped capsulotomy was made. The retractors were then placed inside the capsule. The femoral neck was identified and a cleanup cut was made. At this time a power corkscrew was used to remove the femoral head. Attention was then turned toward the acetabulum where the soft tissues were appropriately retracted and the acetabulum was sequentially reamed to 48 mm. A 48 mm cup was then selected and impacted into place. Acetabular liner was impacted into place and locking mechanism was verified. The position of the acetabular cup was then verified under live fluoroscopy. Attention was then turned to the femur. Soft tissue releases on the medial and lateral femoral neck were appropriately done, the leg was externally rotated and lateralized. A Scales retractor was placed medially and proximally to the greater trochanter this allowed appropriate visualization and exposure of the femoral canal. Rongeour was then used to remove excess lateral bone. A canal finder and entry broach were used to open the proximal canal. Once we verified we were down the femoral canal we subsequently broached up to a size 3 femur. The appropriate neck was placed in the previously selected head was trialed with a -2.5 mm neck. Traction was pulled and the hip was reduced with internal rotation. Once it was appropriately reduced and stability was checked. There was minimal shuck, equal leg lengths and appropriate stability with hyperextension and external rotation as well as with 90? flexion and internal rotation. Fluoroscopy was then also used to verify the position of the components and leg lengths using the contralateral side for comparison. The trial components were then dislocated the proximal femur was again exposed and the components were removed from the wound. The final components were verified and opened. The wound was copiously irrigated out with normal saline. The acetabulum was checked for any residual debris. The final components were placed and impacted. Traction and internal rotation were again used to reduce the hip. After adequate reduction the hip remained stable with appropriate leg lengths. The final components were once again checked with live fluoroscopy and were found to be satisfactory. The wound was then copiously irrigated with normal saline once more, and hemostasis was obtained. Closure was then done using #1 Vicryl runner to close the fascia. A 2-0 vicryl interuppted sutures were used to close the subcutaneous skin. A 3-0 Monocryl and Steri-Strips were used for final skin closure. A Silverlon dressing was placed. Patient was awakened by anesthesia and transferred to [facility]. Patient was then transferred to the PACU for recovery. During the course of the procedure the physician casino banker (PE) played a vital role. Their intimate knowledge of my steps in the procedure aided in safe and expedient completion of the procedure. The PE played a vital rolls in positioning particularly in obtaining the appropriate positioning of the sacral bump. The PE was also vital in the retraction of soft tissues during the exposure and especially the femoral work as this is a vital part of the procedure to prevent complications and fractures. The PE was also vital and protecting soft tissues during times of bony cuts and reaming. He also played a vital role in closure with my direct supervision. The PE was also important during reduction and dislocation of the joint and trials intraoperatively. Postoperative plan: Patient will get 24 hours postop antibiotics. Patient will get in-house physical therapy and will be weight-bear as tolerated. Patient will follow up in office in 2 weeks for a wound check and x-rays. Patient will take Xarelto 10 mg p.o. daily for DVT prophylaxis due to previous DVT. Patient tested staph positive preoperatively will be on doxycycline started at oral antibiotics for 2 weeks 100 mg p.o. twice daily. Complications No intraoperative complications Admit VTE Documentation VTE Present on Admission: No VTE Mechan Device Prophylaxis: SCD's and Thigh High BRAYAN Hose VTE Pharm Prophylaxis ordered?: Yes
--- NOTE | 2023-11-17 10:26 | SUR.PHASEI ---
PATIENT AWAITING ROOM ON MS3. WILL HOLD ON PHASE 2 IN AC 1
[2023-11-17] MEDS: Lactated Ringers 1,000 ML 125 ML IV (13:14)
--- NOTE | 2023-11-17 13:20 | PCM.CONS.GEN ---
Assessment & Plan Assessment/Plan (1) Status post left hip replacement: (2) HTN (hypertension): PLAN: Plan #Left hip osteoarthritis s/p left direct anterior hip replacement today is POD 0 pain management as per orthopedics; on PO tylenol, oxycodone and IV morphine prn for pain. PT./OT on board incentive spirometry use fall precautions #Hypertension; on metoprolol and amlodipine, as well as chlorthalidone. IV hydralazine prn #Hypothyroidism; on synthroid #Depression; on venlafaxine #hyperlipidemia: on statin DVT prophylaxis: as per primary team. On xarelto as per primary service. Thank you for the courtesy of the consult. The hospitalist service will continue to follow with you. HPI Consult Data Date of Consult: 11/17/23 HPI Narrative Reason for Consultation: medical management HPI Narrative: LUCAS HOWARD, is a 73 F with a PMH as outlined who was admitted to the service of orthopedic surgery for left direct anterior total hip arthroplasty for osteoarthritis of the hip. She had the surgery on 11/17/2023. Hospitalist service was consulted for medical management. Patient was seen after the surgery. She had no active complaints. Pain is fairly well controlled. She denied any cough, chest pain, palpitations, dizziness, nausea, vomiting or any other symptoms. Review of systems is otherwise negative. Vitals at time of review were BP of 112/63, MI of 75, RR of 18, temp of 98.1F, oxygen sats of 95% on 2L of oxygen. [facility] Medical History (Updated 11/17/23 @ 13:[address] Vaishali Palm MD) Wears glasses Ambulates with cane Arthritis High cholesterol Gastric reflux Non-smoker Shortness of breath on exertion Chronic cough History of edema Second degree uterine prolapse History of pneumonia Phlebitis, superficial Hypothyroid Joint pain HTN (hypertension), benign Sarcoidosis Home Medications ?Medication ?Instructions ?Recorded ?Last Taken ?Type albuterol sulfate 90 mcg/actuation 2 puff inhalation Q6H PRN sob 12/31/17 Unknown History aerosol inhaler (ProAir HFA) chlorthalidone 25 mg tablet 25 mg PO QDAY 12/31/17 Unknown History levothyroxine 50 mcg capsule 50 mcg PO QDAY 12/31/17 11/17/23 04:00 History metoprolol succinate 25 mg 25 mg PO DAILY 06/02/22 11/17/23 04:00 History tablet,extended release 24 hr amlodipine 2.5 mg tablet 5 mg PO DAILY 06/11/23 11/17/23 04:00 History mometasone-formoterol HFA 100 2 puff inhalation BID 06/11/23 Unknown History mcg-5 mcg/actuation aerosol inhaler (Dulera) mucus clearing device (Quake 06/11/23 Unknown History Vibratory PEP device) omeprazole 20 mg capsule,delayed 40 mg PO 1700 06/11/23 Unknown History release fluticasone propionate 50 2 spray intranasal DAILY 06/17/23 Unknown History mcg/actuation nasal spray,suspension (Flonase Allergy Relief) epinastine 0.05 % eye drops 1 drp ophthalmic (eye) Q12H 08/17/23 Unknown History pravastatin 10 mg tablet 10 mg PO DAILY 09/22/23 Unknown History venlafaxine 37.5 mg 37.5 mg PO DAILY #90 caps 09/22/23 Unknown Rx capsule,extended release 24 hr (Effexor XR) cholecalciferol (vitamin D3) 50 50 mcg PO DAILY 10/25/23 Unknown History mcg (2,000 unit) chewable tablet elderberry fruit 460 mg-elderberry 2 cap PO DAILY 10/25/23 Unknown History flower 115 mg capsule multivitamin with minerals-folic 1 tab PO DAILY 10/25/23 Unknown History acid 200 mcg chewable tablet (Adult Multivitamin Gummies) pitavastatin calcium 1 mg tablet 1 mg PO DAILY 10/25/23 Unknown History potassium chloride 20 mEq 40 meq PO DAILY 11/17/23 Unknown History tablet,extended release (K-Tab) Allergy/AdvReac Type Severity Reaction Status Date / Time Seasonal Allergies: Uncoded Allergy Other Verified 10/25/23 11:14 Family History Mother Cancer Thyroid Cancer Diabetes Hypertension Gout Thyroid disorder Father , Age 33 Complications from gastric surgery No problems noted. Sister Rheumatoid arthritis Thyroid disorder Cancer Brother Myocardial infarction Hypertension CAD (coronary artery disease) Daughter Thyroid disorder Surgical History (Updated 11/17/23 @ 13:[address] 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 [employer] current occupational exposures/hazards: No pets and animals: No history of recent travel: No Smoking Status: Never smoker second hand exposure: No alcohol intake: never substance use type: does not use seatbelt use: always do you feel safe at home: Yes additional social history: ROS Constitutional Constitutional: Denies anorexia, chills, fatigue, fever(s) or weakness Eyes Eyes: Denies change in vision ENT HEENT: Denies dysphagia Cardiovascular Cardiovascular: Denies chest pain, dyspnea on exertion, edema, lightheadedness, orthopnea, palpitations, paroxysmal nocturnal dyspnea or rapid heart rate Respiratory/Chest Respiratory/Chest: Denies cough, dyspnea, shortness of breath at rest or shortness of breath with exertion Gastrointestinal Gastrointestinal: Denies constipation, diarrhea, nausea or vomiting Musculoskeletal Musculoskeletal: Reports joint pain; Denies arthralgias or back pain Neurologic Neurologic: Denies confusion, dizziness, focal weakness, headache(s) or numbness Psychiatric Psychiatric: Denies anxiety Hematologic/Lymphatic Hematologic/Lymphatic: Denies anemia Physical Exam Const alert, oriented x3 and no apparent distress General Appearance: cooperative HEENT normocephalic, head/scalp atraumatic, hearing grossly normal bilaterally, moist oral mucous membranes and oropharynx normal Mouth: oral and palatal mucosa normal Eyes PERRL, EOMs intact bilaterally and conjunctivae normal Neck no lymphadenopathy, supple and no JVD Resp normal respiratory effort, no retractions, no use of accessory muscles and clear to auscultation bilaterally Cardio regular rate, regular rhythm, S1 normal heart sound, S2 normal heart sound and no murmurs GI normal to inspection, nondistended, normoactive bowel sounds, soft to palpation, non-tender and non-distended Extremity normal to inspection and no clubbing, cyanosis or edema Extremity Narrative: intact dressing over surgical site onleft hip Neuro oriented x3 and CN's II-XII intact bilaterally Sensorium / Orientation: awake and alert Psych affect normal Lab / Micro Data 10/26/23 10:40 10/26/23 10:40 Labs: Laboratory Results - last 24 hr 11/17/23 06:18: POC Glucose 103 Imaging Radiology Impression Hip X-Ray 11/17/23 07:04 IMPRESSION: New left hip arthroplasty, with no periprosthetic fracture. Degenerative arthrosis of the right hip joint. Electronically Signed: Luigi Marrero MD at 9:44 EDT , Hip/Pelvis X-Ray 11/17/23 08:12 IMPRESSION: New left hip arthroplasty. Electronically Signed: Luigi Marrero MD at 8:59 EDT , Charges/Coding Visit Charges Inpatient E&M: 10607 Subs Hosp L2
[2023-11-17] MEDS: Chlorthalidone 50 MG Tablet 25 MG PO (13:44)
[2023-11-17] MEDS: Venlafaxine XR 37.5 MG Capsule PO (13:44)
[2023-11-17] MEDS: Cefazolin 1 GM/50 ML BAG IV ×2 (15:03→23:00)
[2023-11-17] MEDS: Ensure Surgery 237 ML LIQUID PO (16:58)
[2023-11-17] MEDS: Pantoprazole Sodium 40 MG Tablet PO (16:58)
[2023-11-17] MEDS: Budesonide Respules 0.5 MG/2 ML AMPUL.NEB. INHALATION (19:14)
[2023-11-17] MEDS: Albuterol 2.5 MG/3 ML VIAL.NEB. INHALATION (19:14)
[2023-11-17] MEDS: Senna/Docusate Sodium 1 Tablet 2 TABLET PO (23:00)
[2023-11-17] MEDS: Atorvastatin Calcium 10 MG Tablet 5 MG PO (23:00)
[2023-11-18] VITALS (7 sets, daily range): BP systolic 129–132; BP diastolic 56–88; PULSE 65–78; RESP 18; TEMP 36.4–36.9; O2SAT 92–94
[2023-11-18] MEDS: Rivaroxaban 10 MG Tablet PO (06:11)
[2023-11-18] MEDS: Levothyroxine 50 MCG Tablet PO (06:11)
[2023-11-18] MEDS: Acetaminophen 500 MG Tablet 1000 MG PO ×2 (06:11→14:56)
[2023-11-18] MEDS: Albuterol 2.5 MG/3 ML VIAL.NEB. INHALATION (07:10)
[2023-11-18] MEDS: Budesonide Respules 0.5 MG/2 ML AMPUL.NEB. INHALATION (07:10)
[2023-11-18 07:22] LABS: Hematocrit 34.6 % (37-47); Hemoglobin 11.4 g/dL (12.0-15.0); Mean Corp Hgb Conc 32.9 g/dL (32-36); Mean Platelet Vol. 10.1 fl (6.2-12.0); Platelet Count 365 K/mm3 (150-450); RBC Distribution Width CV 12.8 % (11.6-14.6); RBC Distribution Width SD 41.1 fl (35.1-43.9); Red Blood Count 3.93 M/mm3 (4.2-5.4); White Blood Count 14.7 K/mm3 (4.4-11.0)
[2023-11-18 08:01] LABS: Anion Gap 8 (5-15); BUN 15 mg/dL (7-18); BUN/Creat Ratio 18.7 RATIO (10-20); Calcium,Total 8.7 mg/dL (8.5-10.1); Chloride 95 mmol/L (98-107); EST Glomerular Filtration Rate 75 mL/min (>60); Est Glom Filt Rate - Afr Amer 90 mL/min (>60); Estimated Creatinine Clearance 70.78 ml/min; Glucose 147 mg/dL (74-106); Sodium Level 130 mmol/L (136-145)
[2023-11-18] MEDS: 0.9% Saline Lock 10 ML Syringe IV (08:15)
[2023-11-18] MEDS: Furosemide 20 MG/2 ML VIAL IV (08:15)
[2023-11-18] MEDS: Potassium Chloride Oral Tablet 20 MEQ 40 MEQ PO ×2 (08:16)
[2023-11-18] MEDS: Cholecalciferol (VIT D3) 25 MCG TABLET (1,000 UNITS) 50 MCG PO (08:17)
[2023-11-18] MEDS: Ensure Surgery 237 ML LIQUID PO (08:21)
--- NOTE | 2023-11-18 09:36 | CASEMGMT ---
Met with?patient to complete FERREIRA form. FERREIRA form explained to patient who voiced understanding and signed form. Original form placed in pt?s chart and copy provided to?patient. Amy Bess, Discharge Planning Asst
--- NOTE | 2023-11-18 10:30 | CASEMGMT ---
Addendum entered by Carin Hamlin 11/18/23 12:19: Pt aware of PCP appt and states that works well for her. She is also aware there is no copay for her xarelto. Addendum entered by Carin Hamlin 11/18/23 11:52: TC to [facility], no charge for xarelto. Addendum entered by Carin Hamlin 11/18/23 11:36: PCP appt made per request of ortho and placed on dc instructions. Addendum entered by Carin Hamlin 11/18/23 11:03: Provided pt with a rx for DME. Original Note: CHARISSA MCDOWELL Assessment: Face to Face with pt for initial transition planning/care coordination assessment. CHARISSA MCDOWELL introduced self and role at [facility], pt voices understanding and consents to assessment. Pt is A&O x4 and answers all questions appropriately at this time. Pt lying in bed in no distress. Care providers, pharmacy, and demographics verified/updated. Admitting Dx: ant left total hip arthroplasty PCP:Bobbi Specialists:zheng Reed; Ammon Mills Preferred Pharmacy: [facility] Insurance: MCR, MCR Supp Prescription Benefit: yes LNOK: Barbara Zaragoza, jaycer; An Hernandez dtr Living Arrangements: Pt lives alone in a single story home with 1 step to enter. Pt reports she was I in all ADL/IADL's prior to surgery. Pt dtr is staying with her for 3 days to assist in care. Pt denies concerns at home. Transportation: Pt drives self and denies concerns with transportation. Pt family and friends will transport pt until she is able again medically. 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 Pt is requesting a rx for a raised toilet seat, leg spinner box and sock aid as she states that her insurance will cover this. Requested rx from SANTHOSH Marrero and it is signed. Pt is aware she will be dc'd with xarelto. She states she has had this before and it was approx $100 and this is affordable to her. She is aware that this RN CM will call to check the cost. Pt has outpt therapy set up for next Wednesday at [facility]. Pt states no further concerns/needs. CM to follow. Advised pt to ask CM if any further question/concerns/needs arise, voices understanding. Pt Goal: Home with OP therapy already set up Plan: Home with OP therapy already set up, rx for COLLIN Naranjo RN CM
[2023-11-18] MEDS: Potassium Chloride Oral Tablet 20 MEQ 60 MEQ PO (10:40)
[2023-11-18] MEDS: Metoprolol(XL)Succ 25 MG Tablet PO (10:41)
[2023-11-18] MEDS: Venlafaxine XR 37.5 MG Capsule PO (10:41)
[2023-11-18] MEDS: oxyCODONE 5 MG Tablet PO (10:41)
[2023-11-18] MEDS: Senna/Docusate Sodium 1 Tablet 2 TABLET PO (10:42)
[2023-11-18] MEDS: Fluticasone 0.05% 1 SPRAY NASAL.SRY 2 SPRAY NASAL (10:42)
[2023-11-18] MEDS: Doxycycline 100 MG CAPSULE PO (10:43)
[2023-11-18] MEDS: amLODIPine 5 MG Tablet PO (10:43)
[2023-11-18] MEDS: Chlorthalidone 50 MG Tablet 25 MG PO (10:44)
--- NOTE | 2023-11-18 11:06 | PN.ORTHO_ITS ---
Subjective Subjective The patient was sitting in bedside chair upon examination. Patient denies any chest pain, shortness of breath, dizziness, lightheadedness, nausea or vomiting, or calf pain. Pain is controlled on medications. No adverse overnight events. Patient has been up walking and doing well with regards to her left hip. The pain is adequately controlled. Patient's lab work was reviewed which did reveal hyponatremia and hypokalemia. Patient has been dealing with some hypokalemia with her primary care physician in which she is taking oral potassium which has been recently increased. She denies any chest pain, heart palpitations, numbness tingling. Patient's vitals have been stable. There has been no confusion. Objective Data Objective Data Vital Signs: Vital Signs Temp Pulse Resp BP Pulse Ox O2 Del Method O2 Flow Rate 97.6 F L 78 18 129/69 H 94 Nasal Cannula 2 11/18/23 03:47 11/18/23 10:41 11/18/23 07:12 11/18/23 03:47 11/18/23 03:47 11/18/23 03:47 11/18/23 03:47 Oxygen Flow Rate (L/min) 2 Oxygen Delivery Method Nasal Cannula Weight: 94.3 kg Body Mass Index (BMI) 35.6 Intake & Output: Intake and Output for Last 24 Hours 11/16/23 11/17/23 11/18/23 23:59 23:59 23:59 Intake Total 5274.25 / 5274.25 900 / 900 Balance 5274.25 / 5274.25 900 / 900 Lab / Micro Data 11/18/23 07:09 11/18/23 07:09 Labs: Laboratory Results - last 24 hr 11/18/23 07:09: WBC 14.7 H, RBC 3.93 L, Hgb 11.4 L, Hct 34.6 L, MCV 88.0, MCH 29.0, MCHC 32.9, RDW Std Deviation 41.1, RDW Coeff of Janet 12.8, Plt Count 365, MPV 10.1, Sodium 130 L, Potassium 3.0 L, Chloride 95 L, Carbon Dioxide 27.0, Anion Gap 8, BUN 15, Creatinine 0.80, Estim Creat Clear Calc 70.78, Est GFR (MDRD) Af Amer 90, Est GFR (MDRD) Non-Af 75, BUN/Creatinine Ratio 18.7, Glucose 147 H, Calcium 8.7 Micro: Microbiology 10/26/23 10:40 Swab (Method) Nasal Screen MRSA/MSSA - Final Physical Exam Narrative Vital signs stable and afebrile. SCDs and BRAYAN hose are in place bilaterally Left hip is soft and supple Patient is able to plantarflex and dorsiflex actively. Sensation is intact to light touch to saphenous, sural, superficial and deep peroneal, and tibial distribution. Dressing is clean dry and intact. Negative Homans bilaterally, negative signs and symptoms of DVT. Const alert, oriented x3 and no apparent distress Assessment & Plan Assessment/Plan (1) Status post left hip replacement: PLAN: 1. S/P direct anterior left total hip arthroplasty POD #1 2. Continue Pain Medications: Tylenol and oxycodone. Patient states that she will occasionally use Tylenol PM for sleeping at nighttime. I did advise her that if she does use this she should not take the evening dose of the Exer strength Tylenol. She voiced understanding. 3. DVT Prophylaxis: Patient is currently on Xarelto 10 mg once daily for 2 weeks postoperatively due to past history of DVT. After 2 weeks of Xarelto she will then use aspirin 81 mg twice daily for an additional 2 weeks. She voiced understanding and agreement with DVT prophylaxis plan. I do not recommend any nonsteroidal anti-inflammatories while taking the Xarelto. 4. PT/OT: Weightbearing as tolerated with walker. Anterior hip precautions 5. H & H: 11.4/34.6, asymptomatic. Labs have been reviewed. Case was also discussed with regards to the hyponatremia at 130 and hypokalemia at 3.0. Preoperatively patient had hypokalemia at 3.4. 6. Reactive leukocytosis: 14.7, Afebrile. Patient did receive Decadron intraoperatively. No clinical signs of infection. 7. Continue postoperative medical treatment per medicine: Case was discussed with medicine and they did give her potassium today. They also recommend okay for discharge home this afternoon with repeat labs in 1 week and follow-up with the primary care provider. 8. Currently on doxycycline for 2 weeks postoperatively due to positive staph screening preoperatively. I discussed with the patient potential side effects of doxycycline including sensitivity to the sunlight and increased risk of skin burn. Recommend patient take appropriate precautions. Also recommend patient to take probiotic while on the antibiotic. Patient voiced understanding agreement. 9. Encouraged Incentive Spirometry 10. Patient is aware of postoperative constipation that can occur from 1-3 days postoperatively. Will continue with senna 2 tablets twice daily until first bowel movement. Patient was advised if not having a bowel movement after day 3 she is to contact orthopedics so appropriate change can be made. Patient voiced understanding. 11. Disposition: Plan will be for discharge home this afternoon as long as patient remains medically stable, tolerates therapy, and pain is adequately controlled. Case was discussed with medicine and they are okay with patient going home with repeat lab work in 1 week and follow-up with primary care provider in 1 week. Patient has already been treated preoperatively for hypokalemia with oral potassium. She will continue this as prescribed by PCP. Lab order will be placed on chart. Case management will assist in follow-up with primary care provider in 1 week. Patient would like her prescriptions E scribed to [facility]. She will follow-up per postoperative instructions. Patient has outpatient physical therapy established. Patient was advised upon discharge to contact our office with any concerns or questions. I have reviewed the [place] Automated Rx Reporting System (OARRS) report for this patient for refill pattern and other prescriber involvement as part of the appropriate surveillance for the provision of acute and chronic controlled medications. The report was requested and reviewed on the date of this entry and was considered in the prescribing process. This dictation was created using voice recognition software. Phonetic and/or grammatical errors may exist.
--- NOTE | 2023-11-18 11:16 | PCM.DC ---
Discharge Instructions Diet Discharge Diet: No restrictions Activity Discharge Activity: May Not Drive (Must be able to walk 100 feet with use of cane and be off all narcotics before driving.) May shower in (days): 1 (only if incision is dry and without drainage. Do NOT soak/submerge in tub/pool/ortega/stream/hot tub.)) Ice area for (Minutes): 20 (Every 1-2 hours while [address] barrier between ice and skin.) Weight Bearing Status: Weight bearing as tolerated Keep extremity elevated above heart level: Operative Extremity Dressing / Incision Call your doctor if your incision/area has: Continuous Slow Oozing, Sudden Increased Bleeding, Increased Pain/ Swelling, Increased Redness and Foul Smelling Discharge Call your doctor if you observe: Fever of 101 or Higher, Shortness of breath, Chest pain, Calf discomfort and Uncontrolled pain Remove Dressing in: 4 days (Okay to remove dressing on November 22, 2023) Additional Dressing/Incision Instructions:: Follow [facility] Post-op Instructions. Once postoperative dressing has been removed, only use gentle soap and water over the incision. Do not use any ointments, Neosporin, salves, alcohol pads over the incision for 6 weeks postoperatively. Do not submerge underwater for 6 weeks postoperatively. Continue with BRAYAN hose/elastic stockings for 2 weeks postoperatively. May remove at nighttime but needs to be placed back on the leg during the day. Do NOT use alcohol with narcotic pain medication. Do NOT make important decisions while taking narcotic medication. If you have problems with taking your medication (rash, itching, nausea, etc.) call the office at once. Follow Up Care Test Results: Test results from this visit will be discussed in further detail at your follow-up appointment, if applicable. Discharge Plan Admission Admit Date/Time: 11/17/23 07:04 Attending Provider: Rob Reed Primary Care Provider: Akhil Martines Consulting Providers: Jayden Bean; Jess Rizo; Srinivasan Sullivan; Farzaneh Marrero Discharge Orders/Prescriptions Prescriptions: New acetaminophen 500 mg Tablet 1,000 mg PO Q8 14 Days Qty: 84 0RF Rx Instructions: Do not take more than 3000 mg Tylenol in a 24-hour period. doxycycline monohydrate 100 mg Capsule 100 mg PO BID 14 Days Qty: 28 0RF oxycodone 5 mg Tablet 5 - 10 mg PO Q4H PRN PRN (Reason: Pain Score 4-10) 7 Days Qty: 52 0RF sennosides-docusate sodium [Stool Softener-Stimulant Laxat] 8.6-50 mg Tablet 2 tab PO BID 3 Days Qty: 12 0RF Rx Instructions: Take until first bowel movement, then as needed Xarelto 10 mg Tablet 10 mg PO DAILY@0600 13 Days Qty: 13 0RF Continued albuterol sulfate [ProAir HFA] 90 mcg/actuation HFA aerosol inhaler 2 puff INHALATION Q6H PRN (Reason: sob) chlorthalidone 25 mg tablet 25 mg PO QDAY levothyroxine 50 mcg capsule 50 mcg PO QDAY metoprolol succinate 25 mg tablet extended release 24 hr 25 mg PO DAILY omeprazole 20 mg capsule,delayed release(DR/EC) 40 mg PO 1700 Dulera 100-5 mcg/actuation HFA aerosol inhaler 2 puff inhalation BID (DME) Quake Vibratory PEP Device See Rx Instructions .Route Rx Instructions: As directed fluticasone propionate [Flonase Allergy Relief] 50 mcg/actuation spray,suspension 2 spray intranasal DAILY Rx Instructions: administer into each nostril epinastine 0.05 % drops 1 drp ophthalmic (eye) Q12H Patient Comments: INSTILL 1 DROP INTO BOTH EYES TWICE A DAY pravastatin 10 mg tablet 10 mg PO DAILY venlafaxine [Effexor XR] 37.5 mg capsule,extended release 24hr 37.5 mg PO DAILY Qty: 90 3RF amlodipine 2.5 mg tablet 5 mg PO DAILY pitavastatin calcium 1 mg tablet 1 mg PO DAILY multivit with min-folic acid [Adult Multivitamin Gummies] 200 mcg tablet,chewable 1 tab PO DAILY cholecalciferol (vitamin D3) 50 mcg (2,000 unit) tablet,chewable 50 mcg PO DAILY elderberry fruit and flower 460-115 mg capsule 2 cap PO DAILY potassium chloride [K-Tab] 20 mEq tablet extended release 40 meq PO DAILY Other Ambulatory Orders: 12 Lead EKG (Routine) Timeframe: 20231026 Location: None Selected Ordered By: Dr. Rob Reed Basic Metabolic Profile (BMP) (Routine) Timeframe: 1 Week Facility: [facility] - Location: Laboratory Ordered By: Janes TREVIZO Referrals / Follow Up: Physical,Therapy [Other] - 11/23/23 10:30 am Akhil Martines MD [Primary Care Provider] - Janes Head PA-C [Med Staff - [facility]] - 11/29/23 3:45 pm Disposition Disposition (needs filled in before D/C Order can be placed): Home, Self Care
--- NOTE | 2023-11-18 12:33 | CASEMGMT ---
Social Work SW met with pt to discuss advance directives.? Pt confirms he has completed a living will and health care POA naming Amy Mason, .? Pt notified that documents are not on file at [facility] and SW requested they be brought in for scanning into the EMR.? ESVIN Che
--- NOTE | 2023-11-18 12:35 | CASEMGMT ---
Social Work SW met with pt to discuss advance directives.? Pt confirms she has completed a living will and health care POA naming Barbara Zaragoza, daughter.? Pt notified that documents are not on file at [facility] and SW requested they be brought in for scanning into the EMR.? ESVIN Che
--- NOTE | 2023-11-18 15:22 | PHA.DC.MC.R ---
Pharmacy [facility] Pharmacy Service has performed discharge medication reconciliation and counseling for this patient. 1. ACETAMINOPHEN 1000MG PO Q8 2. DOXYCYCLINE 100MG PO BID X 7 DAYS 3. OXYCODONE 5-10MG PO Q4H PRN PAIN 4. SENNA/DOCUSATE 2T PO BID UNTIL FIRST BM, THEN PRN CONSTIPATION 5. RIVAROXABAN 10MG PO DAILY The patient's discharge medication list was reviewed for discrepancies and discrepancies were resolved. The patient was counseled on the following discharge medications and changes in medications for homegoing were reviewed. The Reason for Use, instructions for use, and potential side effects were reviewed for all new medications. The patient's questions regarding all of their medications were answered. The patient was able to verbally demonstrate an understanding of their discharge medications. Medications at Discharge Home Medications albuterol sulfate 90 mcg/actuation aerosol inhaler (ProAir HFA) 2 puff inhalation Q6H PRN sob 12/31/17 chlorthalidone 25 mg tablet 25 mg PO QDAY 12/31/17 levothyroxine 50 mcg capsule 50 mcg PO QDAY 12/31/17 metoprolol succinate 25 mg tablet,extended release 24 hr 25 mg PO DAILY 06/02/22 amlodipine 2.5 mg tablet 5 mg PO DAILY 06/11/23 mometasone-formoterol HFA 100 mcg-5 mcg/actuation aerosol inhaler (Dulera) 2 puff inhalation BID 06/11/23 mucus clearing device (Quake Vibratory PEP device) 06/11/23 omeprazole 20 mg capsule,delayed release 40 mg PO 1700 06/11/23 fluticasone propionate 50 mcg/actuation nasal spray,suspension (Flonase Allergy Relief) 2 spray intranasal DAILY 06/17/23 epinastine 0.05 % eye drops 1 drp ophthalmic (eye) Q12H 08/17/23 venlafaxine 37.5 mg capsule,extended release 24 hr (Effexor XR) 37.5 mg PO DAILY #90 caps 09/22/23 cholecalciferol (vitamin D3) 50 mcg (2,000 unit) chewable tablet 50 mcg PO DAILY 10/25/23 elderberry fruit 460 mg-elderberry flower 115 mg capsule 2 cap PO DAILY 10/25/23 multivitamin with minerals-folic acid 200 mcg chewable tablet (Adult Multivitamin Gummies) 1 tab PO DAILY 10/25/23 pitavastatin calcium 1 mg tablet 1 mg PO DAILY 10/25/23 potassium chloride 20 mEq tablet,extended release (K-Tab) 40 meq PO DAILY 11/17/23 acetaminophen 500 mg tablet 1,000 mg (2 x 500 mg) PO Q8 14 days #84 tabs 11/18/23 doxycycline monohydrate 100 mg capsule 100 mg PO BID 14 days #28 caps 11/18/23 oxycodone 5 mg tablet 5 - 10 mg (1 - 2 x 5 mg) PO Q4H PRN PRN Pain Score 4-10 7 days #52 tabs 11/18/23 rivaroxaban 10 mg tablet (Xarelto) 10 mg PO DAILY@0600 13 days #13 tabs 11/18/23 sennosides 8.6 mg-docusate sodium 50 mg tablet (Stool Softener-Stimulant Laxative) 2 tab PO BID 3 days #12 tabs 11/18/23
== END 2023-11-18 15:26 | disposition home or self-care (01) ==
LOC: SDC 12:42 → MS3 12:43
PROVIDERS: Anesthesiology; Admitting Provider Specialist; PCP Family Medicine; Referring Provider Specialist; Visit Provider Specialist
PROC: (CPT 27284; principal; 2023-11-17 07:05)
DX: M16.0 Bilateral primary osteoarthritis of hip (principal); E07.9 Disorder of thyroid, unspecified; D86.9 Sarcoidosis, unspecified; E66.9 Obesity, unspecified; K21.9 Gastro-esophageal reflux disease without esophagitis; Z79.51 Long term (current) use of inhaled steroids; I10 Essential (primary) hypertension; E87.1 Hypo-osmolality and hyponatremia; Z68.36 Body mass index [BMI] 36.0-36.9, adult; E87.6 Hypokalemia; E78.00 Pure hypercholesterolemia, unspecified; Z86.718 Personal history of other venous thrombosis and embolism; Z79.899 Other long term (current) drug therapy; Z79.890 Hormone replacement therapy; R06.02 Shortness of breath
CPT/HCPCS: 27130; 01214; 36415; 73501; 73502; 76000; 80048; 82040; 82962; 83735; 84443; 85025; 85027; 87077; 87081; 88305; 88311; 93005; 94640; 94668; 96361; 96365; 96366; 97162; 97166; 97530; 99221; 99252; C1776; J7040; J7120; A4216; G0378; G0463; J1940; J2405; J3475

== ENCOUNTER → 2024-06-30 | Outpatient (CLI) | payer MEDICARE, OTHER, SELFPAY | END | disposition home or self-care (01) | LOC: PSN 10:39 | PROVIDERS: PCP Family Medicine; Referring Provider Nurse Practitioner Acute Care; Visit Provider Nurse Practitioner Acute Care | DX: D86.9 Sarcoidosis, unspecified (principal) | CPT/HCPCS: 94060; 94726; 94729 ==

== ENCOUNTER → 2024-07-18 | Outpatient (CLI) | payer MEDICARE, OTHER, SELFPAY ==
--- NOTE | 2024-07-18 10:08 | BI_ITS ---
MAMMOGRAPHY - BILATERAL SCREENING REASON FOR EXAM: Female, 74 years old. Routine annual screening examination. PERTINENT HISTORY: Non-contributory. Remote left breast biopsy. TECHNIQUE: Digital bilateral breast mildred (3D mammographic acquisition) in the CC and MLO projections. 2-D mediolateral oblique (MLO) and craniocaudad (CC) views of both breasts were obtained. CAD: Full Field Digital Mammography with Computer Added Detection was performed. COMPARISON: Comparison is made with prior study dated July 14, 2023 and February 14, 2021. FINDINGS: Breast Composition: The breasts are heterogeneously dense, which may obscure small masses. There are no dominant masses or suspicious calcifications. Stable bilateral secretory calcification. No other significant abnormalities are identified. There has been no significant change since the prior study. BI/SCRN MAMM (CAD)W/MILDRED BILAT IMPRESSION: Stable bilateral screening mammogram. Yearly follow-up mammogram recommended. (A) ASSESSMENT CATEGORY: BIRADS Category 2: Benign. A letter regarding these results will be sent to the patient by the facility within 30 days. Approximately 10% of breast cancers are not detected by mammography. A normal mammogram should not delay biopsy of a clinically suspicious abnormality. [id number] Electronically Signed: Miller Charles MD at 10:57 EST ,
== END | disposition home or self-care (01) ==
LOC: OPBI 10:06
PROVIDERS: PCP Family Medicine; Referring Provider Obstetrics & Gynecology; Visit Provider Obstetrics & Gynecology
DX: Z12.31 Encounter for screening mammogram for malignant neoplasm of breast (principal)
CPT/HCPCS: 77063; 77067

== ENCOUNTER → 2024-08-08 | Outpatient (CLI) | payer MEDICARE, OTHER, SELFPAY ==
--- NOTE | 2024-08-08 09:57 | BD_ITS ---
PROCEDURE: DEXA BONE DENSITY STUDY REASON FOR EXAM: F, age 74 y/o . Postmenopausal. TECHNIQUE: DEXA scan of the lumbar spine and right hip. COMPARISON: None. FINDINGS: Lumbar Spine (L1-L4): g/cm2 (0.861)/T-score (-1.7)/Z-score (0.6) findings are suggestive of osteopenia with a moderate fracture risk. Right Femur Total: g/cm2 (0.729)/T-score (-1.7)/Z-score (-0.1) Right Femoral Neck: g/cm2 (0.661)/T-score (-1.7)/Z-score (0.3) BD/Dexa Bone Density Study IMPRESSION: The patient is considered osteopenic as outlined below according to World [employer] Organization (WHO) criteria with a moderate fracture risk. Reading Location: [place] [id number]
== END | disposition home or self-care (01) ==
PROVIDERS: PCP Family Medicine; Referring Provider Obstetrics & Gynecology; Visit Provider Obstetrics & Gynecology
DX: Z78.0 Asymptomatic menopausal state (principal)
CPT/HCPCS: 77080

== ENCOUNTER → 2025-04-11 | Outpatient (CLI) | payer MEDICARE, OTHER, SELFPAY ==
[2025-04-11 13:12] LABS: AST(SGOT) 25 U/L (<=31); Alanine Aminotransfer ALT/SGPT 11 U/L (<=34); Albumin, Serum 4.2 g/dL (3.4-4.8); Alkaline Phosphatase 136 U/L (35-104); Anion Gap 10 (5-15); BUN 19 mg/dL (4-19); BUN/Creat Ratio 22.2 RATIO (10-20); Calcium,Total 9.8 mg/dL (7.6-11.0); Carbon Dioxide 26.9 mmol/L (21.0-32.0); Chloride 102 mmol/L (98-108); Globulin 3.4 g/dL (2.2-4.2); Glucose 96 mg/dL (70-99); Potassium 4.2 mmol/L (3.3-5.1)
== END | disposition home or self-care (01) ==
PROVIDERS: PCP Family Medicine; Visit Provider Nurse Practitioner Women's Health
DX: N95.1 Menopausal and female climacteric states (principal)
CPT/HCPCS: 36415; 80053